=== PATIENT | male | born 1945 | race Caucasian/White ===

== ENCOUNTER 2016-03-03 19:25 | Outpatient (CLI) | payer MEDICARE ==
[~2016-03-03 19:25] MED LIST: ASP81CT PO; ATOR40TA PO; BENA5TAB PO; FEXO180T84 PO; HCTZ12.5T PO; HYDR-3730 PO; HYDR12.56 PO; INSA10V SC; METF-380 PO; METO25TA2 PO; MTF500T PO; MULT-963 PO; NAPR220C11 PO; OMEG-12 PO; OXYC-12 PO; TICA90TA PO
== END 2016-03-04 06:50 | disposition home or self-care (01) ==
LOC: SLEEP 19:25
PROVIDERS: ATTEND Internal Medicine Critical Care Medicine
DX: G47.33 Obstructive sleep apnea (adult) (pediatric) (principal)
CPT/HCPCS: 95811

== ENCOUNTER → 2017-02-17 | Outpatient (CLI) | payer MEDICARE | LOC: CARD 11:24 | PROVIDERS: ATTEND Internal Medicine Cardiovascular Disease | DX: I25.10 Atherosclerotic heart disease of native coronary artery without angina pectoris (principal); I10 Essential (primary) hypertension; E78.2 Mixed hyperlipidemia; R09.89 Other specified symptoms and signs involving the circulatory and respiratory systems | CPT/HCPCS: 93306 ==

== ENCOUNTER → 2017-02-25 | Outpatient (CLI) | payer MEDICARE ==
[~2017-02-25] VITALS: Ht 167.6 cm; Wt 77.1 kg
[~2017-02-25] MED LIST changes: +CATHETER FLUSH 10 ML SYR IV PRN
[2017-02-25 12:58] VITALS: BP 162/59
--- NOTE | 2017-02-25 22:27 | STRESS TEST ---
DATE OF SERVICE: 02/25/2017 EXERCISE MYOVIEW STRESS TEST REPORT Baseline heart rate is 69, baseline blood pressure 162/59. Baseline EKG is sinus rhythm with no ischemic changes. SUMMARY: The patient was injected with 10.48 mCi of technetium-99 Myoview and the resting images were obtained. Then the patient started exercising with a baseline heart rate, blood pressure and EKG mentioned above. At peak stress level, the patient was injected with 29.8 mCi of technetium-99 Myoview. The patient was able to exercise for a total of 4 minutes on standard Moisés protocol, achieving maximum heart rate of 135, which is 91% of maximum expected heart rate. With peak exercise level, blood pressure was 218/75. During recovery, heart rate and blood pressure returned to baseline. EKG at peak exercise level was showing nondiagnostic changes returned to baseline during recovery. The resting and stress images were reviewed and compared in the short axis, horizontal long axis and vertical long axis views. Review of the images showed diaphragmatic attenuation with typical male pattern. No significant ischemia or infarction. SSS is 0. TID value 0.95. On the gated images, the left ventricle appeared to be in normal size with normal contractility. Calculated ejection fraction 66%. CONCLUSION: 1. Fair exercise tolerance, a total of 4 minutes on standard Moisés protocol, total of 5.8 METS achieving 91% of maximum expected heart rate. 2. Hypertensive response to exercise returned to baseline during recovery. 3. Minimal nondiagnostic EKG changes with exercise returned to baseline during recovery. 4. No ischemia or infarction on SPECT images. 5. Normal left ventricular size with normal contractility. Calculated ejection fraction 66%. Job ID: [id number] DocumentID: [id number] Dictated Date: 02/25/2017 15:08:01 Drafter Commercial Date: 02/25/2017 19:47:55 Dictated By: ANDREINA LARA MD
== END ==
LOC: CARD 11:06
PROVIDERS: ATTEND Internal Medicine Cardiovascular Disease
DX: I25.10 Atherosclerotic heart disease of native coronary artery without angina pectoris (principal); I10 Essential (primary) hypertension; E78.2 Mixed hyperlipidemia; R09.89 Other specified symptoms and signs involving the circulatory and respiratory systems
CPT/HCPCS: 78452; 93017

== ENCOUNTER 2018-03-24 13:31 | Inpatient (IN) | payer MEDICARE ==
[~2018-03-24] VITALS: Ht 167.6 cm; Wt 71.5 kg
[2018-03-24] VITALS (14 sets, daily range): BP systolic 108–152; BP diastolic 51–71
[~2018-03-24 13:31] MED LIST changes: -AMLO10TA7 PO; -ASPI-983 PO; -ATOR20TA66 PO; -BENA20TA7 PO; -CATHETER FLUSH 10 ML SYR IV PRN; -HYDR12.5 PO; -INSU100I13 SQ; -IOHEXOL 350 MG/ML 150 ML (OMNIPAQUE 350) VIAL IV ONE; -LORA10TA76 PO; -METF-397 PO; -METO-333 PO; -MULT1TAB69 PO; -NS 100 ML (IVPB) BAG IV ONE; -OMG1KC PO; -RECEIVED CONTRAST (Hold Metformin) IV SCH
[2018-03-24] MEDS ORDERED: MIDAZOLAM 5 MG/5 ML (VERSED) VIAL IJ ONE (13:32)
[2018-03-24] MEDS ORDERED: LIDOCAINE PF 1% 2 ML AMP IJ ONE (13:32)
[2018-03-24] MEDS ORDERED: fentaNYL INJECTION 100 MCG/2 ML AMP INJ ONE (13:32)
[2018-03-24] MEDS ORDERED: CATHETER FLUSH 10 ML SYR IV PRN (14:00)
[2018-03-24] MEDS ORDERED: PIPERACILLIN/TAZO 4.5 GM/NS 100 ML IV NR ×2 (14:30)
--- OUTSIDE RECORDS SUMMARY | 2018-03-24 14:31 | XMS REPORT | Continuity of Care Document ---
Author Author [facility] Organization [facility] Address Unknown Phone Unavailable Allergies Active Description Code Type Severity Reaction Onset Reported/Identified Relationship to Patient Clinical Status Yes adhesive [id number] Drug Allergy Unknown TEARS SKIN OFF 2014 Yes EGGS EGGS Unknown FRIED EGGS CAUS 2014 Medications There is no data. Problems Date Dx Coded Attending Type Code Diagnosis Diagnosed By 04/07/2012 Ot 250.00 DIAB ANITRA WO COMPL, TYPE II OR UNSPEC TY 04/07/2012 Ot 272.4 HYPERLIPIDEMIA NEC/NOS 04/07/2012 Ot 401.9 HYPERTENSION NOS 04/07/2012 Ot 410.11 AC MYOCARD INFARC OTH ANTER WALL,INIT EP 04/07/2012 Ot 414.01 CORONARY ATHEROSCLEROSIS OF [place] CORON 04/07/2012 Ot 715.90 OSTEOARTHROS NOS-UNSPEC 04/07/2012 Ot V58.67 LONG-TERM ( CURRENT) USE OF INSULIN 06/25/2012 BEN ALBERTO, IRVIN Ot V45.82 PERCUTANEOUS TRANSLUM CORON ANGIOPLASTY 06/25/2012 BEN ALBERTO, IRVIN Ot V57.89 REHABILITATION PROC NEC 01/03/2014 DARNELL ALBERTO, KOREY Cope Ot 715.31 01/03/2014 DARNELL ALBERTO, KOREY Cope Ot 840.3 01/03/2014 DARNELL ALBERTO, KOREY Cope Ot 840.6 01/03/2014 DARNELL ALBERTO, KOREY Cope Ot E000.8 01/03/2014 DARNELL ALBERTO, KOREY Cope Ot E016.9 01/03/2014 DARNELL ALBERTO, KOREY Cope Ot E849.0 01/03/2014 DARNELL ALBERTO, KOREY Cope Ot E928.9 01/18/2014 JANE ALBERTO, ANDREINA Franks Ot 401.9 01/18/2014 JANE ALBERTO, ANDREINA Franks Ot 414.00 01/18/2014 JANE ALBERTO, ANDREINA Franks Ot 401.9 01/18/2014 ANDREINA LARA MD Ot 414.00 01/18/2014 DARNELL ALBERTO, KOREY P Ot 715.31 01/18/2014 DARNELL ALBERTO, KOREY P Ot 840.3 01/18/2014 DARNELL ALBERTO, KOREY P Ot 840.6 01/18/2014 DARNELL ALBERTO, KOREY P Ot E000.8 01/18/2014 DARNELL ALBERTO, KOREY P Ot E016.9 01/18/2014 DARNELL ALBERTO, KOREY P Ot E849.0 01/18/2014 DARNELL ALBERTO, KOREY P Ot E928.9 01/18/2014 DARNELL ALBERTO, KOREY P Ot 727.61 01/18/2014 DARNELL ALBERTO, KOREY P Ot V72.63 01/18/2014 DARNELL ALBERTO, KOREY P Ot V74.8 01/19/2014 DARNELL ALBERTO, KOREY P Ot 250.00 01/19/2014 DARNELL ALBERTO, KOREY P Ot 414.01 01/19/2014 DARNELL ALBERTO, KOREY P Ot 840.4 01/19/2014 DARNELL ALBERTO, KOREY P Ot E000.8 01/19/2014 DARNELL ALBERTO, KOREY P Ot E927.0 01/19/2014 DARNELL ALBERTO, KOREY P Ot 250.00 01/19/2014 DARNELL ALBERTO, KOREY P Ot 414.01 01/19/2014 DARNELL ALBERTO, KOREY P Ot 840.4 01/19/2014 DARNELL ALBERTO, KOREY P Ot E000.8 01/19/2014 DARNELL ALBERTO, KOREY P Ot E927.0 01/23/2014 DARNELL ALBERTO, KOREY P Ot 727.61 01/23/2014 DARNELL ALBERTO, KOREY P Ot V72.63 01/23/2014 DARNELL ALBERTO, KOREY P Ot V74.8 01/30/2014 DARNELL ALBERTO, KOREY P Ot 727.61 01/30/2014 DARNELL ALBERTO, KOREY P Ot V72.63 01/30/2014 DARNELL ALBERTO, KOREY P Ot V74.8 02/06/2014 DARNELL ALBERTO, KOREY P Ot 250.00 02/06/2014 DARNELL ALBERTO, KOREY P Ot 414.01 02/06/2014 DARNELL ALBERTO, KOREY P Ot 840.4 02/06/2014 DARNELL ALBERTO, KOREY P Ot E000.8 02/06/2014 DARNELL ALBERTO, KOREY P Ot E927.0 11/28/2014 JANE ALBERTO, ANDREINA Franks Ot E78.2 11/28/2014 JANE ALBERTO, ANDREINA Franks Ot F17.200 11/28/2014 JANE ALBERTO, ANDREINA J Ot I10 11/28/2014 JANE ALBERTO, ANDREINA Franks Ot I25.10 11/29/2014 JANE ALBERTO, ANDREINA J Ot 401.9 11/29/2014 JANE ALBERTO, ANDREINA J Ot 414.00 11/29/2014 JANE ALBERTO, ANDREINA Franks Ot 401.9 11/29/2014 JANE ALBERTO, ANDREINA Franks Ot 414.00 11/29/2014 DARNELL ALBERTO, KOREY P Ot 715.31 11/29/2014 DARNELL ALBERTO, KOREY P Ot 840.3 11/29/2014 DARNELL ALBERTO, KOREY P Ot 840.6 11/29/2014 DARNELL ALBERTO, KOREY P Ot E000.8 11/29/2014 DARNELL ALBERTO, KOREY P Ot E016.9 11/29/2014 DARNELL ALBERTO, KOREY P Ot E849.0 11/29/2014 DARNELL ALBERTO, KOREY P Ot E928.9 11/29/2014 DARNELL ALBERTO, KOREY P Ot 250.00 11/29/2014 DARNELL ALBERTO, KOREY P Ot 414.01 11/29/2014 DARNELL ALBERTO, KOREY P Ot 840.4 11/29/2014 DARNELL ALBERTO, KOREY P Ot E000.8 11/29/2014 DARNELL ALBERTO, KOREY P Ot E927.0 11/29/2014 DARNELL ALBERTO, KOREY P Ot 727.61 11/29/2014 DARNELL ALBERTO, KOREY P Ot V72.63 11/29/2014 DARNELL ALBERTO, KOREY P Ot V74.8 12/13/2014 JANE ALBERTO, ANDREINA Franks Ot E78.5 12/13/2014 JANE ALBERTO, ANDREINA Franks Ot F17.220 12/13/2014 JANE ALBERTO, ANDREINA Franks Ot I10 12/13/2014 JANE ALBERTO, ANDREINA Franks Ot I25.10 12/26/2014 BRETT HUGHES MD, Ot C44.320 SQUAMOUS CELL CARCINOMA OF SKIN OF [place] 12/26/2014 BRETT HUGHES MD, Ot Z79.899 OTHER AQUATICS COORDINATOR (CURRENT) DRUG THERAPY 2015 ANDREINA LARA MD Ot E78.5 2015 ANDREINA LARA MD Ot F17.220 2015 ANDREINA LARA MD Ot I10 2015 ANDREINA LARA MD Ot I25.10 2015 BRETT HUGHES MD Ot C44.329 2015 BRETT HUGHES MD Ot Z01.812 2015 BRETT HUGHES MD Ot Z11.2 02/26/2016 ANDREINA LARA MD Ot 401.9 HYPERTENSION NOS 02/26/2016 ANDREINA LARA MD Ot 414.00 CORON ATHEROSCLER NOS TYPE VESSEL, NATIV 02/26/2016 ANDREINA LARA MD Ot 401.9 HYPERTENSION NOS 02/26/2016 ANDREINA LARA MD Ot 414.00 CORON ATHEROSCLER NOS TYPE VESSEL, NATIV 02/26/2016 KOREY PATRICK MD Ot 715.31 LOC OSTEOARTH NOS-SHLDER 02/26/2016 KOREY PATRICK MD Ot 840.3 SPRAIN INFRASPINATUS 02/26/2016 KOREY PATRICK MD Ot 840.6 SPRAIN SUPRASPINATUS 02/26/2016 KOREY PATRICK MD Ot E000.8 OTHER EXTERNAL CAUSE STATUS 02/26/2016 KOREY PATRICK MD Ot E016.9 OT ACT INVG PROPERTY LAND MAINT,BUILD 02/26/2016 KOREY PATRICK MD Ot E849.0 ACCIDENT IN HOME 02/26/2016 KOREY PATRICK MD Ot E928.9 ACCIDENT NOS 02/26/2016 KOREY PATRICK MD Ot 250.00 DIAB ANITRA WO COMPL, TYPE II OR UNSPEC TY 02/26/2016 KOREY PATRICK MD Ot 414.01 CORONARY ATHEROSCLEROSIS OF [place] CORON 02/26/2016 KOREY PATRICK MD Ot 840.4 SPRAIN ROTATOR CUFF 02/26/2016 KOREY PATRICK MD Ot E000.8 OTHER EXTERNAL CAUSE STATUS 02/26/2016 KOREY PATRICK MD Ot E927.0 OVEREXERTION FROM SUDDEN STRENUOUS MOVEM 02/26/2016 KOREY PATRICK MD Ot 727.61 ROTATOR CUFF RUPTURE 02/26/2016 KOREY PATRICK MD Ot V72.63 PRE-PROCEDURAL LABORATORY EXAMINATION 02/26/2016 KOREY PATRICK MD Ot V74.8 SCREEN-BACTERIAL DIS NEC 02/26/2016 ANDREINA LARA MD Ot E78.5 HYPERLIPIDEMIA, UNSPECIFIED 02/26/2016 ANDREINA LARA MD Ot F17.220 NICOTINE DEPENDENCE, CHEWING TOBACCO, UN 02/26/2016 ANDREINA LARA MD Ot I10 ESSENTIAL (PRIMARY) HYPERTENSION 02/26/2016 ANDREINA LARA MD Ot I25.10 ATHSCL HEART DISEASE OF [place] CORONARY 02/26/2016 JON WILLIAM DO Ot G47.33 OBSTRUCTIVE SLEEP APNEA (ADULT) (PEDIATR 03/03/2016 STEWATRJON TODD DO Ot G47.33 OBSTRUCTIVE SLEEP APNEA (ADULT) (PEDIATR 03/04/2016 STEWARTJON TODD DO Ot G47.33 OBSTRUCTIVE SLEEP APNEA (ADULT) (PEDIATR 03/04/2016 STEWARTJON TODD DO Ot G47.33 OBSTRUCTIVE SLEEP APNEA (ADULT) (PEDIATR 02/18/2017 ANDREINA LARA MD Ot E78.2 MIXED HYPERLIPIDEMIA 02/18/2017 ANDREINA LARA MD Ot I10 ESSENTIAL (PRIMARY) HYPERTENSION 02/18/2017 ANDREINA LARA MD Ot I25.10 ATHSCL HEART DISEASE OF [place] CORONARY 02/18/2017 ANDREINA LARA MD Ot R09.89 OTH SYMPTOMS AND SIGNS INVOLVING THE CIR 02/23/2017 ANDREINA LARA MD Ot E78.2 MIXED HYPERLIPIDEMIA 02/23/2017 ANDREINA LARA MD Ot I10 ESSENTIAL (PRIMARY) HYPERTENSION 02/23/2017 ANDREINA LARA MD Ot I25.10 ATHSCL HEART DISEASE OF [place] CORONARY 02/23/2017 ANDREINA LARA MD Ot R09.89 OTH SYMPTOMS AND SIGNS INVOLVING THE CIR 02/26/2017 ANDREINA LARA MD Ot E78.2 MIXED HYPERLIPIDEMIA 02/26/2017 ANDREINA LARA MD Ot I10 ESSENTIAL (PRIMARY) HYPERTENSION 02/26/2017 ANDREINA LARA MD Ot I25.10 ATHSCL HEART DISEASE OF [place] CORONARY 02/26/2017 ANDREINA LARA MD Ot R09.89 OTH SYMPTOMS AND SIGNS INVOLVING THE CIR 03/11/2017 ANDREINA LARA MD, Ot E78.2 MIXED HYPERLIPIDEMIA 03/11/2017 ANDREINA LARA MD Ot I10 ESSENTIAL (PRIMARY) HYPERTENSION 03/11/2017 ANDREINA LARA MD Ot I25.10 ATHSCL HEART DISEASE OF [place] CORONARY 03/11/2017 ANDREINA LARA MD Ot R09.89 OTH SYMPTOMS AND SIGNS INVOLVING THE CIR 03/18/2017 ANDREINA LARA MD, Ot E78.2 MIXED HYPERLIPIDEMIA 03/18/2017 ANDREINA LARA MD Ot I10 ESSENTIAL (PRIMARY) HYPERTENSION 03/18/2017 ANDREINA LARA MD, Ot I25.10 ATHSCL HEART DISEASE OF [place] CORONARY 03/18/2017 ANDREINA LARA MD, Ot R09.89 OTH SYMPTOMS AND SIGNS INVOLVING THE CIR Procedures Code Description Performed By Performed On 00.40 PROCEDURE ON SINGLE VESSEL 04/03/2012 00.45 INSERTION OF ONE VASCULAR STENT 04/03/2012 00.66 PERCUTANEOUS TRANSLUMINAL CORONARY ANGIO 04/03/2012 36.07 INSRT OF DRUG-ELUTING CORON ARTERY STENT 04/03/2012 37.22 LEFT HEART CARDIAC CATH 04/03/2012 88.53 LT HEART ANGIOCARDIOGRAM 04/03/2012 88.56 CORONAR ARTERIOGR-2 CATH 04/03/2012 00.40 PROCEDURE ON SINGLE VESSEL 04/06/2012 00.45 INSERTION OF ONE VASCULAR STENT 04/06/2012 00.66 PERCUTANEOUS TRANSLUMINAL CORONARY ANGIO 04/06/2012 36.07 INSRT OF DRUG-EL[place] CORON ARTERY STENT 04/06/2012 Results Test Result Range Arterial blood gas measurement - 03/24/18 11:50 Blood pCO2 37 mm[Hg] 35-45 Blood pO2 85 mm[Hg] 79-93 Arterial blood bicarbonate measurement (moles/volume) 21 mmol/L 23-27 Arterial blood base excess by calculation -3.1 mmol/L - 2.5-2.5 Arterial blood oxygen saturation measurement 95 % 94-100 * Inhaled oxygen flow rate 2L NRG Arterial blood pH measurement with patient temperature correction 7.38 7.37-7.43 Arterial blood carbon dioxide, total measurement (moles/volume) 22.3 mmol/L 21.0-31.0 Body site R RAD NRG Assessment of wrist artery patency prior to arterial puncture YES- POS NRG Setting of ventilation mode NO NRG Measurement of body temperature 98.8 NRG Encounters ACCT No. Visit Date/Time Discharge Status Pt. Type Provider Facility Loc./Unit Complaint [id number] 03/16/2018 08:07:00 03/16/2018 23:59:59 CLS Preadmit DOROTEO BARTON [facility] CARD CAD,HTN [id number] 03/16/2018 08:05:00 03/16/2018 23:59:59 CLS Preadmit DOROTEO BARTON [facility] CARD CAD,HTN [id number] 02/25/2017 11:06:00 02/25/2017 23:59:59 CLS Outpatient ANDREINA LARA MD [facility] CARD I25.10 CAD [id number] 02/17/2017 11:24:00 02/17/2017 23:59:59 CLS Outpatient ANDREINA LARA MD [facility] CARD I25.10 CAD [id number] 03/03/2016 19:25:00 03/04/2016 06:50:00 DIS Outpatient JON WILLIAM DO [facility] SLEEP OBSTRUCTIVE SLEEP APNEA [id number] 12/26/2014 11:19:00 12/26/2014 16:10:00 DIS Outpatient BRETT HUGHES MD [facility] SDC SQUAMOUS CELL CARCINOMA LEFT UPPER FOREHEAD [id number] 12/22/2014 09:43:00 12/22/2014 23:59:59 CLS Outpatient BRETT HUGHES MD [facility] PREOP [id number] 11/29/2014 11:52:00 11/29/2014 23:59:59 CLS Outpatient ANDREINA LARA MD [facility] CARD CAD, HTN, HLD, TOBACCO USE [id number] 11/13/2014 07:53:00 11/13/2014 23:59:59 CLS Outpatient ANDREINA LARA MD [facility] CARD [id number] 01/18/2014 08:20:00 01/18/2014 23:59:59 CLS Outpatient KOREY PATRICK MD [facility] SDC LEFT SHOULDER ROTATOR CUFF TEAR [id number] 2014 07:35:00 2014 23:59:59 CLS Outpatient KOREY PATRICK MD [facility] PREOP LEFT SHOULDER ROTATOR CUFF TEAR [id number] 12/20/2013 10:10:00 12/20/2013 23:59:59 CLS Outpatient KOREY PATRICK MD [facility] RAD LEFT SHOULDER RTC [id number] 10/27/2012 07:43:00 10/27/2012 23:59:59 CLS Outpatient ANDREINA LARA MD [facility] RAD CAD,HTN [id number] 10/19/2012 07:19:00 10/19/2012 23:59:59 CLS Outpatient ANDREINA LARA MD [facility] CARD CAD,HTN [id number] 06/25/2012 10:59:00 06/25/2012 11:57:00 DIS Outpatient IRVIN CONTRERAS MD [facility] CR STABLE ANGINA [id number], STENT [id number] 03/24/2018 13:31:00 ACT Inpatient ZORAN ALBERTO, DHRUV Mccann [facility] ICU PNUEMONIA, RULE OUT SEPSIS [id number] 03/24/2018 11:04:00 ACT Outpatient JENNA WHITING APRN [facility] RAD VERO [id number] 04/03/2012 13:30:00 Document Registration [id number] 11/13/2014 07:55:16 ACT Document Registration
[2018-03-24 15:11] LABS: BASOPHILS # (AUTO) 0.1 10^3/uL (0.0-0.1); BASOPHILS % (AUTO) 1 % (0-10); EOSINOPHILS # (AUTO) 0.1 10^3/uL (0.0-0.3); EOSINOPHILS % (AUTO) 1 % (0-10); HEMATOCRIT 35 % (40-54); HEMOGLOBIN 11.9 G/DL (13.3-17.7); LYMPHOCYTES # (AUTO) 2.2 X 10^3 (1.0-4.0); LYMPHOCYTES % (AUTO) 16 % (12-44); MEAN CORPUSCULAR HEMOGLOBIN 31 PG (25-34); MEAN CORPUSCULAR HGB CONC 34 G/DL (32-36); MEAN CORPUSCULAR VOLUME 92 FL (80-99); MEAN PLATELET VOLUME 8.3 FL (7.4-10.4); MONOCYTES # (AUTO) 0.5 X 10^3 (0.0-1.0); MONOCYTES % (AUTO) 4 % (0-12); NEUTROPHILS # (AUTO) 11.4 X 10^3 (1.8-7.8); NEUTROPHILS % (AUTO) 80 % (42-75); PLATELET COUNT 512 10^3/uL (130-400); WHITE BLOOD COUNT 14.3 10^3/uL (4.3-11.0)
--- NOTE | 2018-03-24 15:22 | Diagnostic Imaging Report ---
INDICATION: Pneumonia. EXAMINATION: Portable erect AP chest at 2:59 p.m. FINDINGS: In the interval since the prior exam of 04/05/2012, diffuse alveolar/interstitial pulmonary infiltrates have developed in both lungs, particularly in the left lung. These findings are most likely due to pneumonia/atelectasis. The heart size is not enlarged and stable when compared to the prior exam. Consequently, it is unlikely that the alveolar/interstitial infiltrates are secondary to pulmonary edema. Even so, clinical followup is recommended. There is no pleural effusion identified. The mediastinum is not widened The osseous structures are intact. In the interval since the prior exam, the patient has undergone a surgical procedure and there are now two surgical screws overlying the left humeral head. IMPRESSION: The appearance of the chest has worsened since the prior study as diffuse alveolar/interstitial pulmonary infiltrates have developed in both lungs, particularly the left lung. A followup study would be recommended for continued evaluation. Dictated by: Dictated on workstation # [id number]
[2018-03-24 15:32] LABS: ALBUMIN 3.7 GM/DL (3.2-4.5); BILIRUBIN,TOTAL 0.6 MG/DL (0.1-1.0); CALCIUM 9.4 MG/DL (8.5-10.1); CREATININE SERUM 1.32 MG/DL (0.60-1.30); MAGNESIUM 1.8 MG/DL (1.8-2.4); PHOSPHORUS 3.9 MG/DL (2.3-4.7); POTASSIUM 5.4 MMOL/L (3.6-5.0); TOTAL PROTEIN 7.4 GM/DL (6.4-8.2)
--- NOTE | 2018-03-24 15:43 | History & Physical-Hospitalist ---
History of Present Illness HPI/Chief Complaint Pt is 73yoCM with a PMH of CAD s/p stenting, IDDMII, VERO who was direct admitted from Dr Burrows's office for pneumonia. He states she the past week or so he has been has some chest tightness and noticed it more with exertion ( bowling). He was seen by his PCP who referred him to Dr Pizarro. Per patient EKG showed no changes and he was set up for an outpatient stress test. He continued to have some chest tightness and his states for the past month he's had more shallow breathing. He was seen by Dr Burrows today for regular follow up for his VERO and CPAP and was found to be hypoxic and mildly hypotensive on arrival. He was sent for outpatient labs and CTA which revealed bilateral pneumonia and a leukocytosis. He was direct admitted for further management. Source: patient Date Seen 03/24/18 Time Seen by a Provider: 15:38 Attending Physician Dhruv Queen MD PCP Kishan Lu MD Referring Physician Date of Admission Mar 24, 2018 at 13:31 Home Medications & Allergies Home Medications Reviewed patient Home Medication Reconciliation performed by pharmacy medication reconciliations vocational rehabilitation technician and/or nursing. Patients Allergies have been reviewed. Allergies Allergies Coded Allergies adhesive (Unverified Allergy, Unknown, TEARS SKIN OFF, 01/12/14) Uncoded Allergies EGGS ( Adverse Reaction, Unknown, FRIED EGGS CAUSE GAS. CAN EAT HARD BOILED EGGS FINE, 01/12/14) Past Spurlen-Mwgwea-Hvxihk Hx Past Med/Social Hx: Reviewed Nursing Past Med/Soc Hx Patient Social History Marrital Status: Employed/Student: retired Smoking Status: Former Smoker (quit smoking 1977, quit chewing in 02/2018) Type Used: Cigarettes Immunizations Up To Date Date of Pneumonia Vaccine: Nov 21, 2014 Date of Influenza Vaccine: Nov 21, 2014 Past Medical History Surgeries: Coronary Stent, Gallbladder, Orthopedic VERO Cardiac: Coronary Artery Disease, High Cholesterol, Hypertension Reproductive: No Sexually Transmitted Disease: No HIV/AIDS: No Gastrointestinal: Gall Bladder Disease Endocrine: Diabetes, Insulin dep Loss of Vision: Bilateral Hearing Impairment: Denies Cancer: Skin What Type of Treatment Did You: Surgical Intervention Adverse Reaction to Blood Pablo: No Family History Reviewed Nursing Family Hx Heart Disease Review of Systems Constitutional: No chills, No fever, No weakness EENTM: No hoarseness, No mouth pain, No nose congestion Respiratory: see HPI; No cough, No phlegm; short of breath Cardiovascular: No edema; Hx of Intervention, other (chest tightness) All Other Systems Reviewed Negative Unless Noted: Yes (Negative excepted noted.) Physical Exam Physical Exam Vital Signs Vital Signs - First Documented 03/24/18 14:02 Pulse 75 Capillary Refill : Height, Weight, BMI Height: 5'6.00" Weight: 170lbs. 0.0oz. 77.785027qo; 27.4 BMI Method: General Appearance: No Apparent Distress, WD/WN HEENT: PERRL/EOMI, Moist Mucous Membranes; No Scleral Icterus (L), No Scleral Icterus (R) Neck: Full Range of Motion, Normal Inspection, Supple Respiratory: No Accessory Muscle Use, No Respiratory Distress, Crackles ( bilateral bases); No Wheezing Cardiovascular: Regular Rate, Rhythm, No JVD, No Murmur Gastrointestinal: Normal Bowel Sounds, Non Tender, Soft Extremity: No Calf Tenderness, No Pedal Edema Neurologic/Psychiatric: Alert, Oriented x3, No Motor/Sensory Deficits, Normal Mood/Affect Skin: Normal Color, Warm/Dry Results Results/Procedures Labs Laboratory Tests 03/24/18 14:45 Patient resulted labs reviewed. Imaging: Reviewed Imaging Report Imaging Date of Exam:03/24/18 CHEST 1 VIEW, AP/PA ONLY INDICATION: Pneumonia. EXAMINATION: Portable erect AP chest at 2:59 p.m. FINDINGS: In the interval since the prior exam of 04/05/2012, diffuse alveolar/interstitial pulmonary infiltrates have developed in both lungs, particularly in the left lung. These findings are most likely due to pneumonia/atelectasis. The heart size is not enlarged and stable when compared to the prior exam. Consequently, it is unlikely that the alveolar/interstitial infiltrates are secondary to pulmonary edema. Even so, clinical followup is recommended. There is no pleural effusion identified. The mediastinum is not widened The osseous structures are intact. In the interval since the prior exam, the patient has undergone a surgical procedure and there are now two surgical screws overlying the left humeral head. IMPRESSION: The appearance of the chest has worsened since the prior study as diffuse alveolar/interstitial pulmonary infiltrates have developed in both lungs, particularly the left lung. A followup study would be recommended for continued evaluation. Assessment/Plan Admission Diagnosis CAP Admission Status: Inpatient Order (span 2 midnights) Reason for Inpatient Admission: Needs IV abx, hypoxic Diagnosis/Problems Diagnosis/Problems (1) Pneumonia Status: Acute Assessment & Plan: Diffuse bilateral pneumonia Does not meet sepsis criteria (only leukocytosis) Oxygen to keep stats >90 Dr Burrows consulted, appreciate recs Qualifiers: Pneumonia type: due to unspecified organism Laterality: bilateral Lung location: lower lobe of lung Qualified Codes: J18.1 - Lobar pneumonia, unspecified organism (2) Insulin dependent diabetes mellitus Assessment & Plan: Continue home insulin SSI (3) Essential (primary) hypertension Assessment & Plan: Was mildly hypotensive in Dr Burrows's office Hold home meds and trend (4) CAD (coronary artery disease) Status: Chronic Assessment & Plan: Cardiology consulted, appreciate recs Will check troponin Monitor on telemetry Qualifiers: Coronary Disease-Associated Artery/Lesion type: [place] artery [place] vs. transplanted heart: [place] heart Associated angina: without angina Qualified Codes: I25.10 - Atherosclerotic heart disease of [place] coronary artery without angina pectoris DHRUV QUEEN MD Mar 24, 2018 15:43
[2018-03-24] MEDS ORDERED: ASPI-983 PO (15:45)
[2018-03-24] MEDS ORDERED: HYDR12.5 PO (15:45)
[2018-03-24] MEDS ORDERED: METF-397 PO ×2 (15:45)
[2018-03-24] MEDS ORDERED: AMLO10TA7 PO (15:45)
[2018-03-24] MEDS ORDERED: METO-333 PO (15:45)
[2018-03-24] MEDS ORDERED: INSU100I13 SQ (15:45)
[2018-03-24] MEDS ORDERED: OMG1KC PO (15:45)
[2018-03-24] MEDS ORDERED: BENA20TA7 PO (15:45)
[2018-03-24] MEDS ORDERED: ATOR20TA66 PO (15:45)
[2018-03-24] MEDS ORDERED: LORA10TA76 PO (15:45)
[2018-03-24] MEDS ORDERED: MULT1TAB69 PO (15:45)
[2018-03-24] MEDS: ENOXAPARIN 40 MG/0.4 ML (LOVENOX) SYR SC SCH (16:00)
[2018-03-24] MEDS: FAMOTIDINE 20 MG (PEPCID) TABLET PO SCH (16:00)
[2018-03-24] MEDS: methylPREDNISolone 40 MG/ML (Solu-MEDROL) VIAL IV SCH ×2 (16:01→20:01)
[2018-03-24] MEDS: NS IV 1000 ML 1,000 ML IV SCH ×2 (16:01→20:46)
[2018-03-24] MEDS: RT-ALBUTEROL/IPRATROPIUM 3 ML (DUONEB) VIAL IH SCH ×2 (16:15→22:31)
--- NOTE | 2018-03-24 16:15 | NUR ---
PATIENTS HAD A LIST OF MEDICATIONS. WE WENT OVER THAT LIST AND THEY VERIFIED HOW HE TAKES THEM EACH DAY. I CALLED [facility] AND VERIFIED THE STRENGTHS AND DIRECTIONS OF THE PRESCRIPTION MEDICATIONS THEY REPORTED. THEY ALSO STATE HE TAKES THE FOLLOWING OTC: ASPIRIN 81MG DAILY FISH OIL DAILY MTV DAILY CLARITIN DAILY
[2018-03-24 16:23] LABS: BILIRUBIN,URINE NEGATIVE (NEGATIVE); CLARITY,URINE CLEAR; COLOR,URINE YELLOW; GLUCOSE, URINE (UA) NEGATIVE (NEGATIVE); KETONES,URINE NEGATIVE (NEGATIVE); LEUKOCYTE ESTERASE ,URINE NEGATIVE (NEGATIVE); NITRITE,URINE NEGATIVE (NEGATIVE); PH,URINE 5 (5-9); PROTEIN,URINE 1+ (NEGATIVE); UROBILINOGEN,URINE NORMAL (NORMAL)
[2018-03-24 16:35] LABS: SQUAMOUS EPITHELIAL CELL,UR 0-2 /HPF
--- NOTE | 2018-03-24 16:57 | NUR ---
CR 1.32; CR CL ~44; WT 77.1 KG; VANCO 1500 MG IV BOLUS THEN 1250 MG IV Q24H; TROUGH AFTER 2ND DOSE
[2018-03-24] MEDS ORDERED: VANCOMYCIN 1500 MG/NS 500 ML IVPB IV SCH ×2 (17:00)
[2018-03-24] MEDS: PIPERACILLIN/TAZO 4.5 GM/NS 100 ML IV SCH ×2 (20:04)
[2018-03-24] MEDS: inSUlin ASPART (NovoLOG) 1 UNIT/0.01 ML (CHARGE PER UNIT) SC SCH (20:09)
[2018-03-25] VITALS (26 sets, daily range): BP systolic 76–142; BP diastolic 34–101
[2018-03-25] MEDS: RT-ALBUTEROL/IPRATROPIUM 3 ML (DUONEB) VIAL IH SCH ×7 (01:25→21:16)
[2018-03-25] MEDS: NS IV 1000 ML 1,000 ML IV SCH ×2 (02:00→08:38)
[2018-03-25] MEDS: methylPREDNISolone 40 MG/ML (Solu-MEDROL) VIAL IV SCH ×2 (04:37→07:46)
[2018-03-25] MEDS: PIPERACILLIN/TAZO 4.5 GM/NS 100 ML IV SCH ×6 (04:40→21:59)
--- NOTE | 2018-03-25 06:21 | Pulmonary Consultation ---
History of Present Illness History of Present Illness Date of Consultation 03/25/18 06:13 Time Seen by Provider: 06:13 Date of Admission History of Present Illness 73 with hx of IDDM, CAD, VERO and was directly admitted from my office secondary to pneumonia. Over the last week he has had worsening SOB, dysphagia, and chest tightness. Pt does not normally use oxygen and has not been dx with COPD however he was found to be hypoxic in my office. Stat CT scan prior to admission shows extensive bilateral infiltrates and CBC shows leukocytosis. He has not had any prior episodes like this. Allergies and Home Medications Allergies Coded Allergies: adhesive (Unverified Allergy, Unknown, TEARS SKIN OFF, 01/12/14) Home Medications Amlodipine Besylate 10 Mg Tablet, 10 MG PO DAILY, (Reported) Aspirin 81 Mg Tablet.dr, 81 MG PO DAILY, (Reported) Atorvastatin Calcium 20 Mg Tablet, 20 MG PO 1730, (Reported) Benazepril HCl 20 Mg Tablet, 20 MG PO DAILY, (Reported) Hydrochlorothiazide 12.5 Mg Capsule, 12.5 MG PO DAILY, (Reported) Insuln Asp Prt/Insulin Aspart 300 Units/3 Ml Solution, 12 UNITS SQ 0800,1730, ( Reported) Loratadine 10 Mg Tablet, 10 MG PO DAILY, (Reported) Metformin HCl 500 Mg Tablet, 1,000 MG PO DAILY, (Reported) TAKES 2 (500MG) TABLETS Metformin HCl 500 Mg Tablet, 500 MG PO 1730, (Reported) Metoprolol Tartrate 25 Mg Tablet, 25 MG PO 0800,1730, (Reported) Multivitamin 1 Each Tablet, 1 TAB PO DAILY, (Reported) [place] 3 Polyunsat Fatty Acids 1,000 Mg Cap, 1,000 MG PO DAILY, (Reported) Past Uoltjso-Edvqil-Qgerbk Hx Past Med/Social Hx: Reviewed Nursing Past Med/Soc Hx Patient Social History Alcohol Use: Denies Use Recreational Drug Use: No Smoking Status: Former Smoker (quit smoking 1977, quit chewing in 02/2018) Type Used: Cigarettes Recent Hopitalizations: No Immunizations Up To Date Date of Pneumonia Vaccine: Nov 21, 2014 Date of Influenza Vaccine: Nov 21, 2017 Seasonal Allergies Seasonal Allergies: Yes Past Medical History Surgeries: Yes (TENDON REPAIR RIGHT ARM, LEFT KNEE SCOPE, ROTATOR CUFF REPAIR) Coronary Stent, Gallbladder, Orthopedic Respiratory: Yes (C-PAP AT HOME) Sleep Apnea Currently Using CPAP: Yes Currently Using BIPAP: No Cardiac: Yes (STENTS, STRESS TEST AND ECHO 11/2014) Coronary Artery Disease, High Cholesterol, Hypertension Neurological: No Reproductive Disorders: No Sexually Transmitted Disease: No HIV/AIDS: No Gastrointestinal: No Gall Bladder Disease Musculoskeletal: No Endocrine: Yes Diabetes, Insulin dep Are Your Blood Sugars Over 250: No HEENT: No Loss of Vision: Bilateral Hearing Impairment: Denies Cancer: 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) Skin What Type of Treatment Did You: Surgical Intervention Psychosocial: No Integumentary: No Recent Skin Changes Blood Disorders: No Adverse Reaction/Blood Tranf: No Family Medical History Reviewed Nursing Family Hx Heart Disease Review of Systems Time Seen by Provider: 06:29 Constitutional: Chills, Sweats, Weakness, Malaise Eyes: Pain, Vision change, Conjunctivae inflammation, Eyelid inflammation, Other, Redness ENT: Nose congestion Respiratory: Shortness of breath, SOB with excertion Cardiovascular: Lt Headedness Gastrointestinal: No: Nausea, Vomiting, Abdominal Pain, Diarrhea, Constipation , Melena, Hematochezia, Other Neurological: Weakness Sepsis Event Evaluation Height, Weight, BMI Height: 5'6.00" Weight: 166lbs. 6.0oz. [id number]; 27.4 BMI Method: Exam Exam Vital Signs Date Time Temp Pulse Resp B/P (MAP) Pulse Ox O2 Delivery O2 Flow Rate FiO2 03/25/18 06:00 110 34 127/58 (81) 97 Nasal Cannula 2.00 03/25/18 05:00 101 105/49 (67) 97 Nasal Cannula 2.00 03/25/18 04:25 Nasal Cannula 03/25/18 04:24 98.1 03/25/18 04:00 100 24 105/45 (65) 98 Nasal Cannula 2.00 03/25/18 03:00 Nasal Cannula 2.00 03/25/18 02:00 118 42 76/62 (67) 96 Nasal Cannula 2.00 03/25/18 01:26 91 Nasal Cannula 2.00 03/25/18 01:00 93 20 118/54 (75) 95 Nasal Cannula 2.00 03/25/18 01:00 88 03/25/18 00:00 96 17 105/51 (69) 93 Nasal Cannula 2.00 03/25/18 00:00 Nasal Cannula 03/25/18 00:00 99.4 03/24/18 23:00 106 17 110/51 (70) 95 Nasal Cannula 2.00 03/24/18 22:31 90 Nasal Cannula 2.00 03/24/18 22:00 84 17 118/54 (75) 95 Nasal Cannula 2.00 03/24/18 21:00 79 15 108/53 (71) 94 Nasal Cannula 2.00 03/24/18 20:00 Nasal Cannula 03/24/18 20:00 87 12 135/54 (81) 95 Nasal Cannula 2.00 03/24/18 19:40 98.8 89 20 152/67 (95) 95 Nasal Cannula 2.00 03/24/18 19:00 86 03/24/18 19:00 87 17 128/71 (90) 94 Nasal Cannula 2.00 03/24/18 18:00 83 23 121/53 (75) 92 Nasal Cannula 2.00 03/24/18 17:00 96 24 129/71 (90) 94 Nasal Cannula 2.00 03/24/18 16:29 Nasal Cannula 2.00 03/24/18 16:00 70 23 127/60 (82) 95 Nasal Cannula 2.00 03/24/18 15:00 69 13 115/52 (73) 94 Nasal Cannula 2.00 03/24/18 14:45 69 18 122/54 (76) 97 Nasal Cannula 2.00 03/24/18 14:30 66 9 116/55 (75) 95 Nasal Cannula 2.00 03/24/18 14:15 77 17 136/68 (90) 97 Nasal Cannula 2.00 03/24/18 14:02 75 03/24/18 14:00 70 13 132/61 (84) 96 Nasal Cannula 2.00 I & O 03/25/18 07:00 Intake Total 2565 ml Output Total 1100 ml Balance 1465 ml Height & Weight Height: 5'6.00" Weight: 166lbs. 6.0oz. 75.820861zd; 27.4 BMI Method: General Appearance: WD/WN, Anxious, Mild Distress HEENT: PERRL/EOMI, Moist Mucous Membranes; No Scleral Icterus (L), No Scleral Icterus (R) Neck: Full Range of Motion, Normal Inspection, Supple Respiratory: No Accessory Muscle Use, No Respiratory Distress, Crackles ( bilateral bases); No Wheezing Cardiovascular: Regular Rate, Rhythm, No JVD, No Murmur Capillary Refill: Less Than 3 Seconds Gastrointestinal: non tender, soft Extremity: No Calf Tenderness, No Pedal Edema Neurologic/Psychiatric: Alert, Oriented x3, No Motor/Sensory Deficits, Normal Mood/Affect Skin: Normal Color, Warm/Dry Results Lab Laboratory Tests 03/24/18 14:45 Assessment/Plan Assessment/Plan Acute bilateral pneumonia with hypoxemia -Labs for this AM are pending. Check LA (was normal yesterday) -CXR- repeat is pending -Sarmiento cultures pending CYN with hyperkalemia -repeat labs pending -IVF 150cc/hr NS -monitor Worsening metabolic acidosis -Keep IVF going -monitor close -repeat LA Hyperglycemia -Insulin -Monitor close Anemia - monitor Hyponatremia - monitor VERO -Pt can use home CPAP machine JON WILLIAM DO Mar 25, 2018 06:21
--- NOTE | 2018-03-25 06:46 | Diagnostic Imaging Report ---
INDICATION: Shortness of breath. Portable chest 6:33 AM FINDINGS: There are diffuse bilateral alveolar infiltrates in the lungs. These appear similar in density and distribution from the previous days' comparison exam. There is no effusion or pneumothorax. IMPRESSION: Stable chest with diffuse pulmonary infiltrates. Dictated by: Dictated on workstation # [id number]
[2018-03-25] MEDS: inSUlin ASPART (NovoLOG) 1 UNIT/0.01 ML (CHARGE PER UNIT) SC SCH ×7 (06:50→21:36)
[2018-03-25 06:56] LABS: HEMOGLOBIN 10.6 G/DL (13.3-17.7); MEAN PLATELET VOLUME 8.3 FL (7.4-10.4); RED CELL DISTRIBUTION WIDTH 13.9 % (10.0-14.5); WHITE BLOOD COUNT 23.4 10^3/uL (4.3-11.0)
[2018-03-25 07:11] LABS: CALCIUM 8.8 MG/DL (8.5-10.1); CREATININE SERUM 1.62 MG/DL (0.60-1.30); MAGNESIUM 1.5 MG/DL (1.8-2.4); POTASSIUM 4.4 MMOL/L (3.6-5.0)
[2018-03-25] MEDS: inSUlin Protamine/ASPart 70/30 1 UNIT/0.01 ML DOSE SC SCH ×2 (07:41→19:37)
[2018-03-25] MEDS: LORATADINE (CLARITIN) 10 MG TAB PO SCH (07:46)
[2018-03-25] MEDS: ASPIRIN E.C. 81 MG (ECOTRIN) TAB PO SCH (07:46)
[2018-03-25] MEDS: FAMOTIDINE 20 MG (PEPCID) TABLET PO SCH (07:46)
[2018-03-25] MEDS ORDERED: NON-FORMULARY MEDICATION 1 EA EA (Insuln Asp Prt/Insulin Aspart (Novolog Mix 70-30 Flexpen SQ SCH (08:00)
--- NOTE | 2018-03-25 08:06 | Progress Note-Hospitalist ---
Subjective HPI/CC On Admission Date Seen by Provider: Mar 25, 2018 Time Seen by Provider: 08:03 Pt is 73yoCM with a PMH of CAD s/p stenting, IDDMII, VERO who was direct admitted from Dr Burrows's office for pneumonia. He states she the past week or so he has been has some chest tightness and noticed it more with exertion ( bowling). He was seen by his PCP who referred him to Dr Pizarro. Per patient EKG showed no changes and he was set up for an outpatient stress test. He continued to have some chest tightness and his states for the past month he's had more shallow breathing. He was seen by Dr Burrows today for regular follow up for his VERO and CPAP and was found to be hypoxic and mildly hypotensive on arrival. He was sent for outpatient labs and CTA which revealed bilateral pneumonia and a leukocytosis. He was direct admitted for further management. Subjective/Events-last exam Pt reports feeling better. Breathing improved. Requesting discharge already as feeling better. Still on oxygen. Focused Exam Lactate Level 03/24/18 14:45: Lactic Acid Level 0.91 03/25/18 07:50: Lactic Acid Level Laboratory Tests Test 03/25/18 07:50 Objective Exam Vital Signs Vital Signs Date Time Temp Pulse Resp B/P (MAP) Pulse Ox O2 Delivery O2 Flow Rate FiO2 03/25/18 07:54 97.4 03/25/18 07:00 119/56 (77) 99 Nasal Cannula 2.00 03/25/18 06:00 110 34 Capillary Refill : General Appearance: No Apparent Distress, WD/WN Respiratory: No Accessory Muscle Use, No Respiratory Distress, Crackles ( bilateral bases, improved from yesterday); No Wheezing Cardiovascular: Regular Rate, Rhythm, No JVD, No Murmur Gastrointestinal: Normal Bowel Sounds, Non Tender, Soft Neurologic/Psychiatric: Alert, Oriented x3, Normal Mood/Affect Results/Procedures Lab Laboratory Tests 03/24/18 14:45 03/25/18 06:46 Patient resulted labs reviewed. Imaging: Reviewed Imaging Report Assessment/Plan Assessment and Plan Assess & Plan/Chief Complaint Pneumonia Diagnosis/Problems Diagnosis/Problems (1) Pneumonia Status: Acute Assessment & Plan: Diffuse bilateral pneumonia on CT chest Continue abx Await cultures Qualifiers: Pneumonia type: due to unspecified organism Laterality: bilateral Lung location: lower lobe of lung Qualified Codes: J18.1 - Lobar pneumonia, unspecified organism (2) FAIZA (acute kidney injury) Status: Acute Assessment & Plan: Up to 1.6 today Continue IVF Trend DC Vanc (3) Insulin dependent diabetes mellitus Assessment & Plan: Continue home insulin SSI (4) Essential (primary) hypertension Assessment & Plan: BP well controlled, hold home meds still (5) CAD (coronary artery disease) Status: Chronic Assessment & Plan: Cardiology consulted, appreciate recs Troponin negative Qualifiers: Coronary Disease-Associated Artery/Lesion type: [place] artery [place] vs. transplanted heart: [place] heart Associated angina: without angina Qualified Codes: I25.10 - Atherosclerotic heart disease of [place] coronary artery without angina pectoris Clinical Quality Measures DVT/VTE Risk/Contraindication: Risk Factor Score Per Nursin RFS Level Per Nursing on Admit: 2=Moderate DHRUV MEEHAN MD Mar 25, 2018 08:06
[2018-03-25] MEDS: MAGNESIUM 1 GM/100 ML IVPB 100 ML IV SCH ×3 (08:38→10:30)
[2018-03-25] MEDS ORDERED: NON-FORMULARY MEDICATION 1 EA EA (Loratadine (Claritin) 10 MG) PO SCH (09:00)
[2018-03-25] MEDS ORDERED: NS 1000 ML IV BAG IV ONE (10:30)
[2018-03-25] MEDS ORDERED: NS IV 1000 ML 1,000 ML IV ONE (10:30)
[2018-03-25 11:14] LABS: ABG BASE EXCESS -9.5 MMOL/L (-2.5-2.5); ABG OXYGEN SATURATION 93 % (94-100); ABG PCO2 29 MMHG (35-45); ABG PO2 64 MMHG (79-93)
[2018-03-25 11:18] LABS: ABG PH 7.34 (7.37-7.43)
[2018-03-25 11:19] LABS: ALLENS TEST YES-POS; INSPIRED O2 2L; PATIENT TEMP 98.7; VENTILATOR NO
[2018-03-25 11:34] LABS: BILIRUBIN,URINE NEGATIVE (NEGATIVE); CLARITY,URINE CLEAR; COLOR,URINE YELLOW; GLUCOSE, URINE (UA) 4+ (NEGATIVE); KETONES,URINE NEGATIVE (NEGATIVE); LEUKOCYTE ESTERASE ,URINE NEGATIVE (NEGATIVE); NITRITE,URINE NEGATIVE (NEGATIVE); PH,URINE 5 (5-9); PROTEIN,URINE NEGATIVE (NEGATIVE); UROBILINOGEN,URINE NORMAL (NORMAL)
[2018-03-25 12:00] LABS: BACTERIA,URINE NEGATIVE /HPF; SQUAMOUS EPITHELIAL CELL,UR 0-2 /HPF; WBC,URINE RARE /HPF
[2018-03-25] MEDS: LACTOBACILLUS ACIDOPHILUS (PROBIOTIC) CAPSULE PO SCH ×2 (12:27→19:37)
[2018-03-25] MEDS ORDERED: NS IV ONE (12:30)
--- NOTE | 2018-03-25 12:47 | Consultation-Cardiology ---
HPI-Cardiology Cardiology Consultation Date of Consultation 03/25/18 Date of Admission Time Seen by Provider: 12:43 Indication: shortness of breath HPI 73 years old gentleman with history of coronary artery disease, hypertension, was having increasing shortness of breath, seen by Dr. Burrows yesterday, he was noted to be hypoxemic and tachycardic with borderline hypotension, patient was admitted to the hospital and started on antibiotics. Currently he is laying down in bed, slightly tachycardic, denied any chest pain. Denied any palpitation. No syncope or near syncopal episodes. Home Medications & Allergies Allergies: Coded Allergies: adhesive (Unverified Allergy, Unknown, TEARS SKIN OFF, 01/12/14) Home Medication List Reviewed: Yes LQX-Wjrepm-Adlwly Hx Patient Social History Marital Status: Employed/Student: retired Alcohol Use: Denies Use Recreational Drug Use: No Smoking Status: Former Smoker (quit smoking 1977, quit chewing in 02/2018) Type Used: Cigarettes Recent Hopitalizations: No Physical Abuse Screen: No Sexual Abuse: No Immunizations Up To Date Date of Pneumonia Vaccine: Nov 21, 2014 Date of Influenza Vaccine: Nov 21, 2017 Past Medical History Past medical history as described below Family Medical History Significant Family History: Heart Disease Family Medical Hx Noncontributory Review of Systems Constitutional: see HPI, malaise, weakness EENTM: see HPI, no symptoms reported Respiratory: see HPI, cough, dyspnea on exertion, short of breath Cardiovascular: see HPI, chest pain; No edema, No Hx of Intervention, No palpitations, No syncope, No vascular heart diseas, No other Gastrointestinal: no symptoms reported, see HPI Genitourinary: no symptoms reported, see HPI Musculoskeletal: no symptoms reported, see HPI Skin: no symptoms reported, see HPI Psychiatric/Neurological: No Symptoms Reported, See HPI Reviewed Test Results Reviewed Test Results Lab Laboratory Tests Test 03/24/18 14:45 03/24/18 15:50 03/24/18 20:03 03/25/18 06:02 Range/Units White Blood Count 14.3 H 4.3-11.0 10^3/uL Red Blood Count 3.80 L 4.35-5.85 10^6/uL Hemoglobin 11.9 L 13.3-17.7 G/DL Hematocrit 35 L 40-54 % Mean Corpuscular Volume 92 80-99 FL Mean Corpuscular Hemoglobin 31 25-34 PG Mean Corpuscular Hemoglobin Concent 34 32-36 G/DL Red Cell Distribution Width 14.0 10.0-14.5 % Platelet Count 512 H 130-400 10^3/uL Mean Platelet Volume 8.3 7.4-10.4 FL Neutrophils (%) (Auto) 80 H 42-75 % Lymphocytes (%) (Auto) 16 12-44 % Monocytes (%) (Auto) 4 0-12 % Eosinophils (%) (Auto) 1 0-10 % Basophils (%) (Auto) 1 0-10 % Neutrophils # (Auto) 11.4 H 1.8-7.8 X 10^3 Lymphocytes # (Auto) 2.2 1.0-4.0 X 10^3 Monocytes # (Auto) 0.5 0.0-1.0 X 10^3 Eosinophils # (Auto) 0.1 0.0-0.3 10^3/uL Basophils # (Auto) 0.1 0.0-0.1 10^3/uL Sodium Level 130 L 135-145 MMOL/L Potassium Level 5.4 H 3.6-5.0 MMOL/L Chloride Level 99 98-107 MMOL/L Carbon Dioxide Level 20 L 21-32 MMOL/L Anion Gap 11 5-14 MMOL/L Blood Urea Nitrogen 31 H 7-18 MG/DL Creatinine 1.32 H 0.60-1.30 MG/DL Estimat Glomerular Filtration Rate 53 BUN/Creatinine Ratio 23 Glucose Level 146 H 70-105 MG/DL Lactic Acid Level 0.91 0.50-2.00 MMOL/L Calcium Level 9.4 8.5-10.1 MG/DL Corrected Calcium 9.6 8.5-10.1 MG/DL Phosphorus Level 3.9 2.3-4.7 MG/DL Magnesium Level 1.8 1.8-2.4 MG/DL Total Bilirubin 0.6 0.1-1.0 MG/DL Aspartate Amino Transf (AST/SGOT) 26 5-34 U/L Alanine Aminotransferase (ALT/SGPT) 22 0-55 U/L Alkaline Phosphatase 84 40-136 U/L Troponin I < 0.028 <0.028 NG/ML B-Type Natriuretic Peptide 34.7 <100.0 PG/ML Total Protein 7.4 6.4-8.2 GM/DL Albumin 3.7 3.2-4.5 GM/DL Urine Color YELLOW Urine Clarity CLEAR Urine pH 5 5-9 Urine Specific [place] 1.010 L 1.016-1.022 Urine Protein 1+ H NEGATIVE Urine Glucose (UA) NEGATIVE NEGATIVE Urine Ketones NEGATIVE NEGATIVE Urine Nitrite NEGATIVE NEGATIVE Urine Bilirubin NEGATIVE NEGATIVE Urine Urobilinogen NORMAL NORMAL MG/DL Urine Leukocyte Esterase NEGATIVE NEGATIVE Urine RBC (Auto) NEGATIVE NEGATIVE Urine RBC NONE /HPF Urine WBC NONE /HPF Urine Squamous Epithelial Cells 0-2 /HPF Urine Crystals NONE /LPF Urine Bacteria NONE /HPF Urine Casts NONE /LPF Urine Mucus NEGATIVE /LPF Urine Culture Indicated NO Glucometer 270 H 294 H 70-110 MG/DL Test 03/25/18 06:46 03/25/18 07:50 03/25/18 09:50 03/25/18 11:05 Range/Units White Blood Count 23.4 H 4.3-11.0 10^3/uL Red Blood Count 3.44 L 4.35-5.85 10^6/uL Hemoglobin 10.6 L 13.3-17.7 G/DL Hematocrit 32 L 40-54 % Mean Corpuscular Volume 92 80-99 FL Mean Corpuscular Hemoglobin 31 25-34 PG Mean Corpuscular Hemoglobin Concent 34 32-36 G/DL Red Cell Distribution Width 13.9 10.0-14.5 % Platelet Count 495 H 130-400 10^3/uL Mean Platelet Volume 8.3 7.4-10.4 FL Sodium Level 132 L 135-145 MMOL/L Potassium Level 4.4 3.6-5.0 MMOL/L Chloride Level 103 98-107 MMOL/L Carbon Dioxide Level 16 L 21-32 MMOL/L Anion Gap 13 5-14 MMOL/L Blood Urea Nitrogen 30 H 7-18 MG/DL Creatinine 1.62 H 0.60-1.30 MG/DL Estimat Glomerular Filtration Rate 42 BUN/Creatinine Ratio 19 Glucose Level 295 H 70-105 MG/DL Calcium Level 8.8 8.5-10.1 MG/DL Phosphorus Level 3.4 2.3-4.7 MG/DL Magnesium Level 1.5 L 1.8-2.4 MG/DL B-Type Natriuretic Peptide 128.1 H <100.0 PG/ML Beta-Hydroxybutyrate (Chem panel) 0.42 H 0.00-0.27 MMOL/L Lactic Acid Level 2.98 *H 4.58 *H 0.50-2.00 MMOL/L Blood Gas Puncture Site R RADIAL Blood Gas Patient Temperature 98.7 Arterial Blood pH 7.34 *L 7.37-7.43 Arterial Blood Partial Pressure CO2 29 L 35-45 MMHG Arterial Blood Partial Pressure O2 64 L 79-93 MMHG Arterial Blood HCO3 15 *L 23-27 MMOL/L Arterial Blood Total CO2 16.0 L 21.0-31.0 MMOL/L Arterial Blood Oxygen Saturation 93 L 94-100 % Arterial Blood Base Excess -9.5 L -2.5-2.5 MMOL/L [employer] Test YES-POS Blood Gas Ventilator Setting NO Blood Gas Inspired Oxygen 2L Test 03/25/18 11:08 03/25/18 11:28 Range/Units Glucometer 450 *H 70-110 MG/DL Urine Color YELLOW Urine Clarity CLEAR Urine pH 5 5-9 Urine Specific [place] 1.010 L 1.016-1.022 Urine Protein NEGATIVE NEGATIVE Urine Glucose (UA) 4+ H NEGATIVE Urine Ketones NEGATIVE NEGATIVE Urine Nitrite NEGATIVE NEGATIVE Urine Bilirubin NEGATIVE NEGATIVE Urine Urobilinogen NORMAL NORMAL MG/DL Urine Leukocyte Esterase NEGATIVE NEGATIVE Urine RBC (Auto) NEGATIVE NEGATIVE Urine RBC NONE /HPF Urine WBC RARE /HPF Urine Squamous Epithelial Cells 0-2 /HPF Urine Renal Epithelial Cells NONE /HPF Urine Crystals NONE /LPF Urine Bacteria NEGATIVE /HPF Urine Casts NONE /LPF Urine Mucus NEGATIVE /LPF Urine Culture Indicated NO Physical Exam Vital Signs Vital Signs - First Documented 03/24/18 03/24/18 14:00 19:40 Temp 98.8 Pulse 70 Resp 13 B/P (MAP) 132/61 (84) Pulse Ox 96 O2 Delivery Nasal Cannula O2 Flow Rate 2.00 Capillary Refill : Height, Weight, BMI Height: 5'6.00" Weight: 166lbs. 6.0oz. 75.822914aj; 27.4 BMI Method: General Appearance: No Apparent Distress, WD/WN Eyes: Bilateral Eye Normal Inspection, Bilateral Eye PERRL, Bilateral Eye EOMI HEENT: PERRL/EOMI, TMs Normal, Normal ENT Inspection, Pharynx Normal Neck: Full Range of Motion, Normal Inspection, Non Tender, Supple, Carotid Bruit Respiratory: Chest Non Tender, Normal Breath Sounds, No Accessory Muscle Use, No Respiratory Distress, Crackles Cardiovascular: Regular Rate, Rhythm, No Edema, No Gallop, No JVD, No Murmur, Normal Peripheral Pulses Gastrointestinal: Normal Bowel Sounds, No Organomegaly, No Pulsatile Mass, Non Tender, Soft Back: Normal Inspection, No CVA Tenderness, No Vertebral Tenderness Extremity: Normal Capillary Refill, Normal Inspection, Normal Range of Motion, Non Tender, No Calf Tenderness, No Pedal Edema Neurologic/Psychiatric: Alert, Oriented x3, No Motor/Sensory Deficits, Normal Mood/Affect Skin: Normal Color, Warm/Dry Lymphatic: No Adenopathy A/P-Cardiology Admission Diagnosis Pneumonia Sinus tachycardia Coronary artery disease Hypertension Hyperlipidemia Assessment/Plan Pneumonia, increasing shortness of breath, admitted to the hospital and started on antibiotic, improving slowly Sinus tachycardia, due to hypoxemia, maintained on oxygen. Continue to monitor at this time. Coronary artery disease, had a cardiac catheterization 2012 resulted with 2 stents deployment 2.515 mm to the right coronary artery resolute and 2.2522 mm resolute to the LAD, continue to monitor at this time Chest pain nonspecific etiology, was having chest pain last week, currently feeling better. Scheduled for stress test as an outpatient. We'll continue monitoring Hypertension, status post hypotension, blood pressure is better at this time, continue to monitor blood pressure next Hyperlipidemia, monitor lipids Diabetes mellitus, followed and managed by primary care physician Obstructive sleep apnea, using C Pap Obesity, BMI 27, working on weight loss History of carotid stenosis, last ultrasound was done in September 2017 showing mild disease on the right and moderate on the left. Continue to monitor Clinical Quality Measures DVT/VTE Risk/Contraindication: Risk Factor Score Per Nursin RFS Level Per Nursing on Admit: 2=Moderate ANDREINA LARA MD Mar 25, 2018 12:47
[2018-03-25] MEDS ORDERED: NS IV 1000 ML 1,000 ML IV SCH (13:06)
[2018-03-25] MEDS ORDERED: 1/2 NS IV SOLUTION 1,000 ML IV SCH (13:06)
[2018-03-25] MEDS ORDERED: POTASSIUM CL 10MEQ/50ML IVPB 50 ML IV SCH (13:15)
[2018-03-25] MEDS ORDERED: inSUlin REGULAR TPN/DRIP ONLY 250 UNITS in NORMAL SALINE 250 ML IV SCH (13:15)
[2018-03-25] MEDS ORDERED: D5 1/2 NS 1000 ML IV SOLUTION 1,000 ML IV SCH (13:15)
[2018-03-25 14:03] LABS: HEMOGLOBIN 11.1 G/DL (13.3-17.7); MEAN PLATELET VOLUME 8.3 FL (7.4-10.4); RED CELL DISTRIBUTION WIDTH 14.1 % (10.0-14.5)
[2018-03-25 14:04] LABS: WHITE BLOOD COUNT 30.6 10^3/uL (4.3-11.0)
[2018-03-25 14:29] LABS: CALCIUM 8.4 MG/DL (8.5-10.1); CREATININE SERUM 1.48 MG/DL (0.60-1.30); POTASSIUM 3.8 MMOL/L (3.6-5.0)
[2018-03-25] MEDS: POTASSIUM CL 10MEQ/50ML IVPB 50 ML IV SCH ×4 (14:36→16:49)
[2018-03-25 15:00] LABS: ABG BASE EXCESS -8.9 MMOL/L (-2.5-2.5); ABG OXYGEN SATURATION 92 % (94-100); ABG PCO2 29 MMHG (35-45); ABG PH 7.35 (7.37-7.43); ABG PO2 63 MMHG (79-93); ABG TCO2 16.6 MMOL/L (21.0-31.0)
[2018-03-25 15:01] LABS: ALLENS TEST YES-POS; INSPIRED O2 70%; PATIENT TEMP 97.9; VENTILATOR NO
[2018-03-25] MEDS: ENOXAPARIN 40 MG/0.4 ML (LOVENOX) SYR SC SCH (15:01)
--- NOTE | 2018-03-25 15:10 | Pulmonary Progress Note ---
Standard Progress Note Progress Notes Time Seen by Provider: 15:07 Assessment & Plan Acute bilateral pneumonia with hypoxemia with severe sepsis -PT has received 30cc/kg of IVF secondary to suspected sepsis Worsening respiratory failure probably secondary to volume overload -Repeat labs -Check Stat echo -CXR- repeat is pending -stat ABG CYN with hyperkalemia -repeat labs pending -IVF 150cc/hr NS -monitor Worsening metabolic lactic acidosis -IVF -monitor close -repeat LA Hyperglycemia -Insulin gtt started -D/C insulin gtt once BS <200 -Change IVF to LR at 150 -Monitor close Anemia - monitor Hyponatremia - monitor VERO I've explained to patient and his current medical status and plan of care. I have also updated Dr. Queen on patient's current worsening medical condition. UPDATE 530: called to room secondary to worsening respiratory distress, and confusion. Pt's repeat CXR also looks worse. I talked to pt and about elective intubation and they are both ok with intubation at this time. Critical Care: Critically Ill Patient Time spent with patient (mins): 60 Focused Exam Lactate Level 03/24/18 14:45: Lactic Acid Level 0.91 03/25/18 07:50: Lactic Acid Level 2.98*H 03/25/18 09:50: Lactic Acid Level 4.58*H JON WILLIAM DO Mar 25, 2018 15:10
[2018-03-25] MEDS ORDERED: LACTATED RINGERS 1,000 ML IV ONE (15:13)
--- NOTE | 2018-03-25 15:44 | Diagnostic Imaging Report ---
INDICATION: Shortness of air. TIME OF EXAM: 3:34 p.m. COMPARISON: Correlation is made with prior study from earlier the same day. FINDINGS: Worsening airspace infiltrates throughout both lungs is noted. There is increasing consolidation on the left. No effusion or pneumothorax is seen. Heart size is stable. IMPRESSION: Worsening airspace infiltrates throughout both lungs when compared to exam earlier the same day. Dictated by: Dictated on workstation # [id number]
--- NOTE | 2018-03-25 15:48 | NUR ---
1335 PT TRANSFERRED TO ROOM ICU 10 VIA BED ON PORTABLE 02 TANK AT 3 LITERS PER NC, AFTER GETTING PT SETTLED INTO ROOM, PT'S OXYGEN SATURATION NOTED TO BE REGISTERING IN THE LOW TO MID 80'S WITH HIGHEST SA02 NOTED AT 86. PT OXYGEN TURNED UP TO 7 LITERS AND STILL LOW READING'S RECEIVED. THIS RN CALLED RESPIRATORY THERAPY AND THEY CAME IN TO SEE PT, PT THEN PLACED ON HIGH FLOW NC PER RT SETTINGS AND THIS RN CALLED DR WILLIAM AND NO ANSWER RECEIVED AND THEN CALLED DR MEEHAN THEN LONNIE RAMÍREZ CALLED IN ANOTHER ROOM, PT SHOWS NO SIGNS OF RESPIRATORY DISTRESS. 1430 PT NOW ON VAPOTHERM SETTINGS PER RT.
[2018-03-25] MEDS: LACTATED RINGERS 1,000 ML IV SCH ×2 (16:00→23:45)
[2018-03-25 16:01] LABS: BUN/CREATININE RATIO 20; CARBON DIOXIDE 14 MMOL/L (21-32); CHLORIDE 121 MMOL/L (98-107); CREATININE SERUM 0.91 MG/DL (0.60-1.30); GFR ESTIMATED > 60; GLUCOSE 237 MG/DL (70-105); POTASSIUM 6.3 MMOL/L (3.6-5.0); SODIUM 138 MMOL/L (135-145)
[2018-03-25 16:05] LABS: CALCIUM 5.9 MG/DL (8.5-10.1)
[2018-03-25] MEDS ORDERED: CALCIUM GLUC. 10% 4.65 MEQ/10 ML VIAL IV NR (16:30)
[2018-03-25] MEDS ORDERED: FUROSEMIDE 40 MG/4 ML INJ (LASIX) IVP NR ×2 (16:30)
[2018-03-25] MEDS ORDERED: SODIUM BICARB 8.4% 50 MEQ/50 ML (ABBOTT) SYR IV NR ×2 (16:30→17:30)
[2018-03-25] MEDS ORDERED: PROPOFOL DRIP (ICU) 100 ML IV ONE (16:34)
[2018-03-25] MEDS ORDERED: NS IV 1000 ML 1,000 ML ONE ×2 (16:44→19:24)
--- NOTE | 2018-03-25 17:03 | NUR ---
1530 PT PLACED ON BIPAP
[2018-03-25] MEDS: PROPOFOL DRIP (ICU) 100 ML IV SCH (17:14)
[2018-03-25] MEDS ORDERED: HALOPERIDOL 5 MG/ML (HALDOL) AMP IV PRN ×2 (17:15→18:45)
[2018-03-25] MEDS ORDERED: PROPOFOL DRIP (ICU) 100 ML IV SCH (17:15)
--- NOTE | 2018-03-25 17:31 | Pulmonary Procedures ---
Pulmonary Procedures Date of Procedure Date of Service: Mar 25, 2018 Reason for Intubation: Acute respiratory failure Time of Intubation: 17:31 Intubation Method: orotracheal Medications: Propofol, Versed Positive End Tide CO2: Yes Breath Sounds after Intubation: bilateral-equal Intubation Complications: no complications Post Intubation Xray: Yes JON WILLIAM DO Mar 25, 2018 17:31
--- NOTE | 2018-03-25 17:48 | Diagnostic Imaging Report ---
INDICATION: Respiratory failure with intubation. COMPARISON: 03/25/2018 at 3:34 p.m. FINDINGS: ET tube is now present overlying the tracheal shadow with the tip at the level of the aortic arch. NG tube is present extending into the stomach. The lungs show moderate aeration bilaterally. There is very dense infiltrate noted throughout both lungs. The heart appears mildly enlarged. No pneumothorax. No definite pleural effusion. IMPRESSION: 1. Satisfactory ET tube and NG tube placement. 2. Very dense bilateral alveolar infiltrates. Dictated by: Dictated on workstation # [id number]
--- NOTE | 2018-03-25 18:03 | NUR ---
[address] MEEHAN REGARDING PT WORSEING O2 SAT AND INCREASED RESPIRATORY RATE AFTER BEING PLACED ON BIPAP. RT IN ROOM WITH PT. DR MEEHAN TO ROOM TO ASSESS PT. DR MEEHAN NOTIFIED DR WILLIAM IN PT WORSENING OF REPARATORY STATUS, DR WILLIAM TO ROOM AROUND 1645. DR WILLIAM DISCUSSED WITH PT AND FAMILY REGARDING NEED FOR INTUBATION. PT AND FAMILY AGREED. 1700 4MG VERSED GIVEN PER DR WILLIAM ORDER 1709 140MG PROPOFOL GIVEN BY DR WILLIAM 1710 50MCG FENTANYL GIVEN PER DR WILLIAM ORDER [address] WILLIAM WITH A SIZE 8 ET TUBE, VENT SETTINGS PER DR WILLIAM AND RT. BILATERAL BREATH SOUNDS HEARD 1713 OG TUBE PALCED. 1715 50MCG FENTANYL GIVEN PER DR WILLIAM ORDER 1716 END TITLE CO2 READING AT 34 1724 CXR DONE AT BEDSIDE TO VERIFY TUBE PLACEMENT. WILL CONTINUE TO MONITOR.
[2018-03-25 18:07] LABS: BASOPHILS % (AUTO) 0 % (0-10); EOSINOPHILS % (AUTO) 0 % (0-10); HEMATOCRIT 29 % (40-54); HEMOGLOBIN 9.6 G/DL (13.3-17.7); LYMPHOCYTES # (AUTO) 3.1 X 10^3 (1.0-4.0); LYMPHOCYTES % (AUTO) 10 % (12-44); MEAN CORPUSCULAR HEMOGLOBIN 31 PG (25-34); MEAN CORPUSCULAR HGB CONC 33 G/DL (32-36); MEAN CORPUSCULAR VOLUME 93 FL (80-99); MEAN PLATELET VOLUME 8.4 FL (7.4-10.4); MONOCYTES # (AUTO) 1.9 X 10^3 (0.0-1.0); MONOCYTES % (AUTO) 6 % (0-12); NEUTROPHILS # (AUTO) 25.2 X 10^3 (1.8-7.8); NEUTROPHILS % (AUTO) 83 % (42-75); PLATELET COUNT 447 10^3/uL (130-400); RED CELL DISTRIBUTION WIDTH 14.1 % (10.0-14.5)
[2018-03-25 18:08] LABS: WHITE BLOOD COUNT 30.2 10^3/uL (4.3-11.0)
[2018-03-25] MEDS: DEXMEDETOMIDINE INJECTION 1,000 MCG in NS (IVPB) 250 ML IV PRN (18:18)
[2018-03-25] MEDS: fentaNYL INJECTION 1,250 MCG in NORMAL SALINE 250 ML INJ PRN (18:20)
--- NOTE | 2018-03-25 18:37 | Progress Note-Hospitalist ---
Progress Note Progress Notes/Assess & Plan Date Seen 03/25/18 Time Seen by Provider: 16:25 Assessment & Plan Called to bedside over worsening respiratory status. Reviewed afternoon labs and CXR. Severe electrolyte abnormalities with hypocalcemia and hyperkalemia noted. Called to discuss with Dr Burrows about my concern for need for intubation. Patient appears confused and incredibly anxious. Does not seem to understand severity of illness and requesting to take BiPAP off multiple times. Discussed with about need for intubation who is agreeable. Dr Burrows en route to intubate. Acute Respiratory Failure with hypoxia from bilateral PNA Plan for urgent intubation Lasix once intubated if BP stable per Dr Burrows Concern for developing ARDS given worsening in CXR and severe hypoxia Metabolic Acidosis Likely due to sepsis Received 30 cc/kg bolus this afternoon Focused exam done Hyperkalemia Calcium and bicarb ordered Lasix to be ordered if BP tolerates Critical Care Critically Ill Patient Critical Care Start Time: 16:19 Stop Time: 16:53 Focused Exam Lactate Level 03/25/18 09:50: Lactic Acid Level 4.58*H 03/25/18 15:35: Lactic Acid Level 2.41*H 03/25/18 17:50: Lactic Acid Level 2.27*H Lactic Acid Level Laboratory Tests Test 03/25/18 15:35 03/25/18 17:50 Lactic Acid Level 2.41 MMOL/L (0.50-2.00) *H 2.27 MMOL/L (0.50-2.00) *H Diagnosis/Problems Diagnosis/Problems (1) Pneumonia Status: Acute Assessment & Plan: Diffuse bilateral pneumonia on CT chest Continue abx Await cultures Qualifiers: Qualified Codes: J18.1 - Lobar pneumonia, unspecified organism (2) FAIZA (acute kidney injury) Status: Acute Assessment & Plan: Up to 1.6 today Continue IVF Trend DC Vanc (3) Insulin dependent diabetes mellitus Assessment & Plan: Continue home insulin SSI (4) Essential (primary) hypertension Assessment & Plan: BP well controlled, hold home meds still (5) CAD (coronary artery disease) Status: Chronic Assessment & Plan: Cardiology consulted, appreciate recs Troponin negative Qualifiers: Qualified Codes: I25.10 - Atherosclerotic heart disease of [place] coronary artery without angina pectoris DHRUV MEEHAN MD Mar 25, 2018 18:37
[2018-03-25] MEDS: VANCOMYCIN 1250 MG/NS 250 ML IVPB IV SCH ×2 (18:46)
[2018-03-25 19:26] LABS: ABG OXYGEN SATURATION 97 % (94-100); ABG PCO2 42 MMHG (35-45); ABG PH 7.38 (7.37-7.43); ABG PO2 87 MMHG (79-93); ABG TCO2 25.9 MMOL/L (21.0-31.0)
[2018-03-25 19:27] LABS: ALLENS TEST YES-POS; INSPIRED O2 90%; VENTILATOR YES
[2018-03-25 19:28] LABS: PATIENT TEMP 97.6
[2018-03-25] MEDS: ATORVASTATIN 20 MG (LIPITOR) TABLET PO SCH (19:37)
--- NOTE | 2018-03-25 19:57 | Anesthesia-Procedure Note ---
Procedures/Interventions Procedure Start/Stop/Diagnosis Date of Procedure: Mar 25, 2018 Start Time: 19:30 Referring Physician: Stormy Brief History Called to ICU10 for arterial line placement after recent intubation. Patients SBP 90s. Good palpable blood flow in right wrist. 22g arterial line placed x 1 attempt by CHITRA Zayas under my direct supervision. Good waveform noted, opsite used to cover site, wrist restraint reapplied, reported off to Jarek RN. Stop Time: 19:45 MEDARDO ROSEN CRNA Mar 25, 2018 19:57
--- NOTE | 2018-03-25 19:57 | NUR ---
1240 DR WILLIAM ON FLOOR VERBAL ORDERS RECEIVED TO GIVE 2 1/2 LITERS IV BOLUS OF NORMAL SALINE. BOLUS STARTED
[2018-03-25] MEDS ORDERED: inSUlin DETERMIR 1 UNIT/0.01 ML (LEVEMIR) CHARGE PER UNIT SQ SCH (21:00)
[2018-03-25 21:32] LABS: BUN/CREATININE RATIO 19; CARBON DIOXIDE 20 MMOL/L (21-32); CHLORIDE 112 MMOL/L (98-107); CREATININE SERUM 1.18 MG/DL (0.60-1.30); GFR ESTIMATED > 60; GLUCOSE 167 MG/DL (70-105); POTASSIUM 4.6 MMOL/L (3.6-5.0); SODIUM 141 MMOL/L (135-145)
[2018-03-25] MEDS: meTOprolol TARTRATE 25 MG (LOPRESSOR) TABLET PO SCH (21:35)
[2018-03-26] VITALS (28 sets, daily range): BP systolic 97–135; BP diastolic 20–96
[2018-03-26] MEDS: RT-ALBUTEROL/IPRATROPIUM 3 ML (DUONEB) VIAL IH SCH ×6 (02:00→22:55)
[2018-03-26] MEDS: PROPOFOL DRIP (ICU) 100 ML IV SCH ×3 (02:41→22:07)
[2018-03-26 03:39] LABS: BASOPHILS % (AUTO) 0 % (0-10); EOSINOPHILS % (AUTO) 0 % (0-10); HEMATOCRIT 31 % (40-54); HEMOGLOBIN 10.2 G/DL (13.3-17.7); LYMPHOCYTES # (AUTO) 1.9 X 10^3 (1.0-4.0); LYMPHOCYTES % (AUTO) 9 % (12-44); MEAN CORPUSCULAR HEMOGLOBIN 30 PG (25-34); MEAN CORPUSCULAR HGB CONC 33 G/DL (32-36); MEAN CORPUSCULAR VOLUME 92 FL (80-99); MEAN PLATELET VOLUME 8.3 FL (7.4-10.4); MONOCYTES # (AUTO) 1.5 X 10^3 (0.0-1.0); MONOCYTES % (AUTO) 7 % (0-12); NEUTROPHILS # (AUTO) 17.8 X 10^3 (1.8-7.8); NEUTROPHILS % (AUTO) 84 % (42-75); PLATELET COUNT 357 10^3/uL (130-400); RED CELL DISTRIBUTION WIDTH 14.2 % (10.0-14.5); WHITE BLOOD COUNT 21.2 10^3/uL (4.3-11.0)
[2018-03-26 03:40] LABS: ABG BASE EXCESS 0.2 MMOL/L (-2.5-2.5); ABG OXYGEN SATURATION 100 % (94-100); ABG PCO2 39 MMHG (35-45); ABG PH 7.41 (7.37-7.43); ABG PO2 162 MMHG (79-93); ALLENS TEST POSITIVE; INSPIRED O2 60%
[2018-03-26 03:41] LABS: PATIENT TEMP 95.1; VENTILATOR YES
[2018-03-26 03:58] LABS: BUN/CREATININE RATIO 17; CALCIUM 8.1 MG/DL (8.5-10.1); CARBON DIOXIDE 23 MMOL/L (21-32); CHLORIDE 109 MMOL/L (98-107); CREATININE SERUM 1.17 MG/DL (0.60-1.30); GFR ESTIMATED > 60; GLUCOSE 192 MG/DL (70-105); POTASSIUM 4.1 MMOL/L (3.6-5.0); SODIUM 141 MMOL/L (135-145)
[2018-03-26] MEDS: PIPERACILLIN/TAZO 4.5 GM/NS 100 ML IV SCH ×6 (04:25→20:25)
[2018-03-26] MEDS: MAGNESIUM 1 GM/100 ML IVPB 100 ML IV SCH (04:59)
[2018-03-26] MEDS: POTASSIUM CL 10MEQ/50ML IVPB 50 ML IV SCH (04:59)
[2018-03-26] MEDS: KCL 20 MEQ TAB (K-DUR) PO SCH (05:00)
[2018-03-26] MEDS: LACTATED RINGERS 1,000 ML IV SCH ×2 (05:05→16:15)
--- NOTE | 2018-03-26 05:11 | Pulmonary Progress Note ---
Subjective Time Seen by a Provider: 05:12 Subjective/Events-last exam PT is sedated on vent. at bedside and all questions answered. Sepsis Event Evaluation Height, Weight, BMI Height: 5'6.00" Weight: 166lbs. 6.0oz. [id number]; 27.4 BMI Method: Focused Exam Lactate Level 03/25/18 09:50: Lactic Acid Level 4.58*H 03/25/18 15:35: Lactic Acid Level 2.41*H 03/25/18 17:50: Lactic Acid Level 2.27*H Exam Exam Vital Signs Date Time Temp Pulse Resp B/P (MAP) Pulse Ox O2 Delivery O2 Flow Rate FiO2 03/26/18 04:15 Nasal Cannula 03/26/18 04:05 95.1 03/26/18 04:00 85 21 119/96 (104) 96 Mechanical Ventilator 40.00 03/26/18 03:52 63 18 100 60 03/26/18 03:00 57 17 97/34 (55) 100 Mechanical Ventilator 60.00 03/26/18 02:41 59 18 101/34 Mechanical Ventilator 03/26/18 02:00 57 18 100 60 03/26/18 02:00 59 18 99/34 (55) 100 Mechanical Ventilator 60.00 03/26/18 01:12 64 03/26/18 01:00 60 17 101/32 (55) 100 Mechanical Ventilator 60.00 03/26/18 00:15 Nasal Cannula 03/26/18 00:00 95.4 03/26/18 00:00 65 17 105/33 (57) 100 Mechanical Ventilator 60.00 03/25/18 23:29 Mechanical Ventilator 60.00 03/25/18 23:25 67 20 100 70 03/25/18 23:00 71 18 125/63 (83) 100 Mechanical Ventilator 70.00 03/25/18 22:00 71 18 123/61 (81) 100 Mechanical Ventilator 70.00 03/25/18 21:16 64 18 100 80 03/25/18 21:00 65 18 113/61 (78) 100 Mechanical Ventilator 80.00 03/25/18 20:30 Nasal Cannula 03/25/18 20:00 96.6 03/25/18 20:00 70 23 102/52 (69) 99 Mechanical Ventilator 80.00 2/14/19 19:00 80 03/25/18 19:00 81 23 111/57 (75) 97 Mechanical Ventilator 90.00 03/25/18 18:44 79 21 99 90 03/25/18 18:22 92 23 96 100 03/25/18 18:00 86 25 90/48 (62) 97 Mechanical Ventilator 90.00 03/25/18 17:14 112/48 03/25/18 17:00 107 25 142/101 (115) 03/25/18 16:35 84 NIV Bilevel 03/25/18 16:00 105 20 134/59 (84) 87 Nasal Cannula 2.00 03/25/18 15:30 60.00 03/25/18 15:05 87 Vapotherm 40.00 70 03/25/18 15:00 103 29 92 Nasal Cannula 2.00 03/25/18 14:50 Vapotherm 40.00 70 03/25/18 14:00 109 27 132/54 (80) 87 Nasal Cannula 2.00 03/25/18 13:00 109 03/25/18 13:00 109 33 121/54 (76) 89 Nasal Cannula 2.00 03/25/18 12:35 96 Nasal Cannula 5.00 03/25/18 12:00 117 25 124/48 (73) 94 Nasal Cannula 2.00 03/25/18 11:00 123 23 114/53 (73) 92 Nasal Cannula 2.00 03/25/18 10:52 92 Nasal Cannula 2.00 03/25/18 10:48 98.7 107 24 105/76 (86) Nasal Cannula 93.00 03/25/18 10:00 106 114/53 (73) 96 Nasal Cannula 2.00 03/25/18 09:30 116 03/25/18 09:00 103/53 (70) 96 Nasal Cannula 2.00 03/25/18 08:30 96 Nasal Cannula 2.00 03/25/18 08:04 98 Nasal Cannula 5.00 03/25/18 07:54 97.4 03/25/18 07:00 119/56 (77) 99 Nasal Cannula 2.00 03/25/18 06:00 110 34 127/58 (81) 97 Nasal Cannula 2.00 I & O 03/26/18 07:00 Intake Total 2720 ml Output Total 3850 ml Balance -1130 ml Height & Weight Height: 5'6.00" Weight: 166lbs. 6.0oz. 75.527415le; 27.4 BMI Method: General Appearance: WD/WN, Anxious, Mild Distress, Other (sedated on vent) HEENT: PERRL/EOMI, Moist Mucous Membranes; No Scleral Icterus (L), No Scleral Icterus (R) Neck: Full Range of Motion, Normal Inspection, Supple Respiratory: No Accessory Muscle Use, No Respiratory Distress, Crackles ( bilateral bases); No Wheezing Cardiovascular: Regular Rate, Rhythm, No JVD, No Murmur Capillary Refill: Less Than 3 Seconds Gastrointestinal: non tender, soft Extremity: No Calf Tenderness, No Pedal Edema Neurologic/Psychiatric: Alert, Oriented x3, No Motor/Sensory Deficits, Normal Mood/Affect Skin: Normal Color, Warm/Dry Lymphatic: No Adenopathy Results Lab Laboratory Tests 03/24/18 14:45 03/25/18 06:46 03/25/18 13:50 03/25/18 15:35 03/25/18 17:50 03/25/18 21:07 03/26/18 03:30 Assessment/Plan Assessment/Plan Acute respiratory failure -Continue ventilator therapy -Will do bronchoscopy this AM Acute bilateral pneumonia with hypoxemia with severe sepsis -PT has received 30cc/kg of IVF secondary to suspected sepsis -Continue vanco/Zosyn --IVF 150cc/hr NS -- decrease to 75cc/hr -Check BNP. Pt may need more lasix. He did get 40mg of lasix yesterday CYN - improved -repeat labs pending -monitor metabolic lactic acidosis - improving -monitor close Hyperglycemia -Insulin gtt started. DKA d/c'd -D/C insulin gtt once BS <200 -Monitor close Anemia - monitor Hyponatremia - monitor VERO JON WILLIAM DO Mar 26, 2018 05:11
[2018-03-26] MEDS ORDERED: fentaNYL INJECTION 100 MCG/2 ML AMP ONE (06:01)
[2018-03-26] MEDS ORDERED: MIDAZOLAM 5 MG/5 ML (VERSED) VIAL ONE (06:01)
--- NOTE | 2018-03-26 06:40 | Pulmonary Procedures ---
Pulmonary Procedures Date of Procedure Date of Service: Mar 26, 2018 Bronch Bronchoscopy with bronchoalveolar lavage (BAL), transbronchial washes and, brushes. Preop DX ILD and pneumonia Postop DX: same. No endobronchial mass Complications: none After informed consent obtained and formal time out pt was sedated using Propofol, Fentanyl and Versed. Bronchoscope was advanced through the ET tube. 1 % lidocaine was used to anesthetize vocal cords, epiglottis, soni, and left/ right main stem bronchus. An anatomical tour was undertaken down to the segmental bronchi bilaterally. No endobronchial lesions noted. From the RML a bronchoalveolar lavage (BAL), transbronchial washes and, brushes were obtained. Pt tolerated procedure well. No complications noted. Stat CXR is pending. JON WILLIAM DO Mar 26, 2018 06:40
[2018-03-26] MEDS ORDERED: fentaNYL INJECTION 100 MCG/2 ML AMP IVP NR (06:45)
[2018-03-26] MEDS ORDERED: MIDAZOLAM 5 MG/5 ML (VERSED) VIAL IVP NR (06:45)
[2018-03-26] MEDS: inSUlin ASPART (NovoLOG) 1 UNIT/0.01 ML (CHARGE PER UNIT) SC SCH ×6 (06:49→20:09)
[2018-03-26] MEDS: LACTOBACILLUS ACIDOPHILUS (PROBIOTIC) CAPSULE PO SCH ×3 (06:52→16:32)
[2018-03-26] MEDS ORDERED: NS IV 500 ML 500 ML ONE (08:00)
--- NOTE | 2018-03-26 08:00 | NUR ---
DR MEEHAN INFORMED OF DECREASED BP, NEW ORDERS RECEIVED FOR NS BOLUS. SEE EMAR FOR DETAILS.
--- NOTE | 2018-03-26 08:08 | Progress Note-Hospitalist ---
Subjective HPI/CC On Admission Date Seen by Provider: Mar 26, 2018 Time Seen by Provider: 08:01 Pt is 73yoCM with a PMH of CAD s/p stenting, IDDMII, VERO who was direct admitted from Dr Burrows's office for pneumonia. He states she the past week or so he has been has some chest tightness and noticed it more with exertion ( bowling). He was seen by his PCP who referred him to Dr Pizarro. Per patient EKG showed no changes and he was set up for an outpatient stress test. He continued to have some chest tightness and his states for the past month he's had more shallow breathing. He was seen by Dr Burrows today for regular follow up for his VERO and CPAP and was found to be hypoxic and mildly hypotensive on arrival. He was sent for outpatient labs and CTA which revealed bilateral pneumonia and a leukocytosis. He was direct admitted for further management. Subjective/Events-last exam Pt is intubated and sedated. ROS unable to be obtained. Underwent bronch this AM. Focused Exam Lactate Level 03/25/18 09:50: Lactic Acid Level 4.58*H 03/25/18 15:35: Lactic Acid Level 2.41*H 03/25/18 17:50: Lactic Acid Level 2.27*H Objective Exam Vital Signs Vital Signs Date Time Temp Pulse Resp B/P (MAP) Pulse Ox O2 Delivery O2 Flow Rate FiO2 03/26/18 07:15 96.3 03/26/18 07:00 64 03/26/18 06:42 19 94 35 03/26/18 06:00 101/29 (53) Mechanical Ventilator 40.00 Capillary Refill : Less Than 3 Seconds General Appearance: No Apparent Distress, Other (sedated on vent) HEENT: No Scleral Icterus (L), No Scleral Icterus (R); Other (OG in place) Respiratory: Decreased Breath Sounds; No Wheezing; Other (on vent) Cardiovascular: Regular Rate, Rhythm, No JVD, No Murmur Gastrointestinal: Normal Bowel Sounds, Non Tender, Soft Extremity: No Calf Tenderness, No Pedal Edema Neurologic/Psychiatric: Other (sedated, resting comfortably) Skin: Normal Color, Warm/Dry; No Mottled Results/Procedures Lab Laboratory Tests 03/25/18 13:50 03/25/18 15:35 03/25/18 17:50 03/25/18 21:07 03/26/18 03:30 Patient resulted labs reviewed. Imaging: Reviewed Imaging Report Assessment/Plan Assessment and Plan Assess & Plan/Chief Complaint Acute Respiratory Failure Critical Care Critically Ill Patient Diagnosis/Problems Diagnosis/Problems (1) Acute respiratory failure Status: Acute Assessment & Plan: Intubated on 03/25 Pulm consulted, appreciate recs Underwent bronch this AM Oxygenation much improved Qualifiers: Respiratory failure complication: hypoxia Qualified Codes: J96.01 - Acute respiratory failure with hypoxia (2) Severe sepsis Status: Acute Assessment & Plan: Progressed to severe sepsis yesterday with respiratory failure Continue Zosyn Blood cultures done and NGTD Underwent bronch today Lactic acidosis elevated but likely confounded due to profound hypoxemia (3) Pneumonia Status: Acute Assessment & Plan: Diffuse bilateral pneumonia on CT chest Continue Zosyn Blood cultures NGTD RVP pending Urine strep pneumo and legionella negative Qualifiers: Pneumonia type: due to unspecified organism Laterality: bilateral Lung location: lower lobe of lung Qualified Codes: J18.1 - Lobar pneumonia, unspecified organism (4) FAIZA (acute kidney injury) Status: Acute Assessment & Plan: Improved Continue IVF (5) Insulin dependent diabetes mellitus Assessment & Plan: Continue home insulin SSI (6) Essential (primary) hypertension Assessment & Plan: MIldly hypotensive this AM Hold home antihypertensives Titrate sedation as above (7) CAD (coronary artery disease) Status: Chronic Assessment & Plan: Cardiology consulted, appreciate recs Troponin negative Qualifiers: Coronary Disease-Associated Artery/Lesion type: [place] artery [place] vs. transplanted heart: [place] heart Associated angina: without angina Qualified Codes: I25.10 - Atherosclerotic heart disease of [place] coronary artery without angina pectoris Clinical Quality Measures DVT/VTE Risk/Contraindication: Risk Factor Score Per Nursin RFS Level Per Nursing on Admit: 2=Moderate DHRUV MEEHAN MD Mar 26, 2018 08:08
[2018-03-26] MEDS: meTOprolol TARTRATE 25 MG (LOPRESSOR) TABLET PO SCH ×2 (08:11→20:25)
[2018-03-26] MEDS ORDERED: NS IV 500 ML 500 ML IV ONE (08:15)
[2018-03-26] MEDS: DEXMEDETOMIDINE INJECTION 1,000 MCG in NS (IVPB) 250 ML IV PRN ×2 (08:34→22:21)
[2018-03-26 08:56] LABS: BF OTHER CELLS 23 %; BODY FLUID APPEARENCE SLT BLDY; BODY FLUID COLOR XANTHO; LYMPHOCYTES,BODY FLUID 4 %
--- NOTE | 2018-03-26 08:56 | Diagnostic Imaging Report ---
INDICATION: Ventilator support. TIME OF EXAMINATION: 4:05 AM. COMPARISON: 03/25/2018. FINDINGS: The support lines and catheters remain in place. Bilateral five lobed pulmonary infiltrates persist but do appear improved when compared with yesterday. No effusion or pneumothorax is seen. IMPRESSION: The diffuse bilateral infiltrates do show some mild improvement when compared with the examination of one day earlier. Dictated by: Dictated on workstation # [id number]
[2018-03-26] MEDS: inSUlin Protamine/ASPart 70/30 1 UNIT/0.01 ML DOSE SC SCH ×2 (09:10→17:51)
[2018-03-26] MEDS: LORATADINE (CLARITIN) 10 MG TAB PO SCH (09:11)
[2018-03-26] MEDS: FAMOTIDINE 20 MG (PEPCID) TABLET PO SCH (09:11)
[2018-03-26] MEDS: ASPIRIN E.C. 81 MG (ECOTRIN) TAB PO SCH (09:11)
--- NOTE | 2018-03-26 09:52 | NUR ---
TUBE FEEDING RECOMMENDATIONS: IF PT TO BEGIN ENTERAL FEEDINGS, RECOMMEND P[facility]MOCARE @ 45 ML/HR TO PROVIDE 1620 KCAL, 68 GRAMS PROTEIN, 848 ML FREE WATER. PT WILL NEED ADDITIONAL 1400 ML FLUID PER DAY BETWEEN FLUSHES AND IVF.
--- NOTE | 2018-03-26 10:15 | Occ Therapy Progress Note ---
Therapy Progress Note Order received for OT eval and treat. Chart review completed. Pt currently intubated and sedated. Will hold OT at this time. Will monitor status and initiate OT services when appropriate and pt able to participate. ANDRIY JHA OT Mar 26, 2018 10:15
--- NOTE | 2018-03-26 10:21 | Physical Therapy Progress Note ---
Therapy Progress Note Pt currently sedated and on mechanical ventilator. PT will assess when pt is medically stable to participate in PT services. BRI MARTIN PT Mar 26, 2018 10:21
--- NOTE | 2018-03-26 10:22 | Occupational Ther Daily Note ---
OT Current Status-Daily Note Mental Status/Objective Therapy Code Descriptions/Definitions Functional [place] Measure: 0=Not Assessed/NA 4=Minimal Assistance 1=Total Assistance 5=Supervision or Setup 2=Maximal Assistance 6=Modified [place] 3=Moderate Assistance 7=Complete [place] ADL-Treatment Pt participated in sponge bath with SBA , comb hairs Independently, Supine to sit in bed Independently, sit to stand using Fww with CGA. due to dizziness. Pt completed 15 min on Arm-Bike exercisor to strengthen BUE & 20 reps x 2 setx 2 lb wts , 20 reps with red theraband in all plane of motion with BUE . Therapy Code Descriptions/Definitions Functional [place] Measure: 0=Not Assessed/NA 4=Minimal Assistance 1=Total Assistance 5=Supervision or Setup 2=Maximal Assistance 6=Modified [place] 3=Moderate Assistance 7=Complete [place] Therapy Quality Codes: 6 Independent with activity with or without an assistive device 5 Patient requires set up or clean up by helper. Patient completes activity by themselves 4 Supervision or touching assist (CGA). [place] provide cues , steadying assist 3 The helper provides less than half the effort to complete the activity 2 The helper provides more than half the effort to complete the activity 1 Dependent. The helper does all the effort to complete an activity 7 Patient refused to complete or attempt activity 9 The patient did not perform the activity before the current illness or injury 88 Not attempted due to Medical conditions or safety concerns Education OT Patient Education: Safety issues OT Short Term Goals Short Term Goals 1=Demonstrate adherence to instructed precautions during ADL tasks. 2=Patient will verbalize/demonstrate understanding of assistive devices/ modifications for ADL. 3=Patient will improve strength/tolerance for activity to enable patient to perform ADL's. OT Chcf Goals Chcf Goals 1=Demonstrate adherence to instructed precautions during ADL tasks. 2=Patient will verbalize/demonstrate understanding of assistive devices/ modifications for ADL. 3=Patient will improve strength/tolerance for activity to enable patient to perform ADL's. OT Education/Plan Treatment Plan/Plan of Care Patient would benefit from OT for education, treatment and training to promote independence in ADL's, mobility, safety and/or upper extremity function for ADL' s. Plan of Care: UE Funct Exercise/Act JOSE PINA OT Mar 26, 2018 10:22
[2018-03-26] MEDS ORDERED: ANIDULAFUNGIN 200 MG/NS 250 ML IVPB IV NR ×2 (10:45)
--- NOTE | 2018-03-26 12:39 | Cardiology Progress Note ---
Subjective Date Seen by Provider: Mar 26, 2018 Time Seen by Provider: 12:36 Subjective/Events-last exam patient is ventilator dependent, sedated Review of Systems General: Other (and unable to provide review of systems) Focused Exam Lactate Level 03/25/18 09:50: Lactic Acid Level 4.58*H 03/25/18 15:35: Lactic Acid Level 2.41*H 03/25/18 17:50: Lactic Acid Level 2.27*H Objective-Cardiology Exam Last Set of Vital Signs Vital Signs 03/26/18 03/26/18 03/26/18 03/26/18 11:07 11:09 12:00 12:34 Temp 97.3 Pulse 74 Resp 19 B/P (MAP) 125/48 (73) Pulse Ox 92 O2 Delivery Mechanical Ventilator O2 Flow Rate 40.00 FiO2 35 Capillary Refill : Less Than 3 Seconds I&O Intake and Output 03/26/18 00:00 Intake Total 4090 ml Output Total 2700 ml Balance 1390 ml Intake Oral 820 ml IV Total 3270 ml Output Urine Total 2700 ml General: Severe Distress, Other (sedated and intubated) HEENT: PERRLA Neck: Supple, No Thyromegaly Lungs: Normal Air Movement, Other (bilateral rhonchi) Heart: Regular Rate, Normal S1, Normal S2, No Murmurs Abdomen: Normal Bowel Sounds, Soft, No Tenderness, No Hepatosplenomegaly, No Masses, Other (mild edema) Extremities: No Clubbing, No Cyanosis, Normal Pulses, No Tenderness/Swelling Skin: No Rashes, No Breakdown, No Significant Lesion Neuro: Other (sedated and intubated) Psych/Mental Status: Other (sedated and intubated) Results Lab Laboratory Tests 03/25/18 13:50 03/25/18 15:35 03/25/18 17:50 03/25/18 21:07 03/26/18 03:30 A/P-Cardiology Admission Diagnosis Pneumonia Sinus tachycardia Coronary artery disease Hypertension Hyperlipidemia Assessment/Plan Acute respiratory failure, pneumonia, progressed to full respiratory failure and intubation yesterday, ventilator dependent and managed by primary care team Coronary artery disease, had a cardiac catheterization 2012 resulted with 2 stents deployment 2.515 mm to the right coronary artery resolute and 2.2522 mm resolute to the LAD, continue to monitor at this time Chest pain nonspecific etiology, was having chest pain last week, currently feeling better. Scheduled for stress test as an outpatient. We'll continue monitoring Echocardiogram done on March 25, 2018 showing normal left ventricular size with ejection fraction 65 percent, pulmonary hypertension with PA pressure 45 mmHg Hypertension, blood pressure is controlled at this time, continue to monitor Hyperlipidemia, monitor lipids Diabetes mellitus, followed and managed by primary care physician Obstructive sleep apnea, using C Pap at night, currently in respiratory failure Obesity, BMI 27, working on weight loss History of carotid stenosis, last ultrasound was done in September 2017 showing mild disease on the right and moderate on the left. Continue to monitor Clinical Quality Measures DVT/VTE Risk/Contraindication: Risk Factor Score Per Nursin RFS Level Per Nursing on Admit: 2=Moderate ANDREINA LARA MD Mar 26, 2018 12:39
--- NOTE | 2018-03-26 12:47 | NUR ---
ok to start tube feedings per dr roman and change accuchecks to q4 hrs.
[2018-03-26 13:53] LABS: PARAINFLU 2 PCR Not Detected (Not Detected)
[2018-03-26 13:56] LABS: PARAINFLU 1 PCR Not Detected (Not Detected); RSV PCR Not Detected (Not Detected)
--- NOTE | 2018-03-26 15:10 | NUR ---
Pastoral care visit, offered support and prayer to at bedside.
[2018-03-26] MEDS: ENOXAPARIN 40 MG/0.4 ML (LOVENOX) SYR SC SCH (15:31)
[2018-03-26] MEDS ORDERED: TROUGH ORDER-PHARMACY XX NR (16:00)
[2018-03-26] MEDS: ATORVASTATIN 20 MG (LIPITOR) TABLET PO SCH (16:32)
[2018-03-26] MEDS: VANCOMYCIN 1250 MG/NS 250 ML IVPB IV SCH ×2 (17:51)
[2018-03-26] MEDS ORDERED: VANCOMYCIN INJECTION 250 MG in NS (IVPB) 100 ML IV NR (18:30)
[2018-03-26] MEDS: fentaNYL INJECTION 1,250 MCG in NORMAL SALINE 250 ML INJ PRN (23:29)
[2018-03-27] VITALS (29 sets, daily range): BP systolic 116–154; BP diastolic 41–63
[2018-03-27] MEDS: inSUlin ASPART (NovoLOG) 1 UNIT/0.01 ML (CHARGE PER UNIT) SC SCH ×6 (00:05→20:31)
[2018-03-27] MEDS: RT-ALBUTEROL/IPRATROPIUM 3 ML (DUONEB) VIAL IH SCH ×5 (01:24→18:24)
[2018-03-27 03:57] LABS: ABG BASE EXCESS 1.9 MMOL/L (-2.5-2.5); ABG OXYGEN SATURATION 94 % (94-100); ABG PCO2 42 MMHG (35-45); ABG PH 7.41 (7.37-7.43); ABG PO2 68 MMHG (79-93); ABG TCO2 27.2 MMOL/L (21.0-31.0); BASOPHILS % (AUTO) 0 % (0-10); EOSINOPHILS # (AUTO) 0.3 10^3/uL (0.0-0.3); EOSINOPHILS % (AUTO) 2 % (0-10); HEMATOCRIT 29 % (40-54); HEMOGLOBIN 9.5 G/DL (13.3-17.7); LYMPHOCYTES # (AUTO) 2.8 X 10^3 (1.0-4.0); LYMPHOCYTES % (AUTO) 13 % (12-44); MEAN CORPUSCULAR HEMOGLOBIN 31 PG (25-34); MEAN CORPUSCULAR HGB CONC 33 G/DL (32-36); MEAN CORPUSCULAR VOLUME 95 FL (80-99); MEAN PLATELET VOLUME 8.3 FL (7.4-10.4); MONOCYTES # (AUTO) 1.3 X 10^3 (0.0-1.0); MONOCYTES % (AUTO) 6 % (0-12); NEUTROPHILS # (AUTO) 16.3 X 10^3 (1.8-7.8); NEUTROPHILS % (AUTO) 79 % (42-75); PLATELET COUNT 381 10^3/uL (130-400); RED CELL DISTRIBUTION WIDTH 14.7 % (10.0-14.5); WHITE BLOOD COUNT 20.7 10^3/uL (4.3-11.0)
[2018-03-27 03:58] LABS: ALLENS TEST ART LINE; INSPIRED O2 40%; PATIENT TEMP 99.7; VENTILATOR YES
[2018-03-27] MEDS: PROPOFOL DRIP (ICU) 100 ML IV SCH ×6 (04:16→21:37)
[2018-03-27 04:17] LABS: BUN/CREATININE RATIO 15; CARBON DIOXIDE 24 MMOL/L (21-32); CHLORIDE 109 MMOL/L (98-107); CREATININE SERUM 1.01 MG/DL (0.60-1.30); GFR ESTIMATED > 60; GLUCOSE 146 MG/DL (70-105); MAGNESIUM 1.7 MG/DL (1.8-2.4); PHOSPHORUS 2.4 MG/DL (2.3-4.7); POTASSIUM 4.4 MMOL/L (3.6-5.0); SODIUM 140 MMOL/L (135-145)
[2018-03-27] MEDS: LACTATED RINGERS 1,000 ML IV SCH ×2 (04:17→21:37)
[2018-03-27] MEDS: PIPERACILLIN/TAZO 4.5 GM/NS 100 ML IV SCH ×6 (04:17→20:31)
[2018-03-27] MEDS: MAGNESIUM 1 GM/100 ML IVPB 100 ML IV SCH ×3 (04:27→05:33)
[2018-03-27] MEDS: POTASSIUM CL 10MEQ/50ML IVPB 50 ML IV SCH (04:27)
[2018-03-27] MEDS: KCL 20 MEQ TAB (K-DUR) PO SCH (04:28)
[2018-03-27] MEDS: LACTOBACILLUS ACIDOPHILUS (PROBIOTIC) CAPSULE PO SCH ×3 (04:38→16:38)
[2018-03-27] MEDS ORDERED: BUMETANIDE 1 MG/4 ML (BUMEX) VIAL IV ONE (05:45)
[2018-03-27] MEDS ORDERED: BUMETANIDE 1 MG/4 ML (BUMEX) VIAL ONE (05:48)
--- NOTE | 2018-03-27 06:06 | Pulmonary Progress Note ---
Subjective Time Seen by a Provider: 06:10 Subjective/Events-last exam PT is requiring more oxygen now. Sepsis Event Evaluation Height, Weight, BMI Height: 5'6.00" Weight: 190lbs. 0.0oz. 86.058478qk; 27.4 BMI Method: Focused Exam Lactate Level 03/25/18 09:50: Lactic Acid Level 4.58*H 03/25/18 15:35: Lactic Acid Level 2.41*H 03/25/18 17:50: Lactic Acid Level 2.27*H Exam Exam Vital Signs Date Time Temp Pulse Resp B/P (MAP) Pulse Ox O2 Delivery O2 Flow Rate FiO2 03/27/18 05:47 Mechanical Ventilator 50.00 03/27/18 05:00 79 20 138/49 (78) 91 Mechanical Ventilator 40.00 03/27/18 04:28 76 19 92 40 03/27/18 04:16 133/51 Mechanical Ventilator 40.00 03/27/18 04:00 77 18 136/51 (79) 94 Mechanical Ventilator 40.00 03/27/18 03:55 95 Mechanical Ventilator 40 03/27/18 03:50 99.7 Mechanical Ventilator 40.00 03/27/18 03:00 81 18 126/49 (74) 94 Mechanical Ventilator 40.00 03/27/18 02:00 82 19 131/50 (77) 96 Mechanical Ventilator 40.00 03/27/18 01:25 73 19 96 40 03/27/18 01:00 73 03/27/18 01:00 73 18 132/56 (81) 96 Mechanical Ventilator 40.00 03/27/18 00:00 76 19 135/55 (81) 95 Mechanical Ventilator 40.00 03/26/18 23:54 99.7 77 19 133/55 (81) 95 Mechanical Ventilator 40.00 03/26/18 23:35 94 Mechanical Ventilator 40 03/26/18 23:00 72 18 122/52 (75) 94 Mechanical Ventilator 40.00 03/26/18 22:56 72 18 94 40 03/26/18 22:07 Mechanical Ventilator 03/26/18 22:00 74 17 115/51 (72) 100 Mechanical Ventilator 40.00 03/26/18 21:00 78 19 111/49 (69) 94 Mechanical Ventilator 40.00 03/26/18 20:13 Mechanical Ventilator 40.00 03/26/18 20:07 78 18 97 50 03/26/18 20:00 76 18 118/51 (73) 97 Mechanical Ventilator 50.00 03/26/18 20:00 94 Mechanical Ventilator 50 03/26/18 19:20 98.8 78 19 121/51 (74) 95 Mechanical Ventilator 50.00 03/26/18 19:00 81 03/26/18 19:00 80 19 118/50 (72) 96 Mechanical Ventilator 60.00 03/26/18 18:40 73 18 98 60 03/26/18 18:00 74 18 116/51 (72) 98 Mechanical Ventilator 60.00 03/26/18 17:00 75 18 124/51 (75) 98 Mechanical Ventilator 60.00 03/26/18 16:16 96 29 92 60 03/26/18 16:07 145/51 03/26/18 16:00 81 23 135/51 (79) Mechanical Ventilator 60.00 03/26/18 16:00 81 23 125/45 (71) 90 Mechanical Ventilator 60.00 03/26/18 15:35 Mechanical Ventilator 35 03/26/18 15:34 98.8 03/26/18 15:00 76 19 131/50 (77) 93 Mechanical Ventilator 35.00 03/26/18 14:00 88 26 92 45 03/26/18 14:00 73 19 89 Mechanical Ventilator 35.00 03/26/18 13:00 71 18 122/49 (73) 91 Mechanical Ventilator 35.00 03/26/18 12:34 74 03/26/18 12:00 75 19 125/48 (73) 92 Mechanical Ventilator 35.00 03/26/18 11:09 Mechanical Ventilator 35 03/26/18 11:07 97.3 03/26/18 11:00 76 118/44 (68) 91 Mechanical Ventilator 40.00 03/26/18 10:00 82 20 119/43 (68) 93 Mechanical Ventilator 40.00 03/26/18 09:16 72 20 95 35 03/26/18 09:00 76 19 112/41 (64) 92 Mechanical Ventilator 40.00 03/26/18 08:00 81 19 98/21 (46) 95 Mechanical Ventilator 40.00 03/26/18 08:00 Mechanical Ventilator 35 03/26/18 07:15 96.3 03/26/18 07:00 80 16 98/20 (46) 86 Mechanical Ventilator 40.00 03/26/18 07:00 64 03/26/18 06:42 70 19 94 35 03/26/18 06:09 16 I & O 03/27/18 07:00 Intake Total 5562.5 ml Output Total 1535 ml Balance 4027.5 ml Height & Weight Height: 5'6.00" Weight: 190lbs. 0.0oz. 86.565921xm; 27.4 BMI Method: General Appearance: WD/WN, Anxious, Mild Distress, Other (sedated on vent) HEENT: PERRL/EOMI, Moist Mucous Membranes; No Scleral Icterus (L), No Scleral Icterus (R) Neck: Full Range of Motion, Normal Inspection, Supple Respiratory: No Accessory Muscle Use, No Respiratory Distress, Crackles ( bilateral bases); No Wheezing Cardiovascular: Regular Rate, Rhythm, No JVD, No Murmur Capillary Refill: Less Than 3 Seconds Gastrointestinal: non tender, soft Extremity: No Calf Tenderness, No Pedal Edema Neurologic/Psychiatric: Alert, Oriented x3, No Motor/Sensory Deficits, Normal Mood/Affect Skin: Normal Color, Warm/Dry Lymphatic: No Adenopathy Results Lab Laboratory Tests 03/25/18 06:46 03/25/18 13:50 03/25/18 15:35 03/25/18 17:50 03/25/18 21:07 03/26/18 03:30 03/27/18 03:49 Assessment/Plan Assessment/Plan Acute respiratory failure s/p bronchoscopy with ARDS Pa02/Fi02 = 170 -Continue ventilator therapy -Decrease Vt 450 and increase RR to 26, increase PEEP to 5 -Repeat ABG in 1hr -Will start proning patient q12 hours as tolerated -ADD PRN fentanyl and ativan -Tube feeds with Pulmocare - hold while in prone position -give 2mg of Bumex IV x 1 Acute bilateral pneumonia with hypoxemia with severe sepsis -Continue vanco/Zosyn - Decrease ivf 50 cc/hr -give 2mg of bumex CYN - improved -monitor Hyperglycemia -Monitor close Anemia - monitor Hyponatremia - monitor VERO I assisted nursing staff with proning patient. is at bedside and I answered all of her questions and concerns. Will also discuss with Dr. Queen. Total time spent with patient, and medical staff is 60min Critical Care: Critically Ill Patient Time spent with patient (mins): 60 JON WILLIAM DO Mar 27, 2018 06:06
[2018-03-27] MEDS ORDERED: methylPREDNISolone 125 MG (Solu-MEDROL) VIAL IVP ONE (06:15)
--- NOTE | 2018-03-27 06:20 | NUR ---
Patient placed in Prone position with assistance of RT and another RN. Dr Burrows present at bedside.
--- NOTE | 2018-03-27 06:50 | Diagnostic Imaging Report ---
INDICATION: Respiratory failure. Shortness of air. Ventilated patient. COMPARISON: 03/26/2018 FINDINGS: Single frontal radiographic view of the chest was obtained and demonstrates indwelling endotracheal tube with tip at the clavicular heads. Gastric tube is seen with tip and side port in the stomach. Lungs continue to show diffuse bilateral mixed interstitial and alveolar infiltrates. There has been interval progression with increased confluent opacities in the midlungs. No large effusion or pneumothorax is seen. Cardiac silhouette is heavily obscured. Bony structures show no gross acute abnormalities. IMPRESSION: 1. Persistent bilateral infiltrates with some progression of airspace disease bilaterally. Continued followup is recommended. 2. Lines and tubes as above. Dictated by: Dictated on workstation # [id number]
[2018-03-27] MEDS: LORazepam INJ 2 MG/ML (ATIVAN) VIAL IVP PRN ×3 (07:34→17:57)
[2018-03-27 07:58] LABS: ABG BASE EXCESS 1.9 MMOL/L (-2.5-2.5); ABG OXYGEN SATURATION 95 % (94-100); ABG PCO2 39 MMHG (35-45); ABG PH 7.44 (7.37-7.43); ABG PO2 71 MMHG (79-93); ABG TCO2 26.8 MMOL/L (21.0-31.0); ALLENS TEST POSITIVE; INSPIRED O2 45% FI02; PATIENT TEMP 99.9; VENTILATOR YES
--- NOTE | 2018-03-27 08:01 | NUR ---
FENT CADD PUMP INCREASED TO 120MCG/HR PER DR WILLIAM. DR WILLIAM AT BEDSIDE TO VERIFY.
[2018-03-27] MEDS: meTOprolol TARTRATE 25 MG (LOPRESSOR) TABLET PO SCH (08:42)
[2018-03-27] MEDS: ASPIRIN E.C. 81 MG (ECOTRIN) TAB PO SCH (08:42)
[2018-03-27] MEDS: LORATADINE (CLARITIN) 10 MG TAB PO SCH (08:42)
[2018-03-27] MEDS: PANTOPRAZOLE 40 MG (PROTONIX) VIAL IV SCH (08:50)
[2018-03-27] MEDS: inSUlin Protamine/ASPart 70/30 1 UNIT/0.01 ML DOSE SC SCH ×2 (08:50→17:11)
[2018-03-27] MEDS: ANIDULAFUNGIN INJECTION 100 MG in NS (IVPB) 100 ML IV SCH (08:50)
[2018-03-27] MEDS: fentaNYL INJECTION 100 MCG/2 ML AMP IVP PRN (09:16)
--- NOTE | 2018-03-27 10:03 | Progress Note-Hospitalist ---
Subjective HPI/CC On Admission Date Seen by Provider: Mar 27, 2018 Time Seen by Provider: 09:57 Pt is 73yoCM with a PMH of CAD s/p stenting, IDDMII, VERO who was direct admitted from Dr Burrows's office for pneumonia. He states she the past week or so he has been has some chest tightness and noticed it more with exertion ( bowling). He was seen by his PCP who referred him to Dr Pizarro. Per patient EKG showed no changes and he was set up for an outpatient stress test. He continued to have some chest tightness and his states for the past month he's had more shallow breathing. He was seen by Dr Burrows today for regular follow up for his VERO and CPAP and was found to be hypoxic and mildly hypotensive on arrival. He was sent for outpatient labs and CTA which revealed bilateral pneumonia and a leukocytosis. He was direct admitted for further management. Subjective/Events-last exam Pt laying prone in bed. Sedated and intubated. at bedside. All questions answered. Focused Exam Lactate Level 03/25/18 09:50: Lactic Acid Level 4.58*H 03/25/18 15:35: Lactic Acid Level 2.41*H 03/25/18 17:50: Lactic Acid Level 2.27*H Objective Exam Vital Signs Vital Signs Date Time Temp Pulse Resp B/P (MAP) Pulse Ox O2 Delivery O2 Flow Rate FiO2 03/27/18 09:00 97 25 145/48 (80) 96 Mechanical Ventilator 45.00 03/27/18 08:00 45 03/27/18 07:34 99.9 Capillary Refill : Less Than 3 Seconds General Appearance: Chronically ill, Other (sedated on vent, laying prone) Respiratory: Rhonci, Other (on vent) Cardiovascular: Regular Rate, Rhythm, No JVD, No Murmur, Other (limited auscultation of heart due to prone position) Back: Normal Inspection Extremity: No Calf Tenderness, No Pedal Edema Neurologic/Psychiatric: Other (sedated, resting comfortably) Results/Procedures Lab Laboratory Tests 03/27/18 03:49 Patient resulted labs reviewed. Imaging: Reviewed Imaging Report Assessment/Plan Assessment and Plan Assess & Plan/Chief Complaint Acute Respiratory Failure Critical Care Critically Ill Patient Diagnosis/Problems Diagnosis/Problems (1) Acute respiratory failure Status: Acute Assessment & Plan: Secondary to CAP and ARDS Maintain low TV, prone, and net negative I/Os Intubated on 03/25 Pulm consulted, appreciate recs RVP negative Bronch culture pending Sputum culture negative Qualifiers: Respiratory failure complication: hypoxia Qualified Codes: J96.01 - Acute respiratory failure with hypoxia (2) Severe sepsis Status: Acute Assessment & Plan: Progressed to severe sepsis yesterday with respiratory failure Continue Zosyn Blood cultures done and NGTD Underwent bronch today Lactic acidosis elevated but likely confounded due to profound hypoxemia (3) Pneumonia Status: Acute Assessment & Plan: Diffuse bilateral pneumonia on CT chest Continue Zosyn Blood cultures NGTD RVP pending Urine strep pneumo and legionella negative Qualifiers: Pneumonia type: due to unspecified organism Laterality: bilateral Lung location: lower lobe of lung Qualified Codes: J18.1 - Lobar pneumonia, unspecified organism (4) FAIZA (acute kidney injury) Status: Resolved Assessment & Plan: Improved Continue IVF Resolution Date/Time: 03/27/18 @ 10:02 (5) Insulin dependent diabetes mellitus Assessment & Plan: Continue home insulin SSI (6) Essential (primary) hypertension Assessment & Plan: BP improved from yesterday Switch metoprolol to lopressor (7) CAD (coronary artery disease) Status: Chronic Assessment & Plan: Cardiology consulted, appreciate recs Troponin negative Qualifiers: Coronary Disease-Associated Artery/Lesion type: [place] artery [place] vs. transplanted heart: [place] heart Associated angina: without angina Qualified Codes: I25.10 - Atherosclerotic heart disease of [place] coronary artery without angina pectoris Clinical Quality Measures DVT/VTE Risk/Contraindication: Risk Factor Score Per Nursin RFS Level Per Nursing on Admit: 2=Moderate DHRUV MEEHAN MD Mar 27, 2018 10:03
[2018-03-27] MEDS ORDERED: ENOXAPARIN 40 MG/0.4 ML (LOVENOX) SYR SQ SCH (10:15)
[2018-03-27] MEDS: meTOprolol 5 MG/5 ML (LOPRESSOR) VIAL IV SCH ×3 (11:01→23:50)
[2018-03-27] MEDS: methylPREDNISolone 40 MG/ML (Solu-MEDROL) VIAL IV SCH ×3 (11:01→23:50)
[2018-03-27] MEDS: DEXMEDETOMIDINE INJECTION 1,000 MCG in NS (IVPB) 250 ML IV PRN (11:05)
--- NOTE | 2018-03-27 11:05 | Occ Therapy Progress Note ---
Therapy Progress Note 1035 Pt still on vent and sedated. Will follow. JOCE ROGER OT Mar 27, 2018 11:05
--- NOTE | 2018-03-27 11:07 | Physical Therapy Progress Note ---
Therapy Progress Note Pt remains on the ventilator and sedated. Will continue to follow pt. MINDY LANDERS PT Mar 27, 2018 11:07
--- NOTE | 2018-03-27 13:19 | Progress Note-Cardiology ---
Cardiology SOAP Progress Note Subjective: On [facility] vent and is sedated. Not able to provide any meaningful history by bedside who described events (spread over 10 days) that led to this hosp on 03/25/18 Objective: I&O/Vital Signs 03/27/18 03/27/18 03/27/18 03/27/18 01:25 02:00 03:00 03:50 Temp 99.7 Pulse 73 82 81 Resp 19 19 18 B/P (MAP) 131/50 (77) 126/49 (74) Pulse Ox 96 96 94 O2 Delivery Mechanical Ventilator Mechanical Ventilator Mechanical Ventilator O2 Flow Rate 40.00 40.00 40.00 FiO2 40 03/27/18 03/27/18 03/27/18 03/27/18 03:55 04:00 04:16 04:28 Pulse 77 76 Resp 18 19 B/P (MAP) 136/51 (79) 133/51 Pulse Ox 95 94 92 O2 Delivery Mechanical Ventilator Mechanical Ventilator Mechanical Ventilator O2 Flow Rate 40.00 40.00 FiO2 40 40 03/27/18 03/27/18 03/27/18 03/27/18 05:00 05:47 06:00 07:18 Pulse 79 75 96 Resp 25 29 B/P (MAP) 138/49 (78) 134/49 (77) Pulse Ox 91 96 98 O2 Delivery Mechanical Ventilator Mechanical Ventilator Mechanical Ventilator O2 Flow Rate 40.00 50.00 50.00 FiO2 50 03/27/18 03/27/18 03/27/18 03/27/18 07:34 07:43 08:00 08:10 Temp 99.9 Pulse 100 101 Resp 16 B/P (MAP) 124/41 (68) Pulse Ox 96 96 O2 Delivery Mechanical Ventilator Mechanical Ventilator O2 Flow Rate 45.00 FiO2 45 03/27/18 03/27/18 03/27/18 03/27/18 08:56 09:00 10:00 10:18 Pulse 97 87 85 Resp 25 11 24 B/P (MAP) 146/47 145/48 (80) 144/48 (80) Pulse Ox 96 98 98 O2 Delivery Mechanical Ventilator Mechanical Ventilator O2 Flow Rate 45.00 45.00 FiO2 50 03/27/18 03/27/18 03/27/18 03/27/18 11:00 11:11 11:11 11:13 Temp 98.2 Pulse 76 Resp 19 B/P (MAP) 118/44 (68) 154/52 Pulse Ox 91 96 O2 Delivery Mechanical Ventilator Mechanical Ventilator O2 Flow Rate 45.00 FiO2 45 03/27/18 03/27/18 12:00 12:57 Pulse 81 81 Resp 21 B/P (MAP) 152/50 (84) Pulse Ox 100 O2 Delivery Mechanical Ventilator O2 Flow Rate 45.00 03/27/18 00:00 Intake Total 2922.5 ml Output Total 775 ml Balance 2147.5 ml Weight (Pounds): 190 Weight (Ounces): 0.0 Weight (Calculated Kilograms): 86.282929 Constitutional: other (intubated, sedated, on mech vent) Respiratory: No accessory muscle use; other (fair bilat air entry; diminished bs at bases) Cardiovascular: regular rate-rhythm, S1 and S2, systolic murmur (faint SHEYLA at card base) Gastrointestional: No tender; soft, audible bowel sounds Extremities: No clubbing, No cyanosis, No significant edema Neurologic/Psychiatric: other (intubated and sedated and unable to cooperate with a neuro exam) Skin: No rash on exposed areas, No ulcerations on exposed areas Results/Procedures: Labs Laboratory Tests 03/26/18 15:30: Glucometer 134H 03/26/18 16:35: Vancomycin Level Trough 9.8L 03/26/18 20:08: Glucometer 121H 03/27/18 00:05: Glucometer 131H 03/27/18 03:49: White Blood Count 20.7H, Red Blood Count 3.06L, Hemoglobin 9.5L, Hematocrit 29L , Mean Corpuscular Volume 95, Mean Corpuscular Hemoglobin 31, Mean Corpuscular Hemoglobin Concent 33, Red Cell Distribution Width 14.7H, Platelet Count 381, Mean Platelet Volume 8.3, Neutrophils (%) (Auto) 79H, Lymphocytes (%) (Auto) 13 , Monocytes (%) (Auto) 6, Eosinophils (%) (Auto) 2, Basophils (%) (Auto) 0, Neutrophils # (Auto) 16.3H, Lymphocytes # (Auto) 2.8, Monocytes # (Auto) 1.3H, Eosinophils # (Auto) 0.3, Basophils # (Auto) 0.0, Blood Gas Puncture Site R [facility], Blood Gas Patient Temperature 99.7, Arterial Blood pH 7.41, Arterial Blood Partial Pressure CO2 42, Arterial Blood Partial Pressure O2 68L, Arterial Blood HCO3 26, Arterial Blood Total CO2 27.2, Arterial Blood Oxygen Saturation 94, Arterial Blood Base Excess 1.9, Cisco Test ART LINE, Blood Gas Ventilator Setting YES, Blood Gas Inspired Oxygen 40%, Sodium Level 140, Potassium Level 4.4, Chloride Level 109H, Carbon Dioxide Level 24, Anion Gap 7, Blood Urea Nitrogen 15, Creatinine 1.01, Estimat Glomerular Filtration Rate > 60, BUN/ Creatinine Ratio 15, Glucose Level 146H, Calcium Level 8.0L, Phosphorus Level 2.4, Magnesium Level 1.7L, B-Type Natriuretic Peptide 232.1H 03/27/18 03:54: Glucometer 126H 03/27/18 07:51: Blood Gas Puncture Site RIGHT RADIAL, Blood Gas Patient Temperature 99.9, Arterial Blood pH 7.44H, Arterial Blood Partial Pressure CO2 39, Arterial Blood Partial Pressure O2 71L, Arterial Blood HCO3 26, Arterial Blood Total CO2 26.8, Arterial Blood Oxygen Saturation 95, Arterial Blood Base Excess 1.9, Cisco Test POSITIVE, Blood Gas Ventilator Setting YES, Blood Gas Inspired Oxygen 45% FI02 03/27/18 07:57: Glucometer 200H 03/27/18 11:10: Glucometer 169H Microbiology 03/24/18 Blood Culture - Preliminary, Resulted No growth 03/26/18 Gram Stain - Final, Resulted 03/26/18 Bronchial Culture - Preliminary, Resulted No growth 03/26/18 Fungal Culture 1, Resulted Pending Laboratory Tests 03/25/18 13:50 03/25/18 15:35 03/25/18 17:50 03/25/18 21:07 03/26/18 03:30 03/27/18 03:49 A/P: Assessment: Acute respiratory failure due to bilat pneumonia Coronary artery disease. Cardiac catheterization in 2012: 2 stents: 2.515 mm to the right coronary artery and 2.2522 mm to the LAD. MPI of Feb 2017 did not show ischemia or infarction and LVEF was 66% Echo of March 25, 2018: normal left ventricular size with ejection fraction 65 percent, pulmonary hypertension with PA pressure 45 mmHg Hypertension Hyperlipidemia Diabetes mellitus II Obstructive sleep apnea, h/o treatment with CPAP Obesity, BMI 30 Carotid arterial disease: Carotid u/s of Sep 2017 showed mild disease on the right and moderate on the left Plan: * I reviewed his hospitalization and prior records, interviewed his in detail, and examined him * Complex management * Prognosis guarded * Continue current regimen * Monitor labs SHANTE UMANA MD FACP FAC CCDS Mar 27, 2018 13:19
[2018-03-27] MEDS: ENOXAPARIN 40 MG/0.4 ML (LOVENOX) SYR SC SCH (14:00)
[2018-03-27] MEDS: fentaNYL INJECTION 1,250 MCG in NORMAL SALINE 250 ML INJ PRN (14:06)
--- NOTE | 2018-03-27 14:07 | NUR ---
50ML CADD PUMP FENTANYL WASTED W/ KASSIDY REYNOSO.
[2018-03-27] MEDS: VANCOMYCIN 1500 MG/NS 500 ML IVPB IV SCH ×2 (16:38)
[2018-03-27] MEDS: ATORVASTATIN 20 MG (LIPITOR) TABLET PO SCH (16:53)
--- NOTE | 2018-03-27 18:26 | NUR ---
PT TURNED BACK TO SUPINE POSITION. PT TOLERATED MOVEMENT WELL.
--- NOTE | 2018-03-27 19:12 | NUR ---
TUBE FEEDINGS RESUMED PER DR ORDERS.
[2018-03-28] VITALS (33 sets, daily range): BP systolic 48–152; BP diastolic 36–63
[2018-03-28] MEDS: inSUlin ASPART (NovoLOG) 1 UNIT/0.01 ML (CHARGE PER UNIT) SC SCH ×6 (00:02→20:30)
[2018-03-28] MEDS: DEXMEDETOMIDINE INJECTION 1,000 MCG in NS (IVPB) 250 ML IV PRN (01:24)
[2018-03-28] MEDS: RT-ALBUTEROL/IPRATROPIUM 3 ML (DUONEB) VIAL IH SCH ×6 (01:46→23:59)
[2018-03-28] MEDS: PROPOFOL DRIP (ICU) 100 ML IV SCH ×4 (03:27→19:34)
[2018-03-28 03:32] LABS: BASOPHILS % (AUTO) 0 % (0-10); EOSINOPHILS % (AUTO) 0 % (0-10); HEMATOCRIT 28 % (40-54); HEMOGLOBIN 9.4 G/DL (13.3-17.7); LYMPHOCYTES # (AUTO) 1.2 X 10^3 (1.0-4.0); LYMPHOCYTES % (AUTO) 8 % (12-44); MEAN CORPUSCULAR HEMOGLOBIN 31 PG (25-34); MEAN CORPUSCULAR HGB CONC 34 G/DL (32-36); MEAN CORPUSCULAR VOLUME 93 FL (80-99); MEAN PLATELET VOLUME 8.4 FL (7.4-10.4); MONOCYTES # (AUTO) 0.3 X 10^3 (0.0-1.0); MONOCYTES % (AUTO) 2 % (0-12); NEUTROPHILS # (AUTO) 13.3 X 10^3 (1.8-7.8); NEUTROPHILS % (AUTO) 90 % (42-75); PLATELET COUNT 338 10^3/uL (130-400); RED CELL DISTRIBUTION WIDTH 14.2 % (10.0-14.5); WHITE BLOOD COUNT 14.8 10^3/uL (4.3-11.0)
[2018-03-28 03:32] LABS: ABG BASE EXCESS 2.7 MMOL/L (-2.5-2.5); ABG OXYGEN SATURATION 100 % (94-100); ABG PCO2 42 MMHG (35-45); ABG PH 7.42 (7.37-7.43); ABG PO2 155 MMHG (79-93); ABG TCO2 28.3 MMOL/L (21.0-31.0)
[2018-03-28 03:33] LABS: ALLENS TEST ART LINE; INSPIRED O2 45%; VENTILATOR YES
[2018-03-28 03:49] LABS: BUN/CREATININE RATIO 16; CARBON DIOXIDE 24 MMOL/L (21-32); CHLORIDE 105 MMOL/L (98-107); CREATININE SERUM 1.06 MG/DL (0.60-1.30); GFR ESTIMATED > 60; GLUCOSE 290 MG/DL (70-105); PHOSPHORUS 2.1 MG/DL (2.3-4.7); POTASSIUM 3.2 MMOL/L (3.6-5.0); SODIUM 138 MMOL/L (135-145)
[2018-03-28] MEDS: PIPERACILLIN/TAZO 4.5 GM/NS 100 ML IV SCH ×6 (04:09→20:30)
[2018-03-28] MEDS: POTASSIUM CL 10MEQ/50ML IVPB 50 ML IV SCH ×5 (04:12→07:15)
--- NOTE | 2018-03-28 04:56 | Pulmonary Progress Note ---
Subjective Time Seen by a Provider: 05:08 Subjective/Events-last exam Sedated on ventilator. is at bedside. Sepsis Event Evaluation Height, Weight, BMI Height: 5'6.00" Weight: 190lbs. 0.0oz. 86.691803dl; 27.4 BMI Method: Focused Exam Lactate Level 03/25/18 09:50: Lactic Acid Level 4.58*H 03/25/18 15:35: Lactic Acid Level 2.41*H 03/25/18 17:50: Lactic Acid Level 2.27*H Exam Exam Vital Signs Date Time Temp Pulse Resp B/P (MAP) Pulse Ox O2 Delivery O2 Flow Rate FiO2 03/28/18 04:00 71 21 48/ 99 Mechanical Ventilator 35.00 03/28/18 03:51 Mechanical Ventilator 35.00 03/28/18 03:50 100 Mechanical Ventilator 35 03/28/18 03:45 65 22 100 45 03/28/18 03:27 157/52 Mechanical Ventilator 45.00 03/28/18 03:25 97.0 Mechanical Ventilator 45.00 03/28/18 03:00 64 21 146/52 (83) 100 Mechanical Ventilator 45.00 03/28/18 02:00 66 21 145/52 (83) 100 Mechanical Ventilator 45.00 03/28/18 01:46 64 22 100 45 03/28/18 01:00 64 21 144/56 (85) 100 Mechanical Ventilator 45.00 03/28/18 01:00 64 03/28/18 00:00 60 21 143/56 (85) 100 Mechanical Ventilator 45.00 03/27/18 23:58 97.8 63 22 116/63 (80) 100 Mechanical Ventilator 45.00 03/27/18 23:20 98 Mechanical Ventilator 45 03/27/18 23:00 69 22 152/53 (86) 100 Mechanical Ventilator 45.00 03/27/18 22:00 71 21 147/50 (82) 100 Mechanical Ventilator 45.00 03/27/18 21:37 Mechanical Ventilator 40.00 03/27/18 21:00 75 22 148/51 (83) 100 Mechanical Ventilator 45.00 03/27/18 20:00 79 21 148/51 (83) 100 Mechanical Ventilator 45.00 03/27/18 19:35 100 Mechanical Ventilator 45 03/27/18 19:00 97.7 82 21 144/47 (79) 100 Mechanical Ventilator 45.00 03/27/18 19:00 80 03/27/18 18:25 77 22 100 45 03/27/18 17:11 137/42 03/27/18 17:00 89 22 137/43 (74) 100 Mechanical Ventilator 45.00 03/27/18 16:44 96 Mechanical Ventilator 45 03/27/18 16:38 97.6 03/27/18 16:00 89 22 143/45 (77) 100 Mechanical Ventilator 45.00 03/27/18 15:00 85 21 153/48 (83) 100 Mechanical Ventilator 45.00 03/27/18 14:11 88 22 100 50 03/27/18 14:00 73 19 124/49 (74) 89 Mechanical Ventilator 45.00 03/27/18 13:59 153/49 03/27/18 13:00 71 18 122/49 (73) 91 Mechanical Ventilator 45.00 03/27/18 12:57 81 03/27/18 12:00 81 21 152/50 (84) 100 Mechanical Ventilator 45.00 03/27/18 11:13 154/52 03/27/18 11:11 96 Mechanical Ventilator 45 03/27/18 11:11 98.2 03/27/18 11:00 76 19 118/44 (68) 91 Mechanical Ventilator 45.00 03/27/18 10:18 85 24 98 50 03/27/18 10:00 87 11 144/48 (80) 98 Mechanical Ventilator 45.00 03/27/18 09:00 97 25 145/48 (80) 96 Mechanical Ventilator 45.00 03/27/18 08:56 146/47 03/27/18 08:10 101 16 124/41 (68) 96 Mechanical Ventilator 45.00 03/27/18 08:00 96 Mechanical Ventilator 45 03/27/18 07:43 100 03/27/18 07:34 99.9 03/27/18 07:18 96 29 98 50 03/27/18 06:00 75 25 134/49 (77) 96 Mechanical Ventilator 50.00 03/27/18 05:47 Mechanical Ventilator 50.00 03/27/18 05:00 79 20 138/49 (78) 91 Mechanical Ventilator 40.00 I & O 03/28/18 07:00 Intake Total 3480 ml Output Total 4300 ml Balance -820 ml Height & Weight Height: 5'6.00" Weight: 190lbs. 0.0oz. 86.843259va; 27.4 BMI Method: General Appearance: Chronically ill, Other (sedated on vent) Respiratory: Rhonci, Other (on vent) Cardiovascular: Regular Rate, Rhythm, No JVD, No Murmur, Other Capillary Refill: Less Than 3 Seconds Gastrointestinal: non tender, soft Extremity: No Calf Tenderness, No Pedal Edema Neurologic/Psychiatric: Other (sedated, resting comfortably) Results Lab Laboratory Tests 03/27/18 03:49 03/28/18 03:15 Assessment/Plan Assessment/Plan Acute respiratory failure s/p bronchoscopy Pa02/Fi02 = 344 -ARDS is improving -D/c proning -Continue ventilator therapy -Decrease Vt 450 and increase RR to 26, PEEP to 10 -ADD fentanyl and ativan -Tube feeds with Pulmocare - hold while in prone position -TF with pulmicare -Increase OG flushes to 250 Q6 Acute bilateral pneumonia with hypoxemia with severe sepsis -Continue vanco/Zosyn - ivf 50 cc/hr CYN - improved -monitor Hyperglycemia -Monitor close Anemia - monitor Hyponatremia - monitor VERO JON WILLIAM DO Mar 28, 2018 04:56
[2018-03-28] MEDS: MAGNESIUM 1 GM/100 ML IVPB 100 ML IV SCH (05:15)
[2018-03-28] MEDS: KCL 20 MEQ TAB (K-DUR) PO SCH (05:16)
[2018-03-28] MEDS: methylPREDNISolone 40 MG/ML (Solu-MEDROL) VIAL IV SCH ×3 (06:11→17:24)
[2018-03-28] MEDS: meTOprolol 5 MG/5 ML (LOPRESSOR) VIAL IV SCH ×3 (06:12→17:24)
[2018-03-28] MEDS: LACTOBACILLUS ACIDOPHILUS (PROBIOTIC) CAPSULE PO SCH ×3 (06:17→16:50)
[2018-03-28] MEDS: inSUlin Protamine/ASPart 70/30 1 UNIT/0.01 ML DOSE SC SCH ×2 (08:15→16:50)
[2018-03-28] MEDS: ASPIRIN E.C. 81 MG (ECOTRIN) TAB PO SCH (08:15)
[2018-03-28] MEDS: LORATADINE (CLARITIN) 10 MG TAB PO SCH (08:15)
[2018-03-28] MEDS: PANTOPRAZOLE 40 MG (PROTONIX) VIAL IV SCH (08:15)
--- NOTE | 2018-03-28 08:20 | Progress Note-Hospitalist ---
Subjective HPI/CC On Admission Date Seen by Provider: Mar 28, 2018 Time Seen by Provider: 08:14 Pt is 73yoCM with a PMH of CAD s/p stenting, IDDMII, VERO who was direct admitted from Dr Burrows's office for pneumonia. He states she the past week or so he has been has some chest tightness and noticed it more with exertion ( bowling). He was seen by his PCP who referred him to Dr Pizarro. Per patient EKG showed no changes and he was set up for an outpatient stress test. He continued to have some chest tightness and his states for the past month he's had more shallow breathing. He was seen by Dr Burrows today for regular follow up for his VERO and CPAP and was found to be hypoxic and mildly hypotensive on arrival. He was sent for outpatient labs and CTA which revealed bilateral pneumonia and a leukocytosis. He was direct admitted for further management. Subjective/Events-last exam Pt is sedated and intubated. Unable to participate in ROS. brought up concerns regarding confusion prior to this hospitalization. Patient had becoming more forgetful over the past month or so. Focused Exam Lactate Level 03/25/18 09:50: Lactic Acid Level 4.58*H 03/25/18 15:35: Lactic Acid Level 2.41*H 03/25/18 17:50: Lactic Acid Level 2.27*H Objective Exam Vital Signs Vital Signs Date Time Temp Pulse Resp B/P (MAP) Pulse Ox O2 Delivery O2 Flow Rate FiO2 03/28/18 07:49 Mechanical Ventilator 30 03/28/18 07:40 97.5 03/28/18 06:28 73 21 141/50 (80) 95 30.00 Capillary Refill : Less Than 3 Seconds General Appearance: Chronically ill, Other (sedated on vent) Neck: Other (OG in place) Respiratory: Rhonci; No Wheezing; Other (on vent) Cardiovascular: Regular Rate, Rhythm, No JVD, No Murmur Back: Normal Inspection Extremity: No Calf Tenderness, Pedal Edema Neurologic/Psychiatric: Other (sedated, resting comfortably) Results/Procedures Lab Laboratory Tests 03/28/18 03:15 Patient resulted labs reviewed. Imaging: Reviewed Imaging Report Assessment/Plan Assessment and Plan Assess & Plan/Chief Complaint Acute Respiratory Failure Critical Care Critically Ill Patient Diagnosis/Problems Diagnosis/Problems (1) Acute respiratory failure Status: Acute Assessment & Plan: Secondary to CAP and ARDS Maintain low TV and net negative I/Os, proning DC-ed Intubated on 03/25 Pulm consulted, appreciate recs RVP negative Bronch culture NGTD Sputum culture negative Qualifiers: Respiratory failure complication: hypoxia Qualified Codes: J96.01 - Acute respiratory failure with hypoxia (2) Severe sepsis Status: Acute Assessment & Plan: Continue Zosyn/Vanc/Eraxis Blood cultures done and NGTD (3) Pneumonia Status: Acute Assessment & Plan: Diffuse bilateral pneumonia on CT chest Continue Zosyn/Vanc/Eraxis Blood cultures NGTD RVP negative Urine strep pneumo and legionella negative Qualifiers: Pneumonia type: due to unspecified organism Laterality: bilateral Lung location: lower lobe of lung Qualified Codes: J18.1 - Lobar pneumonia, unspecified organism (4) FAIZA (acute kidney injury) Status: Resolved Assessment & Plan: Improved Continue IVF Resolution Date/Time: 03/27/18 @ 10:02 (5) Insulin dependent diabetes mellitus Assessment & Plan: Blood sugars up with steroids Continue home insulin and SSI Likely duet o steroids (6) Essential (primary) hypertension Assessment & Plan: BP improved from yesterday Continue lopressor (7) CAD (coronary artery disease) Status: Chronic Assessment & Plan: Cardiology consulted, appreciate recs Troponin negative Qualifiers: Coronary Disease-Associated Artery/Lesion type: cab[place]on artery [place] vs. transplanted heart: cabazon heart Associated angina: without angina Qualified Codes: I25.10 - Atherosclerotic heart disease of cabazon coronary artery without angina pectoris Clinical Quality Measures DVT/VTE Risk/Contraindication: Risk Factor Score Per Nursin RFS Level Per Nursing on Admit: 2=Moderate DHRUV MEEHAN MD Mar 28, 2018 08:20
[2018-03-28] MEDS: fentaNYL INJECTION 1,250 MCG in NORMAL SALINE 250 ML INJ PRN (08:27)
--- NOTE | 2018-03-28 08:30 | NUR ---
60ML CADD PUMP FENT WASTED W/ K YAEL REYNOSO.
[2018-03-28] MEDS: ANIDULAFUNGIN INJECTION 100 MG in NS (IVPB) 100 ML IV SCH (09:41)
--- NOTE | 2018-03-28 10:02 | Diagnostic Imaging Report ---
INDICATION: Respiratory distress. FINDINGS: Portable chest shows normal heart size and vascularity. There are bilateral interstitial infiltrates with no consolidation seen. This is an improvement from 03/27/2018. There is no effusion or pneumothorax evident. The ET tube and OG tube remain in place. IMPRESSION: There are interstitial infiltrates which is an improvement from the prior exam. Dictated by: Dictated on workstation # [id number]
--- NOTE | 2018-03-28 13:52 | NUR ---
RT tried to turn O2 to 21% but patient started desatting so RT placed O2 back at 30%
[2018-03-28] MEDS: ENOXAPARIN 40 MG/0.4 ML (LOVENOX) SYR SC SCH (14:13)
[2018-03-28] MEDS ORDERED: BENZONATATE 100 MG (TESSALON) CAPSULE PO PRN (16:15)
--- NOTE | 2018-03-28 16:39 | Progress Note-Cardiology ---
Cardiology SOAP Progress Note Subjective: Not able to provide any history due to intubated, sedated state Objective: I&O/Vital Signs 03/28/18 03/28/18 03/28/18 03/28/18 05:00 06:00 06:13 06:28 Pulse 73 70 64 73 Resp 21 22 21 B/P (MAP) 147/49 (81) 140/47 (78) 141/50 (80) Pulse Ox 99 99 100 95 O2 Delivery Mechanical Ventilator Mechanical Ventilator Mechanical Ventilator O2 Flow Rate 35.00 35.00 30.00 FiO2 35 03/28/18 03/28/18 03/28/18 03/28/18 07:00 07:00 07:40 07:49 Temp 97.5 Pulse 78 78 Resp 22 B/P (MAP) 147/48 (81) Pulse Ox 95 O2 Delivery Mechanical Ventilator Mechanical Ventilator O2 Flow Rate 30.00 FiO2 30 03/28/18 03/28/18 03/28/18 03/28/18 08:00 08:34 08:40 09:00 Pulse 75 75 79 Resp 21 B/P (MAP) 143/48 (79) 138/45 142/46 (78) Pulse Ox 96 96 96 O2 Delivery Mechanical Ventilator Mechanical Ventilator O2 Flow Rate 30.00 30.00 FiO2 30 03/28/18 03/28/18 03/28/18 03/28/18 10:00 10:18 11:00 11:21 Temp 98.6 Pulse 77 80 80 Resp B/P (MAP) 136/40 (72) 135/39 (71) Pulse Ox 96 96 96 O2 Delivery Mechanical Ventilator Mechanical Ventilator O2 Flow Rate 30.00 30.00 FiO2 30 03/28/18 03/28/18 03/28/18 03/28/18 11:38 12:00 13:00 13:00 Pulse 76 77 78 Resp B/P (MAP) 129/38 (68) 133/39 (70) Pulse Ox 96 96 O2 Delivery Mechanical Ventilator Mechanical Ventilator Mechanical Ventilator O2 Flow Rate 30.00 30.00 FiO2 30 03/28/18 03/28/18 03/28/18 03/28/18 13:43 14:13 15:16 15:32 Temp 100.0 Pulse 80 Resp 22 B/P (MAP) 124/38 Pulse Ox 94 O2 Delivery Mechanical Ventilator FiO2 30 30 03/28/18 15:57 Pulse 96 Resp 24 Pulse Ox 95 FiO2 30 03/28/18 00:00 Intake Total 2250 ml Output Total 1125 ml Balance 1125 ml Weight (Pounds): 189 Weight (Ounces): 0.0 Weight (Calculated Kilograms): 85.054290 Constitutional: other (intubated, sedated, on mech vent) Respiratory: No accessory muscle use; other (fair bilat air entry; diminished bs at bases) Cardiovascular: regular rate-rhythm, S1 and S2, systolic murmur (faint SHEYLA at card base) Gastrointestional: No tender; soft, audible bowel sounds Extremities: No clubbing, No cyanosis, No significant edema Neurologic/Psychiatric: other (intubated and sedated and unable to cooperate with a neuro exam) Skin: No rash on exposed areas, No ulcerations on exposed areas Results/Procedures: Labs Laboratory Tests 03/27/18 23:56: Glucometer 288H 03/28/18 03:15: White Blood Count 14.8H, Red Blood Count 3.01L, Hemoglobin 9.4L, Hematocrit 28L , Mean Corpuscular Volume 93, Mean Corpuscular Hemoglobin 31, Mean Corpuscular Hemoglobin Concent 34, Red Cell Distribution Width 14.2, Platelet Count 338, Mean Platelet Volume 8.4, Neutrophils (%) (Auto) 90H, Lymphocytes (%) (Auto) 8L , Monocytes (%) (Auto) 2, Eosinophils (%) (Auto) 0, Basophils (%) (Auto) 0, Neutrophils # (Auto) 13.3H, Lymphocytes # (Auto) 1.2, Monocytes # (Auto) 0.3, Eosinophils # (Auto) 0.0, Basophils # (Auto) 0.0, Sodium Level 138, Potassium Level 3.2L, Chloride Level 105, Carbon Dioxide Level 24, Anion Gap 9, Blood Urea Nitrogen 17, Creatinine 1.06, Estimat Glomerular Filtration Rate > 60, BUN/ Creatinine Ratio 16, Glucose Level 290H, Calcium Level 8.0L, Phosphorus Level 2.1L, Magnesium Level 2.0 03/28/18 03:20: Blood Gas Puncture Site R [facility], Blood Gas Patient Temperature 97.0, Arterial Blood pH 7.42, Arterial Blood Partial Pressure CO2 42, Arterial Blood Partial Pressure O2 155H, Arterial Blood HCO3 27, Arterial Blood Total CO2 28.3 , Arterial Blood Oxygen Saturation 100, Arterial Blood Base Excess 2.7H, [employer] Test ART LINE, Blood Gas Ventilator Setting YES, Blood Gas Inspired Oxygen 45% 03/28/18 07:35: Glucometer 341H 03/28/18 11:13: Glucometer 343H 03/28/18 15:31: Glucometer 324H Microbiology 03/24/18 Blood Culture - Preliminary, Resulted No growth 03/26/18 Gram Stain - Final, Resulted 03/26/18 Bronchial Culture - Final, Resulted No growth 03/26/18 Fungal Culture 1, Resulted Pending Laboratory Tests 03/27/18 03:49 03/28/18 03:15 A/P: Assessment: Acute respiratory failure due to bilat pneumonia Coronary artery disease. Cardiac catheterization in 2012: 2 stents: 2.515 mm to the right coronary artery and 2.2522 mm to the LAD. MPI of Feb 2017 did not show ischemia or infarction and LVEF was 66% Echo of March 25, 2018: normal left ventricular size with ejection fraction 65 percent, pulmonary hypertension with PA pressure 45 mmHg Hypertension Hyperlipidemia Diabetes mellitus II Obstructive sleep apnea, h/o treatment with CPAP Obesity, BMI 30 Carotid arterial disease: Carotid u/s of Sep 2017 showed mild disease on the right and moderate on the left Plan: * Replenish lytes * Continue current regimen * Monitor labs SHANTE UMANA MD FACP FAC CCDS Mar 28, 2018 16:39
[2018-03-28] MEDS: ATORVASTATIN 20 MG (LIPITOR) TABLET PO SCH (16:50)
[2018-03-28] MEDS: VANCOMYCIN 1500 MG/NS 500 ML IVPB IV SCH ×2 (16:50)
[2018-03-28] MEDS: LACTATED RINGERS 1,000 ML IV SCH (16:50)
[2018-03-29] VITALS (30 sets, daily range): BP systolic 125–189; BP diastolic 48–81
[2018-03-29] MEDS: meTOprolol 5 MG/5 ML (LOPRESSOR) VIAL IV SCH ×3 (00:03→11:21)
[2018-03-29] MEDS: methylPREDNISolone 40 MG/ML (Solu-MEDROL) VIAL IV SCH ×5 (00:03→23:59)
[2018-03-29] MEDS: inSUlin ASPART (NovoLOG) 1 UNIT/0.01 ML (CHARGE PER UNIT) SC SCH ×6 (00:03→20:00)
[2018-03-29] MEDS: RT-ALBUTEROL/IPRATROPIUM 3 ML (DUONEB) VIAL IH SCH ×5 (00:52→22:38)
[2018-03-29] MEDS: PROPOFOL DRIP (ICU) 100 ML IV SCH (01:15)
[2018-03-29 03:27] LABS: ABG BASE EXCESS 2.4 MMOL/L (-2.5-2.5); ABG OXYGEN SATURATION 97 % (94-100); ABG PCO2 41 MMHG (35-45); ABG PH 7.42 (7.37-7.43); ABG PO2 78 MMHG (79-93); ABG TCO2 27.9 MMOL/L (21.0-31.0)
[2018-03-29 03:27] LABS: BASOPHILS % (AUTO) 0 % (0-10); EOSINOPHILS % (AUTO) 0 % (0-10); HEMATOCRIT 29 % (40-54); HEMOGLOBIN 9.3 G/DL (13.3-17.7); LYMPHOCYTES # (AUTO) 1.5 X 10^3 (1.0-4.0); LYMPHOCYTES % (AUTO) 9 % (12-44); MEAN CORPUSCULAR HEMOGLOBIN 30 PG (25-34); MEAN CORPUSCULAR HGB CONC 33 G/DL (32-36); MEAN CORPUSCULAR VOLUME 93 FL (80-99); MEAN PLATELET VOLUME 8.7 FL (7.4-10.4); MONOCYTES # (AUTO) 0.5 X 10^3 (0.0-1.0); MONOCYTES % (AUTO) 3 % (0-12); NEUTROPHILS # (AUTO) 15.1 X 10^3 (1.8-7.8); NEUTROPHILS % (AUTO) 89 % (42-75); PLATELET COUNT 354 10^3/uL (130-400); RED CELL DISTRIBUTION WIDTH 14.3 % (10.0-14.5); WHITE BLOOD COUNT 17.1 10^3/uL (4.3-11.0)
[2018-03-29 03:28] LABS: ALLENS TEST ART LINE; INSPIRED O2 30%; PATIENT TEMP 97.4; VENTILATOR YES
[2018-03-29 04:13] LABS: BUN/CREATININE RATIO 23; CALCIUM 7.9 MG/DL (8.5-10.1); CARBON DIOXIDE 25 MMOL/L (21-32); CHLORIDE 104 MMOL/L (98-107); CREATININE SERUM 1.03 MG/DL (0.60-1.30); GFR ESTIMATED > 60; GLUCOSE 214 MG/DL (70-105); MAGNESIUM 2.3 MG/DL (1.8-2.4); PHOSPHORUS 2.4 MG/DL (2.3-4.7); POTASSIUM 4.6 MMOL/L (3.6-5.0); SODIUM 135 MMOL/L (135-145)
[2018-03-29] MEDS: PIPERACILLIN/TAZO 4.5 GM/NS 100 ML IV SCH ×6 (04:19→20:39)
[2018-03-29] MEDS: KCL 20 MEQ TAB (K-DUR) PO SCH (05:06)
[2018-03-29] MEDS: MAGNESIUM 1 GM/100 ML IVPB 100 ML IV SCH (05:06)
[2018-03-29] MEDS: POTASSIUM CL 10MEQ/50ML IVPB 50 ML IV SCH (05:06)
[2018-03-29] MEDS: LACTOBACILLUS ACIDOPHILUS (PROBIOTIC) CAPSULE PO SCH ×3 (05:06→18:48)
[2018-03-29] MEDS ORDERED: NS (IVPB) 50 ML ONE (05:56)
--- NOTE | 2018-03-29 05:57 | Pulmonary Progress Note ---
Subjective Time Seen by a Provider: 05:56 Subjective/Events-last exam at bedside. PT is doing better. No complications noted. Sepsis Event Evaluation Height, Weight, BMI Height: 5'6.00" Weight: 189lbs. 0.0oz. 85.848410yq; 27.4 BMI Method: Exam Exam Vital Signs Date Time Temp Pulse Resp B/P (MAP) Pulse Ox O2 Delivery O2 Flow Rate FiO2 03/29/18 05:00 61 21 147/48 (81) 96 Mechanical Ventilator 30.00 03/29/18 04:48 61 22 96 30 03/29/18 04:00 97.4 03/29/18 04:00 57 29 160/58 (92) 97 Mechanical Ventilator 30.00 03/29/18 04:00 100 Mechanical Ventilator 30 03/29/18 03:00 58 22 144/54 (84) 96 Mechanical Ventilator 30.00 03/29/18 02:00 66 25 133/48 (76) 95 Mechanical Ventilator 30.00 03/29/18 01:15 73 03/29/18 01:00 63 26 143/53 (83) 95 Mechanical Ventilator 30.00 03/29/18 01:00 63 03/29/18 00:51 58 22 97 30 03/29/18 00:00 100 Mechanical Ventilator 30 03/29/18 00:00 62 25 141/51 (81) 97 Mechanical Ventilator 30.00 03/29/18 00:00 97.3 03/28/18 23:00 64 34 141/50 (80) 97 Mechanical Ventilator 30.00 03/28/18 22:00 71 27 145/53 (83) 97 Mechanical Ventilator 30.00 03/28/18 21:00 69 22 138/48 (78) 96 Mechanical Ventilator 30.00 03/28/18 20:00 100 Mechanical Ventilator 30 03/28/18 20:00 76 21 134/46 (75) 96 Mechanical Ventilator 30.00 03/28/18 20:00 97.7 03/28/18 19:34 76 03/28/18 19:03 71 22 96 30 03/28/18 19:00 73 22 137/49 (78) 96 Mechanical Ventilator 30.00 03/28/18 19:00 73 03/28/18 18:00 82 19 137/48 (77) 96 Mechanical Ventilator 30.00 03/28/18 17:08 99.8 2/17/19 17:00 89 22 152/54 (86) 93 Mechanical Ventilator 30.00 03/28/18 16:00 101 20 148/48 (81) 94 Mechanical Ventilator 30.00 03/28/18 15:57 96 24 95 30 03/28/18 15:32 100.0 03/28/18 15:16 Mechanical Ventilator 30 03/28/18 15:00 105 28 132/46 (74) 94 Mechanical Ventilator 30.00 03/28/18 14:13 124/38 03/28/18 14:00 110 28 120/36 (64) 93 Mechanical Ventilator 30.00 03/28/18 13:43 80 22 94 30 03/28/18 13:00 78 19 133/39 (70) 96 Mechanical Ventilator 30.00 03/28/18 13:00 77 03/28/18 12:00 76 21 129/38 (68) 96 Mechanical Ventilator 30.00 03/28/18 11:38 Mechanical Ventilator 30 03/28/18 11:21 98.6 03/28/18 11:00 80 19 135/39 (71) 96 Mechanical Ventilator 30.00 03/28/18 10:18 80 25 96 30 03/28/18 10:00 77 19 136/40 (72) 96 Mechanical Ventilator 30.00 03/28/18 09:00 79 21 142/46 (78) 96 Mechanical Ventilator 30.00 03/28/18 08:40 75 23 96 30 03/28/18 08:34 138/45 03/28/18 08:00 75 27 143/48 (79) 96 Mechanical Ventilator 30.00 03/28/18 07:49 Mechanical Ventilator 30 03/28/18 07:40 97.5 03/28/18 07:00 78 22 147/48 (81) 95 Mechanical Ventilator 30.00 03/28/18 07:00 78 03/28/18 06:28 73 21 141/50 (80) 95 Mechanical Ventilator 30.00 03/28/18 06:13 64 22 100 35 03/28/18 06:00 70 21 140/47 (78) 99 Mechanical Ventilator 35.00 I & O 03/29/18 07:00 Intake Total 3167 ml Output Total 1175 ml Balance 1992 ml Height & Weight Height: 5'6.00" Weight: 189lbs. 0.0oz. 85.993691da; 27.4 BMI Method: General Appearance: Chronically ill, Other (sedated on vent) Neck: Other (OG in place) Respiratory: Rhonci; No Wheezing; Other (on vent) Cardiovascular: Regular Rate, Rhythm, No JVD, No Murmur Capillary Refill: Less Than 3 Seconds Gastrointestinal: non tender, soft Extremity: No Calf Tenderness, Pedal Edema Neurologic/Psychiatric: Other (sedated, resting comfortably) Results Lab Laboratory Tests 03/28/18 03:15 03/29/18 03:20 Assessment/Plan Assessment/Plan Acute respiratory failure s/p bronchoscopy -Continue ventilator therapy -Decrease Vt 450 and increase RR to 26, Decrease PEEP to 5 -Will start waking pt up and weaning vent. -Increase precedex to 1.5 and decrease propofol by 1/2 then continue to d/c. -Fentanyl and D/C Ativan -Tube feeds with Pulmocare - hold while in prone position -TF with pulmicare -Increase OG flushes to 250 Q6 Acute bilateral pneumonia with hypoxemia with severe sepsis -Continue vanco/Zosyn - ivf 50 cc/hr CYN - improved -monitor Hyperglycemia -Monitor close Anemia - monitor Hyponatremia - monitor VERO Critical Care: Critically Ill Patient JON WILLIAM DO Mar 29, 2018 05:56
[2018-03-29] MEDS ORDERED: DEXMEDETOMIDINE INJECTION 200 MCG in NS (IVPB) 50 ML IV SCH (06:15)
--- NOTE | 2018-03-29 06:21 | NUR ---
NOT ENOUGH PRECEDEX IN OMNICELL TO MIX 250 ML BAG, 50 ML BAG MIXED AND ADMINISTERED AT THIS TIME
--- NOTE | 2018-03-29 07:39 | Diagnostic Imaging Report ---
INDICATION: Followup. Ventilated patient. COMPARISON: 03/28/2018 FINDINGS: Single frontal radiographic view of the chest was obtained and demonstrates indwelling endotracheal tube with tip below the clavicular heads and above the soni. Gastric tube is identified coiled within the stomach. Cardiac silhouette and pulmonary vasculature are stable. Lungs continue to show diffuse bilateral interstitial opacities. No large effusion or pneumothorax is seen. Overall, aeration is stable. Bony structures show no gross acute abnormalities. IMPRESSION: 1. Stable exam of the chest showing bilateral interstitial pneumonia or edema. Continued followup is recommended. 2. Lines and tubes as above. Dictated by: Dictated on workstation # [id number]
--- NOTE | 2018-03-29 08:40 | Physical Therapy Progress Note ---
Therapy Progress Note Patient remains on mechanical ventilator. PT to assess when medically stable and actively able to participate with therapy. BRI MARTIN PT Mar 29, 2018 08:40
[2018-03-29] MEDS: DEXMEDETOMIDINE 1,000 MCG/NS 250 ML IV SCH ×8 (08:53→22:11)
--- NOTE | 2018-03-29 09:07 | Cardiology Progress Note ---
Subjective Date Seen by Provider: Mar 29, 2018 Time Seen by Provider: 09:05 Subjective/Events-last exam Patient is sedated, intubated. Objective-Cardiology Exam Last Set of Vital Signs Vital Signs 03/29/18 03/29/18 03/29/18 04:00 09:00 09:27 Temp 97.4 Pulse 66 Resp 30 B/P (MAP) 189/65 (106) Pulse Ox 94 O2 Delivery Mechanical Ventilator O2 Flow Rate 30.00 FiO2 30 Capillary Refill : Less Than 3 Seconds I&O Intake and Output 03/28/18 23:59 Intake Total 4477 ml Output Total 1300 ml Balance 3177 ml IV Total 2980 ml Tube Feeding 1047 ml Other 450 ml Output Urine Total 1300 ml General: Severe Distress, Other (sedated and intubated) HEENT: PERRLA Neck: Supple, No Thyromegaly Lungs: Normal Air Movement, Other (bilateral rhonchi) Heart: Regular Rate, Normal S1, Normal S2, No Murmurs Abdomen: Normal Bowel Sounds, Soft, No Tenderness, No Hepatosplenomegaly, No Masses, Other (mild edema) Extremities: No Clubbing, No Cyanosis, Normal Pulses, No Tenderness/Swelling Skin: No Rashes, No Breakdown, No Significant Lesion Neuro: Other (sedated and intubated) Psych/Mental Status: Other (sedated and intubated) Results Lab Laboratory Tests 03/29/18 03:20 A/P-Cardiology Admission Diagnosis Pneumonia Sinus tachycardia Coronary artery disease Hypertension Hyperlipidemia Assessment/Plan Acute respiratory failure, pneumonia,intubated, ventilator dependent, undergoing weaning trial today, managed by Dr. Burrows and primary care team Coronary artery disease, had a cardiac catheterization 2013 resulted with 2 stents deployment 2.515 mm to the right coronary artery resolute and 2.2522 mm resolute to the LAD, continue to monitor at this time Echocardiogram done on March 25, 2018 showing normal left ventricular size with ejection fraction 65 percent, pulmonary hypertension with PA pressure 45 mmHg Hypertension, Monitor blood pressure, elevated today while on weaning trial Hyperlipidemia, monitor lipids Diabetes mellitus, followed and managed by primary care physician Obstructive sleep apnea, using C Pap at night, currently in respiratory failure Obesity, BMI 27, working on weight loss History of carotid stenosis, last ultrasound was done in September 2017 showing mild disease on the right and moderate on the left. Continue to monitor Peripheral edema, I will give one dose of Lasix and monitor tolerance and response Clinical Quality Measures DVT/VTE Risk/Contraindication: Risk Factor Score Per Nursin RFS Level Per Nursing on Admit: 2=Moderate Supervisory-Addendum Brief Supervisory Addendum Participated in pt care: history, MDM, physical Personally performed: exam, history, MDM Care discussed with: GLORIA Results interpretation: agree with documentation Notes: I evaluated the patient and examined him, he is undergoing weaning trial, had hypertension and mild to moderate peripheral edema, chest x-ray showed persistent infiltrate, I will continue on current medication and continue to monitor, gave him one dose of IV Lasix, monitor electrolytes. Blood pressure was noted to be elevated today, he is off sedation, still on a ventilator on C Pap, continue to monitor blood pressure I reviewed the note and made few minor modification using Italic Font DOROTEO MARTINEZ Mar 29, 2018 09:07 ANDREINA LARA MD Mar 29, 2018 09:39
[2018-03-29] MEDS: ASPIRIN E.C. 81 MG (ECOTRIN) TAB PO SCH (09:27)
[2018-03-29] MEDS: LORATADINE (CLARITIN) 10 MG TAB PO SCH (09:27)
[2018-03-29] MEDS: PANTOPRAZOLE 40 MG (PROTONIX) VIAL IV SCH (09:31)
[2018-03-29] MEDS: ANIDULAFUNGIN INJECTION 100 MG in NS (IVPB) 100 ML IV SCH (09:44)
[2018-03-29] MEDS ORDERED: FUROSEMIDE 40 MG/4 ML INJ (LASIX) IVP ONE (09:45)
[2018-03-29] MEDS: inSUlin Protamine/ASPart 70/30 1 UNIT/0.01 ML DOSE SC SCH ×2 (09:47→18:54)
--- NOTE | 2018-03-29 10:04 | NUR ---
ASSISTED RT IN EXTUBATION, NO COMPLICATIONS. PATIENT PLACED ON 3L. WILL MONITOR CLOSELY
--- NOTE | 2018-03-29 10:14 | Occ Therapy Progress Note ---
Therapy Progress Note Pt. continues to be on mechanical support. Will continue to monitor and will fully assess pt. after extubation. 1015 VANNA WHITTINGTON OT Mar 29, 2018 10:14
[2018-03-29 10:19] LABS: ABG BASE EXCESS 3.7 MMOL/L (-2.5-2.5); ABG OXYGEN SATURATION 94 % (94-100); ABG PCO2 38 MMHG (35-45); ABG PH 7.47 (7.37-7.43); ABG PO2 64 MMHG (79-93); ABG TCO2 28.6 MMOL/L (21.0-31.0); ALLENS TEST ART LINE; INSPIRED O2 30%; PATIENT TEMP 98.1; VENTILATOR YES
--- NOTE | 2018-03-29 10:45 | NUR ---
Pastoral care visit w/pts at bedside, seems to be coping well, offered prayer and support.
[2018-03-29] MEDS: LACTATED RINGERS 1,000 ML IV SCH (11:24)
[2018-03-29] MEDS: fentaNYL INJECTION 100 MCG/2 ML AMP IVP PRN (13:41)
--- NOTE | 2018-03-29 15:57 | Progress Note-Hospitalist ---
Progress Note Progress Notes/Assess & Plan Date Seen 03/29/18 Time Seen by Provider: 15:54 Assessment & Plan The patient is a 73-year-old white male who was admitted with pneumonia. He suffered respiratory failure and was placed on the ventilator. He has improved and Dr. Burrows removed his endotracheal tube at about 11 o'clock this morning. It is noted that his white count has fallen from 30,200 on admission to 17,100 at this time. He is alert but clearly has missed out on the last several days. Speech appears normal. He has a flushed complexion which his states is normal. Physical exam: vital signs are normal. His lips and tongue are a bit crusty. Lungs are clear to auscultation breath sounds are somewhat distant. CV is regular. Abdomen is soft palpation. Impression: Bilateral interstitial pneumonia left greater than right. Plan: Advance activities as tolerated. Continue IV antibiotics DENIA SAUL MD Mar 29, 2018 15:57
[2018-03-29] MEDS ORDERED: TROUGH ORDER-PHARMACY XX NR (16:00)
[2018-03-29] MEDS: ENOXAPARIN 40 MG/0.4 ML (LOVENOX) SYR SC SCH (16:05)
[2018-03-29] MEDS ORDERED: hydrALAZINE (APESOLINE) 20 MG/ML VIAL IV PRN (17:15)
[2018-03-29] MEDS ORDERED: ENALAPRILAT 2.5 MG/2 ML (VASOTEC) VIAL IV PRN (17:15)
[2018-03-29] MEDS: ATORVASTATIN 20 MG (LIPITOR) TABLET PO SCH (18:53)
[2018-03-29] MEDS: morphine INJ 4 MG/ML 1 ML (VIAL/SYRINGE) IVP PRN (18:54)
[2018-03-29] MEDS: VANCOMYCIN 1500 MG/NS 500 ML IVPB IV SCH ×2 (20:38)
[2018-03-29] MEDS: meTOprolol TARTRATE 25 MG (LOPRESSOR) TABLET PO SCH (20:39)
[2018-03-30] VITALS (23 sets, daily range): BP systolic 139–196; BP diastolic 41–75
[2018-03-30] MEDS: inSUlin ASPART (NovoLOG) 1 UNIT/0.01 ML (CHARGE PER UNIT) SC SCH ×6 (00:12→20:04)
[2018-03-30] MEDS: RT-ALBUTEROL/IPRATROPIUM 3 ML (DUONEB) VIAL IH SCH (02:20)
[2018-03-30 03:23] LABS: BASOPHILS % (AUTO) 0 % (0-10); EOSINOPHILS % (AUTO) 0 % (0-10); HEMATOCRIT 32 % (40-54); HEMOGLOBIN 10.8 G/DL (13.3-17.7); LYMPHOCYTES # (AUTO) 2.9 X 10^3 (1.0-4.0); LYMPHOCYTES % (AUTO) 11 % (12-44); MEAN CORPUSCULAR HEMOGLOBIN 31 PG (25-34); MEAN CORPUSCULAR HGB CONC 34 G/DL (32-36); MEAN CORPUSCULAR VOLUME 92 FL (80-99); MEAN PLATELET VOLUME 8.2 FL (7.4-10.4); MONOCYTES # (AUTO) 1.5 X 10^3 (0.0-1.0); MONOCYTES % (AUTO) 6 % (0-12); NEUTROPHILS # (AUTO) 22.3 X 10^3 (1.8-7.8); NEUTROPHILS % (AUTO) 84 % (42-75); PLATELET COUNT 446 10^3/uL (130-400); RED CELL DISTRIBUTION WIDTH 14.8 % (10.0-14.5); WHITE BLOOD COUNT 26.6 10^3/uL (4.3-11.0)
[2018-03-30 03:24] LABS: ABG BASE EXCESS 7.6 MMOL/L (-2.5-2.5); ABG OXYGEN SATURATION 95 % (94-100); ABG PCO2 41 MMHG (35-45); ABG PH 7.49 (7.37-7.43); ABG PO2 69 MMHG (79-93); ABG TCO2 32.4 MMOL/L (21.0-31.0)
[2018-03-30 03:26] LABS: ALLENS TEST POSITIVE; INSPIRED O2 9L; PATIENT TEMP 99.8; VENTILATOR NO
[2018-03-30 03:42] LABS: BUN/CREATININE RATIO 23; CALCIUM 8.5 MG/DL (8.5-10.1); CARBON DIOXIDE 28 MMOL/L (21-32); CHLORIDE 105 MMOL/L (98-107); GFR ESTIMATED > 60; GLUCOSE 127 MG/DL (70-105); PHOSPHORUS 2.5 MG/DL (2.3-4.7); POTASSIUM 3.9 MMOL/L (3.6-5.0); SODIUM 143 MMOL/L (135-145)
[2018-03-30] MEDS: DEXMEDETOMIDINE 1,000 MCG/NS 250 ML IV SCH ×4 (04:21→08:07)
[2018-03-30] MEDS: PIPERACILLIN/TAZO 4.5 GM/NS 100 ML IV SCH ×6 (04:21→20:04)
--- NOTE | 2018-03-30 05:11 | Pulmonary Progress Note ---
Subjective Time Seen by a Provider: 05:10 Subjective/Events-last exam Pt is doing well off vent. Sepsis Event Evaluation Height, Weight, BMI Height: 5'6.00" Weight: 188lbs. 0.0oz. 85.658626np; 27.4 BMI Method: Exam Exam Vital Signs Date Time Temp Pulse Resp B/P (MAP) Pulse Ox O2 Delivery O2 Flow Rate FiO2 03/30/18 04:00 99.8 03/30/18 04:00 Nasal Cannula 9.00 03/30/18 04:00 82 17 170/72 (104) 91 High Flow N/C 9.00 03/30/18 03:00 81 22 164/73 (103) 91 High Flow N/C 9.00 03/30/18 02:23 91 High Flow N/C 8.00 03/30/18 02:00 82 18 176/41 (86) 91 High Flow N/C 9.00 03/30/18 01:00 89 25 175/45 (88) 91 High Flow N/C 5.00 03/30/18 01:00 88 03/30/18 00:00 100.1 03/30/18 00:00 Nasal Cannula 5.00 03/30/18 00:00 100 23 166/72 (103) 92 High Flow N/C 5.00 03/29/18 23:00 103 24 166/71 (102) 93 High Flow N/C 5.00 03/29/18 22:41 90 Nasal Cannula 5.00 03/29/18 22:00 100 19 176/76 (109) 93 High Flow N/C 5.00 03/29/18 21:00 101 25 175/70 (105) 93 High Flow N/C 5.00 03/29/18 20:00 111 21 182/81 (114) 93 High Flow N/C 5.00 03/29/18 20:00 99.0 03/29/18 20:00 Nasal Cannula 5.00 03/29/18 19:00 104 25 160/76 (104) 94 High Flow N/C 5.00 03/29/18 19:00 105 03/29/18 18:00 107 29 161/68 (99) 93 Mechanical Ventilator 30.00 03/29/18 17:00 106 25 169/77 (107) 97 Mechanical Ventilator 30.00 03/29/18 16:00 Nasal Cannula 5.00 03/29/18 16:00 108 27 175/73 (107) 94 Mechanical Ventilator 30.00 03/29/18 15:00 108 23 157/79 (105) 95 Mechanical Ventilator 30.00 03/29/18 14:00 110 23 168/80 (109) 93 Mechanical Ventilator 30.00 03/29/18 13:45 95 Nasal Cannula 5.00 03/29/18 13:00 90 03/29/18 13:00 90 24 182/55 (97) 94 Mechanical Ventilator 30.00 03/29/18 12:00 Nasal Cannula 5.00 03/29/18 12:00 80 23 172/54 (93) 95 Mechanical Ventilator 30.00 03/29/18 11:04 91 Nasal Cannula 3.00 03/29/18 11:00 78 18 167/54 (91) 94 Mechanical Ventilator 30.00 03/29/18 10:13 65 33 94 30 03/29/18 10:00 71 21 185/63 (103) 94 Mechanical Ventilator 30.00 03/29/18 09:27 66 30 94 30 03/29/18 09:00 71 22 189/65 (106) 93 Mechanical Ventilator 30.00 03/29/18 08:18 68 22 93 30 03/29/18 08:00 100 Mechanical Ventilator 30 03/29/18 08:00 63 22 172/59 (96) 92 Mechanical Ventilator 30.00 03/29/18 07:00 62 22 171/58 (95) 92 Mechanical Ventilator 30.00 03/29/18 07:00 60 03/29/18 06:37 55 22 94 30 03/29/18 06:00 56 21 158/55 (89) 94 Mechanical Ventilator 30.00 I & O 03/30/18 07:00 Intake Total 1600 ml Output Total 6100 ml Balance -4500 ml Height & Weight Height: 5'6.00" Weight: 188lbs. 0.0oz. 85.461887qb; 27.4 BMI Method: General Appearance: Chronically ill, Other (sedated on vent) Neck: Other (OG in place) Respiratory: Rhonci; No Wheezing; Other (on vent) Cardiovascular: Regular Rate, Rhythm, No JVD, No Murmur Capillary Refill: Less Than 3 Seconds Gastrointestinal: non tender, soft Extremity: No Calf Tenderness, Pedal Edema Neurologic/Psychiatric: Other (sedated, resting comfortably) Results Lab Laboratory Tests 03/29/18 03:20 03/30/18 03:15 Assessment/Plan Assessment/Plan Acute respiratory failure s/p bronchoscopy -Pt is now off vent -Will make pt ICU stepdown status Acute bilateral pneumonia with hypoxemia with severe sepsis -Continue vanco/Zosyn/Eraxis - ivf are hep locked CYN - improved -monitor Hyperglycemia -Monitor close Anemia - monitor Hyponatremia - monitor VERO JON WILLIAM DO Mar 30, 2018 05:11
[2018-03-30 05:13] LABS: LYMPHOCYTES % (MANUAL) 13 %; MONOCYTES % (MANUAL) 7 %; NEUTROPHILS % (MANUAL) 80 %
[2018-03-30] MEDS: KCL 20 MEQ TAB (K-DUR) PO SCH (06:08)
[2018-03-30] MEDS: MAGNESIUM 1 GM/100 ML IVPB 100 ML IV SCH (06:08)
[2018-03-30] MEDS: POTASSIUM CL 10MEQ/50ML IVPB 50 ML IV SCH (06:08)
[2018-03-30] MEDS: RT-ALBUTEROL/IPRATROPIUM 3 ML (DUONEB) VIAL INH SCH ×5 (06:23→22:49)
--- NOTE | 2018-03-30 08:03 | Cardiology Progress Note ---
Subjective Date Seen by Provider: Mar 30, 2018 Time Seen by Provider: 08:02 Subjective/Events-last exam patient is in bed, still short of breath, complaining of fatigue and loss of energy Review of Systems General: No Chills, No Night Sweats; Fatigue, Malaise; No Appetite, No Other HEENT: No Head Aches, No Visual Changes, No Eye Pain, No Ear Pain, No Dysphasia , No Sinus Congestion, No Post Nasal Drip, No Sore Throat, No Other Pulmonary: Dyspnea, Cough; No Pleuritic Chest Pain, No Other Cardiovascular: Edema; No: Chest Pain, Palpitations, Orthopnea, Paroxysmal Noc. Dyspnea, Lt Headedness, Other Objective-Cardiology Exam Last Set of Vital Signs Vital Signs 03/29/18 03/30/18 03/30/18 10:13 07:30 08:03 Temp 99.0 Pulse 75 Resp 20 B/P (MAP) 158/70 (99) Pulse Ox 95 O2 Delivery Nasal Cannula O2 Flow Rate 10.00 FiO2 30 Capillary Refill : Less Than 3 Seconds I&O Intake and Output 03/30/18 00:00 Intake Total 1062 ml Output Total 5475 ml Balance -4413 ml Intake Oral 400 ml IV Total 100 ml Tube Feeding 562 ml Output Urine Total 5475 ml General: Alert, Oriented X3, Cooperative HEENT: PERRLA Neck: Supple, No Thyromegaly Lungs: Normal Air Movement, Other (bilateral rhonchi) Heart: Regular Rate, Normal S1, Normal S2, No Murmurs Abdomen: Normal Bowel Sounds, Soft, No Tenderness, No Hepatosplenomegaly, No Masses, Other (mild edema) Extremities: No Clubbing, No Cyanosis, Normal Pulses, No Tenderness/Swelling Skin: No Rashes, No Breakdown, No Significant Lesion Neuro: Normal Tone, Sensation Intact Psych/Mental Status: Mood NL Results Lab Laboratory Tests 03/30/18 03:15 A/P-Cardiology Admission Diagnosis Pneumonia Sinus tachycardia Coronary artery disease Hypertension Hyperlipidemia Assessment/Plan Acute respiratory failure, extubated yesterday, still short of breath at this time. Managed by Dr. Burrows Pneumonia, receiving antibiotics. Slow improvement. Coronary artery disease, had a cardiac catheterization 2012 resulted with 2 stents deployment 2.515 mm to the right coronary artery resolute and 2.2522 mm resolute to the LAD, continue to monitor at this time Echocardiogram done on March 25, 2018 showing normal left ventricular size with ejection fraction 65 percent, pulmonary hypertension with PA pressure 45 mmHg Hypertension, restart lisinopril 20 mg daily, continue metoprolol, I will restart amlodipine if blood pressure continue to be elevated. Hyperlipidemia, monitor lipids Diabetes mellitus, followed and managed by primary care physician Obstructive sleep apnea, using C Pap at night, currently in respiratory failure Obesity, BMI 27, working on weight loss History of carotid stenosis, last ultrasound was done in September 2017 showing mild disease on the right and moderate on the left. Continue to monitor Clinical Quality Measures DVT/VTE Risk/Contraindication: Risk Factor Score Per Nursin RFS Level Per Nursing on Admit: 2=Moderate ANDREINA LARA MD Mar 30, 2018 08:03
--- NOTE | 2018-03-30 08:52 | Diagnostic Imaging Report ---
INDICATION: Post extubation COMPARISON: 03/29 FINDINGS: ET tube removed. Lung volumes stable however there is worsened 5 lobe infiltrates and pulmonary density. IMPRESSION: Worsened 5 lobe infiltrates post extubation with stable lung volumes. Dictated by: Dictated on workstation # [id number]
[2018-03-30] MEDS: methylPREDNISolone 40 MG/ML (Solu-MEDROL) VIAL IV SCH ×2 (09:04→21:32)
[2018-03-30] MEDS: LACTOBACILLUS ACIDOPHILUS (PROBIOTIC) CAPSULE PO SCH ×3 (09:04→16:19)
[2018-03-30] MEDS: ASPIRIN E.C. 81 MG (ECOTRIN) TAB PO SCH (09:05)
[2018-03-30] MEDS: LORATADINE (CLARITIN) 10 MG TAB PO SCH (09:05)
[2018-03-30] MEDS: meTOprolol TARTRATE 25 MG (LOPRESSOR) TABLET PO SCH ×2 (09:05→21:32)
[2018-03-30] MEDS: PANTOPRAZOLE 40 MG (PROTONIX) VIAL IV SCH (09:05)
[2018-03-30] MEDS: lisINopril 20 MG (PRINIVIL) TABLET PO SCH (09:05)
--- NOTE | 2018-03-30 10:00 | NUR ---
PATIENT UP TO BEDSIDE RECLINER, WORKING WITH PT, PT O2 SATS DROPPED TO 80'S. RT NOTIFIED, PT PLACED ON VAPOTHERM AT THIS TIME, TOLERATING WELL. O2 IN 90'S
[2018-03-30] MEDS: KCL 20 MEQ POWDER FOR ORAL SOLUTION PO SCH ×2 (10:32→16:16)
[2018-03-30] MEDS: FUROSEMIDE 40 MG/4 ML INJ (LASIX) IVP SCH ×2 (10:37→16:17)
[2018-03-30] MEDS: inSUlin Protamine/ASPart 70/30 1 UNIT/0.01 ML DOSE SC SCH ×2 (10:38→17:52)
[2018-03-30] MEDS: ANIDULAFUNGIN INJECTION 100 MG in NS (IVPB) 100 ML IV SCH (10:41)
--- NOTE | 2018-03-30 10:47 | Occupational Therapy Eval ---
OT Evaluation-General/PLF Medical Diagnosis Admission Date Mar 25, 2018 at 13:15 Medical Diagnosis: pneumonia Onset Date: Mar 24, 2018 Therapy Diagnosis Therapy Diagnosis: impaired self care skills Height/Weight Height (Feet): 5 Height (Inches): 6.00 Weight (Pounds): 186 Weight (Ounces): 0.0 Precautions Precautions/Isolations: Aspiration, Fall Prevention, Standard Precautions, Pressure Ulcer Safety Interventions: None Referral Physician: Stormy Medical History Pertinent Medical History: CAD, DM, HTN Additional Medical History VERO, high cholesterol, gallbladder disease, skin cancer, tendon repair right arm , rotator cuff repair, ADL-Prior Level of Function Therapy Code Descriptions/Definitions Functional [place] Measure: 0=Not Assessed/NA 4=Minimal Assistance 1=Total Assistance 5=Supervision or Setup 2=Maximal Assistance 6=Modified [place] 3=Moderate Assistance 7=Complete [place] Therapy Quality Codes: 6 Independent with activity with or without an assistive device 5 Patient requires set up or clean up by helper. Patient completes activity by themselves 4 Supervision or touching assist (CGA). [place] provide cues , steadying assist 3 The helper provides less than half the effort to complete the activity 2 The helper provides more than half the effort to complete the activity 1 Dependent. The helper does all the effort to complete an activity 7 Patient refused to complete or attempt activity 9 The patient did not perform the activity before the current illness or injury 88 Not attempted due to Medical conditions or safety concerns Functional Abilities and Goals: Independent: Patient completed the activities by him/herself, with or without an assistive device, with no assistance from a helper. Needed Some Help: Patient needed partial assistance from another person to complete activities. Dependent: A helper completed the activities for the patient. Unknown: Not Applicable: ADL PLOF Comments spouse states pt was independent with self care and mobility prior to hospitalization. Pt bowled 2x/wk. Self Care: Independent Functional Cognition: Independent DME/Equipment: Tub/Shower Drive Self: Yes OT Current Status Subjective Pt in bed, agrees to therapy. Has no c/o pain. Wants to know when he can go home. RN requests pt get up to chair. Mental Status/Objective Patient Orientation: Person, Place Attachments: Concepcion Catheter, IV, Oxygen Current Upper Extremity ROM Pt moves bilateral UE spontaneously. Has decreased ROM Upper Extremity Coordination Decreased ADL-Treatment ADL-Current Pt supine to sit with assist x2. Pt sit to stand with max assist. Nursing provided hygiene while pt stood. Transfer to chair with max assist. Pt's O2 sats decreased with transfer. Increased to >90% with rest and cues for deep breathing. RN was present and aware. Pt sitting up in chair with needs met, RN and spouse present after session. Therapy Code Descriptions/Definitions Functional [place] Measure: 0=Not Assessed/NA 4=Minimal Assistance 1=Total Assistance 5=Supervision or Setup 2=Maximal Assistance 6=Modified [place] 3=Moderate Assistance 7=Complete [place] Therapy Quality Codes: 6 Independent with activity with or without an assistive device 5 Patient requires set up or clean up by helper. Patient completes activity by themselves 4 Supervision or touching assist (CGA). [place] provide cues , steadying assist 3 The helper provides less than half the effort to complete the activity 2 The helper provides more than half the effort to complete the activity 1 Dependent. The helper does all the effort to complete an activity 7 Patient refused to complete or attempt activity 9 The patient did not perform the activity before the current illness or injury 88 Not attempted due to Medical conditions or safety concerns Transfers (B, C, W/C) (FIM): 2 Education OT Patient Education: Rehab process Teaching Recipient: Patient Teaching Methods: Discussion Response to Teaching: Verbalize Understanding OT Short Term Goals Short Term Goals Time Frame: Apr 06, 2018 Eating(FIM): 5 Grooming(FIM): 5 Upper Body Dressing(FIM): 4 Additional Short Term Goals: 1-Demonstrate ADL Tasks, 2-Verbalize Understanding , 3-ImproveStrength/Patsy 1=Demonstrate adherence to instructed precautions during ADL tasks. 2=Patient will verbalize/demonstrate understanding of assistive devices/ modifications for ADL. 3=Patient will improve strength/tolerance for activity to enable patient to perform ADL's. OT Director [place] Goals Senior Living Goals Time Frame: Apr 20, 2018 Eating (FIM): 6 Grooming(FIM): 6 Upper Body Dressing(FIM): 5 Lower Body Dressing(FIM): 5 Toileting(FIM): 5 Toilet/Commode Transfer(FIM): 5 Additional Goals: 1-Demonstrate ADL Tasks, 2-Verbalize Understanding, 3- ImproveStrength/Patsy 1=Demonstrate adherence to instructed precautions during ADL tasks. 2=Patient will verbalize/demonstrate understanding of assistive devices/ modifications for ADL. 3=Patient will improve strength/tolerance for activity to enable patient to perform ADL's. OT Education/Plan Problem List/Assessment Assessment: Decreased Activ Tolerance, Decreased UE Strength, Dependent Transfers, Impaired Funct Balance, Impaired I ADL's, Impaired Self-Care Skills Pt demonstrates decreased mobility, strength, activity tolerance, and ADL functioning. Pt to benefit from skilled OT intervention for ADL training, transfers, strengthening, and safety education to increase level of independence and allow safe discharge plan. Discharge Recommendations Plan/Recommendations: Continue POC Treatment Plan/Plan of Care Treatment,Training & Education: Yes Patient would benefit from OT for education, treatment and training to promote independence in ADL's, mobility, safety and/or upper extremity function for ADL' s. Plan of Care: ADL Retraining, Functional Mobility, UE Funct Exercise/Act Treatment Duration: Apr 20, 2018 Frequency: 5 times per week Estimated Hrs Per Day: .25 hour per day Rehab Potential: Fair Time/GCodes Start Time: 08:40 Stop Time: 08:55 Total Time Billed (hr/min): 15 Billed Treatment Time 1 visit, CHRISTIANA(15minutes) ANDRIY JHA OT Mar 30, 2018 10:47
--- NOTE | 2018-03-30 11:05 | NUR ---
Pastoral care visit.
--- NOTE | 2018-03-30 11:20 | Physical Therapy Evaluation ---
PT Evaluation-General Medical Diagnosis Admission Date Mar 25, 2018 at 13:15 Medical Diagnosis: pneumonia Onset Date: Mar 24, 2018 Therapy Diagnosis Therapy Diagnosis: decreased mobility, weakness Height/Weight Height (Feet): 5 Height (Inches): 6.00 Weight (Pounds): 186 Weight (Ounces): 0.0 Precautions Precautions/Isolations: Aspiration, Fall Prevention, Standard Precautions, Pressure Ulcer Weight Bear Status Right Lower Extremity: Right Full Weight Bearing Left Lower Extremity: Left Full Weight Bearing Referral Physician: Stormy Reason for Referral: Evaluation/Treatment Medical History Pertinent Medical History: CAD, DM, HTN Additional Medical History Skin CA, Stents Current History Admit directly from Dr. Burrows's office with c/o chest tightness. Reviewed History: Yes Social History Home: Single Level Current Living Status: Spouse Prior/Core FIM Prior Level of Function Therapy Code Descriptions/Definitions Functional [place] Measure: 0=Not Assessed/NA 4=Minimal Assistance 1=Total Assistance 5=Supervision or Setup 2=Maximal Assistance 6=Modified [place] 3=Moderate Assistance 7=Complete [place] Therapy Quality Codes: 6 Independent with activity with or without an assistive device 5 Patient requires set up or clean up by helper. Patient completes activity by themselves 4 Supervision or touching assist (CGA). [place] provide cues , steadying assist 3 The helper provides less than half the effort to complete the activity 2 The helper provides more than half the effort to complete the activity 1 Dependent. The helper does all the effort to complete an activity 7 Patient refused to complete or attempt activity 9 The patient did not perform the activity before the current illness or injury 88 Not attempted due to Medical conditions or safety concerns Functional Abilities and Goals: Independent: Patient completed the activities by him/herself, with or without an assistive device, with no assistance from a helper. Needed Some Help: Patient needed partial assistance from another person to complete activities. Dependent: A helper completed the activities for the patient. Unknown: Not Applicable: Bed Mobility: 7 Transfers (B,C,W/C) (FIM): 7 Gait: 7 Indoor Mobility (Ambulation): Independent Prior Devices Use: None PT Evaluation-Current Subjective Pt on commode with by his side. Pt agrees to PT. Pain Numeric Pain Scale: 0-No Pain Location: No Pain Reported Pt/Family Goals Pt to return home with . Objective Patient Orientation: Person Attachments: Oxygen, Concepcion Catheter, IV ROM/Strength ROM Lower Extremities WNL Strength Lower Extremities gross motor R LE (4-/5) L LE hamstrings (3+/5); Quads, DF/PF (4-/5) Integumentary/Posture Bowel Incontinence: No Bladder Incontinence: Concepcion Cath Neuromuscular (Tone, Coordination, Reflexes) NT Sensory Vision: Wears Glasses Hearing: Impaired Sensation Right Lower Extremit: Intact Sensation Left Lower Extremity: Intact Transfers Therapy Code Descriptions/Definitions Functional [place] Measure: 0=Not Assessed/NA 4=Minimal Assistance 1=Total Assistance 5=Supervision or Setup 2=Maximal Assistance 6=Modified [place] 3=Moderate Assistance 7=Complete [place] Transfers (B, C, W/C) (FIM): 4 Sit to/from Stand: 4 Gait Mode of Locomotion: Walk Anticipated Mode of Locomotion: Walk Gait (FIM): 1 Distance (FIM): 1=up to 49 ft Distance: 5' Gait Level of Assist: 4 Gait Persons Needed: 1 Gait Assistive Device: None Balance Sitting Static: Fair Sitting Dynamic: Fair Standing Static: Poor Standing Dynamic: Poor Assessment/Needs Pt takes increased time to perform activity for processing. Pt able to perform sit<>stand with min A. Most trouble is with initiation. Pt able to side step to recliner 5' with min A. Pt requires VC and manual cues for safety. Once seated in recliner pts SaO2 dropped from 96% to 80% on 10L. Notified nurse due to pt taking increased time to bring SaO2 back up even with coughing and deep breathing. Nurse moved it to 15L. Pt was able to come up with in a few mins. Once pt was at 100% SaO2 pt performed sit<>stand transfer to FWW with min A. Pt is wobbly during static standing. Once seated back in recliner SaO2 went from 100% to 92%. RT was there to monitor. Pt is now in recliner with all needs met. Rehab Potential: Fair Post Rehab Potential-Barriers: co-morbidities PT Short Term Goals Short Term Goals Time Frame: Apr 06, 2018 Transfers (B,C,W/C) (FIM): 4 Gait (FIM): 1 Distance (FIM): 1=up to 49 ft Gait Distance Comment: 20' Gait Level of Assist: 4 Gait Assistive Device: FWW PT Correction Goals Correction Goals PT [employer] Manager Goals Time Frame: Apr 27, 2018 Transfers (B,C,W/C) (FIM): 5 Gait (FIM): 4 Gait distance (FIM): 3=150 ft Distance: 150' Gait Level of Assist: 4 Gait Assistive Device: FWW PT Plan Problem List Problem List: Activity Tolerance, Functional Strength, Safety, Balance, Gait, Transfer, Bed Mobility, ROM Treatment/Plan Treatment Plan: Continue Plan of Care Treatment Plan: Bed Mobility, Education, Functional Activity Patsy, Functional Strength, Gait, Safety, Therapeutic Exercise, Transfers Treatment Duration: Apr 27, 2018 Frequency: 6 times per week Estimated Hrs Per Day: .25 hour per day Patient and/or Family Agrees t: Yes Safety Risks/Education Patient Education: Gait Training, Transfer Techniques, Correct Positioning, Safety Issues Teaching Recipient: Patient Teaching Methods: Demonstration, Discussion Discharge Recommendations Therapy D/C Recommendations: Acute Rehab, [facility] ([facility]) Time/GCodes Time In: 956 Time Out: 1019 Total Billed Treatment Time: 23 Total Billed Treatment 1 visit EVM 10 min FA 13 min BRI MARTIN PT Mar 30, 2018 11:20
--- NOTE | 2018-03-30 15:17 | Progress Note-Hospitalist ---
Progress Note Progress Notes/Assess & Plan Date Seen 03/30/18 Time Seen by Provider: 15:13 Assessment & Plan The patient was extubated late yesterday morning. His day yesterday went quite well. This morning he began to require greater oxygen flow. He is alert. His respirations are in the 20s and his SaO2 is 93-94 percent. He reports that he feels more tired than yesterday. His states that he was up for about 4 hours this morning and that may have been a factor. Physical exam: He is definitely not as perky as yesterday. Breath sounds are not as full as yesterday. CV is regular. Impression: Day 1 postop extubation following respiratory failure for the previous 4 days. 2.bilateral interstitial pneumonia. Plan: Close observation. O2 by Ventimask DENIA SAUL MD Mar 30, 2018 15:17
--- NOTE | 2018-03-30 15:37 | NUR ---
Inpatient rehab evaluation Received order to evaluate patient for admission to the inpatient rehab unit. Discussed with therapy staff. Patient is felt to be a good candidate for inpatient rehab once medically stable. Will continue to follow. Thank you for the referral.
[2018-03-30 16:20] LABS: ABG BASE EXCESS 9.2 MMOL/L (-2.5-2.5); ABG OXYGEN SATURATION 99 % (94-100); ABG PCO2 40 MMHG (35-45); ABG PH 7.52 (7.37-7.43); ABG PO2 104 MMHG (79-93); ABG TCO2 33.8 MMOL/L (21.0-31.0)
[2018-03-30] MEDS: ENOXAPARIN 40 MG/0.4 ML (LOVENOX) SYR SC SCH (16:20)
[2018-03-30 16:23] LABS: ALLENS TEST ARTLINE; INSPIRED O2 25 VAPOTHERM; PATIENT TEMP 99.8; VENTILATOR NO
[2018-03-30] MEDS: VANCOMYCIN 1500 MG/NS 500 ML IVPB IV SCH ×2 (17:23)
[2018-03-30] MEDS: ATORVASTATIN 20 MG (LIPITOR) TABLET PO SCH (17:53)
[2018-03-30] MEDS: morphine INJ 4 MG/ML 1 ML (VIAL/SYRINGE) IVP PRN (21:32)
[2018-03-31] VITALS (28 sets, daily range): BP systolic 127–174; BP diastolic 34–83
[2018-03-31] MEDS: inSUlin ASPART (NovoLOG) 1 UNIT/0.01 ML (CHARGE PER UNIT) SC SCH ×6 (00:03→20:18)
[2018-03-31] MEDS: RT-ALBUTEROL/IPRATROPIUM 3 ML (DUONEB) VIAL INH SCH ×6 (02:53→23:03)
[2018-03-31 03:33] LABS: ABG BASE EXCESS 9.2 MMOL/L (-2.5-2.5); ABG OXYGEN SATURATION 99 % (94-100); ABG PCO2 45 MMHG (35-45); ABG PH 7.48 (7.37-7.43); ABG PO2 141 MMHG (79-93); ABG TCO2 34.5 MMOL/L (21.0-31.0); BASOPHILS % (AUTO) 0 % (0-10); EOSINOPHILS # (AUTO) 0.1 10^3/uL (0.0-0.3); EOSINOPHILS % (AUTO) 1 % (0-10); HEMATOCRIT 33 % (40-54); HEMOGLOBIN 10.7 G/DL (13.3-17.7); LYMPHOCYTES # (AUTO) 3.6 X 10^3 (1.0-4.0); LYMPHOCYTES % (AUTO) 17 % (12-44); MEAN CORPUSCULAR HEMOGLOBIN 30 PG (25-34); MEAN CORPUSCULAR HGB CONC 33 G/DL (32-36); MEAN CORPUSCULAR VOLUME 92 FL (80-99); MEAN PLATELET VOLUME 8.5 FL (7.4-10.4); MONOCYTES # (AUTO) 1.1 X 10^3 (0.0-1.0); MONOCYTES % (AUTO) 5 % (0-12); NEUTROPHILS # (AUTO) 16.5 X 10^3 (1.8-7.8); NEUTROPHILS % (AUTO) 77 % (42-75); PLATELET COUNT 361 10^3/uL (130-400); RED CELL DISTRIBUTION WIDTH 14.5 % (10.0-14.5); WHITE BLOOD COUNT 21.3 10^3/uL (4.3-11.0)
[2018-03-31 03:34] LABS: ALLENS TEST ART LINE; INSPIRED O2 50% BIPAP; PATIENT TEMP 98.6; VENTILATOR NO
[2018-03-31 04:24] LABS: BUN/CREATININE RATIO 28; CALCIUM 8.6 MG/DL (8.5-10.1); CARBON DIOXIDE 30 MMOL/L (21-32); CHLORIDE 99 MMOL/L (98-107); CREATININE SERUM 1.17 MG/DL (0.60-1.30); GFR ESTIMATED > 60; GLUCOSE 194 MG/DL (70-105); MAGNESIUM 2.1 MG/DL (1.8-2.4); PHOSPHORUS 4.3 MG/DL (2.3-4.7); POTASSIUM 4.7 MMOL/L (3.6-5.0); SODIUM 138 MMOL/L (135-145)
--- NOTE | 2018-03-31 04:38 | Pulmonary Progress Note ---
Sepsis Event Evaluation Height, Weight, BMI Height: 5'6.00" Weight: 186lbs. 0.0oz. 84.600360rx; 27.4 BMI Method: Exam Exam Vital Signs Date Time Temp Pulse Resp B/P (MAP) Pulse Ox O2 Delivery O2 Flow Rate FiO2 03/31/18 04:00 96 NIV Bilevel 25.00 50 03/31/18 04:00 98.6 03/31/18 03:00 61 20 142/65 (90) 97 NIV Bilevel 50.00 03/31/18 02:53 58 25 99 50.00 03/31/18 02:00 58 23 137/61 (86) 98 NIV Bilevel 50.00 03/31/18 01:00 63 03/31/18 01:00 63 24 148/71 (96) 99 NIV Bilevel 50.00 03/31/18 00:27 62 25 97 50.00 03/31/18 00:00 62 14 137/62 (87) 98 NIV Bilevel 50.00 03/31/18 00:00 96 NIV Bilevel 25.00 50 03/30/18 23:00 63 23 147/67 (93) 100 NIV Bilevel 50.00 03/30/18 22:49 62 18 99 50.00 03/30/18 22:00 68 17 144/62 (89) 96 Vapotherm 60.00 25.00 03/30/18 21:00 76 20 150/63 (92) 92 Vapotherm 60.00 25.00 03/30/18 20:00 94 Vapotherm 25.00 60 03/30/18 20:00 98.2 03/30/18 20:00 72 18 161/71 (101) 95 Vapotherm 60.00 25.00 03/30/18 19:00 73 03/30/18 19:00 73 25 148/75 (99) 96 Vapotherm 60.00 25.00 03/30/18 18:46 97 Vapotherm 25.00 60 03/30/18 18:00 60 21 168/72 (104) 95 Vapotherm 60.00 25.00 03/30/18 17:00 61 28 164/73 (103) 97 Vapotherm 60.00 25.00 03/30/18 16:00 95 Nasal Cannula 10.00 03/30/18 16:00 59 25 155/75 (101) 98 Vapotherm 60.00 25.00 03/30/18 15:00 64 16 161/74 (103) 93 Vapotherm 50.00 20.00 03/30/18 14:00 99.7 65 17 146/72 (96) 94 Vapotherm 50.00 20.00 03/30/18 13:46 93 Vapotherm 20.00 50 03/30/18 13:00 63 03/30/18 13:00 94 16 151/66 (94) 92 Vapotherm 50.00 20.00 03/30/18 12:00 62 11 88 Vapotherm 50.00 20.00 03/30/18 12:00 95 Nasal Cannula 10.00 03/30/18 11:00 61 21 139/66 (90) 95 Vapotherm 50.00 20.00 03/30/18 10:20 Vapotherm 50.00 20.00 03/30/18 10:00 66 25 94 High Flow N/C 10.00 03/30/18 09:42 95 High Flow N/C 8.00 03/30/18 09:00 73 25 146/74 (98) 95 High Flow N/C 10.00 03/30/18 08:03 95 Nasal Cannula 10.00 03/30/18 08:00 73 21 154/72 (99) 94 High Flow N/C 10.00 03/30/18 07:30 99.0 75 20 158/70 (99) 95 High Flow N/C 10.00 03/30/18 07:00 73 03/30/18 06:23 92 High Flow N/C 10.00 03/30/18 06:00 79 18 160/74 (102) 91 High Flow N/C 10.00 03/30/18 05:00 80 16 160/69 (99) 91 High Flow N/C 10.00 I & O 03/31/18 07:00 Intake Total 2544 ml Output Total 6600 ml Balance -4056 ml Height & Weight Height: 5'6.00" Weight: 186lbs. 0.0oz. 84.786952wp; 27.4 BMI Method: General Appearance: Anxious, Chronically ill, Mild Distress Neck: Other (OG in place) Respiratory: Crackles, Decreased Breath Sounds; No Wheezing Cardiovascular: Regular Rate, Rhythm, No JVD, No Murmur Capillary Refill: Less Than 3 Seconds Gastrointestinal: non tender, soft Extremity: No Calf Tenderness, Pedal Edema Neurologic/Psychiatric: Other (sedated, resting comfortably) Results Lab Laboratory Tests 03/30/18 03:15 03/31/18 03:25 Assessment/Plan Assessment/Plan Acute respiratory failure s/p bronchoscopy -Pt is now off vent. Currently on BiPAP -Back to Vapotherm during the day -Will make pt ICU stepdown status Acute bilateral pneumonia with hypoxemia with severe sepsis -Continue vanco/Zosyn/Eraxis - ivf are hep locked Contraction alkalosis -Hold lasix today -Give acetazolamide x 1 CYN - improved -monitor Hyperglycemia -Monitor close Anemia - monitor Hyponatremia - monitor VERO JON WILLIAM DO Mar 31, 2018 04:38
[2018-03-31] MEDS ORDERED: acetaZOLAMIDE 250 MG (DIAMOX) TAB PO SCH ×2 (04:45→09:00)
[2018-03-31] MEDS: PIPERACILLIN/TAZO 4.5 GM/NS 100 ML IV SCH ×6 (05:02→21:05)
[2018-03-31] MEDS: POTASSIUM CL 10MEQ/50ML IVPB 50 ML IV SCH (05:03)
[2018-03-31] MEDS: MAGNESIUM 1 GM/100 ML IVPB 100 ML IV SCH (05:03)
[2018-03-31] MEDS: KCL 20 MEQ TAB (K-DUR) PO SCH (05:03)
[2018-03-31] MEDS: LACTOBACILLUS ACIDOPHILUS (PROBIOTIC) CAPSULE PO SCH ×3 (06:38→18:01)
--- NOTE | 2018-03-31 06:45 | Diagnostic Imaging Report ---
INDICATION: Pulmonary infiltrates, shortness of breath. COMPARISON: 03/30/2018. FINDINGS: Single view of the chest demonstrates cardiac enlargement with unchanged bilateral pulmonary infiltrates. There is no pneumothorax or large effusion. Osseous structures are stable. IMPRESSION: Unchanged aeration of the lungs. Dictated by: Dictated on workstation # [id number]
--- NOTE | 2018-03-31 07:52 | Cardiology Progress Note ---
Subjective Date Seen by Provider: Mar 31, 2018 Time Seen by Provider: 07:50 Subjective/Events-last exam patient is laying down in bed, still having shortness of breath, overall improving slowly. No chest pain. More oriented today Review of Systems General: No Chills, No Night Sweats; Fatigue, Malaise; No Appetite, No Other HEENT: No Head Aches, No Visual Changes, No Eye Pain, No Ear Pain, No Dysphasia , No Sinus Congestion, No Post Nasal Drip, No Sore Throat, No Other Pulmonary: Dyspnea, Cough; No Pleuritic Chest Pain, No Other Cardiovascular: Edema; No: Chest Pain, Palpitations, Orthopnea, Paroxysmal Noc. Dyspnea, Lt Headedness, Other Objective-Cardiology Exam Last Set of Vital Signs Vital Signs 03/31/18 03/31/18 03/31/18 04:00 06:00 06:14 Temp 98.6 Pulse 62 Resp 30 B/P (MAP) 135/63 (87) Pulse Ox 100 O2 Delivery Vapotherm O2 Flow Rate 20.00 FiO2 45 Capillary Refill : Less Than 3 Seconds I&O Intake and Output 03/31/18 00:00 Intake Total 3969 ml Output Total 8750 ml Balance -4781 ml Intake Oral 2969 ml IV Total 1000 ml Output Urine Total 8750 ml # Bowel Movements 3 General: Alert, Oriented X3, Cooperative, Moderate Distress HEENT: PERRLA Neck: Supple, No Thyromegaly Lungs: Normal Air Movement, Other (bilateral rhonchi) Heart: Regular Rate, Normal S1, Normal S2, No Murmurs Abdomen: Normal Bowel Sounds, Soft, No Tenderness, No Hepatosplenomegaly, No Masses, Other (mild edema) Extremities: No Clubbing, No Cyanosis, Normal Pulses, No Tenderness/Swelling Skin: No Rashes, No Breakdown, No Significant Lesion Neuro: Normal Tone, Sensation Intact Psych/Mental Status: Mood NL Results Lab Laboratory Tests 03/31/18 03:25 A/P-Cardiology Admission Diagnosis Pneumonia Sinus tachycardia Coronary artery disease Hypertension Hyperlipidemia Assessment/Plan status post acute respiratory failure, currently off the ventilator and improving slowly, still have pulmonary infiltrate and receiving treatment. Managed by Dr. Burrows. Pneumonia, slow improvement, still on antibiotics. Continue to monitor. Coronary artery disease, had a cardiac catheterization 2012 resulted with 2 stents deployment 2.515 mm to the right coronary artery resolute and 2.2522 mm resolute to the LAD, continue to monitor at this time Echocardiogram done on March 25, 2018 showing normal left ventricular size with ejection fraction 65 percent, pulmonary hypertension with PA pressure 45 mmHg Hypertension, oral antihypertensive medication were restarted. Continue to monitor Hyperlipidemia, monitor lipids Diabetes mellitus, followed and managed by primary care physician Obstructive sleep apnea, using C Pap at night, currently in respiratory failure Obesity History of carotid stenosis, last ultrasound was done in September 2017 showing mild disease on the right and moderate on the left. Continue to monitor Clinical Quality Measures DVT/VTE Risk/Contraindication: Risk Factor Score Per Nursin RFS Level Per Nursing on Admit: 2=Moderate ANDREINA LARA MD Mar 31, 2018 07:52
--- NOTE | 2018-03-31 09:16 | Progress Note-Hospitalist ---
ADAM BERNAL DO 03/31/18 0916: Subjective HPI/CC On Admission Date Seen by Provider: Mar 31, 2018 Time Seen by Provider: 09:30 Pt is 73yoCM with a PMH of CAD s/p stenting, IDDMII, VERO who was direct admitted from Dr Burrows's office for pneumonia. He states she the past week or so he has been has some chest tightness and noticed it more with exertion ( bowling). He was seen by his PCP who referred him to Dr Pizarro. Per patient EKG showed no changes and he was set up for an outpatient stress test. He continued to have some chest tightness and his states for the past month he's had more shallow breathing. He was seen by Dr Burrows today for regular follow up for his VERO and CPAP and was found to be hypoxic and mildly hypotensive on arrival. He was sent for outpatient labs and CTA which revealed bilateral pneumonia and a leukocytosis. He was direct admitted for further management. 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 an legs and will work aggressively to resolve that before going home Pt appears to be more lucid but still at bedside is having to translate a bit because of delayed responses Reviewed labs and white count is improving Review of Systems General: Fatigue, Malaise Pulmonary: Dyspnea Neurological: Weakness, Incoordination Objective Exam Vital Signs Vital Signs Date Time Temp Pulse Resp B/P (MAP) Pulse Ox O2 Delivery O2 Flow Rate FiO2 03/31/18 20:00 73 34 170/42 (84) 88 Vapotherm 45.00 168/69 (102) 20.00 03/31/18 19:29 45 03/31/18 19:28 98.5 Capillary Refill : Less Than 3 Seconds General Appearance: Anxious, Chronically ill, Mild Distress Neck: Other (OG in place) Respiratory: Crackles, Decreased Breath Sounds; No Wheezing Cardiovascular: Regular Rate, Rhythm, No JVD, No Murmur Back: Normal Inspection Extremity: No Calf Tenderness, Pedal Edema Neurologic/Psychiatric: Alert (alert but unable to provide detail when inquired about his status or any concerns), Disoriented, Other (severe weakness of all extremities) Results/Procedures Lab Laboratory Tests 03/31/18 03:25 Patient resulted labs reviewed. Imaging: Reviewed Imaging Report Assessment/Plan Assessment and Plan Assess & Plan/Chief Complaint Assessment: s/p severe sepsis Pneumonia ARDS VERO Critical illness myopathy Plan: Therapies IRF once Vapotherm DC Critical Care Critically Ill Patient Diagnosis/Problems Diagnosis/Problems (1) Severe sepsis Status: Resolved Resolution Date/Time: 03/31/18 @ 12:46 (2) Acute respiratory failure Status: Acute Qualifiers: Respiratory failure complication: hypoxia Qualified Codes: J96.01 - Acute respiratory failure with hypoxia (3) FAIZA (acute kidney injury) Status: Resolved Resolution Date/Time: 03/27/18 @ 10:02 (4) Essential (primary) hypertension Status: Chronic (5) Pneumonia Status: Acute Qualifiers: Pneumonia type: due to unspecified organism Laterality: bilateral Lung location: lower lobe of lung Qualified Codes: J18.1 - Lobar pneumonia, unspecified organism (6) Insulin dependent diabetes mellitus Status: Chronic (7) CAD (coronary artery disease) Status: Chronic Qualifiers: Coronary Disease-Associated Artery/Lesion type: [place] artery [place] vs. transplanted heart: [place] heart Associated angina: without angina Qualified Codes: I25.10 - Atherosclerotic heart disease of [place] coronary artery without angina pectoris (8) VERO (obstructive sleep apnea) Status: Chronic (9) BiPAP (biphasic positive airway pressure) dependence Status: Acute (10) Critical illness myopathy Status: Acute (11) ARDS (adult respiratory distress syndrome) Status: Acute Clinical Quality Measures DVT/VTE Risk/Contraindication: Risk Factor Score Per Nursin RFS Level Per Nursing on Admit: 2=Moderate JOAQUIN SOTELO MEDICAL STUDENT 03/31/18 1159: Subjective HPI/CC On Admission CC: SOB, chest tightness HPI: This is 73 yo white male w/ a PMH of CAD s/p stents (x2 in 2012), type 2 DM , HTN, HLD, and VERO on CPAP who was a direct admit from Dr. Burrows's office for PNA on 03/24/18. The patient was complaining of one week of worsening SOB and chest tightness, but denied CP or other URI symptoms. A stat CT showed bilateral lower lobe PNA and the pt was hypoxemic, so he was admitted for IV abx and oxygen support. Despite the hx of VERO, the pt does not use oxygen at home and does not have COPD. He quit smoking in 1972. While in the ICU, the pt rapidly deteriorated into severe sepsis w/ FAIZA and ARDS within 24 hours of admission. His white count peaked at 30,000. He was intubated and IV vanco/zosyn /eraxis were started. Bronchoscopy was performed, cultures pending, preliminary showed no growth. Viral PNA serology panel was negative, as was Legionella urinary antigen and S. pneumo antigen. Cardiology was consulted for hx of CAD. Troponins were negative and echocardiogram showed normal ejection fraction but with pulmonary HTN. The patient's oxygenation slowly improved and he was extubated on the afternoon of 03/29/18. Over the last two days the patient's mental status never fully returned to baseline and [place] [address] [place] [address]. He complains of distal upper extremity weakness and SOB. His pulse ox was 93% on 5L vapotherm yesterday but he is requiring 9L today. He is requiring BiPAP at night. Subjective/Events-last exam Pt unable to express concerns when asked; he looks to his to answer for him Endorses weakness and is still SOB, denies pain Pt on vapotherm via [place] Review of Systems General: No Chills; Fatigue HEENT: No Head Aches Pulmonary: Dyspnea; No Pleuritic Chest Pain Cardiovascular: No: Chest Pain, Edema Gastrointestinal: No: Nausea, Vomiting, Abdominal Pain Genitourinary: No Dysuria Neurological: Weakness, Confusion Objective Exam General Appearance: No Apparent Distress, Chronically ill HEENT: PERRL/EOMI, Normal ENT Inspection; No Scleral Icterus (L), No Scleral Icterus (R) Neck: Full Range of Motion, Non Tender Respiratory: Chest Non Tender, No Accessory Muscle Use, Crackles, Decreased Breath Sounds; No Wheezing Cardiovascular: Regular Rate, Rhythm, No JVD, No Murmur Gastrointestinal: Normal Bowel Sounds, Non Tender, Soft Extremity: No Calf Tenderness Neurologic/Psychiatric: Alert (alert but unable to provide detail when inquired about his status or any concerns); No Facial Droop; Motor Weakness ( distal BUE show diminished strength, pt still able to ambulate with support); No Sensory Deficit Skin: Normal Color, Warm/Dry Lymphatic: No Adenopathy Results/Procedures Imaging: Reviewed Imaging Films, Reviewed Imaging Report Assessment/Plan Assessment and Plan Assess & Plan/Chief Complaint Assessment: s/p acute respiratory failure requiring ventilation. Extubated on 03/29. Bilateral lower lobe PNA leading to severe sepsis Leukocytosis Metabolic alkalosis FAIZA, improving ARDS, resolved CAD and stents HTN DM, hyperglycemia Hyperlipidemia VERO Plan: On vapotherm during day and BiPAP at night. Managed by Dr. Burrows Continue IV vancomycin/zosyn/eraxis. Final cultures from bronchoscopy samples pending Monitor electrolytes, CBC Continue home meds except for statin DVT prophylaxis w/ Lovenox PT/OT as tolerated Critical Care Critically Ill Patient ADAM BERNAL DO Mar 31, 2018 09:16 JOAQUIN SOTELO MEDICAL STUDENT Mar 31, 2018 11:59
[2018-03-31] MEDS: ANIDULAFUNGIN INJECTION 100 MG in NS (IVPB) 100 ML IV SCH (09:29)
[2018-03-31] MEDS: lisINopril 20 MG (PRINIVIL) TABLET PO SCH (09:29)
[2018-03-31] MEDS: ASPIRIN E.C. 81 MG (ECOTRIN) TAB PO SCH (09:29)
[2018-03-31] MEDS: LORATADINE (CLARITIN) 10 MG TAB PO SCH (09:29)
[2018-03-31] MEDS: methylPREDNISolone 40 MG/ML (Solu-MEDROL) VIAL IV SCH ×2 (09:29→20:18)
[2018-03-31] MEDS: meTOprolol TARTRATE 25 MG (LOPRESSOR) TABLET PO SCH ×2 (09:29→20:18)
[2018-03-31] MEDS: inSUlin Protamine/ASPart 70/30 1 UNIT/0.01 ML DOSE SC SCH ×2 (09:30→18:01)
[2018-03-31] MEDS: PANTOPRAZOLE 40 MG (PROTONIX) TAB PO SCH (09:32)
--- NOTE | 2018-03-31 10:05 | Occupational Ther Daily Note ---
OT Current Status-Daily Note Subjective RN states pt is okay for therapy this morning. States pt is having difficulty gripping utensils for eating. Pt in bed with spouse present, agrees to treatment. Mental Status/Objective Therapy Code Descriptions/Definitions Functional [place] Measure: 0=Not Assessed/NA 4=Minimal Assistance 1=Total Assistance 5=Supervision or Setup 2=Maximal Assistance 6=Modified [place] 3=Moderate Assistance 7=Complete Cle[place] Attachments: Concepcion Catheter, IV, Oxygen (vapotherm) ADL-Treatment Spouse states pt was able to partially feed himself this morning, but she assisted after he got fatigued. Pt was given red cylindrical foam to build up utensils for eating. Pt demonstrated ability to food preservation scientist spoon with built up handle. Pt completed grooming tasks while in bed with HOB raised. Pt able to food preservation scientist toothbrush with built up handle, but has difficulty bringing it to his mouth secondary to weakness. When pt's elbow and forearm were supported, pt was able to bring toothbrush to mouth and brush teeth. Also required assist to position toothbrush in his hand. Pt requires some verbal cueing for task completion. Pt washed chin and mouth with min assist, but required assist to wash rest of face. Grooming (FIM): 2 Other Treatment Pt completed bilateral UE activity to promote increased strength and activity tolerance. AAROM completed x10 reps at bilateral shoulder, elbow, and hands. Wrist ROM not completed secondary to placement of art line. Pt completed bilateral hand food preservation scientist exercises with mild resistance therapy foam. Pt has decreased activity tolerance and fatigues with activity. Rest breaks required throughout treatment. Pt resting in bed with needs met and nursing present after session. Education OT Patient Education: Modified ADL techniques Teaching Recipient: Patient Teaching Methods: Discussion OT Short Term Goals Short Term Goals Time Frame: Apr 06, 2018 Eating(FIM): 5 Grooming(FIM): 5 Upper Body Dressing(FIM): 4 Transfers (B,C,W/C) (FIM): 4 Additional Short Term Goals: 1-Demonstrate ADL Tasks, 2-Verbalize Understanding , 3-ImproveStrength/Patsy 1=Demonstrate adherence to instructed precautions during ADL tasks. 2=Patient will verbalize/demonstrate understanding of assistive devices/ modifications for ADL. 3=Patient will improve strength/tolerance for activity to enable patient to perform ADL's. OT Intermediate Goals Intermediate Goals Time Frame: Apr 20, 2018 Eating (FIM): 6 Grooming(FIM): 6 Upper Body Dressing(FIM): 5 Lower Body Dressing(FIM): 5 Toileting(FIM): 5 Toilet/Commode Transfer(FIM): 5 Additional Goals: 1-Demonstrate ADL Tasks, 2-Verbalize Understanding, 3- ImproveStrength/Patsy 1=Demonstrate adherence to instructed precautions during ADL tasks. 2=Patient will verbalize/demonstrate understanding of assistive devices/ modifications for ADL. 3=Patient will improve strength/tolerance for activity to enable patient to perform ADL's. OT Education/Plan Problem List/Assessment Pt demonstrates decreased mobility, strength, activity tolerance, and ADL functioning. Pt to benefit from skilled OT intervention for ADL training, transfers, strengthening, and safety education to increase level of independence and allow safe discharge plan. Discharge Recommendations Plan/Recommendations: Continue POC Treatment Plan/Plan of Care Patient would benefit from OT for education, treatment and training to promote independence in ADL's, mobility, safety and/or upper extremity function for ADL' s. Plan of Care: ADL Retraining, Functional Mobility, UE Funct Exercise/Act Treatment Duration: Apr 20, 2018 Frequency: 5 times per week Estimated Hrs Per Day: .25 hour per day Rehab Potential: Fair Time/GCodes Start Time: 09:14 Stop Time: 09:38 Total Time Billed (hr/min): 24 Billed Treatment Time 1 visit, ADL(10minutes), EX(14minutes) ANDRIY JHA OT Mar 31, 2018 10:05
--- NOTE | 2018-03-31 11:37 | Physical Therapy Daily Note ---
PT Daily Note-Current Subjective Pt. and in room as well as nurse. Pt. appears a little bewildered and perhaps confused at times but cooperative as long as his is there to encourage and instruct and back up PT. Nursing advises pt. has been off vent 2 days and making progress daily. Pt. denies pain Pain Location: No Pain Reported Mental Status Patient Orientation: Person, Place Attachments: SCD's, Oxygen, Drains, Concepcion Catheter, IV Transfers Therapy Code Descriptions/Definitions Functional [place] Measure: 0=Not Assessed/NA 4=Minimal Assistance 1=Total Assistance 5=Supervision or Setup 2=Maximal Assistance 6=Modified [place] 3=Moderate Assistance 7=Complete [place] Therapy Quality Codes: 6 Independent with activity with or without an assistive device 5 Patient requires set up or clean up by helper. Patient completes activity by themselves 4 Supervision or touching assist (CGA). Adger provide cues , steadying assist 3 The helper provides less than half the effort to complete the activity 2 The helper provides more than half the effort to complete the activity 1 Dependent. The helper does all the effort to complete an activity 7 Patient refused to complete or attempt activity 9 The patient did not perform the activity before the current illness or injury 88 Not attempted due to Medical conditions or safety concerns Transfers (B, C, W/C) (FIM): 4 Scootin Rollin Supine to/from Sit: 4 Sit to/from Stand: 4 Bed to/from Chair: 4 sup to sit with min assist. sit to stand from higher bed surface also min assist , SPT bed to chair min assist as well to weight shift Weight Bearing Right Lower Extremity: Right Full Weight Bearing Left Lower Extremity: Left Full Weight Bearing Gait Training Gait Assistive Device: Handheld Assist hand held assist of 2 5-6 ft bed to chair min Exercises Supine Ex: Ankle pumps, Heel Slides, Straight leg raise, Hip abd/add Supine Reps: 12 Treatments sitting at EOB pt. leaned to right and retro as well and required assist to correct multiple times, then eventually righted self consistently before standing Assessment Current Status: Good Progress and nurse both comment on improved function over 2-19 rx PT Short Term Goals Short Term Goals Time Frame: Apr 06, 2018 Transfers (B,C,W/C) (FIM): 4 Gait (FIM): 1 Distance (FIM): 1=up to 49 ft Gait Distance Comment: 20' Gait Level of Assist: 4 Gait Assistive Device: FWW PT Vp Analysis Goals Vp Analysis Goals PT Assisted Goals Time Frame: Apr 27, 2018 Transfers (B,C,W/C) (FIM): 5 Gait (FIM): 4 Gait distance (FIM): 3=150 ft Distance: 150' Gait Level of Assist: 4 Gait Assistive Device: FWW PT Plan Treatment/Plan Treatment Plan: Continue Plan of Care Treatment Plan: Bed Mobility, Education, Functional Activity Patsy, Functional Strength, Gait, Safety, Therapeutic Exercise, Transfers Treatment Duration: Apr 27, 2018 Frequency: 6 times per week Estimated Hrs Per Day: .25 hour per day Patient and/or Family Agrees t: Yes Safety Risks/Education Patient Education: Gait Training, Transfer Techniques, Correct Positioning, Disease Process, Safety Issues Teaching Recipient: Patient Teaching Methods: Demonstration, Discussion Response to Teaching: Verbalize Understanding, Return Demonstration, Reinforcement Needed Time/GCodes Time In: 1030 Time Out: 1055 Total Billed Treatment Time: 25 Total Billed Treatment 1,FA15m,EX10m G Codes Necessary: AMELIA Momin WEB DESIGN SPECIALIST Mar 31, 2018 11:36
[2018-03-31] MEDS: ENOXAPARIN 40 MG/0.4 ML (LOVENOX) SYR SC SCH (18:01)
[2018-03-31] MEDS: ATORVASTATIN 20 MG (LIPITOR) TABLET PO SCH (18:01)
[2018-03-31] MEDS ORDERED: guaiFENesin/DM (ROBITUSSIN DM) 10 ML UDC ONE (21:48)
[2018-03-31] MEDS ORDERED: guaiFENesin/DM (ROBITUSSIN DM) 10 ML UDC PO PRN (22:00)
[2018-03-31] MEDS: morphine INJ 4 MG/ML 1 ML (VIAL/SYRINGE) IVP PRN (23:09)
[2018-04-01] VITALS (21 sets, daily range): BP systolic 108–177; BP diastolic 41–97
[2018-04-01] MEDS: inSUlin ASPART (NovoLOG) 1 UNIT/0.01 ML (CHARGE PER UNIT) SC SCH ×5 (00:08→17:25)
[2018-04-01] MEDS: RT-ALBUTEROL/IPRATROPIUM 3 ML (DUONEB) VIAL INH SCH ×6 (02:48→23:03)
[2018-04-01 03:34] LABS: BASOPHILS % (AUTO) 0 % (0-10); EOSINOPHILS % (AUTO) 0 % (0-10); HEMATOCRIT 31 % (40-54); HEMOGLOBIN 10.4 G/DL (13.3-17.7); LYMPHOCYTES # (AUTO) 3.3 X 10^3 (1.0-4.0); LYMPHOCYTES % (AUTO) 13 % (12-44); MEAN CORPUSCULAR HEMOGLOBIN 31 PG (25-34); MEAN CORPUSCULAR HGB CONC 34 G/DL (32-36); MEAN CORPUSCULAR VOLUME 91 FL (80-99); MEAN PLATELET VOLUME 8.8 FL (7.4-10.4); MONOCYTES # (AUTO) 1.1 X 10^3 (0.0-1.0); MONOCYTES % (AUTO) 4 % (0-12); NEUTROPHILS # (AUTO) 21.5 X 10^3 (1.8-7.8); NEUTROPHILS % (AUTO) 83 % (42-75); PLATELET COUNT 366 10^3/uL (130-400); RED CELL DISTRIBUTION WIDTH 14.5 % (10.0-14.5)
[2018-04-01 03:34] LABS: ABG BASE EXCESS -1.1 MMOL/L (-2.5-2.5); ABG OXYGEN SATURATION 97 % (94-100); ABG PCO2 40 MMHG (35-45); ABG PH 7.38 (7.37-7.43); ABG PO2 86 MMHG (79-93); ABG TCO2 24.4 MMOL/L (21.0-31.0)
[2018-04-01 03:35] LABS: ALLENS TEST ARTLINE; INSPIRED O2 30% BIPAP; PATIENT TEMP 99.1; VENTILATOR NO
[2018-04-01 03:54] LABS: BUN/CREATININE RATIO 24; CALCIUM 8.7 MG/DL (8.5-10.1); CARBON DIOXIDE 21 MMOL/L (21-32); CHLORIDE 105 MMOL/L (98-107); CREATININE SERUM 1.17 MG/DL (0.60-1.30); GFR ESTIMATED > 60; GLUCOSE 185 MG/DL (70-105); MAGNESIUM 2.2 MG/DL (1.8-2.4); PHOSPHORUS 3.3 MG/DL (2.3-4.7); POTASSIUM 4.1 MMOL/L (3.6-5.0); SODIUM 136 MMOL/L (135-145)
[2018-04-01] MEDS: MAGNESIUM 1 GM/100 ML IVPB 100 ML IV SCH (04:07)
[2018-04-01] MEDS: KCL 20 MEQ TAB (K-DUR) PO SCH ×2 (04:07→08:49)
[2018-04-01] MEDS: POTASSIUM CL 10MEQ/50ML IVPB 50 ML IV SCH (04:07)
[2018-04-01] MEDS: PIPERACILLIN/TAZO 4.5 GM/NS 100 ML IV SCH ×6 (05:01→22:31)
--- NOTE | 2018-04-01 05:21 | Progress Note-Hospitalist ---
Subjective HPI/CC On Admission Date Seen by Provider: Apr 01, 2018 Time Seen by Provider: 09:30 CC: SOB, chest tightness HPI: This is 73 yo white male w/ a PMH of CAD s/p stents (x2 in 2012), type 2 DM , HTN, HLD, and VERO on CPAP who was a direct admit from Dr. Burrows's office for PNA on 03/24/18. The patient was complaining of one week of worsening SOB and chest tightness, but denied CP or other URI symptoms. A stat CT showed bilateral lower lobe PNA and the pt was hypoxemic, so he was admitted for IV abx and oxygen support. Despite the hx of VERO, the pt does not use oxygen at home and does not have COPD. He quit smoking in 1972. While in the ICU, the pt rapidly deteriorated into severe sepsis w/ FAIZA and ARDS within 24 hours of admission. His white count peaked at 30,000. He was intubated and IV vanco/zosyn /eraxis were started. Bronchoscopy was performed, cultures pending, preliminary showed no growth. Viral PNA serology panel was negative, as was Legionella urinary antigen and S. pneumo antigen. Cardiology was consulted for hx of CAD. Troponins were negative and echocardiogram showed normal ejection fraction but with pulmonary HTN. The patient's oxygenation slowly improved and he was extubated on the afternoon of 03/29/18. Over the last two days the patient's mental status never fully returned to baseline and his [place] [address] to [place] [address]. He complains of distal upper extremity weakness and SOB. His pulse ox was 93% on 5L vapotherm yesterday but he is requiring 9L today. He is requiring BiPAP at night. Subjective/Events-last exam Pt had a rough night. Cough is productive. Still on Vapotherm so inpatient rehab transfer not until Vapotherm is discontinued and titrated down. now reports dementia like behavior for about six months before admission. Bowels are incontinent with loose stools. Up in chair and appears to be doing slightly better. Improved range of motion and strength in his extremities. Review of Systems General: Fatigue Pulmonary: Dyspnea Neurological: Weakness, Confusion Objective Exam Vital Signs Vital Signs Date Time Temp Pulse Resp B/P (MAP) Pulse Ox O2 Delivery O2 Flow Rate FiO2 2/21/19 18:12 92 Vapotherm 15.00 45 04/01/18 18:03 80 29 122/61 (81) 04/01/18 16:00 97.6 Capillary Refill : Less Than 3 Seconds General Appearance: No Apparent Distress, Anxious, Chronically ill, Other ( improved sitting in chair) HEENT: PERRL/EOMI, Normal ENT Inspection; No Scleral Icterus (L), No Scleral Icterus (R) Neck: Other (OG in place) Respiratory: Crackles, Decreased Breath Sounds; No Wheezing Cardiovascular: Regular Rate, Rhythm, No JVD, No Murmur Gastrointestinal: Normal Bowel Sounds, Non Tender, Soft Back: Normal Inspection Extremity: No Calf Tenderness, Pedal Edema Neurologic/Psychiatric: Alert (alert but unable to provide detail when inquired about his status or any concerns), Disoriented, Other (severe weakness of all extremities) Skin: Normal Color, Warm/Dry Lymphatic: No Adenopathy Results/Procedures Lab Laboratory Tests 04/01/18 03:19 Patient resulted labs reviewed. Imaging: Reviewed Imaging Films, Reviewed Imaging Report Assessment/Plan Assessment and Plan Assess & Plan/Chief Complaint Assessment: s/p severe sepsis Pneumonia ARDS VERO Critical illness myopathy Dementia prior to admit past 6 months per Plan: Therapies IRF once Vapotherm DC Supportive care Critical Care Critically Ill Patient Diagnosis/Problems Diagnosis/Problems (1) Severe sepsis Status: Resolved Resolution Date/Time: 03/31/18 @ 12:46 (2) Acute respiratory failure Status: Acute Qualifiers: Respiratory failure complication: hypoxia Qualified Codes: J96.01 - Acute respiratory failure with hypoxia (3) FAIZA (acute kidney injury) Status: Resolved Resolution Date/Time: 03/27/18 @ 10:02 (4) Essential (primary) hypertension Status: Chronic (5) Pneumonia Status: Acute Qualifiers: Pneumonia type: due to unspecified organism Laterality: bilateral Lung location: lower lobe of lung Qualified Codes: J18.1 - Lobar pneumonia, unspecified organism (6) Insulin dependent diabetes mellitus Status: Chronic (7) CAD (coronary artery disease) Status: Chronic Qualifiers: Coronary Disease-Associated Artery/Lesion type: [place] artery [place] vs. transplanted heart: [place] heart Associated angina: without angina Qualified Codes: I25.10 - Atherosclerotic heart disease of [place] coronary artery without angina pectoris (8) VERO (obstructive sleep apnea) Status: Chronic (9) BiPAP (biphasic positive airway pressure) dependence Status: Acute (10) Critical illness myopathy Status: Acute (11) ARDS (adult respiratory distress syndrome) Status: Acute (12) Dementia Status: Chronic Qualifiers: Dementia type: Alzheimer's disease Clinical Quality Measures DVT/VTE Risk/Contraindication: Risk Factor Score Per Nursin RFS Level Per Nursing on Admit: 2=Moderate ADAM BERNAL DO Apr 01, 2018 05:21
--- NOTE | 2018-04-01 05:48 | Pulmonary Progress Note ---
Subjective Time Seen by a Provider: 05:47 Subjective/Events-last exam Pt is very weak. C/o confusion and hallucinations. Sepsis Event Evaluation Height, Weight, BMI Height: 5'6.00" Weight: 176lbs. 0.0oz. 79.063011ka; 27.4 BMI Method: Exam Exam Vital Signs Date Time Temp Pulse Resp B/P (MAP) Pulse Ox O2 Delivery O2 Flow Rate FiO2 04/01/18 05:00 72 23 149/51 (83) 97 Vapotherm 45.00 143/67 (92) 20.00 04/01/18 04:00 NIV Bilevel 30 04/01/18 04:00 98.5 04/01/18 04:00 67 32 169/49 (89) 99 Vapotherm 45.00 20.00 04/01/18 03:00 66 29 155/46 (82) 96 Vapotherm 45.00 20.00 04/01/18 02:50 68 33 95 30.00 04/01/18 02:00 67 27 141/48 (79) 95 Vapotherm 45.00 20.00 04/01/18 01:00 66 04/01/18 01:00 60 25 126/41 (69) 99 Vapotherm 45.00 20.00 04/01/18 00:00 95 Vapotherm 25.00 45 04/01/18 00:00 99.1 04/01/18 00:00 67 19 144/43 (76) 98 Vapotherm 45.00 20.00 03/31/18 23:06 65 34 97 30.00 03/31/18 23:00 63 31 174/52 (92) 99 Vapotherm 45.00 20.00 03/31/18 22:00 69 20 146/44 (78) 95 Vapotherm 45.00 141/65 (90) 20.00 03/31/18 21:00 72 33 165/48 (87) 94 Vapotherm 45.00 20.00 03/31/18 20:00 95 Vapotherm 25.00 45 03/31/18 20:00 73 34 170/42 (84) 88 Vapotherm 45.00 168/69 (102) 20.00 03/31/18 19:29 93 Vapotherm 20.00 45 03/31/18 19:28 98.5 03/31/18 19:00 71 2/20/19 19:00 68 24 151/42 (78) 93 Vapotherm 45.00 20.00 03/31/18 18:07 64 29 154/65 (94) 99 Vapotherm 45.00 154/65 (94) 20.00 03/31/18 17:02 68 24 141/36 (71) 96 Vapotherm 45.00 150/62 (91) 20.00 03/31/18 16:02 69 40 129/34 (65) 94 Vapotherm 45.00 153/66 (95) 20.00 03/31/18 16:00 95 Vapotherm 25.00 45 03/31/18 15:00 75 25 150/76 (100) 98 Vapotherm 45.00 150/76 (100) 20.00 03/31/18 14:46 95 Vapotherm 20.00 45 03/31/18 14:09 97.6 67 20 141/39 (73) 94 Vapotherm 45.00 148/63 (91) 20.00 03/31/18 13:00 64 03/31/18 13:00 68 31 127/83 (98) 93 Vapotherm 45.00 20.00 03/31/18 12:00 95 Vapotherm 25.00 45 03/31/18 12:00 64 26 132/52 (78) 95 Vapotherm 45.00 20.00 03/31/18 11:00 73 28 146/58 (87) 94 Vapotherm 45.00 20.00 03/31/18 10:32 92 Vapotherm 20.00 45 03/31/18 10:00 66 29 142/57 (85) 91 Vapotherm 45.00 20.00 03/31/18 09:00 73 20 149/76 (100) 94 Vapotherm 45.00 20.00 03/31/18 08:00 65 24 149/60 (89) 95 Vapotherm 45.00 20.00 03/31/18 08:00 95 Vapotherm 25.00 45 03/31/18 07:00 63 03/31/18 07:00 98.5 66 30 141/62 (88) 95 Vapotherm 45.00 20.00 03/31/18 06:14 100 Vapotherm 20.00 45 03/31/18 06:00 62 30 135/63 (87) 99 NIV Bilevel 50.00 I & O 04/01/18 07:00 Intake Total 2084 ml Output Total 2925 ml Balance -841 ml Height & Weight Height: 5'6.00" Weight: 176lbs. 0.0oz. 79.498970fk; 27.4 BMI Method: General Appearance: Anxious, Chronically ill, Mild Distress HEENT: PERRL/EOMI, Normal ENT Inspection; No Scleral Icterus (L), No Scleral Icterus (R) Respiratory: Crackles, Decreased Breath Sounds; No Wheezing Cardiovascular: Regular Rate, Rhythm, No JVD, No Murmur Capillary Refill: Less Than 3 Seconds Gastrointestinal: non tender, soft Extremity: No Calf Tenderness, Pedal Edema Neurologic/Psychiatric: Alert (alert but unable to provide detail when inquired about his status or any concerns), Disoriented, Other (severe weakness of all extremities) Skin: Normal Color, Warm/Dry Lymphatic: No Adenopathy Results Lab Laboratory Tests 03/31/18 03:25 04/01/18 03:19 Assessment/Plan Assessment/Plan Acute respiratory failure s/p bronchoscopy -Currently on BiPAP -Back to Vapotherm during the day -Will make pt ICU stepdown status -Solumedrol decrease to 40 IV daily -Lasix 40mg daily Acute bilateral pneumonia with hypoxemia with severe sepsis -Continue Zosyn/Eraxis ICU psychosis -Start Risperdal QHS CYN - improved -monitor Hyperglycemia -Monitor Anemia - monitor Hyponatremia - monitor VERO JON WILLIAM DO Apr 01, 2018 05:48
[2018-04-01] MEDS: LACTOBACILLUS ACIDOPHILUS (PROBIOTIC) CAPSULE PO SCH ×3 (06:30→17:24)
--- NOTE | 2018-04-01 07:40 | Diagnostic Imaging Report ---
EXAM: CHEST 1 VIEW, AP/PA ONLY INDICATION: Shortness of air. Infiltrates. COMPARISON: Chest radiograph 03/31/2018. FINDINGS: Normal heart size. Persistent diffuse interstitial and airspace opacities throughout both lungs. No definite pleural effusion or pneumothorax. No acute osseous findings. IMPRESSION: Persistent diffuse interstitial and airspace opacities in both lungs. Dictated by: Dictated on workstation # [id number]
--- NOTE | 2018-04-01 07:59 | Cardiology Progress Note ---
Subjective Date Seen by Provider: Apr 01, 2018 Time Seen by Provider: 07:58 Subjective/Events-last exam patient is sitting up in a chair, still having some cough and shortness of breath, generalized weakness. Overall looking better Review of Systems General: No Chills, No Night Sweats, No Fatigue, No Malaise, No Appetite, No Other HEENT: No Head Aches, No Visual Changes, No Eye Pain, No Ear Pain, No Dysphasia , No Sinus Congestion, No Post Nasal Drip, No Sore Throat, No Other Pulmonary: Dyspnea, Cough; No Pleuritic Chest Pain, No Other Cardiovascular: Edema; No: Chest Pain, Palpitations, Orthopnea, Paroxysmal Noc. Dyspnea, Lt Headedness, Other Objective-Cardiology Exam Last Set of Vital Signs Vital Signs 04/01/18 04/01/18 04/01/18 04:00 06:00 07:12 Temp 98.5 Pulse 67 Resp 29 B/P (MAP) 162/48 (86) Pulse Ox 100 O2 Delivery Vapotherm O2 Flow Rate 20.00 FiO2 45 Capillary Refill : Less Than 3 Seconds I&O Intake and Output 04/01/18 00:00 Intake Total 1964 ml Output Total 3125 ml Balance -1161 ml Intake Oral 1844 ml IV Total 120 ml Output Urine Total 3125 ml # Bowel Movements 3 General: Alert, Oriented X3, Cooperative, Mild Distress HEENT: PERRLA Neck: Supple, No Thyromegaly Lungs: Normal Air Movement, Other (bilateral rhonchi) Heart: Regular Rate, Normal S1, Normal S2, No Murmurs Abdomen: Normal Bowel Sounds, Soft, No Tenderness, No Hepatosplenomegaly, No Masses, Other (mild edema) Extremities: No Clubbing, No Cyanosis, Normal Pulses, No Tenderness/Swelling Skin: No Rashes, No Breakdown, No Significant Lesion Neuro: Normal Tone, Sensation Intact Psych/Mental Status: Mood NL Results Lab Laboratory Tests 04/01/18 03:19 A/P-Cardiology Admission Diagnosis Pneumonia Sinus tachycardia Coronary artery disease Hypertension Hyperlipidemia Assessment/Plan Status post acute respiratory failure, currently off the ventilator and improving slowly, still have pulmonary infiltrate and receiving Zosyn. Managed by Dr. Burrows. Pneumonia, slow improvement, still on antibiotics. Continue to monitor. Coronary artery disease, had a cardiac catheterization 2012 resulted with 2 stents deployment 2.515 mm to the right coronary artery resolute and 2.2522 mm resolute to the LAD, continue to monitor at this time Echocardiogram done on March 25, 2018 showing normal left ventricular size with ejection fraction 65 percent, pulmonary hypertension with PA pressure 45 mmHg Hypertension, oral antihypertensive medication were restarted. Continue to monitor Hyperlipidemia, monitor lipids Diabetes mellitus, followed and managed by primary care physician Obstructive sleep apnea, using C Pap at night, currently in respiratory failure Obesity History of carotid stenosis, last ultrasound was done in September 2017 showing mild disease on the right and moderate on the left. Continue to monitor Clinical Quality Measures DVT/VTE Risk/Contraindication: Risk Factor Score Per Nursin RFS Level Per Nursing on Admit: 2=Moderate ANDREINA LARA MD Apr 01, 2018 07:59
[2018-04-01] MEDS: ANIDULAFUNGIN INJECTION 100 MG in NS (IVPB) 100 ML IV SCH (08:50)
[2018-04-01] MEDS: inSUlin Protamine/ASPart 70/30 1 UNIT/0.01 ML DOSE SC SCH ×2 (08:50→17:24)
[2018-04-01] MEDS: FUROSEMIDE 40 MG/4 ML INJ (LASIX) IVP SCH (08:53)
[2018-04-01] MEDS: methylPREDNISolone 40 MG/ML (Solu-MEDROL) VIAL IV SCH (08:53)
[2018-04-01] MEDS: LORATADINE (CLARITIN) 10 MG TAB PO SCH (08:54)
[2018-04-01] MEDS: lisINopril 20 MG (PRINIVIL) TABLET PO SCH (08:54)
[2018-04-01] MEDS: PANTOPRAZOLE 40 MG (PROTONIX) TAB PO SCH (08:54)
[2018-04-01] MEDS: ASPIRIN E.C. 81 MG (ECOTRIN) TAB PO SCH (08:54)
[2018-04-01] MEDS: meTOprolol TARTRATE 25 MG (LOPRESSOR) TABLET PO SCH ×2 (08:54→19:56)
--- NOTE | 2018-04-01 09:53 | Occupational Ther Daily Note ---
OT Current Status-Daily Note Subjective Pt alert, sitting in recliner. Pt agrees to therapy. present in room. Mental Status/Objective Patient Orientation: Person, Confused, Place Therapy Code Descriptions/Definitions Functional [place] Measure: 0=Not Assessed/NA 4=Minimal Assistance 1=Total Assistance 5=Supervision or Setup 2=Maximal Assistance 6=Modified [place] 3=Moderate Assistance 7=Complete [place] Attachments: Oxygen (vapotherm) Other Treatment After set up, pt completed oral care. Took increased time to complete. Pt required time to bring built-up brush to mouth then brushed without difficulty. Brought cup to mouth to rinse and spit. Pt able to bring cloth to mouth to dry. Pt able to complete 10 shldr flexion and abd/add without difficulty, sat levels between 98-100. Pt completed therapy foam reps 15x's each hand. wanting to know about IRF and what pt needed. After therapy, pt sitting in recliner with call light/phone in reach. All needs met in room. OT Short Term Goals Short Term Goals Time Frame: Apr 06, 2018 Eating(FIM): 5 Grooming(FIM): 5 Upper Body Dressing(FIM): 4 Transfers (B,C,W/C) (FIM): 4 Additional Short Term Goals: 1-Demonstrate ADL Tasks, 2-Verbalize Understanding , 3-ImproveStrength/Patsy 1=Demonstrate adherence to instructed precautions during ADL tasks. 2=Patient will verbalize/demonstrate understanding of assistive devices/ modifications for ADL. 3=Patient will improve strength/tolerance for activity to enable patient to perform ADL's. OT Care Home Goals Reel Operator Goals Time Frame: Apr 20, 2018 Eating (FIM): 6 Grooming(FIM): 6 Upper Body Dressing(FIM): 5 Lower Body Dressing(FIM): 5 Toileting(FIM): 5 Toilet/Commode Transfer(FIM): 5 Additional Goals: 1-Demonstrate ADL Tasks, 2-Verbalize Understanding, 3- ImproveStrength/Patsy 1=Demonstrate adherence to instructed precautions during ADL tasks. 2=Patient will verbalize/demonstrate understanding of assistive devices/ modifications for ADL. 3=Patient will improve strength/tolerance for activity to enable patient to perform ADL's. OT Education/Plan Problem List/Assessment Pt demonstrates decreased mobility, strength, activity tolerance, and ADL functioning. Pt to benefit from skilled OT intervention for ADL training, transfers, strengthening, and safety education to increase level of independence and allow safe discharge plan. Discharge Recommendations Plan/Recommendations: Continue POC Treatment Plan/Plan of Care Patient would benefit from OT for education, treatment and training to promote independence in ADL's, mobility, safety and/or upper extremity function for ADL' s. Plan of Care: ADL Retraining, Functional Mobility, UE Funct Exercise/Act Treatment Duration: Apr 20, 2018 Frequency: 5 times per week Estimated Hrs Per Day: .25 hour per day Rehab Potential: Fair Time/GCodes Start Time: 09:20 Stop Time: 09:45 Total Time Billed (hr/min): 25 Billed Treatment Time 1 visit-FA 2 (25 min) MINDY VILLALOBOS Apr 01, 2018 09:53
--- NOTE | 2018-04-01 12:11 | Physical Therapy Daily Note ---
PT Daily Note-Current Subjective Pt on commode and agrees to PT assist. Mental Status Patient Orientation: Person Attachments: Oxygen (vapotherm 15L 45%), Concepcion Catheter, IV Transfers Therapy Code Descriptions/Definitions Functional [place] Measure: 0=Not Assessed/NA 4=Minimal Assistance 1=Total Assistance 5=Supervision or Setup 2=Maximal Assistance 6=Modified [place] 3=Moderate Assistance 7=Complete [place] Therapy Quality Codes: 6 Independent with activity with or without an assistive device 5 Patient requires set up or clean up by helper. Patient completes activity by themselves 4 Supervision or touching assist (CGA). Mason provide cues , steadying assist 3 The helper provides less than half the effort to complete the activity 2 The helper provides more than half the effort to complete the activity 1 Dependent. The helper does all the effort to complete an activity 7 Patient refused to complete or attempt activity 9 The patient did not perform the activity before the current illness or injury 88 Not attempted due to Medical conditions or safety concerns Transfers (B, C, W/C) (FIM): 4 Scootin Sit to/from Stand: 4 Weight Bearing Right Lower Extremity: Right Full Weight Bearing Left Lower Extremity: Left Full Weight Bearing Gait Training Gait (FIM): 1 Distance (FIM): 1=up to 49 ft Distance: 5' Gait Level of Assist: 4 Gait Persons Needed: 1 Gait Assistive Device: FWW Exercises Seated Therapy Exercises: Sit to stand (3 reps) Assessment Current Status: Fair Progress Pt is able to perform sit<>stand to FWW with min A. Pt required bathroom skill assist. Pt able to amb with FWW and min A to recliner. Pt continues to be retropulsive during standing and amb. PT VC and demonstrate to put wt through UE and through the walker. Pt able to perform sit<.>stand x3 reps and was able to hold balance for 30 secs before becoming retropulsive again. Pt SaO2 ranged from 96-86% during tx. Pt is now in recliner with all needs met. PT Short Term Goals Short Term Goals Time Frame: Apr 06, 2018 Transfers (B,C,W/C) (FIM): 4 Gait (FIM): 1 Distance (FIM): 1=up to 49 ft Gait Distance Comment: 20' Gait Level of Assist: 4 Gait Assistive Device: FWW PT Apartment Maintenance Supervisor Goals Senior Care Goals PT Senior Care Goals Time Frame: Apr 27, 2018 Transfers (B,C,W/C) (FIM): 5 Gait (FIM): 4 Gait distance (FIM): 3=150 ft Distance: 150' Gait Level of Assist: 4 Gait Assistive Device: FWW PT Plan Problem List Problem List: Activity Tolerance, Functional Strength, Safety, Balance, Gait, Transfer, Bed Mobility, ROM Treatment/Plan Treatment Plan: Continue Plan of Care Treatment Plan: Bed Mobility, Education, Functional Activity Patsy, Functional Strength, Gait, Safety, Therapeutic Exercise, Transfers Treatment Duration: Apr 27, 2018 Frequency: 6 times per week Estimated Hrs Per Day: .25 hour per day Patient and/or Family Agrees t: Yes Safety Risks/Education Patient Education: Correct Positioning, Safety Issues Teaching Recipient: Patient, Family Teaching Methods: Demonstration, Discussion Time/GCodes Time In: 1118 Time Out: 1141 Total Billed Treatment Time: 23 Total Billed Treatment 1 visit FA x2 23 min BRI MARTIN PT Apr 01, 2018 12:11
[2018-04-01] MEDS: ENOXAPARIN 40 MG/0.4 ML (LOVENOX) SYR SC SCH (14:02)
[2018-04-01] MEDS: ATORVASTATIN 20 MG (LIPITOR) TABLET PO SCH (17:24)
[2018-04-01] MEDS: morphine INJ 4 MG/ML 1 ML (VIAL/SYRINGE) IVP PRN (19:56)
[2018-04-01] MEDS ORDERED: risperiDONE 0.25 MG (RisperDAL) TAB PO SCH (20:00)
[2018-04-01] MEDS ORDERED: ACETAMINOPHEN 325 MG TABLET PO PRN (22:30)
[2018-04-02] VITALS (29 sets, daily range): BP systolic 87–160; BP diastolic 40–94
[2018-04-02] MEDS ORDERED: DEXMEDETOMIDINE INJECTION 200 MCG in NS (IVPB) 50 ML IV SCH (00:15)
[2018-04-02] MEDS: inSUlin ASPART (NovoLOG) 1 UNIT/0.01 ML (CHARGE PER UNIT) SC SCH ×5 (00:30→22:43)
[2018-04-02] MEDS: RT-ALBUTEROL/IPRATROPIUM 3 ML (DUONEB) VIAL INH SCH ×6 (03:11→23:50)
[2018-04-02 03:47] LABS: BASOPHILS % (AUTO) 0 % (0-10); EOSINOPHILS # (AUTO) 0.6 10^3/uL (0.0-0.3); EOSINOPHILS % (AUTO) 3 % (0-10); HEMATOCRIT 32 % (40-54); HEMOGLOBIN 10.2 G/DL (13.3-17.7); LYMPHOCYTES # (AUTO) 3.3 X 10^3 (1.0-4.0); LYMPHOCYTES % (AUTO) 16 % (12-44); MEAN CORPUSCULAR HEMOGLOBIN 30 PG (25-34); MEAN CORPUSCULAR HGB CONC 32 G/DL (32-36); MEAN CORPUSCULAR VOLUME 92 FL (80-99); MEAN PLATELET VOLUME 9.2 FL (7.4-10.4); MONOCYTES # (AUTO) 1.3 X 10^3 (0.0-1.0); MONOCYTES % (AUTO) 6 % (0-12); NEUTROPHILS # (AUTO) 15.3 X 10^3 (1.8-7.8); NEUTROPHILS % (AUTO) 75 % (42-75); PLATELET COUNT 320 10^3/uL (130-400); RED CELL DISTRIBUTION WIDTH 14.2 % (10.0-14.5); WHITE BLOOD COUNT 20.4 10^3/uL (4.3-11.0)
[2018-04-02 04:04] LABS: CALCIUM 8.8 MG/DL (8.5-10.1); CREATININE SERUM 1.28 MG/DL (0.60-1.30); PHOSPHORUS 2.6 MG/DL (2.3-4.7); POTASSIUM 3.8 MMOL/L (3.6-5.0)
[2018-04-02] MEDS: MAGNESIUM 1 GM/100 ML IVPB 100 ML IV SCH (05:09)
[2018-04-02] MEDS: KCL 20 MEQ TAB (K-DUR) PO SCH ×2 (05:09→07:06)
[2018-04-02] MEDS: POTASSIUM CL 10MEQ/50ML IVPB 50 ML IV SCH (05:09)
--- NOTE | 2018-04-02 06:04 | Pulmonary Progress Note ---
Subjective Time Seen by a Provider: 06:09 Subjective/Events-last exam PT became agitated last night with BiPAP and was placed on Precedex. Sepsis Event Evaluation Height, Weight, BMI Height: 5'6.00" Weight: 176lbs. 0.0oz. 79.078437zo; 27.4 BMI Method: Exam Exam Vital Signs Date Time Temp Pulse Resp B/P (MAP) Pulse Ox O2 Delivery O2 Flow Rate FiO2 04/02/18 04:22 60 33 96 30.00 04/02/18 04:00 NIV Bilevel 30 04/02/18 03:52 99.2 04/02/18 03:00 60 22 114/53 (73) 96 NIV Bilevel 30.00 04/02/18 02:36 58 25 97 30.00 04/02/18 02:00 61 26 93/47 (62) 96 NIV Bilevel 30.00 04/02/18 01:28 64 32 97 30.00 04/02/18 01:00 66 25 99/51 (67) 97 NIV Bilevel 30.00 04/02/18 01:00 67 04/02/18 00:00 98.1 04/02/18 00:00 75 32 144/59 (87) 92 NIV Bilevel 30.00 04/02/18 00:00 NIV Bilevel 30 04/01/18 23:03 78 30 95 30.00 04/01/18 23:00 71 31 136/58 (84) 97 NIV Bilevel 04/01/18 22:40 99.6 04/01/18 22:00 76 37 131/63 (85) 94 NIV Bilevel 04/01/18 21:00 81 32 142/97 (112) 97 Vapotherm 45.00 15.00 04/01/18 20:28 84 36 93 30.00 04/01/18 20:00 92 30 127/66 (86) 90 Vapotherm 45.00 15.00 04/01/18 20:00 Vapotherm 20.00 45 04/01/18 19:00 100.3 04/01/18 19:00 96 28 157/67 (97) 94 Vapotherm 45.00 15.00 04/01/18 19:00 97 04/01/18 18:12 92 Vapotherm 15.00 45 04/01/18 18:03 80 29 122/61 (81) 96 Vapotherm 45.00 15.00 04/01/18 17:00 88 31 123/72 (89) 93 Vapotherm 45.00 15.00 04/01/18 16:00 97.6 04/01/18 16:00 Vapotherm 20.00 45 04/01/18 16:00 90 30 108/83 (91) 94 Vapotherm 45.00 15.00 04/01/18 15:45 96 34 108/83 (91) 90 Vapotherm 45.00 15.00 04/01/18 14:45 98 Vapotherm 15.00 45 04/01/18 14:00 81 25 92 Vapotherm 45.00 15.00 04/01/18 13:00 84 04/01/18 13:00 81 39 134/63 (86) 96 Vapotherm 45.00 15.00 04/01/18 12:00 71 35 Vapotherm 45.00 15.00 04/01/18 12:00 97.8 04/01/18 12:00 Vapotherm 20.00 45 04/01/18 11:00 70 34 98 Vapotherm 45.00 15.00 04/01/18 10:00 66 22 100 Vapotherm 45.00 15.00 04/01/18 09:00 76 34 98 Vapotherm 45.00 15.00 04/01/18 08:00 76 30 100 Vapotherm 45.00 15.00 04/01/18 08:00 98.6 04/01/18 08:00 Vapotherm 20.00 45 04/01/18 07:12 100 Vapotherm 20.00 45 04/01/18 07:00 74 37 140/65 (90) 97 Vapotherm 45.00 15.00 04/01/18 07:00 69 I & O 04/02/18 07:00 Intake Total 690 ml Output Total 2075 ml Balance -1385 ml Height & Weight Height: 5'6.00" Weight: 176lbs. 0.0oz. 79.053647hw; 27.4 BMI Method: General Appearance: No Apparent Distress, Anxious, Chronically ill HEENT: PERRL/EOMI, Normal ENT Inspection; No Scleral Icterus (L), No Scleral Icterus (R) Respiratory: Crackles, Decreased Breath Sounds; No Wheezing Cardiovascular: Regular Rate, Rhythm, No JVD, No Murmur Capillary Refill: Less Than 3 Seconds Gastrointestinal: non tender, soft Extremity: No Calf Tenderness, Pedal Edema Neurologic/Psychiatric: Alert (alert but unable to provide detail when inquired about his status or any concerns), Disoriented, Other (severe weakness of all extremities) Skin: Normal Color, Warm/Dry Lymphatic: No Adenopathy Results Lab Laboratory Tests 04/01/18 03:19 04/02/18 03:20 Assessment/Plan Assessment/Plan Acute respiratory failure s/p bronchoscopy -BiPAP is making pt very agitated will D/C - Solumedrol -- Increase to 40 Q 6 will give 125 x 1 -Lasix 40mg daily Acute bilateral pneumonia with hypoxemia with severe sepsis -Continue Zosyn/Eraxis Malnutrition -Encourage diet -Ensures TID Debility -PT/OT -up to chair dialy ICU psychosis - Risperdal CYN - improved -monitor Hyperglycemia -Monitor Anemia - monitor Hyponatremia - monitor VERO JON WILLIAM DO Apr 02, 2018 06:04
[2018-04-02] MEDS: PIPERACILLIN/TAZO 4.5 GM/NS 100 ML IV SCH ×6 (06:25→22:34)
--- NOTE | 2018-04-02 06:45 | NUR ---
Dr. Burrows at bedside, pt can be transferred to 4th floor [address] Dr. Burrows.
[2018-04-02] MEDS: LACTOBACILLUS ACIDOPHILUS (PROBIOTIC) CAPSULE PO SCH ×3 (07:06→17:09)
--- NOTE | 2018-04-02 07:45 | Diagnostic Imaging Report ---
INDICATION: Shortness of breath. Portable chest 3:46 AM FINDINGS: There are bilateral perihilar interstitial infiltrates. These appear similar to the previous days' comparison study. There is no effusion or pneumothorax. IMPRESSION: Stable chest with bilateral perihilar interstitial infiltrates. Dictated by: Dictated on workstation # [id number]
--- NOTE | 2018-04-02 08:59 | Progress Note-Hospitalist ---
Subjective HPI/CC On Admission Date Seen by Provider: Apr 02, 2018 Time Seen by Provider: 09:30 CC: SOB, chest tightness HPI: This is 73 yo white male w/ a PMH of CAD s/p stents (x2 in 2012), type 2 DM , HTN, HLD, and VERO on CPAP who was a direct admit from Dr. Burrows's office for PNA on 03/24/18. The patient was complaining of one week of worsening SOB and chest tightness, but denied CP or other URI symptoms. A stat CT showed bilateral lower lobe PNA and the pt was hypoxemic, so he was admitted for IV abx and oxygen support. Despite the hx of VERO, the pt does not use oxygen at home and does not have COPD. He quit smoking in 1972. While in the ICU, the pt rapidly deteriorated into severe sepsis w/ FAIZA and ARDS within 24 hours of admission. His white count peaked at 30,000. He was intubated and IV vanco/zosyn /eraxis were started. Bronchoscopy was performed, cultures pending, preliminary showed no growth. Viral PNA serology panel was negative, as was Legionella urinary antigen and S. pneumo antigen. Cardiology was consulted for hx of CAD. Troponins were negative and echocardiogram showed normal ejection fraction but with pulmonary HTN. The patient's oxygenation slowly improved and he was extubated on the afternoon of 03/29/18. Over the last two days the patient's mental status never fully returned to baseline and his [place] [address] [place] [address]. He complains of distal upper extremity weakness and SOB. His pulse ox was 93% on 5L vapotherm yesterday but he is requiring 9L today. He is requiring BiPAP at night. Subjective/Events-last exam Patient a little better Still requiring Vapotherm Too acute for inpatient rehabilitation at bedside Had confusion last night requiring a sedative to maintain BiPAP Very slow recovery Checked meds and labs Review of Systems General: Fatigue Pulmonary: Dyspnea Neurological: Confusion Objective Exam Vital Signs Vital Signs Date Time Temp Pulse Resp B/P (MAP) Pulse Ox O2 Delivery O2 Flow Rate FiO2 04/02/18 11:04 100 Vapotherm 25.00 50 04/02/18 11:00 87 31 126/68 (87) 04/02/18 10:00 98.2 Capillary Refill : Less Than 3 Seconds General Appearance: No Apparent Distress, Anxious, Chronically ill, Other HEENT: PERRL/EOMI, Normal ENT Inspection; No Scleral Icterus (L), No Scleral Icterus (R) Respiratory: Crackles, Decreased Breath Sounds; No Wheezing Cardiovascular: Regular Rate, Rhythm, No JVD, No Murmur Gastrointestinal: Normal Bowel Sounds, Non Tender, Soft Back: Normal Inspection Extremity: No Calf Tenderness, Pedal Edema Neurologic/Psychiatric: Alert (alert but unable to provide detail when inquired about his status or any concerns), Disoriented, Other (severe weakness of all extremities) Skin: Normal Color, Warm/Dry Lymphatic: No Adenopathy Results/Procedures Lab Laboratory Tests 04/02/18 03:20 Patient resulted labs reviewed. Imaging: Reviewed Imaging Films, Reviewed Imaging Report Assessment/Plan Assessment and Plan Assess & Plan/Chief Complaint Assessment: s/p severe sepsis Pneumonia ARDS VERO Critical illness myopathy Dementia prior to admit past 6 months per Plan: Therapies IRF once Vapotherm DC Supportive care Critical Care Critically Ill Patient Diagnosis/Problems Diagnosis/Problems (1) Severe sepsis Status: Resolved Resolution Date/Time: 03/31/18 @ 12:46 (2) Acute respiratory failure Status: Acute Qualifiers: Respiratory failure complication: hypoxia Qualified Codes: J96.01 - Acute respiratory failure with hypoxia (3) FAIZA (acute kidney injury) Status: Resolved Resolution Date/Time: 03/27/18 @ 10:02 (4) Essential (primary) hypertension Status: Chronic (5) Pneumonia Status: Acute Qualifiers: Pneumonia type: due to unspecified organism Laterality: bilateral Lung location: lower lobe of lung Qualified Codes: J18.1 - Lobar pneumonia, unspecified organism (6) Insulin dependent diabetes mellitus Status: Chronic (7) CAD (coronary artery disease) Status: Chronic Qualifiers: Coronary Disease-Associated Artery/Lesion type: [place] artery [place] vs. transplanted heart: [place] heart Associated angina: without angina Qualified Codes: I25.10 - Atherosclerotic heart disease of [place] coronary artery without angina pectoris (8) VERO (obstructive sleep apnea) Status: Chronic (9) BiPAP (biphasic positive airway pressure) dependence Status: Acute (10) Critical illness myopathy Status: Acute (11) ARDS (adult respiratory distress syndrome) Status: Acute (12) Dementia Status: Chronic Qualifiers: Dementia type: Alzheimer's disease Clinical Quality Measures DVT/VTE Risk/Contraindication: Risk Factor Score Per Nursin RFS Level Per Nursing on Admit: 2=Moderate ADAM BERNAL DO Apr 02, 2018 08:58
[2018-04-02] MEDS ORDERED: risperiDONE 0.25 MG (RisperDAL) TAB PO SCH (09:00)
[2018-04-02] MEDS: PANTOPRAZOLE 40 MG (PROTONIX) TAB PO SCH (09:05)
[2018-04-02] MEDS: ANIDULAFUNGIN INJECTION 100 MG in NS (IVPB) 100 ML IV SCH (09:05)
[2018-04-02] MEDS: methylPREDNISolone 40 MG/ML (Solu-MEDROL) VIAL IV SCH (09:05)
[2018-04-02] MEDS: FUROSEMIDE 40 MG/4 ML INJ (LASIX) IVP SCH (09:05)
[2018-04-02] MEDS: guaiFENesin/CODEINE (ROBITUSSIN AC) 10ML UDC PO PRN ×2 (09:05→12:15)
--- NOTE | 2018-04-02 09:05 | Occupational Ther Daily Note ---
OT Current Status-Daily Note Subjective Pt lying in bed. Drifting in and out of sleep. When asked how was he doing today, pt shrugged. Asked how was he feeling, pt stated not so good. Pt stated that he did sleep well. Mental Status/Objective Patient Orientation: Person Therapy Code Descriptions/Definitions Functional [place] Measure: 0=Not Assessed/NA 4=Minimal Assistance 1=Total Assistance 5=Supervision or Setup 2=Maximal Assistance 6=Modified [place] 3=Moderate Assistance 7=Complete [place] Attachments: Concepcion Catheter, IV, Oxygen (vapotherm-25L 50%) Other Treatment Pt able to reach face to cover mouth to cough. R hand edema has decreased. Pt able to squeeze and hold onto theraband for 5-10 reps at a time. O2 levels ranged between 94-92. Theraband left in room to use. Pt required skilled cues to complete theraband exercises. After therapy, pt immediately fell asleep. Call light/phone in reach. present in room. OT Short Term Goals Short Term Goals Time Frame: Apr 06, 2018 Eating(FIM): 5 Grooming(FIM): 5 Upper Body Dressing(FIM): 4 Transfers (B,C,W/C) (FIM): 4 Additional Short Term Goals: 1-Demonstrate ADL Tasks, 2-Verbalize Understanding , 3-ImproveStrength/Patsy 1=Demonstrate adherence to instructed precautions during ADL tasks. 2=Patient will verbalize/demonstrate understanding of assistive devices/ modifications for ADL. 3=Patient will improve strength/tolerance for activity to enable patient to perform ADL's. OT Nursing Home Goals Laborer Syrup Machine Goals Time Frame: Apr 20, 2018 Eating (FIM): 6 Grooming(FIM): 6 Upper Body Dressing(FIM): 5 Lower Body Dressing(FIM): 5 Toileting(FIM): 5 Toilet/Commode Transfer(FIM): 5 Additional Goals: 1-Demonstrate ADL Tasks, 2-Verbalize Understanding, 3- ImproveStrength/Patsy 1=Demonstrate adherence to instructed precautions during ADL tasks. 2=Patient will verbalize/demonstrate understanding of assistive devices/ modifications for ADL. 3=Patient will improve strength/tolerance for activity to enable patient to perform ADL's. OT Education/Plan Problem List/Assessment Pt demonstrates decreased mobility, strength, activity tolerance, and ADL functioning. Pt to benefit from skilled OT intervention for ADL training, transfers, strengthening, and safety education to increase level of independence and allow safe discharge plan. Discharge Recommendations Plan/Recommendations: Continue POC Treatment Plan/Plan of Care Patient would benefit from OT for education, treatment and training to promote independence in ADL's, mobility, safety and/or upper extremity function for ADL' s. Plan of Care: ADL Retraining, Functional Mobility, UE Funct Exercise/Act Treatment Duration: Apr 20, 2018 Frequency: 5 times per week Estimated Hrs Per Day: .25 hour per day Rehab Potential: Fair Time/GCodes Start Time: 08:50 Stop Time: 09:00 Total Time Billed (hr/min): 10 Billed Treatment Time 1 visit-EX 1 (10 min) MINDY VILLALOBOS Apr 02, 2018 09:05
[2018-04-02] MEDS: LORATADINE (CLARITIN) 10 MG TAB PO SCH (09:06)
[2018-04-02] MEDS: lisINopril 20 MG (PRINIVIL) TABLET PO SCH (09:06)
[2018-04-02] MEDS: inSUlin Protamine/ASPart 70/30 1 UNIT/0.01 ML DOSE SC SCH ×2 (09:06→17:09)
[2018-04-02] MEDS: ASPIRIN E.C. 81 MG (ECOTRIN) TAB PO SCH (09:06)
[2018-04-02] MEDS: meTOprolol TARTRATE 25 MG (LOPRESSOR) TABLET PO SCH ×2 (09:07→20:51)
--- NOTE | 2018-04-02 09:40 | NUR ---
ARU note: Patient referred to ARU for continued therapies and medical management. Insurance auth initiated with [facility] for approval of ARU placement. Per TIEN Garcia at [facility], insurance MD has denied authorization at this time due to medical acuity. Auth can be re-initiated at a later date or a peer to peer can be completed to overturn denial ([phone] option 4) by 12pm today (04/02). SOFTWARE TEST AUTOMATION ENGINEER informed Dr. Marie of this information. ARU will continue to follow.
--- NOTE | 2018-04-02 10:36 | Cardiology Progress Note ---
Subjective Date Seen by Provider: Apr 02, 2018 Time Seen by Provider: 10:34 Subjective/Events-last exam Patient is in bed, feeling better, still having cough and shortness of breath Review of Systems General: No Chills, No Night Sweats; Fatigue, Malaise; No Appetite, No Other HEENT: No Head Aches, No Visual Changes, No Eye Pain, No Ear Pain, No Dysphasia , No Sinus Congestion, No Post Nasal Drip, No Sore Throat, No Other Pulmonary: Dyspnea, Cough; No Pleuritic Chest Pain, No Other Cardiovascular: No: Chest Pain, Palpitations, Orthopnea, Paroxysmal Noc. Dyspnea, Edema, Lt Headedness, Other Objective-Cardiology Exam Last Set of Vital Signs Vital Signs 04/02/18 04/02/18 04/02/18 08:00 09:00 10:00 Temp 98.2 Pulse 92 Resp 27 B/P (MAP) 159/94 (115) Pulse Ox 94 O2 Delivery Vapotherm O2 Flow Rate 50.00 25.00 FiO2 50 Capillary Refill : Less Than 3 Seconds I&O Intake and Output 04/02/18 00:00 Intake Total 690 ml Output Total 2800 ml Balance -2110 ml Intake Oral 440 ml IV Total 250 ml Output Urine Total 2800 ml General: Alert, Oriented X3, Cooperative, Mild Distress HEENT: PERRLA Neck: Supple, No Thyromegaly Lungs: Normal Air Movement, Other (bilateral rhonchi) Heart: Regular Rate, Normal S1, Normal S2, No Murmurs Abdomen: Normal Bowel Sounds, Soft, No Tenderness, No Hepatosplenomegaly, No Masses, Other (mild edema) Extremities: No Clubbing, No Cyanosis, Normal Pulses, No Tenderness/Swelling Skin: No Rashes, No Breakdown, No Significant Lesion Neuro: Normal Tone, Sensation Intact Psych/Mental Status: Mood NL Results Lab Laboratory Tests 04/02/18 03:20 A/P-Cardiology Admission Diagnosis Pneumonia Sinus tachycardia Coronary artery disease Hypertension Hyperlipidemia Assessment/Plan Status post acute respiratory failure, currently off the ventilator and improving slowly, still have pulmonary infiltrate and receiving Zosyn. Managed by Dr. Burrows. Pneumonia, slow improvement, still on antibiotics. Coronary artery disease, had a cardiac catheterization 2012 resulted with 2 stents deployment 2.515 mm to the right coronary artery resolute and 2.2522 mm resolute to the LAD, continue to monitor at this time Echocardiogram done on March 25, 2018 showing normal left ventricular size with ejection fraction 65 percent, pulmonary hypertension with PA pressure 45 mmHg Hypertension, oral antihypertensive medication were restarted. Continue to monitor Hyperlipidemia, monitor lipids Diabetes mellitus, followed and managed by primary care physician Obstructive sleep apnea, using C Pap at night, currently in respiratory failure Obesity History of carotid stenosis, last ultrasound was done in September 2017 showing mild disease on the right and moderate on the left. Continue to monitor Clinical Quality Measures DVT/VTE Risk/Contraindication: Risk Factor Score Per Nursin RFS Level Per Nursing on Admit: 2=Moderate ANDREINA LARA MD Apr 02, 2018 10:36
--- NOTE | 2018-04-02 11:13 | Physical Therapy Daily Note ---
PT Daily Note-Current Subjective Pt is in bed and nurses had just moved him further up in bed. Pt agrees to PT. Mental Status Patient Orientation: Person Attachments: SCD's, Oxygen, Concepcion Catheter, IV Transfers Therapy Code Descriptions/Definitions Functional [place] Measure: 0=Not Assessed/NA 4=Minimal Assistance 1=Total Assistance 5=Supervision or Setup 2=Maximal Assistance 6=Modified [place] 3=Moderate Assistance 7=Complete [place] Therapy Quality Codes: 6 Independent with activity with or without an assistive device 5 Patient requires set up or clean up by helper. Patient completes activity by themselves 4 Supervision or touching assist (CGA). [place] provide cues , steadying assist 3 The helper provides less than half the effort to complete the activity 2 The helper provides more than half the effort to complete the activity 1 Dependent. The helper does all the effort to complete an activity 7 Patient refused to complete or attempt activity 9 The patient did not perform the activity before the current illness or injury 88 Not attempted due to Medical conditions or safety concerns Weight Bearing Right Lower Extremity: Right Full Weight Bearing Left Lower Extremity: Left Full Weight Bearing Exercises Supine Ex: Ankle pumps, Quad Set, Glut sets, Heel Slides, Hip abd/add Supine Reps: 10 Assessment Current Status: Poor Progress Nurses reported to pt to not move him from the bed because of his SaO2 dropping. Pt was able to perform bed mobility with min A. Pts SaO2 ranged from 100%-96% during tx and RR 42-16. Pt is on 25L at 50%. Pt is in bed with all needs met. PT Short Term Goals Short Term Goals Time Frame: Apr 06, 2018 Transfers (B,C,W/C) (FIM): 4 Gait (FIM): 1 Distance (FIM): 1=up to 49 ft Gait Distance Comment: 20' Gait Level of Assist: 4 Gait Assistive Device: FWW PT Elevator Conductor Goals [place] Goals PT Elevator Conductor Goals Time Frame: Apr 27, 2018 Transfers (B,C,W/C) (FIM): 5 Gait (FIM): 4 Gait distance (FIM): 3=150 ft Distance: 150' Gait Level of Assist: 4 Gait Assistive Device: FWW PT Plan Problem List Problem List: Activity Tolerance, Functional Strength, Safety, Balance, Gait, Transfer, Bed Mobility, ROM Treatment/Plan Treatment Plan: Continue Plan of Care Treatment Plan: Bed Mobility, Education, Functional Activity Patsy, Functional Strength, Gait, Safety, Therapeutic Exercise, Transfers Treatment Duration: Apr 27, 2018 Frequency: 6 times per week Estimated Hrs Per Day: .25 hour per day Patient and/or Family Agrees t: Yes Time/GCodes Time In: 1038 Time Out: 1049 Total Billed Treatment Time: 11 Total Billed Treatment 1 visit EX 11 min BRI MARTIN PT Apr 02, 2018 11:13
--- NOTE | 2018-04-02 12:50 | NUR ---
PT OFF VENT AND ON DIET. PT EATING FAIR, 45% MEALS. GETTING SUPPLEMENTS AT MEALS. CONTINUE TO ENCOURAGE PO INTAKE AND SUPPLEMENTS.
[2018-04-02] MEDS: ENOXAPARIN 40 MG/0.4 ML (LOVENOX) SYR SC SCH (15:00)
[2018-04-02] MEDS ORDERED: NS IV 500 ML 500 ML IV SCH (21:45)
[2018-04-02] MEDS: ATORVASTATIN 20 MG (LIPITOR) TABLET PO SCH (21:58)
[2018-04-02] MEDS: morphine INJ 4 MG/ML 1 ML (VIAL/SYRINGE) IVP PRN (22:00)
[2018-04-02] MEDS: DEXMEDETOMIDINE INJECTION 200 MCG in NS (IVPB) 50 ML IV SCH (22:33)
[2018-04-02] MEDS ORDERED: risperiDONE 1 MG (RisperDAL) TAB PO SCH (23:59)
[2018-04-03] VITALS (26 sets, daily range): BP systolic 92–140; BP diastolic 25–93
[2018-04-03] MEDS: DEXMEDETOMIDINE INJECTION 200 MCG in NS (IVPB) 50 ML IV SCH ×2 (01:33→22:49)
[2018-04-03] MEDS: RT-ALBUTEROL/IPRATROPIUM 3 ML (DUONEB) VIAL INH SCH ×6 (03:05→21:39)
[2018-04-03 03:44] LABS: BASOPHILS % (AUTO) 0 % (0-10); EOSINOPHILS # (AUTO) 0.3 10^3/uL (0.0-0.3); EOSINOPHILS % (AUTO) 2 % (0-10); HEMATOCRIT 29 % (40-54); HEMOGLOBIN 9.5 G/DL (13.3-17.7); LYMPHOCYTES # (AUTO) 2.1 X 10^3 (1.0-4.0); LYMPHOCYTES % (AUTO) 11 % (12-44); MEAN CORPUSCULAR HEMOGLOBIN 30 PG (25-34); MEAN CORPUSCULAR HGB CONC 33 G/DL (32-36); MEAN CORPUSCULAR VOLUME 91 FL (80-99); MEAN PLATELET VOLUME 8.8 FL (7.4-10.4); MONOCYTES # (AUTO) 0.8 X 10^3 (0.0-1.0); MONOCYTES % (AUTO) 4 % (0-12); NEUTROPHILS # (AUTO) 16.4 X 10^3 (1.8-7.8); NEUTROPHILS % (AUTO) 83 % (42-75); PLATELET COUNT 318 10^3/uL (130-400); RED CELL DISTRIBUTION WIDTH 14.5 % (10.0-14.5); WHITE BLOOD COUNT 19.7 10^3/uL (4.3-11.0)
[2018-04-03 04:03] LABS: CALCIUM 8.7 MG/DL (8.5-10.1); CREATININE SERUM 1.3 MG/DL (0.60-1.30); PHOSPHORUS 2.7 MG/DL (2.3-4.7); POTASSIUM 4.2 MMOL/L (3.6-5.0)
[2018-04-03] MEDS ORDERED: guaiFENesin SYRUP 100 MG/5 ML 10 ML (ROBITUSSIN SF) PO PRN (05:00)
[2018-04-03] MEDS ORDERED: methylPREDNISolone 125 MG (Solu-MEDROL) VIAL IVP SCH (05:00)
[2018-04-03] MEDS: methylPREDNISolone 40 MG/ML (Solu-MEDROL) VIAL IV SCH ×4 (05:47→23:19)
[2018-04-03] MEDS: inSUlin ASPART (NovoLOG) 1 UNIT/0.01 ML (CHARGE PER UNIT) SC SCH ×4 (05:48→21:12)
[2018-04-03] MEDS: LACTOBACILLUS ACIDOPHILUS (PROBIOTIC) CAPSULE PO SCH ×3 (05:48→17:20)
[2018-04-03] MEDS: MEROPENEM 500 MG in WATER (STERILE) FOR INJECTION 10 ML IV SCH ×4 (06:47→23:20)
--- NOTE | 2018-04-03 06:53 | Diagnostic Imaging Report ---
Portable erect AP chest at 320 hours. INDICATION: Respiratory distress. FINDINGS: The heart size is stable when compared to the prior exam of 03/31/2018. As noted on the previous study, there are diffuse alveolar/interstitial pulmonary infiltrates bilaterally. The density in both lungs may be slightly greater on this study. Overall, however, there has been no significant change. The mediastinum is not widened. The osseous structures are intact. IMPRESSION: The appearance of the chest has worsened somewhat since the prior exam as there does seem to be slightly greater involvement of both lungs by pneumonia/atelectasis. A followup study would be recommended for continued evaluation. Dictated by: Dictated on workstation # [id number]
[2018-04-03] MEDS ORDERED: aCETylcysteine 20% (MUCOMYST) 30ML SOLN VIAL PO SCH (08:00)
[2018-04-03] MEDS ORDERED: FUROSEMIDE 40 MG/4 ML INJ (LASIX) IVP SCH (09:00)
--- NOTE | 2018-04-03 10:04 | Progress Note-Hospitalist ---
Subjective HPI/CC On Admission Date Seen by Provider: Apr 03, 2018 Time Seen by Provider: 09:30 CC: SOB, chest tightness HPI: This is 73 yo white male w/ a PMH of CAD s/p stents (x2 in 2012), type 2 DM , HTN, HLD, and VERO on CPAP who was a direct admit from Dr. Burrows's office for PNA on 03/24/18. The patient was complaining of one week of worsening SOB and chest tightness, but denied CP or other URI symptoms. A stat CT showed bilateral lower lobe PNA and the pt was hypoxemic, so he was admitted for IV abx and oxygen support. Despite the hx of VERO, the pt does not use oxygen at home and does not have COPD. He quit smoking in 1972. While in the ICU, the pt rapidly deteriorated into severe sepsis w/ FAIZA and ARDS within 24 hours of admission. His white count peaked at 30,000. He was intubated and IV vanco/zosyn /eraxis were started. Bronchoscopy was performed, cultures pending, preliminary showed no growth. Viral PNA serology panel was negative, as was Legionella urinary antigen and S. pneumo antigen. Cardiology was consulted for hx of CAD. Troponins were negative and echocardiogram showed normal ejection fraction but with pulmonary HTN. The patient's oxygenation slowly improved and he was extubated on the afternoon of 03/29/18. Over the last two days the patient's mental status never fully returned to baseline and his [place] [id number] [place] [address]. He complains of distal upper extremity weakness and SOB. His pulse ox was 93% on 5L vapotherm yesterday but he is requiring 9L today. He is requiring BiPAP at night. Subjective/Events-last exam patient is on BiPAP this morning and had to be sedated overnight because of agitation. As such he is somewhat slow to respond this morning. He is somewhat restless.chest x-ray is reviewed which is largely unchanged from the time of admission. All sputum cultures are normal. All viral titers are negative. CT chest showed interstitial lung disease. Possibility remains that this is bilateral pneumonia with possible ARDS. Dr. Burrows is discussed possible tracheostomy with the patient's and the patient. Review of Systems Pulmonary: Dyspnea, Cough Neurological: Weakness, Confusion Objective Exam Vital Signs Vital Signs Date Time Temp Pulse Resp B/P (MAP) Pulse Ox O2 Delivery O2 Flow Rate FiO2 04/03/18 08:00 73 25 124/56 (78) 98 NIV Bilevel 40.00 04/03/18 08:00 50 04/03/18 07:00 97.0 Capillary Refill : Less Than 3 Seconds General Appearance: Anxious, Chronically ill, Mild Distress HEENT: PERRL/EOMI, Normal ENT Inspection; No Scleral Icterus (L), No Scleral Icterus (R) Respiratory: Crackles, Decreased Breath Sounds, Rales; No Wheezing Cardiovascular: Regular Rate, Rhythm, No JVD, No Murmur Gastrointestinal: Normal Bowel Sounds, Non Tender, Soft Back: Normal Inspection Extremity: No Calf Tenderness, Pedal Edema Neurologic/Psychiatric: Alert (alert but unable to provide detail when inquired about his status or any concerns), Disoriented, Other (severe weakness of all extremities) Skin: Normal Color, Warm/Dry Lymphatic: No Adenopathy Results/Procedures Lab Laboratory Tests 04/03/18 03:27 Patient resulted labs reviewed. Imaging: Reviewed Imaging Films, Reviewed Imaging Report Assessment/Plan Assessment and Plan Assess & Plan/Chief Complaint acute respiratory failure secondary to bilateral pneumonia or interstitial lung disease. Possible ARDS. Patient is requiring persistent BiPAP at this time and tracheostomy is being explored-on meropenem and Zosyn, and Eraxis hyperglycemia secondary to steroids Delirium secondary to medications and illness. anemia secondary to acute thrombus and blood draws-most likely Patient's overall prognosis is guarded at this time. Critical Care Critically Ill Patient CC TIME : Critical Care Start Date: Apr 03, 2018 Critical Care Start Time: 09:30 Stop date: Apr 03, 2018 Stop Time: 10:30 Clinical Quality Measures DVT/VTE Risk/Contraindication: Risk Factor Score Per Nursin RFS Level Per Nursing on Admit: 2=Moderate BLAIRE MA MD Apr 03, 2018 10:04
[2018-04-03] MEDS: ANIDULAFUNGIN INJECTION 100 MG in NS (IVPB) 100 ML IV SCH (10:21)
[2018-04-03] MEDS: inSUlin Protamine/ASPart 70/30 1 UNIT/0.01 ML DOSE SC SCH ×2 (10:22→18:17)
[2018-04-03] MEDS: FUROSEMIDE 40 MG/4 ML INJ (LASIX) IVP SCH (10:22)
[2018-04-03] MEDS: BENZONATATE 100 MG (TESSALON) CAPSULE PO SCH ×3 (10:23→21:12)
[2018-04-03] MEDS: KCL 20 MEQ TAB (K-DUR) PO SCH (10:35)
[2018-04-03] MEDS: LORATADINE (CLARITIN) 10 MG TAB PO SCH (10:39)
[2018-04-03] MEDS: PANTOPRAZOLE 40 MG (PROTONIX) TAB PO SCH (10:39)
[2018-04-03] MEDS: aCETylcysteine 20% (MUCOMYST) 30ML SOLN VIAL PO SCH ×3 (10:40→18:17)
[2018-04-03] MEDS: lisINopril 20 MG (PRINIVIL) TABLET PO SCH (11:16)
[2018-04-03] MEDS: meTOprolol TARTRATE 25 MG (LOPRESSOR) TABLET PO SCH ×2 (11:16→21:12)
[2018-04-03] MEDS: ASPIRIN E.C. 81 MG (ECOTRIN) TAB PO SCH (11:16)
[2018-04-03] MEDS: risperiDONE 0.25 MG (RisperDAL) TAB PO SCH (11:17)
--- NOTE | 2018-04-03 11:40 | Physical Therapy Daily Note ---
PT Daily Note-Current Subjective Speech not clear and unable to understand pt. Pt's states he received a sedative earlier and she is unable to understand him either. Pt was able to follow most instruction Appearance upon arrival, pt supine in bed, sitting in chair at bedside At end of session, pt repositioned to make more comfortable, supine in bed with pillows for support, call light within reach, still present and all needs met at this time Transfers Therapy Code Descriptions/Definitions Functional [place] Measure: 0=Not Assessed/NA 4=Minimal Assistance 1=Total Assistance 5=Supervision or Setup 2=Maximal Assistance 6=Modified [place] 3=Moderate Assistance 7=Complete [place] Therapy Quality Codes: 6 Independent with activity with or without an assistive device 5 Patient requires set up or clean up by helper. Patient completes activity by themselves 4 Supervision or touching assist (CGA). [place] provide cues , steadying assist 3 The helper provides less than half the effort to complete the activity 2 The helper provides more than half the effort to complete the activity 1 Dependent. The helper does all the effort to complete an activity 7 Patient refused to complete or attempt activity 9 The patient did not perform the activity before the current illness or injury 88 Not attempted due to Medical conditions or safety concerns Weight Bearing Right Lower Extremity: Right Full Weight Bearing Left Lower Extremity: Left Full Weight Bearing Exercises Supine Ex: Ankle pumps, Rolling, Heel Slides, Knee to chest, Scooting, Resisted flex/ext, Straight leg raise, Hip abd/add Supine Reps: 10 Treatments LE and trunk/core ex's for strengthening and ROM Assessment Current Status: Fair Progress PT Short Term Goals Short Term Goals Time Frame: Apr 06, 2018 Transfers (B,C,W/C) (FIM): 4 Gait (FIM): 1 Distance (FIM): 1=up to 49 ft Gait Distance Comment: 20' Gait Level of Assist: 4 Gait Assistive Device: FWW PT Foreign Law Consultant Goals Foreign Law Consultant Goals PT Foreign Law Consultant Goals Time Frame: Apr 27, 2018 Transfers (B,C,W/C) (FIM): 5 Gait (FIM): 4 Gait distance (FIM): 3=150 ft Distance: 150' Gait Level of Assist: 4 Gait Assistive Device: FWW PT Plan Treatment/Plan Treatment Plan: Continue Plan of Care Treatment Plan: Bed Mobility, Education, Functional Activity Patsy, Functional Strength, Gait, Safety, Therapeutic Exercise, Transfers Treatment Duration: Apr 27, 2018 Frequency: 6 times per week Estimated Hrs Per Day: .25 hour per day Patient and/or Family Agrees t: Yes Time/GCodes Time In: 840 Time Out: 851 Total Billed Treatment Time: 11 Total Billed Treatment 1 visit, EX x11' LAURA POPE COMPLIANCE TESTER Apr 03, 2018 11:40
[2018-04-03] MEDS: POTASSIUM CL 10MEQ/50ML IVPB 50 ML IV SCH ×4 (12:00→14:28)
[2018-04-03] MEDS: ATORVASTATIN 20 MG (LIPITOR) TABLET PO SCH (18:17)
[2018-04-03] MEDS: ENOXAPARIN 40 MG/0.4 ML (LOVENOX) SYR SC SCH (18:19)
[2018-04-03] MEDS: risperiDONE 1 MG (RisperDAL) TAB PO SCH ×2 (20:48→21:08)
--- NOTE | 2018-04-03 21:13 | Cardiology Progress Note ---
Cardiology SOAP Progress Note Subjective: Still short of breath. Objective: I&O/Vital Signs 04/03/18 04/03/18 04/03/18 04/03/18 10:00 10:16 11:00 12:00 Pulse 66 69 81 Resp 24 23 24 B/P (MAP) 140/61 (87) 97/78 (84) Pulse Ox 98 97 100 O2 Delivery NIV Bilevel Vapotherm Vapotherm O2 Flow Rate 40.00 25.00 50.00 25.00 25.00 FiO2 50 04/03/18 04/03/18 04/03/18 04/03/18 12:00 13:00 13:10 14:00 Pulse 87 83 83 90 Resp 30 35 33 B/P (MAP) 126/59 (81) 132/64 (86) Pulse Ox 98 98 91 O2 Delivery Vapotherm Vapotherm Vapotherm O2 Flow Rate 50.00 50.00 50.00 25.00 25.00 25.00 04/03/18 04/03/18 04/03/18 04/03/18 14:39 15:00 16:00 16:00 Pulse 86 85 Resp 30 49 B/P (MAP) 115/50 (71) 111/43 (65) Pulse Ox 97 86 99 O2 Delivery Vapotherm Vapotherm Vapotherm Vapotherm O2 Flow Rate 25.00 50.00 50.00 25.00 25.00 25.00 FiO2 50 50 04/03/18 04/03/18 04/03/18 04/03/18 17:00 18:00 19:00 19:58 Pulse 85 78 93 Resp 40 21 B/P (MAP) 128/57 (80) 122/49 (73) Pulse Ox 95 100 100 O2 Delivery Vapotherm NIV Bilevel Vapotherm O2 Flow Rate 50.00 50.00 25.00 25.00 25.00 FiO2 50 04/03/18 04/03/18 20:00 20:00 Temp 98.9 Pulse 102 Resp 32 B/P (MAP) 136/63 (87) Pulse Ox 99 99 O2 Delivery Vapotherm Vapotherm O2 Flow Rate 25.00 25.00 136.00 FiO2 50 04/02/18 23:59 Intake Total 850 ml Output Total 1850 ml Balance -1000 ml Weight (Pounds): 169 Weight (Ounces): 8.0 Weight (Calculated Kilograms): 76.214776 Constitutional: other (intubated, sedated, on mech vent) Respiratory: No accessory muscle use; other (fair bilat air entry; diminished bs at bases) Cardiovascular: regular rate-rhythm, S1 and S2, systolic murmur (faint SHEYLA at card base) Gastrointestional: No tender; soft, audible bowel sounds Extremities: No clubbing, No cyanosis, No significant edema Neurologic/Psychiatric: other (intubated and sedated and unable to cooperate with a neuro exam) Skin: No rash on exposed areas, No ulcerations on exposed areas Results/Procedures: Labs Laboratory Tests 04/02/18 22:42: Glucometer 186H 04/03/18 03:27: White Blood Count 19.7H, Red Blood Count 3.15L, Hemoglobin 9.5L, Hematocrit 29L , Mean Corpuscular Volume 91, Mean Corpuscular Hemoglobin 30, Mean Corpuscular Hemoglobin Concent 33, Red Cell Distribution Width 14.5, Platelet Count 318, Mean Platelet Volume 8.8, Neutrophils (%) (Auto) 83H, Lymphocytes (%) (Auto) 11L , Monocytes (%) (Auto) 4, Eosinophils (%) (Auto) 2, Basophils (%) (Auto) 0, Neutrophils # (Auto) 16.4H, Lymphocytes # (Auto) 2.1, Monocytes # (Auto) 0.8, Eosinophils # (Auto) 0.3, Basophils # (Auto) 0.0, Sodium Level 139, Potassium Level 4.2, Chloride Level 107, Carbon Dioxide Level 24, Anion Gap 8, Blood Urea Nitrogen 31H, Creatinine 1.30, Estimat Glomerular Filtration Rate 54, BUN/ Creatinine Ratio 24, Glucose Level 187H, Calcium Level 8.7, Phosphorus Level 2.7 , Magnesium Level 2.0, B-Type Natriuretic Peptide 57.8 04/03/18 11:20: Glucometer 340H 04/03/18 17:55: Glucometer 461*H Microbiology 03/24/18 Blood Culture - Final, Complete No growth 03/26/18 Gram Stain - Final, Resulted 03/26/18 Bronchial Culture - Final, Resulted No growth 03/26/18 Fungal Culture 1 - Preliminary, Resulted A/P: Assessment/Dx: Admission Diagnosis Pneumonia Sinus tachycardia Coronary artery disease Hypertension Hyperlipidemia Plan: Assessment/Plan Status post acute respiratory failure, currently off the ventilator and improving slowly, still have pulmonary infiltrate and receiving Zosyn. Managed by Dr. Burrows. Pneumonia, slow improvement, still on antibiotics. Coronary artery disease, had a cardiac catheterization 2012 resulted with 2 stents deployment 2.515 mm to the right coronary artery resolute and 2.2522 mm resolute to the LAD, continue to monitor at this time Echocardiogram done on March 25, 2018 showing normal left ventricular size with ejection fraction 65 percent, pulmonary hypertension with PA pressure 45 mmHg Hypertension, oral antihypertensive medication were restarted. Continue to monitor Hyperlipidemia, monitor lipids Diabetes mellitus, followed and managed by primary care physician Obstructive sleep apnea, using C Pap at night, currently in respiratory failure Obesity History of carotid stenosis, last ultrasound was done in September 2017 showing mild disease on the right and moderate on the left. Continue to monitor Thank you for your consultation. Please call me if you have any questions. Oscar Sandy MD, FACP, FACC, FSCAI, FHRS, CCDS Interventional Cardiology Cardiac Electrophysiology Vascular Medicine and Endovascular Interventions Siobhan SANDY MD Apr 03, 2018 21:13
[2018-04-03] MEDS: guaiFENesin/CODEINE (ROBITUSSIN AC) 10ML UDC PO PRN (22:49)
[2018-04-04] VITALS (23 sets, daily range): BP systolic 90–150; BP diastolic 42–112
[2018-04-04] MEDS: aCETylcysteine 20% (MUCOMYST) 30ML SOLN VIAL PO SCH ×7 (02:18→22:10)
[2018-04-04] MEDS: RT-ALBUTEROL/IPRATROPIUM 3 ML (DUONEB) VIAL INH SCH ×6 (02:57→22:10)
[2018-04-04 03:16] LABS: BASOPHILS % (AUTO) 0 % (0-10); EOSINOPHILS % (AUTO) 0 % (0-10); HEMATOCRIT 28 % (40-54); HEMOGLOBIN 9.1 G/DL (13.3-17.7); LYMPHOCYTES # (AUTO) 1.5 X 10^3 (1.0-4.0); LYMPHOCYTES % (AUTO) 9 % (12-44); MEAN CORPUSCULAR HEMOGLOBIN 30 PG (25-34); MEAN CORPUSCULAR HGB CONC 33 G/DL (32-36); MEAN CORPUSCULAR VOLUME 91 FL (80-99); MEAN PLATELET VOLUME 9.4 FL (7.4-10.4); MONOCYTES # (AUTO) 0.3 X 10^3 (0.0-1.0); MONOCYTES % (AUTO) 2 % (0-12); NEUTROPHILS # (AUTO) 15.8 X 10^3 (1.8-7.8); NEUTROPHILS % (AUTO) 90 % (42-75); PLATELET COUNT 289 10^3/uL (130-400); RED CELL DISTRIBUTION WIDTH 14.4 % (10.0-14.5); WHITE BLOOD COUNT 17.6 10^3/uL (4.3-11.0)
[2018-04-04 03:34] LABS: CALCIUM 8.7 MG/DL (8.5-10.1); CREATININE SERUM 1.29 MG/DL (0.60-1.30); MAGNESIUM 2.2 MG/DL (1.8-2.4); PHOSPHORUS 2.9 MG/DL (2.3-4.7); POTASSIUM 4.1 MMOL/L (3.6-5.0)
[2018-04-04] MEDS: KCL 20 MEQ TAB (K-DUR) PO SCH (04:26)
[2018-04-04] MEDS: inSUlin ASPART (NovoLOG) 1 UNIT/0.01 ML (CHARGE PER UNIT) SC SCH ×4 (06:07→21:11)
[2018-04-04] MEDS: methylPREDNISolone 40 MG/ML (Solu-MEDROL) VIAL IV SCH ×4 (06:07→23:34)
[2018-04-04] MEDS: MEROPENEM 500 MG in WATER (STERILE) FOR INJECTION 10 ML IV SCH ×3 (06:07→21:57)
--- NOTE | 2018-04-04 06:21 | Pulmonary Progress Note ---
Subjective Time Seen by a Provider: 06:19 Subjective/Events-last exam PT did use BiPAP last night. He is still requiring highflow vapotherm. Sepsis Event Evaluation Height, Weight, BMI Height: 5'6.00" Weight: 162lbs. 0.0oz. 73.153376jk; 27.4 BMI Method: Exam Exam Vital Signs Date Time Temp Pulse Resp B/P (MAP) Pulse Ox O2 Delivery O2 Flow Rate FiO2 04/04/18 06:04 Vapotherm 45.00 25.00 04/04/18 06:00 75 26 134/51 (78) 99 NIV Bilevel 35.00 04/04/18 05:00 65 17 124/56 (78) 99 NIV Bilevel 35.00 04/04/18 04:57 58 23 99 35.00 04/04/18 04:01 97.3 NIV Bilevel 35.00 04/04/18 04:00 65 19 121/54 (76) 96 NIV Bilevel 35.00 04/04/18 03:50 93 NIV Bilevel 35 04/04/18 03:15 NIV Bilevel 35.00 04/04/18 03:00 58 23 117/55 (75) 99 NIV Bilevel 40.00 04/04/18 02:57 58 23 99 40.00 04/04/18 02:00 55 23 104/43 (63) 99 NIV Bilevel 40.00 04/04/18 01:00 55 22 101/44 (63) 99 NIV Bilevel 40.00 04/04/18 01:00 55 04/04/18 00:00 61 25 90/42 (58) 99 NIV Bilevel 40.00 04/03/18 23:25 100 NIV Bilevel 40 04/03/18 23:20 97.9 NIV Bilevel 40.00 04/03/18 23:15 70 31 94 40.00 04/03/18 23:00 85 28 92/43 (59) 100 Vapotherm 45.00 25.00 04/03/18 22:10 Vapotherm 45.00 25.00 04/03/18 22:00 95 31 117/93 (101) 96 Vapotherm 50.00 25.00 04/03/18 21:39 96 Vapotherm 25.00 50 04/03/18 21:00 89 30 116/49 (71) 93 Vapotherm 50.00 25.00 04/03/18 20:00 98.9 102 32 136/63 (87) 99 Vapotherm 50.00 25.00 04/03/18 20:00 99 Vapotherm 25.00 50 04/03/18 19:58 100 Vapotherm 25.00 50 04/03/18 19:00 93 04/03/18 19:00 93 28 118/58 (78) 100 Vapotherm 50.00 25.00 04/03/18 18:00 78 21 122/49 (73) 100 NIV Bilevel 50.00 25.00 04/03/18 17:00 85 40 128/57 (80) 95 Vapotherm 50.00 25.00 04/03/18 16:00 Vapotherm 25.00 50 04/03/18 16:00 85 49 111/43 (65) 99 Vapotherm 50.00 25.00 04/03/18 15:00 86 30 115/50 (71) 86 Vapotherm 50.00 25.00 04/03/18 14:39 97 Vapotherm 25.00 50 04/03/18 14:00 90 33 91 Vapotherm 50.00 25.00 04/03/18 13:10 83 04/03/18 13:00 83 35 132/64 (86) 98 Vapotherm 50.00 25.00 04/03/18 12:00 87 30 126/59 (81) 98 Vapotherm 50.00 25.00 04/03/18 12:00 Vapotherm 25.00 50 04/03/18 11:00 81 24 97/78 (84) 100 Vapotherm 50.00 25.00 04/03/18 10:16 69 23 97 25.00 04/03/18 10:00 66 24 140/61 (87) 98 NIV Bilevel 40.00 04/03/18 09:00 65 21 136/58 (84) 97 NIV Bilevel 40.00 04/03/18 08:00 73 25 124/56 (78) 98 NIV Bilevel 40.00 04/03/18 08:00 NIV Bilevel 50 04/03/18 07:08 73 04/03/18 07:00 97.0 04/03/18 07:00 68 27 124/51 (75) 95 NIV Bilevel 40.00 04/03/18 06:45 71 23 97 40.00 I & O 04/04/18 06:59 Intake Total 1405 ml Output Total 3000 ml Balance -1595 ml Height & Weight Height: 5'6.00" Weight: 162lbs. 0.0oz. [id number]; 27.4 BMI Method: General Appearance: Anxious, Chronically ill, Mild Distress HEENT: PERRL/EOMI, Normal ENT Inspection; No Scleral Icterus (L), No Scleral Icterus (R) Respiratory: Crackles, Decreased Breath Sounds, Rales; No Wheezing Cardiovascular: Regular Rate, Rhythm, No JVD, No Murmur Capillary Refill: Less Than 3 Seconds Gastrointestinal: non tender, soft Extremity: No Calf Tenderness, Pedal Edema Neurologic/Psychiatric: Alert (alert but unable to provide detail when inquired about his status or any concerns), Disoriented, Other (severe weakness of all extremities) Skin: Normal Color, Warm/Dry Lymphatic: No Adenopathy Results Lab Laboratory Tests 04/03/18 03:27 04/04/18 03:05 Assessment/Plan Assessment/Plan Acute respiratory failure s/p bronchoscopy -BiPAP is making pt very agitated will D/C - Solumedrol -Lasix 40mg daily Acute bilateral pneumonia with hypoxemia with severe sepsis -Continue Zosyn/Eraxis Malnutrition -Encourage diet -Ensures TID Debility -PT/OT -up to chair [facility] ICU psychosis - Risperdal CYN - improved -monitor Hyperglycemia -Monitor Anemia - monitor Hyponatremia - monitor VERO JON WILLIAM DO Apr 04, 2018 06:21
[2018-04-04] MEDS: inSUlin Protamine/ASPart 70/30 1 UNIT/0.01 ML DOSE SC SCH ×2 (08:16→17:22)
[2018-04-04] MEDS: BENZONATATE 100 MG (TESSALON) CAPSULE PO SCH ×3 (08:48→20:34)
[2018-04-04] MEDS: lisINopril 20 MG (PRINIVIL) TABLET PO SCH (08:49)
[2018-04-04] MEDS: LORATADINE (CLARITIN) 10 MG TAB PO SCH (08:49)
[2018-04-04] MEDS: ASPIRIN E.C. 81 MG (ECOTRIN) TAB PO SCH (08:49)
[2018-04-04] MEDS: PANTOPRAZOLE 40 MG (PROTONIX) TAB PO SCH (08:49)
[2018-04-04] MEDS: risperiDONE 0.25 MG (RisperDAL) TAB PO SCH (08:49)
[2018-04-04] MEDS: FUROSEMIDE 40 MG/4 ML INJ (LASIX) IVP SCH (08:49)
[2018-04-04] MEDS: LACTOBACILLUS ACIDOPHILUS (PROBIOTIC) CAPSULE PO SCH ×3 (08:50→17:22)
[2018-04-04] MEDS: meTOprolol TARTRATE 25 MG (LOPRESSOR) TABLET PO SCH ×2 (08:53→20:34)
[2018-04-04] MEDS: ANIDULAFUNGIN INJECTION 100 MG in NS (IVPB) 100 ML IV SCH (09:12)
--- NOTE | 2018-04-04 09:47 | Diagnostic Imaging Report ---
INDICATION: Shortness of breath COMPARISON: 04/03/2018 FINDINGS: Single view chest demonstrates persistent but decreasing bilateral pulmonary infiltrates. Heart is prominent. There is no pneumothorax or large effusion. IMPRESSION: Slightly improved aeration both lungs. Dictated by: Dictated on workstation # [id number]
--- NOTE | 2018-04-04 12:10 | Cardiology Progress Note ---
Cardiology SOAP Progress Note Subjective: Improved shortness of breath. Objective: I&O/Vital Signs 04/04/18 04/04/18 04/04/18 04/04/18 01:00 01:00 02:00 02:57 Pulse 55 55 55 58 Resp 22 23 23 B/P (MAP) 101/44 (63) 104/43 (63) Pulse Ox 99 99 99 O2 Delivery NIV Bilevel NIV Bilevel O2 Flow Rate 40.00 40.00 40.00 04/04/18 04/04/18 04/04/18 04/04/18 03:00 03:15 03:50 04:00 Pulse 58 65 Resp 19 B/P (MAP) 117/55 (75) 121/54 (76) Pulse Ox 99 93 96 O2 Delivery NIV Bilevel NIV Bilevel NIV Bilevel NIV Bilevel O2 Flow Rate 40.00 35.00 35.00 FiO2 35 04/04/18 04/04/18 04/04/18 04/04/18 04:01 04:57 05:00 06:00 Temp 97.3 Pulse 58 65 75 Resp 23 17 26 B/P (MAP) 124/56 (78) 134/51 (78) Pulse Ox 99 99 99 O2 Delivery NIV Bilevel NIV Bilevel NIV Bilevel O2 Flow Rate 35.00 35.00 35.00 35.00 04/04/18 04/04/18 04/04/18 04/04/18 06:04 06:18 06:59 07:00 Pulse 61 Resp 21 B/P (MAP) 117/56 (76) Pulse Ox 99 98 O2 Delivery Vapotherm Vapotherm Vapotherm Vapotherm O2 Flow Rate 45.00 35.00 25.00 35.00 25.00 25.00 25.00 FiO2 35 04/04/18 04/04/18 04/04/18 04/04/18 07:05 08:00 08:00 09:00 Pulse 71 72 70 Resp 23 24 B/P (MAP) 131/63 (85) Pulse Ox 93 86 O2 Delivery NIV Bilevel Vapotherm Vapotherm O2 Flow Rate 35.00 35.00 25.00 25.00 FiO2 35 04/04/18 04/04/18 04/04/18 10:00 10:59 11:00 Pulse 70 75 Resp 26 33 B/P (MAP) 104/61 (75) Pulse Ox 98 97 98 O2 Delivery Vapotherm Vapotherm Vapotherm O2 Flow Rate 35.00 25.00 35.00 25.00 25.00 FiO2 35 04/04/18 00:00 Intake Total 910 ml Output Total 2300 ml Balance -1390 ml Weight (Pounds): 162 Weight (Ounces): 0.0 Weight (Calculated Kilograms): 73.420884 Constitutional: AAO x 3, other (intubated, sedated, on mech vent) Respiratory: No accessory muscle use; chest is bilaterally symmetric, lungs clear to auscultation, crackles, other (fair bilat air entry; diminished bs at bases) Cardiovascular: regular rate-rhythm, S1 and S2, systolic murmur (faint SHEYLA at card base) Gastrointestional: No tender; soft; No round, No distended, No pulsatile mass, No organomegaly, No guarding, No rebound, No tenderness, No hernia, No mass; audible bowel sounds; No abnormal bowel sounds, No abdominal bruits, No spleenomegaly, No other Extremities: No normal range of motion, No non-tender, No normal inspection, No pedal edema, No calf tenderness, No normal capillary refill, No pelvis stable , No calf tenderness, No inflammation, No pedal edema, No slow capillary refill , No swelling, No other, No abrasion, No clubbing, No cyanosis, No ecchymosis, No laceration, No no lower extremity edema bilateral, No significant edema, No tenderness, No wound Neurologic/Psychiatric: No pin drafting machine tender II-XII nml as tested; no motor/sensory deficits , alert, normal mood/affect, oriented x 3; No abnormal cerebellar tests, No abnormal pin drafting machine tender II-XII, No abnormal gait, No aphasia, No EOM palsy, No facial droop , No motor weakness, No sensory deficit, No depressed affect, No disoriented x 3 ; other (intubated and sedated and unable to cooperate with a neuro exam); No grossly intact, No power is 5/5 both on sides Skin: No normal color, No warm/dry, No cyanosis, No cool, No diaphoresis, No damp, No ecchymosis, No jaundice, No mottled, No pallor, No rash, No tattoos/ piercings, No ulcerations, No rash on exposed areas, No ulcerations on exposed areas, No other Results/Procedures: Labs Laboratory Tests 04/03/18 17:55: Glucometer 461*H 04/03/18 21:11: Glucometer 339H 04/04/18 03:05: White Blood Count 17.6H, Red Blood Count 3.03L, Hemoglobin 9.1L, Hematocrit 28L , Mean Corpuscular Volume 91, Mean Corpuscular Hemoglobin 30, Mean Corpuscular Hemoglobin Concent 33, Red Cell Distribution Width 14.4, Platelet Count 289, Mean Platelet Volume 9.4, Neutrophils (%) (Auto) 90H, Lymphocytes (%) (Auto) 9L , Monocytes (%) (Auto) 2, Eosinophils (%) (Auto) 0, Basophils (%) (Auto) 0, Neutrophils # (Auto) 15.8H, Lymphocytes # (Auto) 1.5, Monocytes # (Auto) 0.3, Eosinophils # (Auto) 0.0, Basophils # (Auto) 0.0, Sodium Level 134L, Potassium Level 4.1, Chloride Level 101, Carbon Dioxide Level 22, Anion Gap 11, Blood Urea Nitrogen 40H, Creatinine 1.29, Estimat Glomerular Filtration Rate 55, BUN/ Creatinine Ratio 31, Glucose Level 345H, Calcium Level 8.7, Phosphorus Level 2.9 , Magnesium Level 2.2 04/04/18 06:06: Glucometer 395H 04/04/18 08:03: Glucometer 316H 04/04/18 11:11: Glucometer 397H Microbiology 03/24/18 Blood Culture - Final, Complete No growth 04/03/18 C. difficile GDH Antigen & Toxins - Final, Complete 03/26/18 Gram Stain - Final, Resulted 03/26/18 Bronchial Culture - Final, Resulted No growth 03/26/18 Fungal Culture 1 - Preliminary, Resulted A/P: Assessment/Dx: Admission Diagnosis Pneumonia Sinus tachycardia Coronary artery disease Hypertension Hyperlipidemia Plan: Assessment/Plan Status post acute respiratory failure, currently off the ventilator and improving slowly, still have pulmonary infiltrate and receiving Zosyn. Managed by Dr. Burrows. Pneumonia, slow improvement, still on antibiotics. Coronary artery disease, had a cardiac catheterization 2012 resulted with 2 stents deployment 2.515 mm to the right coronary artery resolute and 2.2522 mm resolute to the LAD, continue to monitor at this time Echocardiogram done on March 25, 2018 showing normal left ventricular size with ejection fraction 65 percent, pulmonary hypertension with PA pressure 45 mmHg Hypertension, oral antihypertensive medication were restarted. Continue to monitor Hyperlipidemia, monitor lipids Diabetes mellitus, followed and managed by primary care physician Obstructive sleep apnea, using C Pap at night, currently in respiratory failure Obesity History of carotid stenosis, last ultrasound was done in September 2017 showing mild disease on the right and moderate on the left. Continue to monitor Thank you for your consultation. Please call me if you have any questions. Oscar Sandy MD, FACP, FACC, FSCAI, FHRS, CCDS Interventional Cardiology Cardiac Electrophysiology Vascular Medicine and Endovascular Interventions Siobhan SANDY MD Apr 04, 2018 12:10 pm
[2018-04-04] MEDS: DEXMEDETOMIDINE INJECTION 200 MCG in NS (IVPB) 50 ML IV SCH (12:11)
--- NOTE | 2018-04-04 13:23 | Progress Note-Hospitalist ---
Subjective HPI/CC On Admission Date Seen by Provider: Apr 04, 2018 Time Seen by Provider: 12:00 CC: SOB, chest tightness HPI: This is 73 yo white male w/ a PMH of CAD s/p stents (x2 in 2012), type 2 DM , HTN, HLD, and VERO on CPAP who was a direct admit from Dr. Burrows's office for PNA on 03/24/18. The patient was complaining of one week of worsening SOB and chest tightness, but denied CP or other URI symptoms. A stat CT showed bilateral lower lobe PNA and the pt was hypoxemic, so he was admitted for IV abx and oxygen support. Despite the hx of VERO, the pt does not use oxygen at home and does not have COPD. He quit smoking in 1972. While in the ICU, the pt rapidly deteriorated into severe sepsis w/ FAIZA and ARDS within 24 hours of admission. His white count peaked at 30,000. He was intubated and IV vanco/zosyn /eraxis were started. Bronchoscopy was performed, cultures pending, preliminary showed no growth. Viral PNA serology panel was negative, as was Legionella urinary antigen and S. pneumo antigen. Cardiology was consulted for hx of CAD. Troponins were negative and echocardiogram showed normal ejection fraction but with pulmonary HTN. The patient's oxygenation slowly improved and he was extubated on the afternoon of 03/29/18. Over the last two days the patient's mental status never fully returned to baseline and [place] [address] [place] [address]. He complains of distal upper extremity weakness and SOB. His pulse ox was 93% on 5L vapotherm yesterday but he is requiring 9L today. He is requiring BiPAP at night. Subjective/Events-last exam Patient actually has gotten stronger's and improved. He's back on Vapotherm today. He is still breathing more easily Review of Systems Pulmonary: Dyspnea Neurological: Weakness Objective Exam Vital Signs Vital Signs Date Time Temp Pulse Resp B/P (MAP) Pulse Ox O2 Delivery O2 Flow Rate FiO2 04/04/18 13:00 97.7 04/04/18 12:00 74 58 130/59 (82) 100 Vapotherm 35.00 25.00 04/04/18 12:00 35 Capillary Refill : Less Than 3 Seconds General Appearance: Anxious, Chronically ill, Mild Distress HEENT: PERRL/EOMI, Normal ENT Inspection; No Scleral Icterus (L), No Scleral Icterus (R) Respiratory: No Accessory Muscle Use, No Respiratory Distress, Crackles, Decreased Breath Sounds, Rales; No Wheezing Cardiovascular: Regular Rate, Rhythm, No JVD, No Murmur Gastrointestinal: Normal Bowel Sounds, Non Tender, Soft Back: Normal Inspection Extremity: No Calf Tenderness, Pedal Edema Neurologic/Psychiatric: Alert (alert but unable to provide detail when inquired about his status or any concerns), Disoriented, Other (severe weakness of all extremities) Skin: Normal Color, Warm/Dry Lymphatic: No Adenopathy Results/Procedures Lab Laboratory Tests 04/04/18 03:05 Patient resulted labs reviewed. Imaging: Reviewed Imaging Films, Reviewed Imaging Report Assessment/Plan Assessment and Plan Assess & Plan/Chief Complaint acute respiratory failure secondary to bilateral pneumonia or interstitial lung disease. Possible ARDS. Patient is improving at this time, chest x-ray looks better however tracheostomy is being explored-on meropenem and Zosyn, and Eraxis hyperglycemia secondary to steroids Delirium secondary to medications and illness. anemia secondary to chronic illness and blood draws-most likely Patient's overall prognosis is guarded at this time. Critical Care Critically Ill Patient Clinical Quality Measures DVT/VTE Risk/Contraindication: Risk Factor Score Per Nursin RFS Level Per Nursing on Admit: 2=Moderate BLAIRE MA MD Apr 04, 2018 13:23
[2018-04-04] MEDS: ENOXAPARIN 40 MG/0.4 ML (LOVENOX) SYR SC SCH (15:56)
[2018-04-04] MEDS: ATORVASTATIN 20 MG (LIPITOR) TABLET PO SCH (17:22)
--- NOTE | 2018-04-04 17:25 | NUR ---
called dr delaney to rely bedside blood sugar at 449. she ordered to increase 70/30 to 25 units bid and changed sliding scale to B. orders placed.
[2018-04-04] MEDS: risperiDONE 1 MG (RisperDAL) TAB PO SCH (20:34)
[2018-04-04] MEDS ORDERED: inSUlin ASPART (NovoLOG) 1 UNIT/0.01 ML (CHARGE PER UNIT) SC SCH (21:00)
[2018-04-05] VITALS (17 sets, daily range): BP systolic 80–150; BP diastolic 45–99
[2018-04-05] MEDS: DEXMEDETOMIDINE INJECTION 200 MCG in NS (IVPB) 50 ML IV SCH (00:42)
[2018-04-05] MEDS: RT-ALBUTEROL/IPRATROPIUM 3 ML (DUONEB) VIAL INH SCH ×6 (02:04→22:19)
[2018-04-05] MEDS: aCETylcysteine 20% (MUCOMYST) 30ML SOLN VIAL PO SCH ×6 (02:04→22:19)
[2018-04-05 03:42] LABS: BASOPHILS % (AUTO) 0 % (0-10); EOSINOPHILS % (AUTO) 0 % (0-10); HEMATOCRIT 27 % (40-54); HEMOGLOBIN 9.1 G/DL (13.3-17.7); LYMPHOCYTES # (AUTO) 1.6 X 10^3 (1.0-4.0); LYMPHOCYTES % (AUTO) 8 % (12-44); MEAN CORPUSCULAR HEMOGLOBIN 30 PG (25-34); MEAN CORPUSCULAR HGB CONC 33 G/DL (32-36); MEAN CORPUSCULAR VOLUME 90 FL (80-99); MONOCYTES # (AUTO) 0.4 X 10^3 (0.0-1.0); MONOCYTES % (AUTO) 2 % (0-12); NEUTROPHILS # (AUTO) 17.2 X 10^3 (1.8-7.8); NEUTROPHILS % (AUTO) 90 % (42-75); PLATELET COUNT 379 10^3/uL (130-400); RED CELL DISTRIBUTION WIDTH 14.4 % (10.0-14.5); WHITE BLOOD COUNT 19.2 10^3/uL (4.3-11.0)
[2018-04-05 04:11] LABS: BUN/CREATININE RATIO 35; CALCIUM 8.9 MG/DL (8.5-10.1); CARBON DIOXIDE 24 MMOL/L (21-32); CHLORIDE 105 MMOL/L (98-107); CREATININE SERUM 0.96 MG/DL (0.60-1.30); GFR ESTIMATED > 60; GLUCOSE 165 MG/DL (70-105); PHOSPHORUS 2.3 MG/DL (2.3-4.7); POTASSIUM 3.4 MMOL/L (3.6-5.0); SODIUM 138 MMOL/L (135-145)
[2018-04-05] MEDS: inSUlin ASPART (NovoLOG) 1 UNIT/0.01 ML (CHARGE PER UNIT) SC SCH ×4 (04:15→15:37)
[2018-04-05] MEDS: methylPREDNISolone 40 MG/ML (Solu-MEDROL) VIAL IV SCH ×3 (05:46→20:48)
[2018-04-05] MEDS: MEROPENEM 500 MG in WATER (STERILE) FOR INJECTION 10 ML IV SCH ×3 (05:46→20:47)
--- NOTE | 2018-04-05 06:50 | Pulmonary Progress Note ---
Subjective Time Seen by a Provider: 06:52 Subjective/Events-last exam Pt is still having ICU psychosis. His BS have been >300. Sepsis Event Evaluation Height, Weight, BMI Height: 5'6.00" Weight: 162lbs. 9.0oz. 73.629749jw; 27.4 BMI Method: Exam Exam Vital Signs Date Time Temp Pulse Resp B/P (MAP) Pulse Ox O2 Delivery O2 Flow Rate FiO2 04/05/18 06:17 97 Nasal Cannula 2.00 04/05/18 06:08 100 Nasal Cannula 2.00 04/05/18 06:00 73 26 105/47 (66) 98 Vapotherm 30.00 25.00 04/05/18 05:00 80 27 120/45 (70) 96 Vapotherm 30.00 25.00 04/05/18 04:00 78 26 117/53 (74) 96 Vapotherm 30.00 25.00 04/05/18 03:35 95 Vapotherm 25.00 30 04/05/18 03:30 98.4 Vapotherm 30.00 25.00 04/05/18 03:00 79 21 118/45 (69) 97 Vapotherm 30.00 25.00 04/05/18 02:04 95 Vapotherm 25.00 30 04/05/18 02:00 85 26 136/55 (82) 90 Vapotherm 30.00 25.00 04/05/18 01:00 80 04/05/18 01:00 80 28 113/49 (70) 95 Vapotherm 30.00 25.00 04/05/18 00:18 78 23 97 Vapotherm 30.00 25.00 04/05/18 00:10 Vapotherm 30.00 25.00 04/05/18 00:00 83 10 138/64 (88) 100 NIV Bilevel 30.00 04/04/18 23:35 98.3 80 17 132/57 (82) 100 NIV Bilevel 30.00 04/04/18 23:25 98 NIV Bilevel 30 04/04/18 23:00 87 34 150/65 (93) 94 NIV Bilevel 30.00 04/04/18 22:10 74 32 99 30.00 04/04/18 22:10 NIV Bilevel 30.00 04/04/18 22:00 76 28 115/54 (74) 97 Vapotherm 30.00 25.00 04/04/18 21:00 98 33 128/62 (84) 96 Vapotherm 30.00 25.00 04/04/18 20:00 109 32 131/52 (78) 97 Vapotherm 30.00 25.00 04/04/18 19:40 98 Vapotherm 25.00 30 04/04/18 19:35 98.0 113 27 135/63 (87) 95 Vapotherm 30.00 25.00 04/04/18 19:00 101 04/04/18 18:41 97 Vapotherm 25.00 30 04/04/18 18:00 94 34 138/61 (86) 98 Vapotherm 35.00 25.00 04/04/18 17:00 96 24 140/61 (87) 98 Vapotherm 35.00 25.00 04/04/18 16:00 93 NIV Bilevel 35 04/04/18 16:00 99 31 127/51 (76) 93 Vapotherm 35.00 25.00 04/04/18 15:00 88 23 129/57 (81) 87 Vapotherm 35.00 25.00 04/04/18 14:53 100 Vapotherm 25.00 35 04/04/18 14:32 96.8 04/04/18 14:00 84 29 109/71 (84) 99 Vapotherm 35.00 25.00 04/04/18 13:11 84 04/04/18 13:00 97.7 04/04/18 13:00 81 27 122/112 (115) 99 Vapotherm 35.00 25.00 04/04/18 12:00 74 58 130/59 (82) 100 Vapotherm 35.00 25.00 04/04/18 12:00 93 NIV Bilevel 35 04/04/18 11:00 75 33 104/61 (75) 98 Vapotherm 35.00 25.00 04/04/18 10:59 97 Vapotherm 25.00 35 04/04/18 10:00 70 26 98 Vapotherm 35.00 25.00 04/04/18 09:00 70 24 Vapotherm 35.00 25.00 04/04/18 08:00 98.0 04/04/18 08:00 72 23 131/63 (85) 86 Vapotherm 35.00 25.00 2/24/19 08:00 93 NIV Bilevel 35 04/04/18 07:05 71 04/04/18 07:00 61 21 117/56 (76) 98 Vapotherm 35.00 25.00 04/04/18 06:59 99 Vapotherm 25.00 35 I & O 04/05/18 07:00 Intake Total 1390 ml Output Total 2450 ml Balance -1060 ml Height & Weight Height: 5'6.00" Weight: 162lbs. 9.0oz. 73.693650dz; 27.4 BMI Method: General Appearance: Anxious, Chronically ill, Mild Distress HEENT: PERRL/EOMI, Normal ENT Inspection; No Scleral Icterus (L), No Scleral Icterus (R) Respiratory: Crackles, Decreased Breath Sounds, Rales; No Wheezing Cardiovascular: Regular Rate, Rhythm, No JVD, No Murmur Capillary Refill: Less Than 3 Seconds Gastrointestinal: non tender, soft Extremity: No Calf Tenderness, Pedal Edema Neurologic/Psychiatric: Alert (alert but unable to provide detail when inquired about his status or any concerns), Disoriented, Other (severe weakness of all extremities) Skin: Normal Color, Warm/Dry Lymphatic: No Adenopathy Results Lab Laboratory Tests 04/04/18 03:05 04/05/18 03:30 Assessment/Plan Assessment/Plan Acute respiratory failure s/p bronchoscopy - titrate vapotherm to NC - Continue Solumedrol but decrease to Q12 -Lasix 40mg daily Acute bilateral pneumonia with hypoxemia with severe sepsis -Continue Merrem /Eraxis Malnutrition -Encourage diet -Ensures TID Hyperglycemia -increase 70/30 -Decrease solumedrol to Q12 Debility -PT/OT -up [facility] psychosis - Risperdal CYN - improved -monitor Hyperglycemia -Monitor Anemia - monitor Hyponatremia - monitor VERO JON WILLIAM DO Apr 05, 2018 06:50
[2018-04-05] MEDS ORDERED: inSUlin Protamine/ASPart 70/30 1 UNIT/0.01 ML DOSE SC SCH ×2 (08:00)
--- NOTE | 2018-04-05 08:03 | Diagnostic Imaging Report ---
CLINICAL INDICATION: Patient with dyspnea. EXAM: Portable chest x-ray upright view. COMPARISONS: Chest x-ray dated 04/04/2018. FINDINGS: There is slight progression of bilateral lung infiltrates seen with the bilateral midlung romero affected the most. Slight low lung volumes are seen. There is no pleural effusion or pneumothorax. Pulmonary vasculature and cardiac silhouette is obscured by lung infiltrates. There are degenerative spurs seen throughout the spine again noted. IMPRESSION: 1: There is slight progression of bilateral lung infiltrates with slight decreased lung aeration compared to the prior study. 2: The remainder of this exam shows no significant interval change compared to the prior study of comparison. Dictated by: Dictated on workstation # [id number]
--- NOTE | 2018-04-05 08:14 | Cardiology Progress Note ---
Subjective Date Seen by Provider: Apr 05, 2018 Time Seen by Provider: 08:12 Subjective/Events-last exam Patient is in bed, still having shortness of breath, cough, no chest pain Review of Systems General: No Chills, No Night Sweats; Fatigue, Malaise; No Appetite, No Other Pulmonary: Dyspnea, Cough; No Pleuritic Chest Pain, No Other Objective-Cardiology Exam Last Set of Vital Signs Vital Signs 04/05/18 04/05/18 04/05/18 04/05/18 03:30 03:35 06:00 06:17 Temp 98.4 Pulse 73 Resp 26 B/P (MAP) 105/47 (66) Pulse Ox 97 O2 Delivery Nasal Cannula O2 Flow Rate 2.00 FiO2 30 Capillary Refill : Less Than 3 Seconds I&O Intake and Output 04/05/18 00:00 Intake Total 1485 ml Output Total 2550 ml Balance -1065 ml Intake Oral 1345 ml IV Total 140 ml Output Urine Total 2550 ml General: Alert, Oriented X3, Cooperative, Mild Distress HEENT: PERRLA Neck: Supple, No Thyromegaly Lungs: Normal Air Movement, Other (bilateral rhonchi) Heart: Regular Rate, Normal S1, Normal S2, No Murmurs Abdomen: Normal Bowel Sounds, Soft, No Tenderness, No Hepatosplenomegaly, No Masses, Other (mild edema) Extremities: No Clubbing, No Cyanosis, Normal Pulses, No Tenderness/Swelling Skin: No Rashes, No Breakdown, No Significant Lesion Neuro: Normal Tone, Sensation Intact Psych/Mental Status: Mood NL Results Lab Laboratory Tests 04/05/18 03:30 A/P-Cardiology Admission Diagnosis Pneumonia Sinus tachycardia Coronary artery disease Hypertension Hyperlipidemia Assessment/Plan Status post acute respiratory failure, currently off the ventilator and improving slowly, antibiotics were changed to meropenem. Managed by Dr. Burrows Pneumonia, slow improvement, still on antibiotics. Coronary artery disease, had a cardiac catheterization 2012 resulted with 2 stents deployment 2.515 mm to the right coronary artery resolute and 2.2522 mm resolute to the LAD, continue to monitor at this time Echocardiogram done on March 25, 2018 showing normal left ventricular size with ejection fraction 65 percent, pulmonary hypertension with PA pressure 45 mmHg Hypertension, oral antihypertensive medication were restarted. Continue to monitor Hyperlipidemia, monitor lipids Diabetes mellitus, followed and managed by primary care physician Obstructive sleep apnea, using C Pap at night, currently in respiratory failure Obesity History of carotid stenosis, last ultrasound was done in September 2017 showing mild disease on the right and moderate on the left. Continue to monitor Clinical Quality Measures DVT/VTE Risk/Contraindication: Risk Factor Score Per Nursin RFS Level Per Nursing on Admit: 2=Moderate ANDREINA LARA MD Apr 05, 2018 08:14
--- NOTE | 2018-04-05 08:27 | Progress Note-Hospitalist ---
Subjective HPI/CC On Admission Date Seen by Provider: Apr 05, 2018 Time Seen by Provider: 08:22 CC: SOB, chest tightness HPI: This is 73 yo white male w/ a PMH of CAD s/p stents (x2 in 2012), type 2 DM , HTN, HLD, and VERO on CPAP who was a direct admit from Dr. Burrows's office for PNA on 03/24/18. The patient was complaining of one week of worsening SOB and chest tightness, but denied CP or other URI symptoms. A stat CT showed bilateral lower lobe PNA and the pt was hypoxemic, so he was admitted for IV abx and oxygen support. Despite the hx of VERO, the pt does not use oxygen at home and does not have COPD. He quit smoking in 1972. While in the ICU, the pt rapidly deteriorated into severe sepsis w/ FAIZA and ARDS within 24 hours of admission. His white count peaked at 30,000. He was intubated and IV vanco/zosyn /eraxis were started. Bronchoscopy was performed, cultures pending, preliminary showed no growth. Viral PNA serology panel was negative, as was Legionella urinary antigen and S. pneumo antigen. Cardiology was consulted for hx of CAD. Troponins were negative and echocardiogram showed normal ejection fraction but with pulmonary HTN. The patient's oxygenation slowly improved and he was extubated on the afternoon of 03/29/18. Over the last two days the patient's mental status never fully returned to baseline and [place] [address] to [place] [address]. He complains of distal upper extremity weakness and SOB. His pulse ox was 93% on 5L vapotherm yesterday but he is requiring 9L today. He is requiring BiPAP at night. Subjective/Events-last exam Pt reports feeling better. No complaints. Breathing improved. at bedside. NO questions. Attempt to transfer out of ICU today. Objective Exam Vital Signs Vital Signs Date Time Temp Pulse Resp B/P (MAP) Pulse Ox O2 Delivery O2 Flow Rate FiO2 04/05/18 13:04 101 04/05/18 13:00 33 141/73 (95) 92 Nasal Cannula 2.00 04/05/18 12:00 97.9 04/05/18 03:35 30 Capillary Refill : Less Than 3 Seconds General Appearance: No Apparent Distress, Chronically ill Respiratory: No Accessory Muscle Use, No Respiratory Distress, Decreased Breath Sounds; No Wheezing Cardiovascular: Regular Rate, Rhythm, No JVD, No Murmur Gastrointestinal: Normal Bowel Sounds, Non Tender, Soft Back: Normal Inspection Extremity: No Calf Tenderness, Pedal Edema Neurologic/Psychiatric: Alert, Normal Mood/Affect Skin: Warm/Dry, Other (small abrasion to left cheek) Lymphatic: No Adenopathy Results/Procedures Lab Laboratory Tests 04/05/18 03:30 Patient resulted labs reviewed. Imaging: Reviewed Imaging Films, Reviewed Imaging Report Assessment/Plan Assessment and Plan Assess & Plan/Chief Complaint Acute Respiratory Failure Critical Care Critically Ill Patient Diagnosis/Problems Diagnosis/Problems (1) Acute respiratory failure Status: Acute Assessment & Plan: Extubated last week Doing well on nasal cannula currently Pulm consulted, appreciate recs Qualifiers: Respiratory failure complication: hypoxia Qualified Codes: J96.01 - Acute respiratory failure with hypoxia (2) Severe sepsis Status: Resolved Assessment & Plan: Continue Merrem/Eraxis Blood cultures done and NGTD RVP negative Resolution Date/Time: 03/31/18 @ 12:46 (3) Pneumonia Status: Acute Assessment & Plan: Diffuse bilateral pneumonia on CT chest on presentation Continue Merrem/Eraxis Blood cultures NGTD RVP negative Urine strep pneumo and legionella negative Qualifiers: Pneumonia type: due to unspecified organism Laterality: bilateral Lung location: lower lobe of lung Qualified Codes: J18.1 - Lobar pneumonia, unspecified organism (4) FAIZA (acute kidney injury) Status: Resolved Resolution Date/Time: 03/27/18 @ 10:02 (5) Insulin dependent diabetes mellitus Status: Chronic Assessment & Plan: Blood sugars up yesterday and insulin increased Improved today Steroids decreased (6) Essential (primary) hypertension Status: Chronic Assessment & Plan: Well controlled on current meds (7) CAD (coronary artery disease) Status: Chronic Assessment & Plan: Cardiology consulted, appreciate recs Qualifiers: Coronary Disease-Associated Artery/Lesion type: [place] artery [place] vs. transplanted heart: [place] heart Associated angina: without angina Qualified Codes: I25.10 - Atherosclerotic heart disease of [place] coronary artery without angina pectoris Clinical Quality Measures DVT/VTE Risk/Contraindication: Risk Factor Score Per Nursin RFS Level Per Nursing on Admit: 2=Moderate DHRUV MEEHAN MD Apr 05, 2018 08:27
[2018-04-05] MEDS: LACTOBACILLUS ACIDOPHILUS (PROBIOTIC) CAPSULE PO SCH ×3 (08:44→17:39)
[2018-04-05] MEDS: KCL 20 MEQ TAB (K-DUR) PO SCH (08:44)
[2018-04-05] MEDS: inSUlin Protamine/ASPart 70/30 1 UNIT/0.01 ML DOSE SC SCH ×2 (08:45→17:40)
[2018-04-05] MEDS: LORATADINE (CLARITIN) 10 MG TAB PO SCH (08:46)
[2018-04-05] MEDS: FUROSEMIDE 40 MG/4 ML INJ (LASIX) IVP SCH (08:46)
[2018-04-05] MEDS: ASPIRIN E.C. 81 MG (ECOTRIN) TAB PO SCH (08:47)
[2018-04-05] MEDS: risperiDONE 0.25 MG (RisperDAL) TAB PO SCH (08:47)
[2018-04-05] MEDS: BENZONATATE 100 MG (TESSALON) CAPSULE PO SCH ×3 (08:47→20:47)
[2018-04-05] MEDS: PANTOPRAZOLE 40 MG (PROTONIX) TAB PO SCH (08:47)
[2018-04-05] MEDS: meTOprolol TARTRATE 25 MG (LOPRESSOR) TABLET PO SCH ×2 (08:47→20:47)
[2018-04-05] MEDS: lisINopril 20 MG (PRINIVIL) TABLET PO SCH (08:49)
[2018-04-05] MEDS: ANIDULAFUNGIN INJECTION 100 MG in NS (IVPB) 100 ML IV SCH (08:55)
--- NOTE | 2018-04-05 10:46 | Physical Therapy Daily Note ---
PT Daily Note-Current Subjective AGrees to PT. reports he has had intermittent confusion but seems a bit more confused this morning. Pt able to answer all questions and follow cues. Mental Status Patient Orientation: Person, Confused, Place, Time, Situation Attachments: Oxygen, Concepcion Catheter, IV Transfers Therapy Code Descriptions/Definitions Functional [place] Measure: 0=Not Assessed/NA 4=Minimal Assistance 1=Total Assistance 5=Supervision or Setup 2=Maximal Assistance 6=Modified [place] 3=Moderate Assistance 7=Complete [place] Therapy Quality Codes: 6 Independent with activity with or without an assistive device 5 Patient requires set up or clean up by helper. Patient completes activity by themselves 4 Supervision or touching assist (CGA). [place] provide cues , steadying assist 3 The helper provides less than half the effort to complete the activity 2 The helper provides more than half the effort to complete the activity 1 Dependent. The helper does all the effort to complete an activity 7 Patient refused to complete or attempt activity 9 The patient did not perform the activity before the current illness or injury 88 Not attempted due to Medical conditions or safety concerns Sit to stand x 3-4 reps with CGA and skilled cues for sequencing and safety. Weight Bearing Right Lower Extremity: Right Full Weight Bearing Left Lower Extremity: Left Full Weight Bearing Exercises Seated Therapy Exercises: Ankle pumps, Long arc quads, Hip flexion Seated Reps: 15 Standing: Heel/toe raises, Marching Standing Reps: 10 Treatments Ther ex to promote LE strength and mobility as well as to increase functional activity tolerance. Monitored oxygen sats throughout and encouraged deep breathing; sats ranged from 81- 90 percent. Assessment Current Status: Good Progress Sats tend to dip lower with standing actiivty and return upon sitting. Pt slightly impulsive today but follows cues and is very pleasnat. Working on functional strength and activity tolerance to promote transfers and gait progression. PT Short Term Goals Short Term Goals Time Frame: Apr 06, 2018 Transfers (B,C,W/C) (FIM): 4 Gait (FIM): 1 Distance (FIM): 1=up to 49 ft Gait Distance Comment: 20' Gait Level of Assist: 4 Gait Assistive Device: FWW PT Stock Grader Goals Stock Grader Goals PT Custodial Goals Time Frame: Apr 27, 2018 Transfers (B,C,W/C) (FIM): 5 Gait (FIM): 4 Gait distance (FIM): 3=150 ft Distance: 150' Gait Level of Assist: 4 Gait Assistive Device: FWW PT Plan Problem List Problem List: Activity Tolerance, Functional Strength, Safety, Balance, Gait, Transfer, Bed Mobility Treatment/Plan Treatment Plan: Continue Plan of Care Treatment Plan: Bed Mobility, Education, Functional Activity Patsy, Functional Strength, Gait, Safety, Therapeutic Exercise, Transfers Treatment Duration: Apr 27, 2018 Frequency: 6 times per week Estimated Hrs Per Day: .5 hour per day Patient and/or Family Agrees t: Yes Safety Risks/Education Patient Education: Safety Issues Teaching Recipient: Patient Teaching Methods: Discussion Response to Teaching: Reinforcement Needed Discharge Recommendations Therapy D/C Recommendations: Acute Rehab Time/GCodes Time In: 955 Time Out: 1026 Total Billed Treatment Time: 31 Total Billed Treatment visit ex 31 MINDY LANDERS PT Apr 05, 2018 10:46
--- NOTE | 2018-04-05 11:30 | NUR ---
Pastoral care visit with pts , offered support and prayer.
--- NOTE | 2018-04-05 12:57 | Occupational Ther Daily Note ---
OT Current Status-Daily Note Subjective Pt alert, sitting in recliner. present in room. Pt agrees to therapy. Pt talking quietly and somewhat confused, asking for pocket knife. Mental Status/Objective Patient Orientation: Person Therapy Code Descriptions/Definitions Functional [place] Measure: 0=Not Assessed/NA 4=Minimal Assistance 1=Total Assistance 5=Supervision or Setup 2=Maximal Assistance 6=Modified [place] 3=Moderate Assistance 7=Complete [place] Attachments: Concepcion Catheter, IV, Oxygen, Telemetry ADL-Treatment Pt and agreed to sponge bath. BELLO handed wash cloths to complete upper body bathing. Pt able to reach upper body and lightly wash areas, O2 sats stayed in the 90's. CGA to stand and cleanse buttocks and eben area, inefficiently, assist to cleanse thoroughly. O2 sats dropped to 83, sat completed deep breathing and returned to 90's. Assist to complete lower body bathing. Pt had difficulty following verbal directions and would reach or look for items that weren't there. With minimal redirection and reorientation, pt was able to stay focused on task. After therapy, pt sitting in recliner, nrsg present in room. Call light/phone in reach. All needs met in room. Bathing (FIM): 4 Bathing Location: L Arm, R Arm, L Upper Leg, R Upper Leg, Chest, Abdomen, Buttocks, Perineal Area OT Short Term Goals Short Term Goals Time Frame: Apr 06, 2018 Eating(FIM): 5 Grooming(FIM): 5 Upper Body Dressing(FIM): 4 Transfers (B,C,W/C) (FIM): 4 Additional Short Term Goals: 1-Demonstrate ADL Tasks, 2-Verbalize Understanding , 3-ImproveStrength/Patsy 1=Demonstrate adherence to instructed precautions during ADL tasks. 2=Patient will verbalize/demonstrate understanding of assistive devices/ modifications for ADL. 3=Patient will improve strength/tolerance for activity to enable patient to perform ADL's. OT [place] Supervisor Goals Alf Goals Time Frame: Apr 20, 2018 Eating (FIM): 6 Grooming(FIM): 6 Upper Body Dressing(FIM): 5 Lower Body Dressing(FIM): 5 Toileting(FIM): 5 Toilet/Commode Transfer(FIM): 5 Additional Goals: 1-Demonstrate ADL Tasks, 2-Verbalize Understanding, 3- ImproveStrength/Patsy 1=Demonstrate adherence to instructed precautions during ADL tasks. 2=Patient will verbalize/demonstrate understanding of assistive devices/ modifications for ADL. 3=Patient will improve strength/tolerance for activity to enable patient to perform ADL's. OT Education/Plan Problem List/Assessment Assessment: Decreased Activ Tolerance, Decreased UE Strength, Impaired Cognition, Impaired Self-Care Skills, Restricted Funct UE ROM Pt demonstrates decreased mobility, strength, activity tolerance, and ADL functioning. Pt to benefit from skilled OT intervention for ADL training, transfers, strengthening, and safety education to increase level of independence and allow safe discharge plan. Discharge Recommendations Plan/Recommendations: Continue POC Treatment Plan/Plan of Care Patient would benefit from OT for education, treatment and training to promote independence in ADL's, mobility, safety and/or upper extremity function for ADL' s. Plan of Care: ADL Retraining, Functional Mobility, UE Funct Exercise/Act Treatment Duration: Apr 20, 2018 Frequency: 5 times per week Estimated Hrs Per Day: .25 hour per day Rehab Potential: Fair Time/GCodes Start Time: 11:40 Stop Time: 11:50 Total Time Billed (hr/min): 30 Billed Treatment Time 1 visit-ADL 2 (30 min) MINDY VILLALOBOS Apr 05, 2018 12:57
--- NOTE | 2018-04-05 14:23 | NUR ---
Inpatient rehab evaluation Updated clinical information has been faxed to insurance company for review. Patient can admit to the inpatient rehab unit once authorized by insurance. Will continue to follow. Thank you for the referral.
[2018-04-05] MEDS: ENOXAPARIN 40 MG/0.4 ML (LOVENOX) SYR SC SCH (15:03)
[2018-04-05] MEDS: ATORVASTATIN 20 MG (LIPITOR) TABLET PO SCH (17:39)
[2018-04-05] MEDS: morphine INJ 4 MG/ML 1 ML (VIAL/SYRINGE) IVP PRN (20:47)
[2018-04-05] MEDS: risperiDONE 1 MG (RisperDAL) TAB PO SCH (20:47)
[2018-04-06] VITALS (7 sets, daily range): BP systolic 105–137; BP diastolic 49–66
[2018-04-06] MEDS: guaiFENesin/CODEINE (ROBITUSSIN AC) 10ML UDC PO PRN (01:35)
[2018-04-06] MEDS: morphine INJ 4 MG/ML 1 ML (VIAL/SYRINGE) IVP PRN (01:35)
[2018-04-06] MEDS: inSUlin ASPART (NovoLOG) 1 UNIT/0.01 ML (CHARGE PER UNIT) SC SCH ×5 (01:35→21:42)
[2018-04-06] MEDS: aCETylcysteine 20% (MUCOMYST) 30ML SOLN VIAL PO SCH ×6 (02:50→22:49)
[2018-04-06] MEDS: RT-ALBUTEROL/IPRATROPIUM 3 ML (DUONEB) VIAL INH SCH ×6 (02:50→22:49)
[2018-04-06 03:58] LABS: BASOPHILS % (AUTO) 0 % (0-10); EOSINOPHILS % (AUTO) 0 % (0-10); HEMATOCRIT 28 % (40-54); HEMOGLOBIN 9.1 G/DL (13.3-17.7); LYMPHOCYTES # (AUTO) 1.8 X 10^3 (1.0-4.0); LYMPHOCYTES % (AUTO) 9 % (12-44); MEAN CORPUSCULAR HEMOGLOBIN 30 PG (25-34); MEAN CORPUSCULAR HGB CONC 33 G/DL (32-36); MEAN CORPUSCULAR VOLUME 91 FL (80-99); MONOCYTES # (AUTO) 0.6 X 10^3 (0.0-1.0); MONOCYTES % (AUTO) 3 % (0-12); NEUTROPHILS # (AUTO) 16.9 X 10^3 (1.8-7.8); NEUTROPHILS % (AUTO) 88 % (42-75); PLATELET COUNT 371 10^3/uL (130-400); RED CELL DISTRIBUTION WIDTH 14.6 % (10.0-14.5); WHITE BLOOD COUNT 19.3 10^3/uL (4.3-11.0)
[2018-04-06 04:09] LABS: BUN/CREATININE RATIO 37; CALCIUM 8.7 MG/DL (8.5-10.1); CARBON DIOXIDE 26 MMOL/L (21-32); CHLORIDE 107 MMOL/L (98-107); CREATININE SERUM 0.99 MG/DL (0.60-1.30); GFR ESTIMATED > 60; GLUCOSE 153 MG/DL (70-105); MAGNESIUM 2.1 MG/DL (1.8-2.4); PHOSPHORUS 2.3 MG/DL (2.3-4.7); POTASSIUM 4.3 MMOL/L (3.6-5.0); SODIUM 141 MMOL/L (135-145)
--- NOTE | 2018-04-06 04:55 | Pulmonary Progress Note ---
Subjective Time Seen by a Provider: 04:55 Subjective/Events-last exam Pt is doing better however still complaining of SOB. Sepsis Event Evaluation Height, Weight, BMI Height: 5'6.00" Weight: 162lbs. 9.0oz. 73.546052cx; 27.4 BMI Method: Exam Exam Vital Signs Date Time Temp Pulse Resp B/P (MAP) Pulse Ox O2 Delivery O2 Flow Rate FiO2 04/06/18 04:00 99 Room Air 2.00 04/06/18 04:00 61 20 105/49 (67) 100 Nasal Cannula 1.00 04/06/18 03:06 67 22 100 Nasal Cannula 1.00 04/06/18 02:50 100 Nasal Cannula 2.00 04/06/18 01:00 71 04/06/18 00:00 77 32 120/66 (84) 97 Nasal Cannula 2.00 04/06/18 00:00 99 Room Air 2.00 04/05/18 22:19 99 Nasal Cannula 2.00 04/05/18 20:00 99 Room Air 2.00 04/05/18 20:00 77 22 145/72 (96) 100 Nasal Cannula 2.00 04/05/18 19:00 92 04/05/18 18:00 81 27 115/99 (104) 97 Nasal Cannula 2.00 04/05/18 17:00 96 26 139/61 (87) 98 Nasal Cannula 2.00 04/05/18 16:00 100 Room Air 2.00 04/05/18 16:00 98.6 04/05/18 16:00 84 22 115/51 (72) 99 Nasal Cannula 2.00 04/05/18 15:00 89 25 128/66 (86) 100 Nasal Cannula 2.00 04/05/18 14:49 100 Nasal Cannula 2.00 04/05/18 14:00 102 33 146/70 (95) Nasal Cannula 2.00 04/05/18 13:04 101 04/05/18 13:00 89 33 141/73 (95) 92 Nasal Cannula 2.00 04/05/18 12:00 92 32 123/55 (77) 97 Nasal Cannula 2.00 04/05/18 12:00 97.9 04/05/18 12:00 100 Room Air 2.00 04/05/18 11:08 97 Nasal Cannula 2.00 04/05/18 10:00 105 28 80/60 (67) Nasal Cannula 2.00 04/05/18 09:00 98.2 123 38 100 Nasal Cannula 2.00 04/05/18 08:00 110 24 117/81 (93) 95 Nasal Cannula 2.00 04/05/18 08:00 100 Nasal Cannula 2.00 04/05/18 07:02 105 04/05/18 06:17 97 Nasal Cannula 2.00 04/05/18 06:08 100 Nasal Cannula 2.00 04/05/18 06:00 73 26 105/47 (66) 98 Vapotherm 30.00 25.00 04/05/18 05:00 80 27 120/45 (70) 96 Vapotherm 30.00 25.00 I & O 04/06/18 07:00 Intake Total 1200 ml Output Total 1800 ml Balance -600 ml Height & Weight Height: 5'6.00" Weight: 162lbs. 9.0oz. 73.534013ly; 27.4 BMI Method: General Appearance: No Apparent Distress, Chronically ill Respiratory: No Accessory Muscle Use, No Respiratory Distress, Decreased Breath Sounds; No Wheezing Cardiovascular: Regular Rate, Rhythm, No JVD, No Murmur Capillary Refill: Less Than 3 Seconds Gastrointestinal: non tender, soft Extremity: No Calf Tenderness, Pedal Edema Neurologic/Psychiatric: Alert, Normal Mood/Affect Skin: Warm/Dry, Other (small abrasion to left cheek) Lymphatic: No Adenopathy Results Lab Laboratory Tests 04/05/18 03:30 04/06/18 03:30 Assessment/Plan Assessment/Plan Acute respiratory failure s/p bronchoscopy -Pt is now on NC -Solumedrol decrease to Q12 -Lasix 40mg daily Acute bilateral pneumonia with hypoxemia with severe sepsis -Continue Merrem /Eraxis Malnutrition -Encourage diet -Ensures TID Hyperglycemia -Decrease solumedrol to Q12 Debility -PT/OT -up to chair [facility] ICU psychosis - Risperdal CYN - improved -monitor Hyperglycemia -Monitor Anemia - monitor Hyponatremia - monitor VERO JON WILLIAM DO Apr 06, 2018 04:54
[2018-04-06] MEDS: MEROPENEM 500 MG in WATER (STERILE) FOR INJECTION 10 ML IV SCH (06:39)
--- NOTE | 2018-04-06 07:23 | Discharge Summary-Hospitalist ---
Diagnosis/Chief Complaint Date of Admission Mar 25, 2018 at 13:15 Date of Discharge Discharge Date: Apr 06, 2018 Admission Diagnosis CAP Discharge Diagnosis (1) Acute respiratory failure Status: Acute Assessment & Plan: Extubated last week Doing well on nasal cannula currently Pulm consulted, appreciate recs (2) Severe sepsis Status: Resolved Assessment & Plan: Continue Merrem/Eraxis Blood cultures done and NGTD RVP negative (3) Pneumonia Status: Acute Assessment & Plan: Diffuse bilateral pneumonia on CT chest on presentation Continue Merrem/Eraxis Blood cultures NGTD RVP negative Urine strep pneumo and legionella negative (4) FAIZA (acute kidney injury) Status: Resolved (5) Insulin dependent diabetes mellitus Status: Chronic Assessment & Plan: Blood sugars up yesterday and insulin increased Improved today Steroids decreased (6) Essential (primary) hypertension Status: Chronic Assessment & Plan: Well controlled on current meds (7) CAD (coronary artery disease) Status: Chronic Assessment & Plan: Cardiology consulted, appreciate recs Discharge Summary Discharge Physical Exam Allergies: Coded Allergies: No Known Drug Allergies (Unverified , 04/05/18) Vitals & I&Os Vital Signs Date Time Temp Pulse Resp B/P (MAP) Pulse Ox O2 Delivery O2 Flow Rate FiO2 04/06/18 13:36 96 Nasal Cannula 1.00 04/06/18 13:12 79 04/06/18 12:23 97.1 20 131/56 (81) 04/05/18 03:35 30 General Appearance: No Apparent Distress, Chronically ill Respiratory: No Accessory Muscle Use, No Respiratory Distress, Decreased Breath Sounds; No Wheezing Cardiovascular: Regular Rate, Rhythm, No JVD, No Murmur Gastrointestinal: Normal Bowel Sounds, Non Tender, Soft Extremity: No Calf Tenderness, Pedal Edema Skin: Warm/Dry, Other (small abrasion to left cheek) Neurologic/Psychiatric: Alert, Normal Mood/Affect Hospital Course Labs (last 24 hrs) Laboratory Tests 04/05/18 17:33: Glucometer 214H 04/05/18 20:39: Glucometer 148H 04/06/18 03:30: White Blood Count 19.3H, Red Blood Count 3.02L, Hemoglobin 9.1L, Hematocrit 28L , Mean Corpuscular Volume 91, Mean Corpuscular Hemoglobin 30, Mean Corpuscular Hemoglobin Concent 33, Red Cell Distribution Width 14.6H, Platelet Count 371, Mean Platelet Volume 9.0, Neutrophils (%) (Auto) 88H, Lymphocytes (%) (Auto) 9L , Monocytes (%) (Auto) 3, Eosinophils (%) (Auto) 0, Basophils (%) (Auto) 0, Neutrophils # (Auto) 16.9H, Lymphocytes # (Auto) 1.8, Monocytes # (Auto) 0.6, Eosinophils # (Auto) 0.0, Basophils # (Auto) 0.0, Sodium Level 141, Potassium Level 4.3, Chloride Level 107, Carbon Dioxide Level 26, Anion Gap 8, Blood Urea Nitrogen 37H, Creatinine 0.99, Estimat Glomerular Filtration Rate > 60, BUN/ Creatinine Ratio 37, Glucose Level 153H, Calcium Level 8.7, Phosphorus Level 2.3 , Magnesium Level 2.1 04/06/18 11:35: Glucometer 277H Microbiology 03/24/18 Blood Culture - Final, Complete No growth 04/03/18 C. difficile GDH Antigen & Toxins - Final, Complete 03/26/18 Gram Stain - Final, Resulted 03/26/18 Bronchial Culture - Final, Resulted No growth 03/26/18 Fungal Culture 1 - Preliminary, Resulted Patient resulted labs reviewed. Pending Labs Laboratory Tests 04/06/18 11:35: Glucometer 277 Imaging: Reviewed Imaging Films, Reviewed Imaging Report Discharge Home Medications: Active Scripts Active Reported Fish Oil 1,000 mg Capsule ([place] 3 Polyunsat Fatty Acids) 1,000 Mg Cap 1,000 Mg PO DAILY Amlodipine Besylate 10 Mg Tablet 10 Mg PO DAILY Metformin HCl 500 Mg Tablet 500 Mg PO 1730 Claritin (Loratadine) 10 Mg Tablet 10 Mg PO DAILY Hydrochlorothiazide 12.5 Mg Capsule 12.5 Mg PO DAILY Novolog Mix 70-30 Flexpen Syrn (Insuln Asp Prt/Insulin Aspart) 300 Units/3 Ml Solution 12 Units SQ 0800,1730 Metoprolol Tartrate 25 Mg Tablet 25 Mg PO 0800,1730 Aspirin EC (Aspirin) 81 Mg Tablet.dr 81 Mg PO DAILY Atorvastatin Calcium 20 Mg Tablet 20 Mg PO 1730 Multivitamins (Multivitamin) 1 Each Tablet 1 Tab PO DAILY Benazepril HCl 20 Mg Tablet 20 Mg PO DAILY Metformin HCl 500 Mg Tablet 1,000 Mg PO DAILY TAKES 2 (500MG) TABLETS Instructions to patient/family Please see electronic discharge instructions given to patient. Clinical Quality Measures DVT/VTE Risk/Contraindication: Risk Factor Score Per Nursin RFS Level Per Nursing on Admit: 2=Moderate Problem Qualifiers (1) Acute respiratory failure: Respiratory failure complication: hypoxia Qualified Codes: J96.01 - Acute respiratory failure with hypoxia (2) Pneumonia: Pneumonia type: due to unspecified organism Laterality: bilateral Lung location: lower lobe of lung Qualified Codes: J18.1 - Lobar pneumonia, unspecified organism (3) CAD (coronary artery disease): Coronary Disease-Associated Artery/Lesion type: [place] artery [place] vs. transplanted heart: [place] heart Associated angina: without angina Qualified Codes: I25.10 - Atherosclerotic heart disease of [place] coronary artery without angina pectoris DHRUV MEEHAN MD Apr 06, 2018 07:23
--- NOTE | 2018-04-06 07:28 | Discharge Inst-Simple/Standard ---
Discharge Inst-Standard Discharge Medications New, Converted or Re-Newed RX: Transmitted to Pharmacy Patient Instructions/Follow Up Plan of Care/Instructions/FU: Please continue to take your medications as written. Activity as Tolerated: Yes Discharge Diet: ADA Diet Return to The Hospital For: Shortness of breath, chest pain, if you feel you are getting worse. DHRUV MEEHAN MD Apr 06, 2018 07:28
--- NOTE | 2018-04-06 08:00 | Diagnostic Imaging Report ---
Indication: Pneumonia. Comparison: 04/05. Findings: 5-lobed infiltrates showed no change, heart size enlarged but unchanged. No apparent pleural fluid. Impression: Bilateral pulmonary opacities and heart size all unchanged. Dictated by: Dictated on workstation # [id number]
--- NOTE | 2018-04-06 08:08 | Cardiology Progress Note ---
Subjective Date Seen by Provider: Apr 06, 2018 Time Seen by Provider: 08:07 Subjective/Events-last exam Patient is in bed, feeling better today, still complaining of fatigue and dyspnea Review of Systems General: No Chills, No Night Sweats; Fatigue, Malaise; No Appetite, No Other HEENT: No Head Aches, No Visual Changes, No Eye Pain, No Ear Pain, No Dysphasia , No Sinus Congestion, No Post Nasal Drip, No Sore Throat, No Other Pulmonary: Dyspnea, Cough; No Pleuritic Chest Pain, No Other Cardiovascular: No: Chest Pain, Palpitations, Orthopnea, Paroxysmal Noc. Dyspnea, Edema, Lt Headedness, Other Objective-Cardiology Exam Last Set of Vital Signs Vital Signs 04/05/18 04/06/18 04/06/18 04/06/18 03:35 04:00 04:18 06:58 Temp 98.4 Pulse 77 Resp 19 B/P (MAP) 105/49 (67) Pulse Ox 95 O2 Delivery Nasal Cannula O2 Flow Rate 1.00 FiO2 30 Capillary Refill : Less Than 3 Seconds I&O Intake and Output 04/06/18 00:00 Intake Total 1500 ml Output Total 2000 ml Balance -500 ml Intake Oral 1500 ml Output Urine Total 2000 ml General: Alert, Oriented X3, Cooperative, Mild Distress HEENT: PERRLA Neck: Supple, No Thyromegaly Lungs: Normal Air Movement, Other (bilateral rhonchi) Heart: Regular Rate, Normal S1, Normal S2, No Murmurs Abdomen: Normal Bowel Sounds, Soft, No Tenderness, No Hepatosplenomegaly, No Masses, Other (mild edema) Extremities: No Clubbing, No Cyanosis, Normal Pulses, No Tenderness/Swelling Skin: No Rashes, No Breakdown, No Significant Lesion Neuro: Normal Tone, Sensation Intact Psych/Mental Status: Mood NL Results Lab Laboratory Tests 04/06/18 03:30 A/P-Cardiology Admission Diagnosis Pneumonia Sinus tachycardia Coronary artery disease Hypertension Hyperlipidemia Assessment/Plan Status post acute respiratory failure, currently off the ventilator and improving slowly, antibiotics were changed to meropenem. Managed by Dr. Burrows Pneumonia, slow improvement, still on antibiotics. Coronary artery disease, had a cardiac catheterization 2012 resulted with 2 stents deployment 2.515 mm to the right coronary artery resolute and 2.2522 mm resolute to the LAD, continue to monitor at this time Echocardiogram done on March 25, 2018 showing normal left ventricular size with ejection fraction 65 percent, pulmonary hypertension with PA pressure 45 mmHg Hypertension, oral antihypertensive medication were restarted. Continue to monitor Hyperlipidemia, monitor lipids Diabetes mellitus, followed and managed by primary care physician Obstructive sleep apnea, using C Pap at night, currently in respiratory failure Obesity History of carotid stenosis, last ultrasound was done in September 2017 showing mild disease on the right and moderate on the left. Continue to monitor Clinical Quality Measures DVT/VTE Risk/Contraindication: Risk Factor Score Per Nursin RFS Level Per Nursing on Admit: 2=Moderate ANDREINA LARA MD Apr 06, 2018 08:08
[2018-04-06] MEDS: BENZONATATE 100 MG (TESSALON) CAPSULE PO SCH ×3 (08:37→21:30)
[2018-04-06] MEDS: LORATADINE (CLARITIN) 10 MG TAB PO SCH (08:37)
[2018-04-06] MEDS: ASPIRIN E.C. 81 MG (ECOTRIN) TAB PO SCH (08:37)
[2018-04-06] MEDS: risperiDONE 0.25 MG (RisperDAL) TAB PO SCH ×2 (08:37→21:29)
[2018-04-06] MEDS: inSUlin Protamine/ASPart 70/30 1 UNIT/0.01 ML DOSE SC SCH ×2 (08:38→17:32)
[2018-04-06] MEDS: FUROSEMIDE 40 MG/4 ML INJ (LASIX) IVP SCH (08:38)
[2018-04-06] MEDS: KCL 20 MEQ TAB (K-DUR) PO SCH (08:38)
[2018-04-06] MEDS: lisINopril 20 MG (PRINIVIL) TABLET PO SCH (08:38)
[2018-04-06] MEDS: methylPREDNISolone 40 MG/ML (Solu-MEDROL) VIAL IV SCH ×2 (08:38→21:30)
[2018-04-06] MEDS: LACTOBACILLUS ACIDOPHILUS (PROBIOTIC) CAPSULE PO SCH ×3 (08:38→17:32)
[2018-04-06] MEDS: meTOprolol TARTRATE 25 MG (LOPRESSOR) TABLET PO SCH ×2 (08:38→21:29)
[2018-04-06] MEDS: PANTOPRAZOLE 40 MG (PROTONIX) TAB PO SCH (08:38)
[2018-04-06] MEDS: ANIDULAFUNGIN INJECTION 100 MG in NS (IVPB) 100 ML IV SCH (09:57)
--- NOTE | 2018-04-06 11:15 | Physical Therapy Daily Note ---
PT Daily Note-Current Subjective Patient continues to be very confused and impulsive. RN present secondary to toileting patient and reports O2 has been on 1L, however, SAO2 decreased to 79% with minimal activity. RN increased O2 to 4L. Patient slowly recovered to 93%. Pain Numeric Pain Scale: 0-No Pain Location: No Pain Reported Mental Status Patient Orientation: Confused Attachments: Oxygen (4L) Transfers Therapy Code Descriptions/Definitions Functional [place] Measure: 0=Not Assessed/NA 4=Minimal Assistance 1=Total Assistance 5=Supervision or Setup 2=Maximal Assistance 6=Modified [place] 3=Moderate Assistance 7=Complete [place] Therapy Quality Codes: 6 Independent with activity with or without an assistive device 5 Patient requires set up or clean up by helper. Patient completes activity by themselves 4 Supervision or touching assist (CGA). [place] provide cues , steadying assist 3 The helper provides less than half the effort to complete the activity 2 The helper provides more than half the effort to complete the activity 1 Dependent. The helper does all the effort to complete an activity 7 Patient refused to complete or attempt activity 9 The patient did not perform the activity before the current illness or injury 88 Not attempted due to Medical conditions or safety concerns Transfers (B, C, W/C) (FIM): 4 Scootin Sit to/from Stand: 4 CGA for safety due to patient is impulsive Weight Bearing Right Lower Extremity: Right Full Weight Bearing Left Lower Extremity: Left Full Weight Bearing Gait Training Gait (FIM): 2 Distance (FIM): 8=993-96 ft Distance: 75' Gait Level of Assist: 4 Gait Persons Needed: 1 Gait Assistive Device: FWW CGA for safety and O2 4L in place with SAO2 decreasing to 84% requiring 2 minute recovery to 94% Exercises Seated Therapy Exercises: Ankle pumps, Long arc quads, Hip flexion Seated Reps: 15 Assessment Patient currently tolerates minimal activity due to diminished pulmonary function. PT to increase activity as patient tolerates. PT Short Term Goals Short Term Goals Time Frame: Apr 06, 2018 Transfers (B,C,W/C) (FIM): 4 Gait (FIM): 1 Distance (FIM): 1=up to 49 ft Gait Distance Comment: 20' Gait Level of Assist: 4 Gait Assistive Device: FWW PT Artificial Flowers [place] Goals Halfway Goals PT Halfway Goals Time Frame: Apr 27, 2018 Transfers (B,C,W/C) (FIM): 5 Gait (FIM): 4 Gait distance (FIM): 3=150 ft Distance: 150' Gait Level of Assist: 4 Gait Assistive Device: FWW PT Plan Treatment/Plan Treatment Plan: Continue Plan of Care Treatment Plan: Bed Mobility, Education, Functional Activity Patsy, Functional Strength, Gait, Safety, Therapeutic Exercise, Transfers Treatment Duration: Apr 27, 2018 Frequency: 6 times per week Estimated Hrs Per Day: .5 hour per day Patient and/or Family Agrees t: Yes Time/GCodes Time In: 1013 Time Out: 1030 Total Billed Treatment Time: 17 Total Billed Treatment 1 visit FA 17 min BRI MARTIN PT Apr 06, 2018 11:15
--- NOTE | 2018-04-06 11:35 | Occupational Ther Daily Note ---
OT Current Status-Daily Note Subjective Pt alert, sitting in recliner. Nrsg and respiratory in room. Pt agrees to therapy. C/o discomfort with sitting. Mental Status/Objective Patient Orientation: Person, Place, Time, Situation Therapy Code Descriptions/Definitions Functional [place] Measure: 0=Not Assessed/NA 4=Minimal Assistance 1=Total Assistance 5=Supervision or Setup 2=Maximal Assistance 6=Modified [place] 3=Moderate Assistance 7=Complete [place] Other Treatment CGA in sit <--> stand using FWW. Pt able to stand with close SBA using FWW. Pt was able to wt shift and march in place to decrease discomfort of buttocks. Pt's O2 sats stayed at 92 and above for 8 min then dropped to 84. Pt sat down and completed deep breathing to increase levels, took approximately 1 min to increase above 90*. UE theraband exercise completed 2 sets 10 reps, sat levels staying above 95. Pt's B UE WFL for AROM, good pitching coach and pinch strength noted. Pt began to fall asleep after exercises finished. After therapy, pt sitting in recliner falling asleep. present in room. All needs met in room. OT Short Term Goals Short Term Goals Time Frame: Apr 06, 2018 Eating(FIM): 5 Grooming(FIM): 5 Upper Body Dressing(FIM): 4 Transfers (B,C,W/C) (FIM): 4 Additional Short Term Goals: 1-Demonstrate ADL Tasks, 2-Verbalize Understanding , 3-ImproveStrength/Patsy 1=Demonstrate adherence to instructed precautions during ADL tasks. 2=Patient will verbalize/demonstrate understanding of assistive devices/ modifications for ADL. 3=Patient will improve strength/tolerance for activity to enable patient to perform ADL's. OT Cinder Crane Operator Goals Mcfp Goals Time Frame: Apr 20, 2018 Eating (FIM): 6 Grooming(FIM): 6 Upper Body Dressing(FIM): 5 Lower Body Dressing(FIM): 5 Toileting(FIM): 5 Toilet/Commode Transfer(FIM): 5 Additional Goals: 1-Demonstrate ADL Tasks, 2-Verbalize Understanding, 3- ImproveStrength/Patsy 1=Demonstrate adherence to instructed precautions during ADL tasks. 2=Patient will verbalize/demonstrate understanding of assistive devices/ modifications for ADL. 3=Patient will improve strength/tolerance for activity to enable patient to perform ADL's. OT Education/Plan Problem List/Assessment Pt demonstrates decreased mobility, strength, activity tolerance, and ADL functioning. Pt to benefit from skilled OT intervention for ADL training, transfers, strengthening, and safety education to increase level of independence and allow safe discharge plan. Discharge Recommendations Plan/Recommendations: Continue POC Treatment Plan/Plan of Care Patient would benefit from OT for education, treatment and training to promote independence in ADL's, mobility, safety and/or upper extremity function for ADL' s. Plan of Care: ADL Retraining, Functional Mobility, UE Funct Exercise/Act Treatment Duration: Apr 20, 2018 Frequency: 5 times per week Estimated Hrs Per Day: .25 hour per day Rehab Potential: Fair Time/GCodes Start Time: 10:55 Stop Time: 11:25 Total Time Billed (hr/min): 30 Billed Treatment Time 1 visit-FA 1 (20 min) EX 1 (10 min) MINDY VILLALOBOS Apr 06, 2018 11:35
--- NOTE | 2018-04-06 13:03 | NUR ---
ARU note: EMPLOYEE WELLNESS/FITNESS COORDINATOR sent updated clinical information to TIEN Clark at [facility]. Following MD review, provider has denied auth again with same conclusion as previous determination of recommendation to remain in acute setting. EMPLOYEE WELLNESS/FITNESS COORDINATOR informed CM of ACUTE inpatient rehab capabilities; however, this provided no leverage for overturning decision. EMPLOYEE WELLNESS/FITNESS COORDINATOR informed Dr. Queen of ability to complete peer to peer. Addendum: 04/07/18 at 1009 by NUSRAT ZARAGOZA SS Following insurance denial, Dr. Queen completed peer to peer review with MD of insurance provider. Request was denied, again. Dr. Queen and Tali SB coordinator will attempt to receive authorization for patient to transition to SB unit. EMPLOYEE WELLNESS/FITNESS COORDINATOR met with patient and spouse to discuss barriers that have occurred with insurance provider and the newly developed plan of SB with intent to resubmit to insurance at a later date for ARU placement. Patient and spouse are agreeable to this. ARU will continue to follow.
[2018-04-06] MEDS: ENOXAPARIN 40 MG/0.4 ML (LOVENOX) SYR SC SCH (15:25)
--- NOTE | 2018-04-06 15:45 | NUR ---
Patient transferred to [facility] per accompanied by EDUCATIONAL TECHNICIANEDGARDO HILL. Patient and family notified and understand transfer. Personal belongings with patient. Report given to THIS RN FROM [facility] EDGARDO HILL.
--- NOTE | 2018-04-06 15:45 | NUR ---
PT TRANSFERRED TO ROOM 418 VIA WC ACCOMPANIED BY THIS RN AND PT . PT PERSONAL BELONGINGS SENT TO NEW ROOM WITH PT. REPORT GIVEN TO CHRISTOPHE REYNOSO FOR CONTINUING CARE.
--- NOTE | 2018-04-06 16:07 | Progress Note-Hospitalist ---
Subjective HPI/CC On Admission Date Seen by Provider: Apr 06, 2018 Time Seen by Provider: 07:15 CC: SOB, chest tightness HPI: This is 73 yo white male w/ a PMH of CAD s/p stents (x2 in 2012), type 2 DM , HTN, HLD, and VERO on CPAP who was a direct admit from Dr. Burrows's office for PNA on 03/24/18. The patient was complaining of one week of worsening SOB and chest tightness, but denied CP or other URI symptoms. A stat CT showed bilateral lower lobe PNA and the pt was hypoxemic, so he was admitted for IV abx and oxygen support. Despite the hx of VERO, the pt does not use oxygen at home and does not have COPD. He quit smoking in 1972. While in the ICU, the pt rapidly deteriorated into severe sepsis w/ FAIZA and ARDS within 24 hours of admission. His white count peaked at 30,000. He was intubated and IV vanco/zosyn /eraxis were started. Bronchoscopy was performed, cultures pending, preliminary showed no growth. Viral PNA serology panel was negative, as was Legionella urinary antigen and S. pneumo antigen. Cardiology was consulted for hx of CAD. Troponins were negative and echocardiogram showed normal ejection fraction but with pulmonary HTN. The patient's oxygenation slowly improved and he was extubated on the afternoon of 03/29/18. Over the last two days the patient's mental status never fully returned to baseline and his [place] reb[place] [address] [place] [address]. He complains of distal upper extremity weakness and SOB. His pulse ox was 93% on 5L vapotherm yesterday but he is requiring 9L today. He is requiring BiPAP at night. Subjective/Events-last exam Pt reports feeling better and SOB improving. Attempt to get to IRU today. Objective Exam Vital Signs Vital Signs Date Time Temp Pulse Resp B/P (MAP) Pulse Ox O2 Delivery O2 Flow Rate FiO2 04/06/18 13:36 96 Nasal Cannula 1.00 04/06/18 13:12 79 04/06/18 12:23 97.1 20 131/56 (81) 04/05/18 03:35 30 Capillary Refill : Less Than 3 Seconds General Appearance: No Apparent Distress, Chronically ill Respiratory: No Accessory Muscle Use, No Respiratory Distress, Decreased Breath Sounds; No Wheezing Cardiovascular: Regular Rate, Rhythm, No JVD, No Murmur Gastrointestinal: Normal Bowel Sounds, Non Tender, Soft Back: Normal Inspection Extremity: No Calf Tenderness, Pedal Edema Neurologic/Psychiatric: Alert, Normal Mood/Affect Skin: Warm/Dry, Other (small abrasion to left cheek) Lymphatic: No Adenopathy Results/Procedures Lab Laboratory Tests 04/06/18 03:30 Patient resulted labs reviewed. Imaging: Reviewed Imaging Films, Reviewed Imaging Report Assessment/Plan Assessment and Plan Assess & Plan/Chief Complaint Acute Respiratory Failure Critical Care Critically Ill Patient Diagnosis/Problems Diagnosis/Problems (1) Acute respiratory failure Status: Acute Assessment & Plan: Extubated last week Doing well on nasal cannula currently Pulm consulted, appreciate recs Qualifiers: Respiratory failure complication: hypoxia Qualified Codes: J96.01 - Acute respiratory failure with hypoxia (2) Severe sepsis Status: Resolved Assessment & Plan: Completed 10 days of Eraxis today DC [place] Blood cultures done and NGTD RVP negative Resolution Date/Time: 03/31/18 @ 12:46 (3) Pneumonia Status: Acute Assessment & Plan: Diffuse bilateral pneumonia on CT chest on presentation Blood cultures NGTD RVP negative Urine strep pneumo and legionella negative Qualifiers: Pneumonia type: due to unspecified organism Laterality: bilateral Lung location: lower lobe of lung Qualified Codes: J18.1 - Lobar pneumonia, unspecified organism (4) FAIZA (acute kidney injury) Status: Resolved Assessment & Plan: Back at baseline Resolution Date/Time: 03/27/18 @ 10:02 (5) Insulin dependent diabetes mellitus Status: Chronic Assessment & Plan: Blood sugars under better control today Steroids decreased (6) Essential (primary) hypertension Status: Chronic Assessment & Plan: Well controlled on current meds (7) CAD (coronary artery disease) Status: Chronic Assessment & Plan: Cardiology consulted, appreciate recs Qualifiers: Coronary Disease-Associated Artery/Lesion type: [place] artery [place] vs. transplanted heart: [place] heart Associated angina: without angina Qualified Codes: I25.10 - Atherosclerotic heart disease of [place] coronary artery without angina pectoris (8) Critical illness myopathy Status: Acute Assessment & Plan: Continue to work with PT/OT I think patient would be best served in IRU and consult placed Authorization sent to insurance and IRU admission declined due to IV solu-medrol , lasix, and abx still in use today I called and spoke with Dr Coleman for peer to peer to attempt overturn decision but again IRU admission declined Will attempt again in a few days once off IV medications Consider swing bed Clinical Quality Measures DVT/VTE Risk/Contraindication: Risk Factor Score Per Nursin RFS Level Per Nursing on Admit: 2=Moderate DHRUV MEEHAN MD Apr 06, 2018 16:07
[2018-04-06] MEDS: ATORVASTATIN 20 MG (LIPITOR) TABLET PO SCH (17:32)
[2018-04-06] MEDS: risperiDONE 1 MG (RisperDAL) TAB PO SCH (21:41)
[2018-04-07] MEDS: aCETylcysteine 20% (MUCOMYST) 30ML SOLN VIAL PO SCH (01:57)
[2018-04-07] MEDS: RT-ALBUTEROL/IPRATROPIUM 3 ML (DUONEB) VIAL INH SCH ×6 (01:59→21:54)
[2018-04-07 04:00] VITALS: BP 143/55
[2018-04-07] MEDS: LACTOBACILLUS ACIDOPHILUS (PROBIOTIC) CAPSULE PO SCH ×3 (06:20→17:52)
[2018-04-07] MEDS: inSUlin ASPART (NovoLOG) 1 UNIT/0.01 ML (CHARGE PER UNIT) SC SCH ×4 (06:21→21:35)
[2018-04-07] MEDS: KCL 20 MEQ TAB (K-DUR) PO SCH (06:21)
--- NOTE | 2018-04-07 06:25 | Pulmonary Progress Note ---
Subjective Time Seen by a Provider: 06:25 Subjective/Events-last exam Pt appears to be doing better. Sepsis Event Evaluation Height, Weight, BMI Height: 5'6.00" Weight: 161lbs. 4.0oz. 73.095469ir; 27.4 BMI Method: Exam Exam Vital Signs Date Time Temp Pulse Resp B/P (MAP) Pulse Ox O2 Delivery O2 Flow Rate FiO2 04/07/18 04:00 96.9 66 20 143/55 (84) 95 Nasal Cannula 2.00 04/07/18 02:02 85 Nasal Cannula 2.00 04/07/18 01:00 63 04/06/18 23:59 97.2 65 22 130/59 (82) 95 Nasal Cannula 2.00 04/06/18 22:49 95 Nasal Cannula 2.00 04/06/18 20:00 100 Nasal Cannula 1.00 04/06/18 19:55 98.4 88 20 128/57 (80) 95 Nasal Cannula 2.00 04/06/18 19:00 91 04/06/18 18:38 86 Nasal Cannula 1.00 04/06/18 16:08 97.4 81 22 137/60 (85) 93 Nasal Cannula 1.00 04/06/18 15:30 100 Nasal Cannula 1.00 04/06/18 13:36 96 Nasal Cannula 1.00 04/06/18 13:12 79 04/06/18 12:23 97.1 81 20 131/56 (81) 99 Nasal Cannula 1.00 04/06/18 10:44 98 Nasal Cannula 1.00 04/06/18 08:00 97.8 90 14 117/56 (76) 99 Nasal Cannula 1.00 04/06/18 08:00 100 Nasal Cannula 1.00 04/06/18 07:03 73 04/06/18 06:58 77 19 95 Nasal Cannula 1.00 04/06/18 06:40 79 26 98 Room Air I & O 04/07/18 07:00 Intake Total 1437 ml Output Total 1500 ml Balance -63 ml Height & Weight Height: 5'6.00" Weight: 161lbs. 4.0oz. 73.353391wg; 27.4 BMI Method: General Appearance: No Apparent Distress, Chronically ill Respiratory: No Accessory Muscle Use, No Respiratory Distress, Decreased Breath Sounds; No Wheezing Cardiovascular: Regular Rate, Rhythm, No JVD, No Murmur Capillary Refill: Less Than 3 Seconds Gastrointestinal: non tender, soft Extremity: No Calf Tenderness, Pedal Edema Neurologic/Psychiatric: Alert, Normal Mood/Affect Skin: Warm/Dry, Other (small abrasion to left cheek) Lymphatic: No Adenopathy Results Lab Laboratory Tests 04/06/18 03:30 Assessment/Plan Assessment/Plan Acute respiratory failure s/p bronchoscopy -Pt is now on NC -Solumedrol Q12 -Lasix 40mg daily Acute bilateral pneumonia with hypoxemia with severe sepsis -D/C Abx Malnutrition -Encourage diet -Ensures TID Hyperglycemia -Decrease solumedrol to Q12 Debility -PT/OT -up to chair dialy ICU psychosis - Risperdal CYN - improved -monitor Hyperglycemia -Monitor Anemia - monitor Hyponatremia - monitor VERO JON WILLIAM DO Apr 07, 2018 06:25
[2018-04-07 06:44] LABS: BASOPHILS % (AUTO) 0 % (0-10); EOSINOPHILS % (AUTO) 0 % (0-10); HEMATOCRIT 28 % (40-54); LYMPHOCYTES % (AUTO) 12 % (12-44); MEAN CORPUSCULAR HEMOGLOBIN 30 PG (25-34); MEAN CORPUSCULAR HGB CONC 32 G/DL (32-36); MEAN CORPUSCULAR VOLUME 92 FL (80-99); MEAN PLATELET VOLUME 9.6 FL (7.4-10.4); MONOCYTES # (AUTO) 0.6 X 10^3 (0.0-1.0); MONOCYTES % (AUTO) 4 % (0-12); NEUTROPHILS # (AUTO) 13.4 X 10^3 (1.8-7.8); NEUTROPHILS % (AUTO) 84 % (42-75); PLATELET COUNT 368 10^3/uL (130-400); RED CELL DISTRIBUTION WIDTH 14.5 % (10.0-14.5)
[2018-04-07 07:00] LABS: BUN/CREATININE RATIO 36; CALCIUM 8.5 MG/DL (8.5-10.1); CARBON DIOXIDE 26 MMOL/L (21-32); CHLORIDE 103 MMOL/L (98-107); GFR ESTIMATED > 60; GLUCOSE 244 MG/DL (70-105); MAGNESIUM 2.1 MG/DL (1.8-2.4); PHOSPHORUS 2.7 MG/DL (2.3-4.7); POTASSIUM 4.7 MMOL/L (3.6-5.0); SODIUM 138 MMOL/L (135-145)
--- NOTE | 2018-04-07 07:56 | Diagnostic Imaging Report ---
INDICATION: Cough. COMPARISON: 04/06/2018. FINDINGS: No change in bilateral heterogeneous consolidations. No pleural effusion or pneumothorax. Stable cardiomegaly. IMPRESSION: Stable exam with multifocal pulmonary consolidations. No adverse development. Dictated by: Dictated on workstation # [id number]
[2018-04-07 08:00] VITALS: BP 138/73
--- NOTE | 2018-04-07 08:48 | Cardiology Progress Note ---
Subjective Date Seen by Provider: Apr 07, 2018 Time Seen by Provider: 08:46 Subjective/Events-last exam Patient is bed, complaining of some fatigue. Denies any chest pain or dyspnea at this time. Objective-Cardiology Exam Last Set of Vital Signs Vital Signs 04/05/18 04/07/18 04/07/18 04/07/18 03:35 04:00 06:47 07:18 Temp 96.9 Pulse 81 Resp 20 B/P (MAP) 143/55 (84) Pulse Ox 93 O2 Delivery Nasal Cannula O2 Flow Rate 2.00 FiO2 30 Capillary Refill : Less Than 3 Seconds I&O Intake and Output 04/07/18 00:00 Intake Total 1437 ml Output Total 1850 ml Balance -413 ml Intake Oral 1307 ml IV Total 130 ml Output Urine Total 1850 ml # Voids 1 # Bowel Movements 1 General: Alert, Oriented X3, Cooperative, Mild Distress HEENT: PERRLA Neck: Supple, No Thyromegaly Lungs: Normal Air Movement, Other (bilateral rhonchi) Heart: Regular Rate, Normal S1, Normal S2, No Murmurs Abdomen: Normal Bowel Sounds, Soft, No Tenderness, No Hepatosplenomegaly, No Masses, Other (mild edema) Extremities: No Clubbing, No Cyanosis, Normal Pulses, No Tenderness/Swelling Skin: No Rashes, No Breakdown, No Significant Lesion Neuro: Normal Tone, Sensation Intact Psych/Mental Status: Mood NL Results Lab Laboratory Tests 04/07/18 06:25 A/P-Cardiology Admission Diagnosis Pneumonia Sinus tachycardia Coronary artery disease Hypertension Hyperlipidemia Assessment/Plan Status post acute respiratory failure, off the ventilator and improving. Managed by Dr. Burrows Pneumonia, improved, continue to monitor. Coronary artery disease, had a cardiac catheterization 2012 resulted with 2 stents deployment 2.515 mm to the right coronary artery resolute and 2.2522 mm resolute to the LAD, continue to monitor at this time Echocardiogram done on March 25, 2018 showing normal left ventricular size with ejection fraction 65 percent, pulmonary hypertension with PA pressure 45 mmHg Hypertension, controlled. Continue to monitor Hyperlipidemia, monitor lipids Diabetes mellitus, followed and managed by primary care physician Obstructive sleep apnea, using C Pap at night, currently in respiratory failure Obesity History of carotid stenosis, last ultrasound was done in September 2017 showing mild disease on the right and moderate on the left. Continue to monitor Clinical Quality Measures DVT/VTE Risk/Contraindication: Risk Factor Score Per Nursin RFS Level Per Nursing on Admit: 2=Moderate DOROTEO MARTINEZ Apr 07, 2018 08:48
--- NOTE | 2018-04-07 09:12 | Physical Therapy Daily Note ---
PT Daily Note-Current Subjective Pt was asleep in bed and in room. Pt awoke to his name being said. Pt agrees to PT and reports that he was already up this morning and had a BM. Pain Numeric Pain Scale: 0-No Pain Location: No Pain Reported Mental Status Patient Orientation: Person Attachments: SCD's, Oxygen (3L) Transfers Therapy Code Descriptions/Definitions Functional [place] Measure: 0=Not Assessed/NA 4=Minimal Assistance 1=Total Assistance 5=Supervision or Setup 2=Maximal Assistance 6=Modified [place] 3=Moderate Assistance 7=Complete [place] Therapy Quality Codes: 6 Independent with activity with or without an assistive device 5 Patient requires set up or clean up by helper. Patient completes activity by themselves 4 Supervision or touching assist (CGA). [place] provide cues , steadying assist 3 The helper provides less than half the effort to complete the activity 2 The helper provides more than half the effort to complete the activity 1 Dependent. The helper does all the effort to complete an activity 7 Patient refused to complete or attempt activity 9 The patient did not perform the activity before the current illness or injury 88 Not attempted due to Medical conditions or safety concerns Transfers (B, C, W/C) (FIM): 4 Scootin Supine to/from Sit: 5 Sit to/from Stand: 4 Weight Bearing Right Lower Extremity: Right Full Weight Bearing Left Lower Extremity: Left Full Weight Bearing Gait Training Gait (FIM): 2 Distance (FIM): 4=139-79 ft Distance: 50' Gait Level of Assist: 4 Gait Persons Needed: 1 Gait Assistive Device: FWW Unsteady, needs cues for direction and safety. Exercises Seated Therapy Exercises: Ankle pumps, Long arc quads, Hip flexion Seated Reps: 15 Assessment Current Status: Fair Progress Pt was able to perform bed mobility with SBA. Pt sit<>stand transfer from EOB to FWW is CGA for safety. Pt is improving with balance and has little retropulsion. Pt able to amb 50' with FWW on 4L O2. Pt requires manual cues with FWW to keep his body within it. Pt requested to return to bed. Pt was able to perform EOB LE seated ex with SBA for seated balance. Pt is in bed with all needs met. Pt requested to wear his normal clothes and PT will tell OT since he will be getting a shower later this morning. PT Short Term Goals Short Term Goals Time Frame: Apr 06, 2018 Transfers (B,C,W/C) (FIM): 4 Gait (FIM): 1 Distance (FIM): 1=up to 49 ft Gait Distance Comment: 20' Gait Level of Assist: 4 Gait Assistive Device: FWW PT Kindergarten Tutor Goals Kindergarten Tutor Goals PT Senior Care Goals Time Frame: Apr 27, 2018 Transfers (B,C,W/C) (FIM): 5 Gait (FIM): 4 Gait distance (FIM): 3=150 ft Distance: 150' Gait Level of Assist: 4 Gait Assistive Device: FWW PT Plan Problem List Problem List: Activity Tolerance, Functional Strength, Safety, Balance, Gait, Transfer, Bed Mobility, ROM Treatment/Plan Treatment Plan: Continue Plan of Care Treatment Plan: Bed Mobility, Education, Functional Activity Patsy, Functional Strength, Gait, Safety, Therapeutic Exercise, Transfers Treatment Duration: Apr 27, 2018 Frequency: 6 times per week Estimated Hrs Per Day: .5 hour per day Patient and/or Family Agrees t: Yes Safety Risks/Education Patient Education: Gait Training, Transfer Techniques, Correct Positioning, Safety Issues Teaching Recipient: Patient Teaching Methods: Demonstration, Discussion Response to Teaching: Reinforcement Needed Time/GCodes Time In: 843 Time Out: 859 Total Billed Treatment Time: 16 Total Billed Treatment 1 visit FA 16 min LEOLA PICKETT PT Apr 07, 2018 09:12
[2018-04-07] MEDS: inSUlin Protamine/ASPart 70/30 1 UNIT/0.01 ML DOSE SC SCH ×2 (10:06→17:52)
[2018-04-07] MEDS: methylPREDNISolone 40 MG/ML (Solu-MEDROL) VIAL IV SCH ×2 (10:06→21:34)
[2018-04-07] MEDS: ASPIRIN E.C. 81 MG (ECOTRIN) TAB PO SCH (10:07)
[2018-04-07] MEDS: BENZONATATE 100 MG (TESSALON) CAPSULE PO SCH ×3 (10:07→21:35)
[2018-04-07] MEDS: FUROSEMIDE 40 MG (LASIX) TAB PO SCH (10:07)
[2018-04-07] MEDS: risperiDONE 0.25 MG (RisperDAL) TAB PO SCH (10:07)
[2018-04-07] MEDS: LORATADINE (CLARITIN) 10 MG TAB PO SCH (10:07)
[2018-04-07] MEDS: lisINopril 20 MG (PRINIVIL) TABLET PO SCH (10:07)
[2018-04-07] MEDS: meTOprolol TARTRATE 25 MG (LOPRESSOR) TABLET PO SCH ×2 (10:07→21:35)
[2018-04-07] MEDS: PANTOPRAZOLE 40 MG (PROTONIX) TAB PO SCH (10:07)
--- NOTE | 2018-04-07 10:58 | Cardiology Progress Note ---
Subjective Date Seen by Provider: Apr 07, 2018 Time Seen by Provider: 10:57 Subjective/Events-last exam patient is laying down in bed, feeling better, reporting improvement. Review of Systems General: No Chills, No Night Sweats, No Fatigue, No Malaise, No Appetite, No Other HEENT: No Head Aches, No Visual Changes, No Eye Pain, No Ear Pain, No Dysphasia , No Sinus Congestion, No Post Nasal Drip, No Sore Throat, No Other Pulmonary: Dyspnea; No Cough, No Pleuritic Chest Pain, No Other Cardiovascular: No: Chest Pain, Palpitations, Orthopnea, Paroxysmal Noc. Dyspnea, Edema, Lt Headedness, Other Objective-Cardiology Exam Last Set of Vital Signs Vital Signs 04/05/18 04/07/18 04/07/18 03:35 08:00 09:52 Temp 98.4 Pulse 90 Resp 22 B/P (MAP) 138/73 (94) Pulse Ox 95 O2 Delivery Nasal Cannula O2 Flow Rate 3.00 FiO2 30 Capillary Refill : Less Than 3 Seconds I&O Intake and Output 04/07/18 00:00 Intake Total 1437 ml Output Total 1850 ml Balance -413 ml Intake Oral 1307 ml IV Total 130 ml Output Urine Total 1850 ml # Voids 1 # Bowel Movements 1 General: Alert, Oriented X3, Cooperative, Mild Distress HEENT: PERRLA Neck: Supple, No JVD, No Thyromegaly Lungs: Normal Air Movement, Other (bilateral rhonchi) Heart: Regular Rate, Normal S1, Normal S2, No Murmurs Abdomen: Normal Bowel Sounds, Soft, No Tenderness, No Hepatosplenomegaly, No Masses, Other (mild edema) Extremities: No Clubbing, No Cyanosis, Normal Pulses, No Tenderness/Swelling Skin: No Rashes, No Breakdown, No Significant Lesion Neuro: Normal Speech, Strength at 5/5 X4 Ext, Normal Tone, Sensation Intact Psych/Mental Status: Mental Status NL, Mood NL Results Lab Laboratory Tests 04/07/18 06:25 A/P-Cardiology Admission Diagnosis Pneumonia Sinus tachycardia Coronary artery disease Hypertension Hyperlipidemia Assessment/Plan Status post acute respiratory failure, better at this time, back to baseline. Continue to monitor Pneumonia, improved, continue to monitor. Coronary artery disease, had a cardiac catheterization 2012 resulted with 2 stents deployment 2.515 mm to the right coronary artery resolute and 2.2522 mm resolute to the LAD, continue to monitor at this time Echocardiogram done on March 25, 2018 showing normal left ventricular size with ejection fraction 65 percent, pulmonary hypertension with PA pressure 45 mmHg Hypertension, controlled. Continue to monitor Hyperlipidemia, monitor lipids Diabetes mellitus, followed and managed by primary care physician Obstructive sleep apnea, using C Pap at night, currently in respiratory failure Obesity History of carotid stenosis, last ultrasound was done in September 2017 showing mild disease on the right and moderate on the left. Continue to monitor Clinical Quality Measures DVT/VTE Risk/Contraindication: Risk Factor Score Per Nursin RFS Level Per Nursing on Admit: 2=Moderate ANDREINA LARA MD Apr 07, 2018 10:58
--- NOTE | 2018-04-07 11:01 | Occupational Ther Daily Note ---
OT Current Status-Daily Note Subjective Pt alert, lying in bed. Agrees to therapy. No c/o pain. Pt on room air. Mental Status/Objective Patient Orientation: Person, Place Therapy Code Descriptions/Definitions Functional [place] Measure: 0=Not Assessed/NA 4=Minimal Assistance 1=Total Assistance 5=Supervision or Setup 2=Maximal Assistance 6=Modified [place] 3=Moderate Assistance 7=Complete [place] Attachments: IV, Oxygen ADL-Treatment Pt agrees to shower. Pt takes increased time due to decreased activity tolerance and frequent recovery breaks. Pt ambulated with FWW into shower, min A, verbal/physical cues needed. After set up, pt able to cleanse areas in sitting with assist to apply soap, adjust water and rinse. Stood to cleanse eben area/buttocks with CGA for safety. Throughout session, pt is reminded to take deep breath instead of short shallow breaths. Pt then requested to use toilet for BM. Transferred with min A and verbal cues for safety. Pt fatigued quickly and had more difficulty with motor planning. Assist to don hospital gown, underwear/pants and socks due to fatigue. Assist to cleanse and manipulate clothing after toileting due to increased fatigue. Pt ambulated back to bed and was able to lay down with close SBA. After therapy, pt lying in bed and fell asleep immediately. Nrsg notified. Call light/phone in reach. All needs met in room. Bathing (FIM): 4 Upper Body (FIM): 4 Lower Body Dressing (FIM): 3 Toileting (FIM): 4 Transfers (B, C, W/C) (FIM): 4 Toilet/Commode Transfer (FIM): 4 Shower Transfer(FIM): 4 OT Short Term Goals Short Term Goals Time Frame: Apr 06, 2018 Eating(FIM): 5 Grooming(FIM): 5 Upper Body Dressing(FIM): 4 Transfers (B,C,W/C) (FIM): 4 Additional Short Term Goals: 1-Demonstrate ADL Tasks, 2-Verbalize Understanding , 3-ImproveStrength/Patsy 1=Demonstrate adherence to instructed precautions during ADL tasks. 2=Patient will verbalize/demonstrate understanding of assistive devices/ modifications for ADL. 3=Patient will improve strength/tolerance for activity to enable patient to perform ADL's. OT Body Artist Goals Body Artist Goals Time Frame: Apr 20, 2018 Eating (FIM): 6 Grooming(FIM): 6 Upper Body Dressing(FIM): 5 Lower Body Dressing(FIM): 5 Toileting(FIM): 5 Toilet/Commode Transfer(FIM): 5 Additional Goals: 1-Demonstrate ADL Tasks, 2-Verbalize Understanding, 3- ImproveStrength/Patsy 1=Demonstrate adherence to instructed precautions during ADL tasks. 2=Patient will verbalize/demonstrate understanding of assistive devices/ modifications for ADL. 3=Patient will improve strength/tolerance for activity to enable patient to perform ADL's. OT Education/Plan Problem List/Assessment Pt demonstrates decreased mobility, strength, activity tolerance, and ADL functioning. Pt to benefit from skilled OT intervention for ADL training, transfers, strengthening, and safety education to increase level of independence and allow safe discharge plan. Discharge Recommendations Plan/Recommendations: Continue POC Treatment Plan/Plan of Care Patient would benefit from OT for education, treatment and training to promote independence in ADL's, mobility, safety and/or upper extremity function for ADL' s. Plan of Care: ADL Retraining, Functional Mobility, UE Funct Exercise/Act Treatment Duration: Apr 20, 2018 Frequency: 5 times per week Estimated Hrs Per Day: .25 hour per day Rehab Potential: Fair Time/GCodes Start Time: 10:10 Stop Time: 11:00 Total Time Billed (hr/min): 50 Billed Treatment Time 1 visit-ADL 3 (50 min) MINDY VILLALOBOS Apr 07, 2018 11:01
--- NOTE | 2018-04-07 11:17 | Progress Note-Hospitalist ---
Subjective HPI/CC On Admission Date Seen by Provider: Apr 07, 2018 Time Seen by Provider: 11:13 CC: SOB, chest tightness HPI: This is 73 yo white male w/ a PMH of CAD s/p stents (x2 in 2012), type 2 DM , HTN, HLD, and VERO on CPAP who was a direct admit from Dr. Burrows's office for PNA on 03/24/18. The patient was complaining of one week of worsening SOB and chest tightness, but denied CP or other URI symptoms. A stat CT showed bilateral lower lobe PNA and the pt was hypoxemic, so he was admitted for IV abx and oxygen support. Despite the hx of VERO, the pt does not use oxygen at home and does not have COPD. He quit smoking in 1972. While in the ICU, the pt rapidly deteriorated into severe sepsis w/ FAIZA and ARDS within 24 hours of admission. His white count peaked at 30,000. He was intubated and IV vanco/zosyn /eraxis were started. Bronchoscopy was performed, cultures pending, preliminary showed no growth. Viral PNA serology panel was negative, as was Legionella urinary antigen and S. pneumo antigen. Cardiology was consulted for hx of CAD. Troponins were negative and echocardiogram showed normal ejection fraction but with pulmonary HTN. The patient's oxygenation slowly improved and he was extubated on the afternoon of 03/29/18. Over the last two days the patient's mental status never fully returned to baseline and [place] [id number] [place] [address]. He complains of distal upper extremity weakness and SOB. His pulse ox was 93% on 5L vapotherm yesterday but he is requiring 9L today. He is requiring BiPAP at night. Subjective/Events-last exam Pt denies any complaints. not at bedside and patient seems more confused today. Discussed options for therapy and he states "I don't need a job." Objective Exam Vital Signs Vital Signs Date Time Temp Pulse Resp B/P (MAP) Pulse Ox O2 Delivery O2 Flow Rate FiO2 04/07/18 09:52 95 Nasal Cannula 3.00 04/07/18 08:00 98.4 90 22 138/73 (94) 04/05/18 03:35 30 Capillary Refill : Less Than 3 Seconds General Appearance: No Apparent Distress, Chronically ill Respiratory: No Accessory Muscle Use, No Respiratory Distress, Decreased Breath Sounds; No Wheezing Cardiovascular: Regular Rate, Rhythm, No JVD, No Murmur Gastrointestinal: Normal Bowel Sounds, Non Tender, Soft Back: Normal Inspection Extremity: No Calf Tenderness, Pedal Edema Neurologic/Psychiatric: Alert, Normal Mood/Affect Skin: Warm/Dry, Other (small abrasion to left cheek) Lymphatic: No Adenopathy Results/Procedures Lab Laboratory Tests 04/07/18 06:25 Patient resulted labs reviewed. Imaging: Reviewed Imaging Films, Reviewed Imaging Report Assessment/Plan Assessment and Plan Assess & Plan/Chief Complaint Acute Respiratory Failure Critical Care Critically Ill Patient Diagnosis/Problems Diagnosis/Problems (1) Acute respiratory failure Status: Acute Assessment & Plan: Extubated last week Doing well on nasal cannula currently Pulm consulted, appreciate recs Continue on IV Solu-Medrol Continue Lasix Qualifiers: Respiratory failure complication: hypoxia Qualified Codes: J96.01 - Acute respiratory failure with hypoxia (2) Severe sepsis Status: Resolved Assessment & Plan: Completed IV abx yesterday Low threshold for resumption if fever or WBC increases Blood cultures done and NGTD RVP negative Resolution Date/Time: 03/31/18 @ 12:46 (3) Pneumonia Status: Acute Assessment & Plan: Diffuse bilateral pneumonia on CT chest on presentation Blood cultures NGTD RVP negative Urine strep pneumo and legionella negative Completed abx Qualifiers: Pneumonia type: due to unspecified organism Laterality: bilateral Lung location: lower lobe of lung Qualified Codes: J18.1 - Lobar pneumonia, unspecified organism (4) FAIZA (acute kidney injury) Status: Resolved Assessment & Plan: Back at baseline Resolution Date/Time: 03/27/18 @ 10:02 (5) Insulin dependent diabetes mellitus Status: Chronic Assessment & Plan: Blood sugars still high but improving Steroids decreased (6) Essential (primary) hypertension Status: Chronic Assessment & Plan: Well controlled on current meds (7) CAD (coronary artery disease) Status: Chronic Assessment & Plan: Cardiology consulted, appreciate recs Concern about change telemetry, troponin checked and negative EKG done this AM and no signs of STEMI per Dr Pizarro Qualifiers: Coronary Disease-Associated Artery/Lesion type: [place] artery [place] vs. transplanted heart: [place] heart Associated angina: without angina Qualified Codes: I25.10 - Atherosclerotic heart disease of [place] coronary artery without angina pectoris (8) Critical illness myopathy Status: Acute Assessment & Plan: Continue to work with PT/OT I think patient would be best served in IRU and consult placed Authorization sent to insurance and IRU admission declined Will attempt again in a few days once off IV medications Consider swing bed Clinical Quality Measures DVT/VTE Risk/Contraindication: Risk Factor Score Per Nursin RFS Level Per Nursing on Admit: 2=Moderate DHRUV MEEHAN MD Apr 07, 2018 11:17
[2018-04-07 12:00] VITALS: BP 126/69
--- NOTE | 2018-04-07 13:42 | NUR ---
Swing Bed Note: Patient has [facility] [employer] insurance. This is a managed Medicare insurance plan. Authorization request submitted to the insurance. Awaiting their nurse to call me et request clinical to fax to them. Pending auth number is [id number].
[2018-04-07 16:00] VITALS: BP 121/71
[2018-04-07] MEDS: ENOXAPARIN 40 MG/0.4 ML (LOVENOX) SYR SC SCH (16:37)
[2018-04-07] MEDS: ATORVASTATIN 20 MG (LIPITOR) TABLET PO SCH (17:52)
[2018-04-07 19:34] VITALS: BP 129/70
[2018-04-07] MEDS: risperiDONE 1 MG (RisperDAL) TAB PO SCH (21:34)
[2018-04-08 00:25] VITALS: BP 134/72
[2018-04-08] MEDS: RT-ALBUTEROL/IPRATROPIUM 3 ML (DUONEB) VIAL INH SCH ×5 (02:06→22:24)
[2018-04-08 03:50] VITALS: BP 143/61
[2018-04-08] MEDS: KCL 20 MEQ TAB (K-DUR) PO SCH (06:30)
[2018-04-08] MEDS: LACTOBACILLUS ACIDOPHILUS (PROBIOTIC) CAPSULE PO SCH ×3 (06:30→17:49)
[2018-04-08] MEDS: inSUlin ASPART (NovoLOG) 1 UNIT/0.01 ML (CHARGE PER UNIT) SC SCH ×4 (06:31→20:13)
--- NOTE | 2018-04-08 07:52 | Diagnostic Imaging Report ---
INDICATION: Pneumonia. Comparison is made with prior examination from 04/07/18. FINDINGS: There are bilateral perihilar infiltrates. The heart size is normal. There is some venous congestion. There is no pneumothorax. The mediastinum is unremarkable. IMPRESSION: Persistent bilateral perihilar infiltrates, left greater than right, suspect for pneumonia. There also appears to be some underlying central pulmonary venous congestion. Dictated by: Dictated on workstation # [id number]
[2018-04-08 07:55] LABS: BASOPHILS % (AUTO) 0 % (0-10); EOSINOPHILS % (AUTO) 0 % (0-10); HEMATOCRIT 30 % (40-54); HEMOGLOBIN 9.7 G/DL (13.3-17.7); LYMPHOCYTES # (AUTO) 2.2 X 10^3 (1.0-4.0); LYMPHOCYTES % (AUTO) 11 % (12-44); MEAN CORPUSCULAR HEMOGLOBIN 30 PG (25-34); MEAN CORPUSCULAR HGB CONC 32 G/DL (32-36); MEAN CORPUSCULAR VOLUME 92 FL (80-99); MEAN PLATELET VOLUME 9.2 FL (7.4-10.4); MONOCYTES # (AUTO) 0.6 X 10^3 (0.0-1.0); MONOCYTES % (AUTO) 3 % (0-12); NEUTROPHILS # (AUTO) 16.5 X 10^3 (1.8-7.8); NEUTROPHILS % (AUTO) 85 % (42-75); PLATELET COUNT 384 10^3/uL (130-400); RED CELL DISTRIBUTION WIDTH 14.9 % (10.0-14.5); WHITE BLOOD COUNT 19.3 10^3/uL (4.3-11.0)
[2018-04-08 08:00] VITALS: BP 150/70
[2018-04-08 08:16] LABS: BUN/CREATININE RATIO 37; CARBON DIOXIDE 27 MMOL/L (21-32); CHLORIDE 103 MMOL/L (98-107); GFR ESTIMATED > 60; GLUCOSE 156 MG/DL (70-105); MAGNESIUM 2.2 MG/DL (1.8-2.4); PHOSPHORUS 3.4 MG/DL (2.3-4.7); POTASSIUM 4.9 MMOL/L (3.6-5.0); SODIUM 138 MMOL/L (135-145)
[2018-04-08 08:17] LABS: BAND NEUTROPHILS 0 %; BASOPHILS % (MANUAL) 0 %; EOSINOPHILS % (MANUAL) 0 %; LYMPHOCYTES % (MANUAL) 14 %; MONOCYTES % (MANUAL) 6 %; NEUTROPHILS % (MANUAL) 80 %
[2018-04-08 08:18] LABS: RBC MORPH NORMAL
--- NOTE | 2018-04-08 08:42 | Cardiology Progress Note ---
Subjective Date Seen by Provider: Apr 08, 2018 Time Seen by Provider: 08:41 Subjective/Events-last exam Patient is laying down in bed, still confused, no new complaint Review of Systems General: No Chills, No Night Sweats, No Fatigue, No Malaise, No Appetite, No Other HEENT: No Head Aches, No Visual Changes, No Eye Pain, No Ear Pain, No Dysphasia , No Sinus Congestion, No Post Nasal Drip, No Sore Throat, No Other Pulmonary: No Dyspnea, No Cough, No Pleuritic Chest Pain, No Other Cardiovascular: No: Chest Pain, Palpitations, Orthopnea, Paroxysmal Noc. Dyspnea, Edema, Lt Headedness, Other Objective-Cardiology Exam Last Set of Vital Signs Vital Signs 04/05/18 04/08/18 04/08/18 03:35 07:40 08:00 Temp 98.6 Pulse 64 Resp 20 B/P (MAP) 150/70 (96) Pulse Ox 96 O2 Delivery NIV Bilevel O2 Flow Rate 3.00 FiO2 30 Capillary Refill : Less Than 3 Seconds I&O Intake and Output 04/08/18 00:00 Intake Total 1200 ml Balance 1200 ml Intake Oral 1200 ml # Voids 6 # Bowel Movements 2 General: Alert, Oriented X3, Cooperative, Mild Distress HEENT: PERRLA Neck: Supple, No JVD, No Thyromegaly Lungs: Normal Air Movement, Other (bilateral rhonchi) Heart: Regular Rate, Normal S1, Normal S2, No Murmurs Abdomen: Normal Bowel Sounds, Soft, No Tenderness, No Hepatosplenomegaly, No Masses, Other (mild edema) Extremities: No Clubbing, No Cyanosis, Normal Pulses, No Tenderness/Swelling Skin: No Rashes, No Breakdown, No Significant Lesion Neuro: Normal Speech, Strength at 5/5 X4 Ext, Normal Tone, Sensation Intact Psych/Mental Status: Mental Status NL, Mood NL Results Lab Laboratory Tests 04/08/18 07:50 A/P-Cardiology Admission Diagnosis Pneumonia Sinus tachycardia Coronary artery disease Hypertension Hyperlipidemia Assessment/Plan Status post acute respiratory failure, better at this time, back to baseline. Continue to monitor Pneumonia, improved, continue to monitor. Change in mental status, confusion, still disoriented to time and place. Probably secondary to hypoxemia. Managed by primary care physician Coronary artery disease, had a cardiac catheterization 2012 resulted with 2 stents deployment 2.515 mm to the right coronary artery resolute and 2.2522 mm resolute to the LAD, continue to monitor at this time Echocardiogram done on March 25, 2018 showing normal left ventricular size with ejection fraction 65 percent, pulmonary hypertension with PA pressure 45 mmHg Hypertension, controlled. Continue to monitor Hyperlipidemia, monitor lipids Diabetes mellitus, followed and managed by primary care physician Obstructive sleep apnea, using C Pap at night, currently in respiratory failure Obesity History of carotid stenosis, last ultrasound was done in September 2017 showing mild disease on the right and moderate on the left. Continue to monitor Clinical Quality Measures DVT/VTE Risk/Contraindication: Risk Factor Score Per Nursin RFS Level Per Nursing on Admit: 2=Moderate ANDREINA LARA MD Apr 08, 2018 08:42
[2018-04-08] MEDS: ASPIRIN E.C. 81 MG (ECOTRIN) TAB PO SCH (09:06)
[2018-04-08] MEDS: lisINopril 20 MG (PRINIVIL) TABLET PO SCH (09:06)
[2018-04-08] MEDS: LORATADINE (CLARITIN) 10 MG TAB PO SCH (09:07)
[2018-04-08] MEDS: meTOprolol TARTRATE 25 MG (LOPRESSOR) TABLET PO SCH ×2 (09:07→21:36)
[2018-04-08] MEDS: BENZONATATE 100 MG (TESSALON) CAPSULE PO SCH ×3 (09:07→21:36)
[2018-04-08] MEDS: methylPREDNISolone 40 MG/ML (Solu-MEDROL) VIAL IV SCH (09:07)
[2018-04-08] MEDS: PANTOPRAZOLE 40 MG (PROTONIX) TAB PO SCH (09:07)
[2018-04-08] MEDS: FUROSEMIDE 40 MG (LASIX) TAB PO SCH (09:07)
[2018-04-08] MEDS: inSUlin Protamine/ASPart 70/30 1 UNIT/0.01 ML DOSE SC SCH ×2 (09:08→17:53)
--- NOTE | 2018-04-08 10:06 | NUR ---
Had a missed call from the patients insurance from last night. They did not leave a voice mail and when I called the number back it said it was for outgoing calls only et to call back the customer solutions representative that called you from the voice message left. So I called the main number and started the process again to try and contact a live clinical reviewer. I did leave a voice message for a clinical reviewer "Kelley" at phone number [phone] with the pending auth number et my contact information for a hopeful call back. I was also given a fax number of [phone] by the general precert person. I did fax clinical as well and I'm hopeful this went to the right area for review. Continue to await auth vs denial for swing bed. F/U with patient et et they are both in agreement to access this benefit if authorization is given.
--- NOTE | 2018-04-08 10:38 | Pulmonary Progress Note ---
Subjective Time Seen by a Provider: 10:38 Subjective/Events-last exam PT is doing better. Plan is for in patient rehab. Sepsis Event Evaluation Height, Weight, BMI Height: 5'6.00" Weight: 162lbs. 8.0oz. 73.037117ap; 27.4 BMI Method: Exam Exam Vital Signs Date Time Temp Pulse Resp B/P (MAP) Pulse Ox O2 Delivery O2 Flow Rate FiO2 04/08/18 08:35 Nasal Cannula 1.00 04/08/18 08:00 98.6 64 20 150/70 (96) 96 NIV Bilevel 04/08/18 07:40 96 NIV CPAP 3.00 04/08/18 07:00 54 04/08/18 03:50 97.0 66 20 143/61 (88) 95 Nasal Cannula 2.00 04/08/18 02:07 95 NIV CPAP 3.00 04/08/18 01:00 60 04/08/18 00:25 98.5 74 22 134/72 (92) 95 Nasal Cannula 2.00 04/07/18 21:56 NIV CPAP 3.00 04/07/18 20:00 Nasal Cannula 1.00 04/07/18 19:34 98.9 95 18 129/70 (89) 97 Nasal Cannula 2.00 04/07/18 19:25 88 Nasal Cannula 2.00 04/07/18 19:00 88 04/07/18 16:00 98.0 78 20 121/71 (88) 98 Nasal Cannula 2.00 04/07/18 14:55 98 Nasal Cannula 2.00 04/07/18 13:10 75 04/07/18 12:00 97.6 84 22 126/69 (88) 92 Nasal Cannula 1.00 I & O 04/08/18 07:00 Intake Total 1200 ml Balance 1200 ml Height & Weight Height: 5'6.00" Weight: 162lbs. 8.0oz. 73.906046ah; 27.4 BMI Method: General Appearance: No Apparent Distress, Chronically ill Respiratory: No Accessory Muscle Use, No Respiratory Distress, Decreased Breath Sounds; No Wheezing Cardiovascular: Regular Rate, Rhythm, No JVD, No Murmur Capillary Refill: Less Than 3 Seconds Gastrointestinal: non tender, soft Extremity: No Calf Tenderness, Pedal Edema Neurologic/Psychiatric: Alert, Normal Mood/Affect Skin: Warm/Dry, Other (small abrasion to left cheek) Lymphatic: No Adenopathy Results Lab Laboratory Tests 04/07/18 06:25 04/08/18 07:50 Assessment/Plan Assessment/Plan Acute respiratory failure s/p bronchoscopy -Pt is now on NC -Solumedrol Q12 -- change to prednisone taper. -Lasix Acute bilateral pneumonia with hypoxemia with severe sepsis -D/C Abx Malnutrition -Encourage diet -Ensures TID Hyperglycemia -Decrease solumedrol to Q12 Debility -PT/OT -up to chair [facility] ICU psychosis - Risperdal CYN - improved -monitor Hyperglycemia -Monitor Anemia - monitor Hyponatremia - monitor VERO JON WILLIAM DO Apr 08, 2018 10:38
--- NOTE | 2018-04-08 10:48 | Physical Therapy Daily Note ---
PT Daily Note-Current Subjective Patient in recliner pre tx, agrees to PT, no complaints of pain. Family member in the room. Appearance Patient in recliner post tx with nurse call, phone, tray, family member in the room. Mental Status Patient Orientation: Person, Confused Attachments: Oxygen Transfers Therapy Code Descriptions/Definitions Functional [place] Measure: 0=Not Assessed/NA 4=Minimal Assistance 1=Total Assistance 5=Supervision or Setup 2=Maximal Assistance 6=Modified [place] 3=Moderate Assistance 7=Complete [place] Therapy Quality Codes: 6 Independent with activity with or without an assistive device 5 Patient requires set up or clean up by helper. Patient completes activity by themselves 4 Supervision or touching assist (CGA). [place] provide cues , steadying assist 3 The helper provides less than half the effort to complete the activity 2 The helper provides more than half the effort to complete the activity 1 Dependent. The helper does all the effort to complete an activity 7 Patient refused to complete or attempt activity 9 The patient did not perform the activity before the current illness or injury 88 Not attempted due to Medical conditions or safety concerns Transfers (B, C, W/C) (FIM): 4 Sit to/from Stand: 4 Bed to/from Chair: 4 cues for direction, will often let go of walker to transfer Weight Bearing Right Lower Extremity: Right Full Weight Bearing Left Lower Extremity: Left Full Weight Bearing Gait Training Gait (FIM): 4 Distance: 220' Gait Level of Assist: 4 Gait Persons Needed: 1 Gait Assistive Device: FWW Patient ambulated slowly but steady, no LOB, tends to drift to the left side. Exercises Seated Therapy Exercises: Ankle pumps, Long arc quads Seated Reps: 15 Treatments transfers, ambulation, functional strengthening, patient was also toiled to urinate Assessment Current Status: Fair Progress improved ambulation PT Short Term Goals Short Term Goals Time Frame: Apr 06, 2018 Transfers (B,C,W/C) (FIM): 4 Gait (FIM): 1 Distance (FIM): 1=up to 49 ft Gait Distance Comment: 20' Gait Level of Assist: 4 Gait Assistive Device: FWW PT Correction Goals Correction Goals PT Correction Goals Time Frame: Apr 27, 2018 Transfers (B,C,W/C) (FIM): 5 Gait (FIM): 4 Gait distance (FIM): 3=150 ft Distance: 150' Gait Level of Assist: 4 Gait Assistive Device: FWW PT Plan Problem List Problem List: Activity Tolerance, Functional Strength, Safety, Balance, Gait, Transfer, Bed Mobility, ROM Treatment/Plan Treatment Plan: Continue Plan of Care Treatment Plan: Bed Mobility, Education, Functional Activity Patsy, Functional Strength, Gait, Safety, Therapeutic Exercise, Transfers Treatment Duration: Apr 27, 2018 Frequency: 6 times per week Estimated Hrs Per Day: .5 hour per day Patient and/or Family Agrees t: Yes Safety Risks/Education Patient Education: Gait Training, Transfer Techniques, Correct Positioning, Safety Issues Teaching Recipient: Patient Teaching Methods: Demonstration, Discussion Response to Teaching: Reinforcement Needed Time/GCodes Time In: 1030 Time Out: 1045 Total Billed Treatment Time: 15 Total Billed Treatment 1 visit GT 15' LEOLA PICKETT PT Apr 08, 2018 10:48
[2018-04-08 12:00] VITALS: BP 122/76
--- NOTE | 2018-04-08 13:28 | Progress Note-Hospitalist ---
Subjective HPI/CC On Admission Date Seen by Provider: Apr 08, 2018 Time Seen by Provider: 13:24 CC: SOB, chest tightness HPI: This is 73 yo white male w/ a PMH of CAD s/p stents (x2 in 2012), type 2 DM , HTN, HLD, and VERO on CPAP who was a direct admit from Dr. Burrows's office for PNA on 03/24/18. The patient was complaining of one week of worsening SOB and chest tightness, but denied CP or other URI symptoms. A stat CT showed bilateral lower lobe PNA and the pt was hypoxemic, so he was admitted for IV abx and oxygen support. Despite the hx of VERO, the pt does not use oxygen at home and does not have COPD. He quit smoking in 1972. While in the ICU, the pt rapidly deteriorated into severe sepsis w/ FAIZA and ARDS within 24 hours of admission. His white count peaked at 30,000. He was intubated and IV vanco/zosyn /eraxis were started. Bronchoscopy was performed, cultures pending, preliminary showed no growth. Viral PNA serology panel was negative, as was Legionella urinary antigen and S. pneumo antigen. Cardiology was consulted for hx of CAD. Troponins were negative and echocardiogram showed normal ejection fraction but with pulmonary HTN. The patient's oxygenation slowly improved and he was extubated on the afternoon of 03/29/18. Over the last two days the patient's mental status never fully returned to baseline and his [place] once [place] reb[place] [address] [place] [address]. He complains of distal upper extremity weakness and SOB. His pulse ox was 93% on 5L vapotherm yesterday but he is requiring 9L today. He is requiring BiPAP at night. Subjective/Events-last exam Pt is laying in bed stretching. No complaints. expresses concerns about his memory. Requesting medication to help with memory. Objective Exam Vital Signs Vital Signs Date Time Temp Pulse Resp B/P (MAP) Pulse Ox O2 Delivery O2 Flow Rate FiO2 04/08/18 16:25 98.3 65 20 132/64 (86) 99 Nasal Cannula 2.00 04/05/18 03:35 30 Capillary Refill : Less Than 3 Seconds General Appearance: No Apparent Distress, Chronically ill Respiratory: No Accessory Muscle Use, No Respiratory Distress, Decreased Breath Sounds; No Wheezing Cardiovascular: Regular Rate, Rhythm, No JVD, No Murmur Gastrointestinal: Normal Bowel Sounds, Non Tender, Soft Back: Normal Inspection Extremity: No Calf Tenderness, Pedal Edema Neurologic/Psychiatric: Alert, Normal Mood/Affect Skin: Warm/Dry, Other (small abrasion to left cheek) Lymphatic: No Adenopathy Results/Procedures Lab Laboratory Tests 04/08/18 07:50 Patient resulted labs reviewed. Imaging: Reviewed Imaging Films, Reviewed Imaging Report Assessment/Plan Assessment and Plan Assess & Plan/Chief Complaint Acute Respiratory Failure Critical Care Critically Ill Patient Diagnosis/Problems Diagnosis/Problems (1) Acute respiratory failure Status: Acute Assessment & Plan: Extubated last week Doing well on nasal cannula currently Pulm consulted, appreciate recs Continue steroids Continue Lasix Qualifiers: Respiratory failure complication: hypoxia Qualified Codes: J96.01 - Acute respiratory failure with hypoxia (2) Severe sepsis Status: Resolved Assessment & Plan: Completed IV abx 04/06 Low threshold for resumption if fever or WBC increases Blood cultures done and NGTD RVP negative Resolution Date/Time: 03/31/18 @ 12:46 (3) Pneumonia Status: Acute Assessment & Plan: Diffuse bilateral pneumonia on CT chest on presentation Blood cultures NGTD RVP negative Urine strep pneumo and legionella negative Completed abx Qualifiers: Pneumonia type: due to unspecified organism Laterality: bilateral Lung location: lower lobe of lung Qualified Codes: J18.1 - Lobar pneumonia, unspecified organism (4) FAIZA (acute kidney injury) Status: Resolved Assessment & Plan: Back at baseline Resolution Date/Time: 03/27/18 @ 10:02 (5) Insulin dependent diabetes mellitus Status: Chronic Assessment & Plan: Blood sugars still high but improving Steroids decreased (6) Essential (primary) hypertension Status: Chronic Assessment & Plan: Well controlled on current meds (7) CAD (coronary artery disease) Status: Chronic Assessment & Plan: Cardiology consulted, appreciate recs Concern about change telemetry, troponin checked and negative EKG done this AM and no signs of STEMI per Dr Pizarro Qualifiers: Coronary Disease-Associated Artery/Lesion type: [place] artery [place] vs. transplanted heart: [place] heart Associated angina: without angina Qualified Codes: I25.10 - Atherosclerotic heart disease of [place] coronary artery without angina pectoris (8) Dementia Status: Chronic Assessment & Plan: Will start on aricept per family request Discussed the role of these medications to help slow progression but they do not help him regain Speech consulted for cognitive eval Qualifiers: Dementia type: Alzheimer's disease (9) Critical illness myopathy Status: Acute Assessment & Plan: Continue to work with PT/OT I think patient would be best served in IRU and consult placed Authorization sent to insurance and IRU admission declined Will attempt again in a few days once off IV medications Consider swing bed Clinical Quality Measures DVT/VTE Risk/Contraindication: Risk Factor Score Per Nursin RFS Level Per Nursing on Admit: 2=Moderate DHRUV MEEHAN MD Apr 08, 2018 13:28
--- NOTE | 2018-04-08 14:10 | Occupational Ther Daily Note ---
OT Current Status-Daily Note Subjective Pt alert, lying in bed. Pt agrees to therapy. No c/o pain. Mental Status/Objective Patient Orientation: Person, Place, Time, Situation Therapy Code Descriptions/Definitions Functional Burden Measure: 0=Not Assessed/NA 4=Minimal Assistance 1=Total Assistance 5=Supervision or Setup 2=Maximal Assistance 6=Modified [place] 3=Moderate Assistance 7=Complete [place] Attachments: IV, Oxygen Other Treatment Completed UE exercises with skilled instructions, light resistance theraband to increase strength for daily functional tasks. 1 sets 15 reps of each exercise, no SOA noted. Therapy foam exercises completed 30 reps each. After therapy, pt lying in bed with call light/phone in reach. All needs met in room. Education OT Patient Education: Exercise program Teaching Recipient: Patient, Family Teaching Methods: Demonstration, Discussion Response to Teaching: Verbalize Understanding, Return Demonstration OT Short Term Goals Short Term Goals Time Frame: Apr 06, 2018 Eating(FIM): 5 Grooming(FIM): 5 Upper Body Dressing(FIM): 4 Transfers (B,C,W/C) (FIM): 4 Additional Short Term Goals: 1-Demonstrate ADL Tasks, 2-Verbalize Understanding , 3-ImproveStrength/Patsy 1=Demonstrate adherence to instructed precautions during ADL tasks. 2=Patient will verbalize/demonstrate understanding of assistive devices/ modifications for ADL. 3=Patient will improve strength/tolerance for activity to enable patient to perform ADL's. OT Triage Licensed Practical Nurse Goals Triage Licensed Practical Nurse Goals Time Frame: Apr 20, 2018 Eating (FIM): 6 Grooming(FIM): 6 Upper Body Dressing(FIM): 5 Lower Body Dressing(FIM): 5 Toileting(FIM): 5 Toilet/Commode Transfer(FIM): 5 Additional Goals: 1-Demonstrate ADL Tasks, 2-Verbalize Understanding, 3- ImproveStrength/Patsy 1=Demonstrate adherence to instructed precautions during ADL tasks. 2=Patient will verbalize/demonstrate understanding of assistive devices/ modifications for ADL. 3=Patient will improve strength/tolerance for activity to enable patient to perform ADL's. OT Education/Plan Problem List/Assessment Assessment: Decreased Activ Tolerance, Decreased UE Strength Pt demonstrates decreased mobility, strength, activity tolerance, and ADL functioning. Pt to benefit from skilled OT intervention for ADL training, transfers, strengthening, and safety education to increase level of independence and allow safe discharge plan. Discharge Recommendations Plan/Recommendations: Continue POC Treatment Plan/Plan of Care Patient would benefit from OT for education, treatment and training to promote independence in ADL's, mobility, safety and/or upper extremity function for ADL' s. Plan of Care: ADL Retraining, Functional Mobility, UE Funct Exercise/Act Treatment Duration: Apr 20, 2018 Frequency: 5 times per week Estimated Hrs Per Day: .25 hour per day Rehab Potential: Fair Time/GCodes Start Time: 13:45 Stop Time: 14:00 Total Time Billed (hr/min): 15 Billed Treatment Time 1 visit-EX 1 (15 min) MINDY VILLALOBOS Apr 08, 2018 14:10
--- NOTE | 2018-04-08 15:00 | NUR ---
REPORT RECEIVED FROM EDGARDO STEPHENSON. THIS RN WILL ASSUME PT CARE AT THIS TIME.
--- NOTE | 2018-04-08 15:15 | ST Cognitive Linguistic Eval ---
Speech Evaluation-General Medical Diagnosis Pneumonia Onset Date: Mar 24, 2018 Therapy Diagnosis Therapy Diagnosis: Cognitive-Communication Precautions Precautions/Isolations: Fall Prevention, Standard Precautions, Pressure Ulcer Medical History Pertinent Medical History: CAD, DM, HTN Reviewed History: Yes Social History Current Living Status: Spouse Speech PLF-Current Status Prior Level of Function Prior to this hospitalization the patient was living at home with his . He was independent with his daily needs at that time. Subjective Patient was sitting on the side of the bed and visiting with his when I entered the room. The patient was pleasant and noted to use humor during the evaluation process. Language Eval: Auditory Comprehends Simple Yes/No Ques: Mild Follows 1-Step Commands: Functional Follows Complex Directions: Moderate Follows General Conversations: Mild Language Eval: Verbal Language Completes Spontaneous Greeting: Functional Produces Auto, Serial Info: Functional Word Finding: Mild Requests Basic Needs: Mild States Basic Personal Info: Mild Expresses Complex Ideas: Moderate Objective Cognitive Domain Attention: WNL Memory: Moderate Problem Solving: Mild Executive Functions: Moderate Objective Formal/Standardized Tests [facility] Cognitive/Communication Results Memory: Immediate 3/3, Delayed with verbal cues 1/3, Orientation: 4/5, Problem Solving: Simple 4/5, Complex 2/5, Auditory Comprehension: 4/5 Oral Motor/Speech Production Patient's speech is noted to be decreased in intelligibility due to voice breaks. The patient was intubated for several days and his voice has not fully recovered. Impression The patient is a pleasant 73 year old man who was admitted to the ICU on March 24 after presenting to the ED with double pneumonia. The patient has a complex medical history due to multiple diagnosis. The patient was intubated for several days and has been off the vent for the past few days. The patient was referred by his physician for a cognitive evaluation due to noted deficits. The evaluation was completed at bed side with the patient deficits noted to be mild to moderate in most areas. The patient is recommended for skilled speech therapy to focus on improving his cognition for safety and independence. Speech Short Term Goals Short Term Goals Short Term Goals 1) The patient will complete memory tasks related to his daily needs at 90% or greater with minimal cues. 2) The patient will demonstrate the ability to follow multi step directions at 90% or greater with minimal cues. 3) The patient will complete problem solving tasks related to his safety at 90% or greater with minimal cues. Speech Custodial Goals Trolley Car Operator Goals The patient will increase his cognitive level related to safety and independence for his return home. Speech-Plan Patient/Family Goals Patient/Family Goals: Patient plans to return home with his upon discharge from the hospital. Treatment Plan Speech Therapy Treatment Plan: Continue Plan of Care Patient will begin skilled therapy for cognition 5x per week. Treatment Duration: May 14, 2018 Frequency: 5 times per week Estimated Hrs Per Day: .5 hour per day Rehab Potential: Fair Barriers to Learning: Patient has had a series of medical issues that appear to have affected his cognition. Pt/Family Agrees to Plan: Yes Safety Risks/Education Teaching Recipient: Patient, Significant Other Teaching Methods: Discussion Response to Teaching: Verbalize Understanding Education Topics Provided: Safety within his room. Time Speech Therapy Time In: 14:45 Speech Therapy Time Out: 15:00 Total Billed Time: 15 Billed Treatment Time 1MOHINDER BETH[address] ST Apr 08, 2018 15:15
[2018-04-08] MEDS: ENOXAPARIN 40 MG/0.4 ML (LOVENOX) SYR SC SCH (15:38)
[2018-04-08 16:25] VITALS: BP 132/64
[2018-04-08] MEDS ORDERED: predniSONE 10 MG TAB PO SCH (17:00)
[2018-04-08] MEDS: ATORVASTATIN 20 MG (LIPITOR) TABLET PO SCH (17:49)
[2018-04-08 20:00] VITALS: BP 132/71
[2018-04-08] MEDS ORDERED: DONEPEZIL 5 MG (ARICEPT) TAB PO SCH (21:00)
[2018-04-08] MEDS: risperiDONE 1 MG (RisperDAL) TAB PO SCH (21:36)
[2018-04-09] VITALS: BP 135/61
[2018-04-09] MEDS: RT-ALBUTEROL/IPRATROPIUM 3 ML (DUONEB) VIAL INH SCH ×2 (02:30→07:52)
[2018-04-09 04:05] VITALS: BP 115/64
[2018-04-09] MEDS: inSUlin ASPART (NovoLOG) 1 UNIT/0.01 ML (CHARGE PER UNIT) SC SCH (05:59)
[2018-04-09 06:20] LABS: BASOPHILS % (AUTO) 0 % (0-10); EOSINOPHILS % (AUTO) 0 % (0-10); HEMATOCRIT 32 % (40-54); HEMOGLOBIN 10.4 G/DL (13.3-17.7); LYMPHOCYTES # (AUTO) 2.5 X 10^3 (1.0-4.0); LYMPHOCYTES % (AUTO) 11 % (12-44); MEAN CORPUSCULAR HEMOGLOBIN 30 PG (25-34); MEAN CORPUSCULAR HGB CONC 32 G/DL (32-36); MEAN CORPUSCULAR VOLUME 92 FL (80-99); MEAN PLATELET VOLUME 9.4 FL (7.4-10.4); MONOCYTES # (AUTO) 0.7 X 10^3 (0.0-1.0); MONOCYTES % (AUTO) 3 % (0-12); NEUTROPHILS # (AUTO) 20.5 X 10^3 (1.8-7.8); NEUTROPHILS % (AUTO) 87 % (42-75); PLATELET COUNT 419 10^3/uL (130-400); RED CELL DISTRIBUTION WIDTH 14.8 % (10.0-14.5); WHITE BLOOD COUNT 23.7 10^3/uL (4.3-11.0)
--- NOTE | 2018-04-09 06:30 | NUR ---
pt request to take morning potassium and proboitic with breakfast.
[2018-04-09 06:36] LABS: BUN/CREATININE RATIO 32; CALCIUM 9.1 MG/DL (8.5-10.1); CARBON DIOXIDE 27 MMOL/L (21-32); CHLORIDE 99 MMOL/L (98-107); CREATININE SERUM 1.06 MG/DL (0.60-1.30); GFR ESTIMATED > 60; GLUCOSE 146 MG/DL (70-105); MAGNESIUM 2.2 MG/DL (1.8-2.4); PHOSPHORUS 3.9 MG/DL (2.3-4.7); POTASSIUM 4.6 MMOL/L (3.6-5.0); SODIUM 135 MMOL/L (135-145)
[2018-04-09] MEDS ORDERED: KCL 20 MEQ TAB (K-DUR) PO SCH (07:00)
--- NOTE | 2018-04-09 07:19 | Pulmonary Progress Note ---
Subjective Time Seen by a Provider: 07:18 Subjective/Events-last exam No complications noted. Sepsis Event Evaluation Height, Weight, BMI Height: 5'6.00" Weight: 162lbs. 8.0oz. 73.842821zj; 27.4 BMI Method: Exam Exam Vital Signs Date Time Temp Pulse Resp B/P (MAP) Pulse Ox O2 Delivery O2 Flow Rate FiO2 04/09/18 02:30 91 NIV CPAP 3.00 04/09/18 00:00 98.0 66 22 135/61 (85) 95 NIV CPAP 3.00 04/08/18 22:24 95 NIV CPAP 3.00 04/08/18 20:00 95 Nasal Cannula 3.00 04/08/18 20:00 98.2 73 22 132/71 (91) 94 NIV Bilevel 04/08/18 16:25 98.3 65 20 132/64 (86) 99 Nasal Cannula 2.00 04/08/18 15:08 96 Nasal Cannula 3.00 04/08/18 12:00 98.6 82 20 122/76 (91) 97 Nasal Cannula 2.00 04/08/18 10:52 95 Nasal Cannula 3.00 04/08/18 08:35 Nasal Cannula 1.00 04/08/18 08:00 98.6 64 20 150/70 (96) 96 NIV Bilevel 04/08/18 07:40 96 NIV CPAP 3.00 I & O 04/09/18 07:00 Intake Total 2240 ml Balance 2240 ml Height & Weight Height: 5'6.00" Weight: 162lbs. 8.0oz. 73.337515sd; 27.4 BMI Method: General Appearance: No Apparent Distress, Chronically ill Respiratory: No Accessory Muscle Use, No Respiratory Distress, Decreased Breath Sounds; No Wheezing Cardiovascular: Regular Rate, Rhythm, No JVD, No Murmur Capillary Refill: Less Than 3 Seconds Gastrointestinal: non tender, soft Extremity: No Calf Tenderness, Pedal Edema Neurologic/Psychiatric: Alert, Normal Mood/Affect Skin: Warm/Dry, Other (small abrasion to left cheek) Lymphatic: No Adenopathy Results Lab Laboratory Tests 04/08/18 07:50 04/09/18 06:17 Assessment/Plan Assessment/Plan Acute respiratory failure s/p bronchoscopy -Pt is now on NC -prednisone taper. -Lasix Acute bilateral pneumonia with hypoxemia with severe sepsis -D/C Abx Malnutrition -Encourage diet -Ensures TID Debility -PT/OT -up to [facility] ICU psychosis - Risperdal CYN - improved -monitor Hyperglycemia -Monitor Anemia - monitor Hyponatremia - monitor VERO JON WILLIAM DO Apr 09, 2018 07:19
[2018-04-09 08:00] VITALS: BP 130/60
--- NOTE | 2018-04-09 09:36 | Physical Therapy Daily Note ---
PT Daily Note-Current Subjective Pt is in recliner with in room and friend, pt agrees to PT. reports that his O2 has been staying above 90%. Pain Numeric Pain Scale: 0-No Pain Location: No Pain Reported Mental Status Patient Orientation: Person Attachments: Oxygen (4L) Transfers Therapy Code Descriptions/Definitions Functional [place] Measure: 0=Not Assessed/NA 4=Minimal Assistance 1=Total Assistance 5=Supervision or Setup 2=Maximal Assistance 6=Modified [place] 3=Moderate Assistance 7=Complete [place] Therapy Quality Codes: 6 Independent with activity with or without an assistive device 5 Patient requires set up or clean up by helper. Patient completes activity by themselves 4 Supervision or touching assist (CGA). [place] provide cues , steadying assist 3 The helper provides less than half the effort to complete the activity 2 The helper provides more than half the effort to complete the activity 1 Dependent. The helper does all the effort to complete an activity 7 Patient refused to complete or attempt activity 9 The patient did not perform the activity before the current illness or injury 88 Not attempted due to Medical conditions or safety concerns Transfers (B, C, W/C) (FIM): 4 Scootin Sit to/from Stand: 4 Weight Bearing Right Lower Extremity: Right Full Weight Bearing Left Lower Extremity: Left Full Weight Bearing Gait Training Gait (FIM): 4 Distance (FIM): 3=150 ft Distance: 400' Gait Level of Assist: 4 Gait Persons Needed: 1 Gait Assistive Device: FWW Stair Training Stair Training: Handrails/: uses walker Stairs (FIM): 2 #of Steps: 4 Stairs: Pattern: Step to Level of Assist: 4 Assessment Current Status: Good Progress Pt was able to perform sit<>stand transfer from recliner to FWW with CGA for safety. Pt continues to perform transfers with safety concerns for hand placement. Pt amb with FWW 400' with CGA for safety and no c/o of SOA. SPT used VC for stair education. Pt was able to follow cues 50% of time. Pt used FWW for ascending/descending 4 steps with min A. Pt returned to room and transferred to recliner. Pt is in recliner with all needs met and is in room. PT will continue to work with pt on stairs and further pts tolerance of amb. PT Short Term Goals Short Term Goals Time Frame: Apr 06, 2018 Transfers (B,C,W/C) (FIM): 4 Gait (FIM): 1 Distance (FIM): 1=up to 49 ft Gait Distance Comment: 20' Gait Level of Assist: 4 Gait Assistive Device: FWW PT Internal Audit Consultant Goals Internal Audit Consultant Goals PT Internal Audit Consultant Goals Time Frame: Apr 27, 2018 Transfers (B,C,W/C) (FIM): 5 Gait (FIM): 4 Gait distance (FIM): 3=150 ft Distance: 150' Gait Level of Assist: 4 Gait Assistive Device: FWW PT Plan Problem List Problem List: Activity Tolerance, Functional Strength, Safety, Balance, Gait, Transfer, Bed Mobility, ROM Treatment/Plan Treatment Plan: Continue Plan of Care Treatment Plan: Bed Mobility, Education, Functional Activity Patsy, Functional Strength, Gait, Safety, Therapeutic Exercise, Transfers Treatment Duration: Apr 27, 2018 Frequency: 6 times per week Estimated Hrs Per Day: .5 hour per day Patient and/or Family Agrees t: Yes Time/GCodes Time In: 827 Time Out: 843 Total Billed Treatment Time: 16 Total Billed Treatment 1 visit FA 16 min BRI MARTIN PT Apr 09, 2018 09:36
[2018-04-09] MEDS: LACTOBACILLUS ACIDOPHILUS (PROBIOTIC) CAPSULE PO SCH (09:48)
[2018-04-09] MEDS: PANTOPRAZOLE 40 MG (PROTONIX) TAB PO SCH (09:48)
[2018-04-09] MEDS: LORATADINE (CLARITIN) 10 MG TAB PO SCH (09:48)
[2018-04-09] MEDS: FUROSEMIDE 40 MG (LASIX) TAB PO SCH (09:48)
[2018-04-09] MEDS: ASPIRIN E.C. 81 MG (ECOTRIN) TAB PO SCH (09:48)
[2018-04-09] MEDS: meTOprolol TARTRATE 25 MG (LOPRESSOR) TABLET PO SCH (09:48)
[2018-04-09] MEDS: BENZONATATE 100 MG (TESSALON) CAPSULE PO SCH (09:49)
[2018-04-09] MEDS: risperiDONE 0.25 MG (RisperDAL) TAB PO SCH (09:49)
--- NOTE | 2018-04-09 10:10 | Discharge Summary-Hospitalist ---
Diagnosis/Chief Complaint Date of Admission Mar 25, 2018 at 13:15 Date of Discharge Discharge Date: Apr 06, 2018 Admission Diagnosis CAP Discharge Diagnosis (1) Acute respiratory failure Status: Acute Assessment & Plan: Extubated last week Doing well on nasal cannula currently Pulm consulted, appreciate recs Continue steroids Continue Lasix (2) Severe sepsis Status: Resolved Assessment & Plan: Completed IV abx 04/06 Low threshold for resumption if fever or WBC increases Blood cultures done and NGTD RVP negative (3) Pneumonia Status: Acute Assessment & Plan: Diffuse bilateral pneumonia on CT chest on presentation Blood cultures NGTD RVP negative Urine strep pneumo and legionella negative Completed abx (4) FAIZA (acute kidney injury) Status: Resolved Assessment & Plan: Back at baseline (5) Insulin dependent diabetes mellitus Status: Chronic Assessment & Plan: Blood sugars still high but improving Steroids decreased (6) Essential (primary) hypertension Status: Chronic Assessment & Plan: Well controlled on current meds (7) CAD (coronary artery disease) Status: Chronic Assessment & Plan: Cardiology consulted, appreciate recs Concern about change telemetry, troponin checked and negative EKG done this AM and no signs of STEMI per Dr Pizarro (8) Dementia Status: Chronic Assessment & Plan: Will start on aricept per family request Discussed the role of these medications to help slow progression but they do not help him regain Speech consulted for cognitive eval (9) Critical illness myopathy Status: Acute Assessment & Plan: Continue to work with PT/OT I think patient would be best served in IRU and consult placed Authorization sent to insurance and IRU admission declined Will attempt again in a few days once off IV medications Consider swing bed Discharge Summary Procedures/Consulations Dr Burrows- Cuate Pizarro- Cardiology Discharge Physical Exam Allergies: Coded Allergies: No Known Drug Allergies (Unverified , 04/05/18) Vitals & I&Os Vital Signs Date Time Temp Pulse Resp B/P (MAP) Pulse Ox O2 Delivery O2 Flow Rate FiO2 04/09/18 08:55 Nasal Cannula 3.00 04/09/18 08:00 98.2 76 18 130/60 (83) 98 04/05/18 03:35 30 General Appearance: No Apparent Distress, Chronically ill Respiratory: No Accessory Muscle Use, No Respiratory Distress, Decreased Breath Sounds; No Wheezing Cardiovascular: Regular Rate, Rhythm, No JVD, No Murmur Gastrointestinal: Normal Bowel Sounds, Non Tender, Soft Extremity: No Calf Tenderness, Pedal Edema Skin: Warm/Dry, Other (small abrasion to left cheek) Neurologic/Psychiatric: Alert, Normal Mood/Affect Hospital Course Pt was admitted for pneumonia which progressed quickly to ARDS necessitating ventilator support. He was on the ventilator for 4 days and was able to be weaned off to Vapotherm. He was unable to tolerate BiPAP due to agitation and anxiety. He had a very slow recovery and necessitated PT/OT/ST. He completed 10 days of guided antibiotics based on his bronchoscopy results. He was discharged to swing bed status to continue further therapy. Labs (last 24 hrs) Microbiology 03/24/18 Blood Culture - Final, Complete No growth 04/03/18 C. difficile GDH Antigen & Toxins - Final, Complete 03/26/18 Gram Stain - Final, Resulted 03/26/18 Bronchial Culture - Final, Resulted No growth 03/26/18 Fungal Culture 1 - Preliminary, Resulted Patient resulted labs reviewed. Pending Labs Imaging: Reviewed Imaging Films, Reviewed Imaging Report Discussion & Recommendations Discharge Planning: >30 minutes discharge planning Discharge Home Medications: Active Scripts Active Reported Fish Oil 1,000 mg Capsule ([place] 3 Polyunsat Fatty Acids) 1,000 Mg Cap 1,000 Mg PO DAILY Metformin HCl 500 Mg Tablet 500 Mg PO 1730 Claritin (Loratadine) 10 Mg Tablet 10 Mg PO DAILY Novolog Mix 70-30 Flexpen Syrn (Insuln Asp Prt/Insulin Aspart) 300 Units/3 Ml Solution 12 Units SQ 0800,1730 Metoprolol Tartrate 25 Mg Tablet 25 Mg PO 0800,1730 Aspirin EC (Aspirin) 81 Mg Tablet.dr 81 Mg PO DAILY Atorvastatin Calcium 20 Mg Tablet 20 Mg PO 1730 Multivitamins (Multivitamin) 1 Each Tablet 1 Tab PO DAILY Benazepril HCl 20 Mg Tablet 20 Mg PO DAILY Metformin HCl 500 Mg Tablet 1,000 Mg PO DAILY TAKES 2 (500MG) TABLETS Instructions to patient/family Please see electronic discharge instructions given to patient. Clinical Quality Measures DVT/VTE Risk/Contraindication: Risk Factor Score Per Nursin RFS Level Per Nursing on Admit: 2=Moderate Problem Qualifiers (1) Acute respiratory failure: Respiratory failure complication: hypoxia Qualified Codes: J96.01 - Acute respiratory failure with hypoxia (2) Pneumonia: Pneumonia type: due to unspecified organism Laterality: bilateral Lung location: lower lobe of lung Qualified Codes: J18.1 - Lobar pneumonia, unspecified organism (3) CAD (coronary artery disease): Coronary Disease-Associated Artery/Lesion type: [place] artery [place] vs. transplanted heart: [place] heart Associated angina: without angina Qualified Codes: I25.10 - Atherosclerotic heart disease of [place] coronary artery without angina pectoris (4) Dementia: Dementia type: Alzheimer's disease DHRUV MEEHAN MD Apr 09, 2018 10:10
--- NOTE | 2018-04-09 10:22 | NUR ---
Notified this a.m. that the patient had been denied for swing bed by their medical equipment repairer/doctor. They informed me that the reason for denial was d/t patient being on IV solumedrol et that was an acute need. They also told me that the doctor could perform a peer to peer with option for [facility]. I let her know that the doctor would be appealing et that the stated reason for denial was not a valid reason to deny a skilled stay. I requested that they fax the denial et Erinn Walton the clinical reviewer reported that they would not be able to do that but would mail us a denial letter. I then called the peer to peer line et scheduled a meeting for our doctor to speak with their doctor at 11 a.m. The car clerk pullman reported "It looks like this needs to be done very quickly." I voiced that we would appreciate that. I gave her all of Dr. Tolentino contact information et she reported that Dr. Aguayo would be their physician. Approximately [address] Queen received a message on her cell phone that the case was reviewed and the Peer to Peer was no longer needed et that the patient was approved for swing bed. I called et left a message on Erinn's voice mail for confirmation of approval. At 1020 Erinn called et gave authorization for swing bed for 3 days. Auth number [id number]. If continued skilled is need on Thursday04/12/18 I will need to fax updated clinical information to Attn: SRL Team.
[2018-04-09] MEDS: inSUlin Protamine/ASPart 70/30 1 UNIT/0.01 ML DOSE SC SCH (11:18)
--- NOTE | 2018-04-09 13:26 | Cardiology Progress Note ---
Subjective Date Seen by Provider: Apr 09, 2018 Time Seen by Provider: 08:15 Subjective/Events-last exam Patient is sitting in a chair, feeling better, no new complaint Review of Systems General: No Chills, No Night Sweats; Fatigue, Malaise; No Appetite, No Other HEENT: No Head Aches, No Visual Changes, No Eye Pain, No Ear Pain, No Dysphasia , No Sinus Congestion, No Post Nasal Drip, No Sore Throat, No Other Pulmonary: Dyspnea, Cough; No Pleuritic Chest Pain, No Other Cardiovascular: No: Chest Pain, Palpitations, Orthopnea, Paroxysmal Noc. Dyspnea, Edema, Lt Headedness, Other Objective-Cardiology Exam Last Set of Vital Signs Vital Signs 04/05/18 04/09/18 04/09/18 03:35 08:00 08:55 Temp 98.2 Pulse 76 Resp 18 B/P (MAP) 130/60 (83) Pulse Ox 98 O2 Delivery Nasal Cannula O2 Flow Rate 3.00 FiO2 30 Capillary Refill : Less Than 3 Seconds I&O Intake and Output 04/09/18 00:00 Intake Total 2390 ml Balance 2390 ml Intake Oral 2390 ml # Voids 7 # Bowel Movements 1 General: Alert, Oriented X3, Cooperative, Mild Distress HEENT: PERRLA Neck: Supple, No JVD, No Thyromegaly Lungs: Normal Air Movement, Other (bilateral rhonchi) Heart: Regular Rate, Normal S1, Normal S2, No Murmurs Abdomen: Normal Bowel Sounds, Soft, No Tenderness, No Hepatosplenomegaly, No Masses, Other (mild edema) Extremities: No Clubbing, No Cyanosis, Normal Pulses, No Tenderness/Swelling Skin: No Rashes, No Breakdown, No Significant Lesion Neuro: Normal Speech, Strength at 5/5 X4 Ext, Normal Tone, Sensation Intact Psych/Mental Status: Mental Status NL, Mood NL Results Lab Laboratory Tests 04/09/18 06:17 A/P-Cardiology Admission Diagnosis Pneumonia Sinus tachycardia Coronary artery disease Hypertension Hyperlipidemia Assessment/Plan Status post acute respiratory failure, better at this time, back to baseline. Continue to monitor Pneumonia, improved, managed by primary care team Change in mental status, confusion, still disoriented to time and place. Probably secondary to hypoxemia. Managed by primary care physician Coronary artery disease, had a cardiac catheterization 2012 resulted with 2 stents deployment 2.515 mm to the right coronary artery resolute and 2.2522 mm resolute to the LAD, continue to monitor at this time Echocardiogram done on March 25, 2018 showing normal left ventricular size with ejection fraction 65 percent, pulmonary hypertension with PA pressure 45 mmHg Hypertension, controlled. Continue to monitor Hyperlipidemia, monitor lipids Diabetes mellitus, followed and managed by primary care physician Obstructive sleep apnea, using C Pap at night, currently in respiratory failure Obesity History of carotid stenosis, last ultrasound was done in September 2017 showing mild disease on the right and moderate on the left. Continue to monitor Clinical Quality Measures DVT/VTE Risk/Contraindication: Risk Factor Score Per Nursin RFS Level Per Nursing on Admit: 2=Moderate ANDREINA LARA MD Apr 09, 2018 13:26
== END 2018-04-09 11:17 | disposition swing bed (61) | DRG 207 ==
LOC: ICU 13:31 → OBSVTOIN 03-25 13:15 → ICU 03-25 13:15 → 4TH 04-06 15:35
PROVIDERS: ADMIT Family Medicine; ATTEND Family Medicine
PROC: 5A1955Z Respiratory Ventilation, Greater than 96 Consecutive Hours (ICD-10-PCS; principal; 2018-03-25)
PROC: 0B9D8ZX Drainage of Right Middle Lung Lobe, Via Natural or Artificial Opening Endoscopic, Diagnostic (ICD-10-PCS; 2018-03-26)
PROC: 0BDD8ZX Extraction of Right Middle Lung Lobe, Via Natural or Artificial Opening Endoscopic, Diagnostic (ICD-10-PCS; 2018-03-26)
DX: J18.1 Lobar pneumonia, unspecified organism (principal); A41.9 Sepsis, unspecified organism; R65.20 Severe sepsis without septic shock; J80 Acute respiratory distress syndrome; E87.2 Acidosis; E87.1 Hypo-osmolality and hyponatremia; N17.9 Acute kidney failure, unspecified; G72.81 Critical illness myopathy; E46 Unspecified protein-calorie malnutrition; I25.10 Atherosclerotic heart disease of native coronary artery without angina pectoris; E11.9 Type 2 diabetes mellitus without complications; G30.9 Alzheimer's disease, unspecified; F02.80 Dementia in other diseases classified elsewhere, unspecified severity, without behavioral disturbance, psychotic disturbance, mood disturbance, and anxiety; G47.33 Obstructive sleep apnea (adult) (pediatric); R09.02 Hypoxemia; I95.9 Hypotension, unspecified; R00.0 Tachycardia, unspecified; E78.00 Pure hypercholesterolemia, unspecified; I10 Essential (primary) hypertension; E11.65 Type 2 diabetes mellitus with hyperglycemia; D63.8 Anemia in other chronic diseases classified elsewhere; J30.2 Other seasonal allergic rhinitis; E87.5 Hyperkalemia; E83.51 Hypocalcemia; E87.70 Fluid overload, unspecified; E66.9 Obesity, unspecified; I65.23 Occlusion and stenosis of bilateral carotid arteries; I27.20 Pulmonary hypertension, unspecified; Z79.4 Long term (current) use of insulin; Z87.891 Personal history of nicotine dependence
CPT/HCPCS: 36415; 36600; 71045; 76937; 80048; 80053; 80202; 81000; 82010; 82040; 82805; 82962; 83036; 83605; 83735; 83880; 84100; 84478; 84484; 85007; 85025; 85027; 87015; 87040; 87070; 87081; 87101; 87116; 87205; 87206; 87324; 87449; 87631; 87804; 87899; 89051; 93306; 94002; 94003; 94640; 94660; 94664; 94668; 94760; 94799

== ENCOUNTER → 2018-03-24 | Outpatient (CLI) | payer MEDICARE ==
[~2018-03-24] MED LIST changes: +AMLO10TA7 PO; +ASPI-983 PO; +ATOR20TA66 PO; +BENA20TA7 PO; +HYDR12.5 PO; +INSU100I13 SQ; +IOHEXOL 350 MG/ML 150 ML (OMNIPAQUE 350) VIAL IV ONE; +LORA10TA76 PO; +METF-397 PO; +METO-333 PO; +MULT1TAB69 PO; +NS 100 ML (IVPB) BAG IV ONE; +OMG1KC PO; +RECEIVED CONTRAST (Hold Metformin) IV SCH
[2018-03-24 11:28] LABS: BASOPHILS # (AUTO) 0.1 10^3/uL (0.0-0.1); BASOPHILS % (AUTO) 1 % (0-10); EOSINOPHILS # (AUTO) 0.3 10^3/uL (0.0-0.3); EOSINOPHILS % (AUTO) 2 % (0-10); HEMATOCRIT 37 % (40-54); HEMOGLOBIN 12.6 G/DL (13.3-17.7); LYMPHOCYTES # (AUTO) 2.2 X 10^3 (1.0-4.0); LYMPHOCYTES % (AUTO) 14 % (12-44); MEAN CORPUSCULAR HEMOGLOBIN 31 PG (25-34); MEAN CORPUSCULAR HGB CONC 34 G/DL (32-36); MEAN CORPUSCULAR VOLUME 91 FL (80-99); MEAN PLATELET VOLUME 7.9 FL (7.4-10.4); MONOCYTES # (AUTO) 0.6 X 10^3 (0.0-1.0); MONOCYTES % (AUTO) 4 % (0-12); NEUTROPHILS # (AUTO) 11.9 X 10^3 (1.8-7.8); NEUTROPHILS % (AUTO) 79 % (42-75); PLATELET COUNT 536 10^3/uL (130-400); WHITE BLOOD COUNT 15.1 10^3/uL (4.3-11.0)
[2018-03-24 11:47] LABS: BILIRUBIN,TOTAL 0.6 MG/DL (0.1-1.0); CALCIUM 9.9 MG/DL (8.5-10.1); CREATININE SERUM 1.41 MG/DL (0.60-1.30); TOTAL PROTEIN 7.8 GM/DL (6.4-8.2)
[2018-03-24 12:02] LABS: ABG BASE EXCESS -3.1 MMOL/L (-2.5-2.5); ABG OXYGEN SATURATION 95 % (94-100); ABG PCO2 37 MMHG (35-45); ABG PH 7.38 (7.37-7.43); ABG PO2 85 MMHG (79-93); ABG TCO2 22.3 MMOL/L (21.0-31.0)
[2018-03-24 12:04] LABS: ALLENS TEST YES-POS; INSPIRED O2 2L; PATIENT TEMP 98.8; VENTILATOR NO
[2018-03-24 12:07] LABS: BAND NEUTROPHILS 0 %; BASOPHILS % (MANUAL) 0 %; EOSINOPHILS % (MANUAL) 5 %; LYMPHOCYTES % (MANUAL) 10 %; MONOCYTES % (MANUAL) 3 %; NEUTROPHILS % (MANUAL) 82 %; RBC MORPH NORMAL
--- NOTE | 2018-03-24 13:14 | Diagnostic Imaging Report ---
PROCEDURE: CT angiography of the chest with contrast. TECHNIQUE: Multiple contiguous axial images were obtained through the chest after uneventful bolus administration of intravenous contrast. 2D reconstructed CTA MIP acquisitions were also performed. INDICATION: Difficulty breathing and hypoxia. No prior studies are available for comparison. Evaluation of the pulmonary arterial system is without evidence of thromboembolism. No filling defects are seen within the central, lobar or segmental branches. The thoracic aorta is normal caliber. No dissection identified. There are coronary arterial calcifications present. No pericardial or pleural fluid is seen. No definite axillary lymphadenopathy is identified. No pathologically enlarged mediastinal nodes are seen. Central airways are patent. Pulmonary parenchyma demonstrates patchy groundglass infiltrates involving bilateral upper and lower lobes. There is interlobular septal thickening consistent with interstitial lung disease. No air cyst formation is identified. No discrete parenchymal mass is identified. The upper abdomen is unremarkable. IMPRESSION: 1. No evidence of pulmonary embolism or thoracic aortic dissection. 2. Diffuse bilateral groundglass pulmonary infiltrates. There are also diffuse bilateral interstitial changes present. Dictated by: Dictated on workstation # [id number]
== END ==
LOC: RAD 11:04
PROVIDERS: ATTEND Nurse Practitioner Family
DX: G47.33 Obstructive sleep apnea (adult) (pediatric) (principal); F17.220 Nicotine dependence, chewing tobacco, uncomplicated; R91.8 Other nonspecific abnormal finding of lung field
CPT/HCPCS: 36415; 36600; 71275; 80053; 82805; 85007; 85027

== ENCOUNTER 2018-04-08 11:33 | Inpatient (IN) | payer MEDICARE ==
[~2018-04-08] VITALS: Ht 167.6 cm; Wt 68.6 kg
[~2018-04-08 11:33] MED LIST changes: +AMLO10TA7 PO; +ASPI-983 PO; +ATOR20TA66 PO; +BENA20TA7 PO; +HYDR12.5 PO; +INSU100I13 SQ; +LORA10TA76 PO; +METF-397 PO; +METO-333 PO; +MULT1TAB69 PO; +OMG1KC PO
[2018-04-09] MEDS ORDERED: morphine INJ 4 MG/ML 1 ML (VIAL/SYRINGE) IVP PRN (12:00)
[2018-04-09] MEDS ORDERED: HALOPERIDOL 5 MG/ML (HALDOL) AMP IV PRN (12:00)
[2018-04-09] MEDS ORDERED: ACETAMINOPHEN 325 MG TABLET PO PRN (12:00)
[2018-04-09] MEDS ORDERED: POTASSIUM CL 10MEQ/50ML IVPB 50 ML IV SCH (12:00)
[2018-04-09] MEDS ORDERED: CATHETER FLUSH 10 ML SYR IV PRN (12:00)
[2018-04-09] MEDS ORDERED: guaiFENesin SYRUP 100 MG/5 ML 10 ML (ROBITUSSIN SF) PO PRN (12:00)
--- NOTE | 2018-04-09 12:00 | NUR ---
BRANDIE WASHINGTON admitted to swing bed status to room 418-1, with an admitting diagnosis of SWB, Acute Respiratory failure, Pneumonia on 04/09/18 from acute inpatient status. Therapy to evaluate patient for activity needs. BRANDIE WASHINGTON and/or family introduced to surroundings, call light, bed controls, phone, TV, temperature control, lights, meal times, smoking policy, visitor policy, side rail policy, bathrooms, and showers. Patient rights given to patient in the handbook. BRANDIE WASHINGTON and/or family member verbalized understanding that [facility] is not responsible for the loss or damage to any personal effects or valuables that are kept in the patients possession during their hospitalization. The following care plans were discussed with BRANDIE WASHINGTON: Discharge Plannning, Impaired Mobility, Potential for fall/injury, Self care deficit. BRANDIE WASHINGTON and/or family verbalizes understanding of the Interdisciplinary Patient Education. Patient and/or family were informed about the Rapid Response Team and its purpose. Call light with in reach and patient demonstrates understanding of how to use. BRANDIE WASHINGTON reports no further needs at this time.
[2018-04-09 12:45] VITALS: BP 127/62
[2018-04-09] MEDS: LACTOBACILLUS ACIDOPHILUS (PROBIOTIC) CAPSULE PO SCH ×2 (13:00→17:30)
[2018-04-09] MEDS: BENZONATATE 100 MG (TESSALON) CAPSULE PO SCH ×2 (13:00→21:33)
[2018-04-09] MEDS: RT-ALBUTEROL/IPRATROPIUM 3 ML (DUONEB) VIAL INH SCH ×3 (13:21→23:40)
--- NOTE | 2018-04-09 13:32 | Physical Therapy Evaluation ---
PT Evaluation-General Medical Diagnosis Admission Date Apr 09, 2018 at 11:57 Medical Diagnosis: respiratory distress Onset Date: Mar 24, 2018 Therapy Diagnosis Therapy Diagnosis: decreased mobility Height/Weight Height (Feet): 5 Height (Inches): 6.00 Weight (Pounds): 162 Weight (Ounces): 8.0 Precautions Precautions/Isolations: Fall Prevention, Standard Precautions Weight Bear Status Right Lower Extremity: Right Weight Bearing/Tolerated Left Lower Extremity: Left Weight Bearing/Tolerated Referral Physician: Dr. Queen Reason for Referral: Evaluation/Treatment Medical History Pertinent Medical History: CAD, DM, HTN Current History SWB status Reviewed History: Yes Social History Home: Multilevel Current Living Status: Spouse Entry Into Home: Stairs Without Railing PT Steps Into Home: 4 PT Steps Inside Home: 3 Prior/Core FIM Prior Level of Function Therapy Code Descriptions/Definitions Functional [place] Measure: 0=Not Assessed/NA 4=Minimal Assistance 1=Total Assistance 5=Supervision or Setup 2=Maximal Assistance 6=Modified [place] 3=Moderate Assistance 7=Complete [place] Therapy Quality Codes: 6 Independent with activity with or without an assistive device 5 Patient requires set up or clean up by helper. Patient completes activity by themselves 4 Supervision or touching assist (CGA). Booker provide cues , steadying assist 3 The helper provides less than half the effort to complete the activity 2 The helper provides more than half the effort to complete the activity 1 Dependent. The helper does all the effort to complete an activity 7 Patient refused to complete or attempt activity 9 The patient did not perform the activity before the current illness or injury 88 Not attempted due to Medical conditions or safety concerns Functional Abilities and Goals: Independent: Patient completed the activities by him/herself, with or without an assistive device, with no assistance from a helper. Needed Some Help: Patient needed partial assistance from another person to complete activities. Dependent: A helper completed the activities for the patient. Unknown: Not Applicable: Bed Mobility: 7 Transfers (B,C,W/C) (FIM): 7 Gait: 7 Stairs: 7 Indoor Mobility (Ambulation): Independent Stairs: Independent Prior Devices Use: None PT Evaluation-Current Subjective Pt is in recliner with in room and pt agrees to PT. Pain Numeric Pain Scale: 0-No Pain Location: No Pain Reported Pt/Family Goals Pt to return home with spouse. Objective Patient Orientation: Person, Place Attachments: Oxygen (5L) ROM/Strength ROM Lower Extremities WNL Strenght Lower Extremities gross motor bilateral (4/5) Integumentary/Posture Bowel Incontinence: No Bladder Incontinence: No Neuromuscular (Tone, Coordination, Reflexes) Pt coordination is normal. Sensory Vision: Wears Glasses Hearing: Functional Sensation Right Lower Extremit: Intact Sensation Left Lower Extremity: Intact Transfers Therapy Code Descriptions/Definitions Functional [place] Measure: 0=Not Assessed/NA 4=Minimal Assistance 1=Total Assistance 5=Supervision or Setup 2=Maximal Assistance 6=Modified [place] 3=Moderate Assistance 7=Complete [place] Therapy Quality Codes: 6 Independent with activity with or without an assistive device 5 Patient requires set up or clean up by helper. Patient completes activity by themselves 4 Supervision or touching assist (CGA). [place] provide cues , steadying assist 3 The helper provides less than half the effort to complete the activity 2 The helper provides more than half the effort to complete the activity 1 Dependent. The helper does all the effort to complete an activity 7 Patient refused to complete or attempt activity 9 The patient did not perform the activity before the current illness or injury 88 Not attempted due to Medical conditions or safety concerns Transfers (B, C, W/C) (FIM): 5 Scootin Rollin Roll Left to Right (QC): 6 Supine to/from Sit: 7 Sit to/from Stand: 5 Sit to Lying (QC): 6 Lying to Sitting/Side of Bed(Q: 6 Sit to Stand (QC): 6 Gait Does the Patient Walk?: Yes Mode of Locomotion: Walk Anticipated Mode of Locomotion: Walk Gait (FIM): 6 Distance (FIM): 3=150 ft Walk 10 feet (QC): 6 Walk 50 ft with 2 Turns(QC): 6 Walk 150 ft (QC): 6 Distance: 400' Gait Level of Assist: 6 Gait Persons Needed: 1 Gait Assistive Device: FWW Balance Sitting Static: Good Sitting Dynamic: Good Standing Static: Good Standing Dynamic: Good Assessment/Needs Pt was able to perform bed mobility mod I-indep. Pt demonstrated transfers mod I with VC for safety of hand placement. Pt was able to perform bathroom skills with SBA only for standing balance safety. Pt amb 400 with FWW and SBA for safety with 5L O2. Pt requires VC for staying within FWW. Pt returned to room and transferred to recliner, attempted to not use FWW and had a brief LoB with pt and SPT recovering. SPT educated pt on keep FWW with him even for close transfers. Pt demonstrated LE seated ex (AP, LAQ, hip flexion) x10 reps. Pt has all needs met and in room. Rehab Potential: Fair Post Rehab Potential-Barriers: co-morditities, current long hospital stay PT Short Term Goals Short Term Goals Time Frame: Apr 16, 2018 Transfers (B,C,W/C) (FIM): 6 Gait (FIM): 6 Distance (FIM): 3=150 ft Gait Distance Comment: 450' Gait Level of Assist: 6 Gait Assistive Device: FWW PT Assisted Goals Assisted Goals PT Assisted Goals Time Frame: Apr 30, 2018 Transfers (B,C,W/C) (FIM): 7 Sit to Lying (QC): 6 Lying-Sitting on Side/Bed(QC): 6 Sit to Stand (QC): 6 Rollin Roll Left to Right (QC): 6 Car Transfer (QC): 6 Does the Patient Walk: Yes Gait (FIM): 6 Gait distance (FIM): 3=150 ft Distance: 500' Walk 10 feet (QC): 6 Walk 10ft-Uneven Surface(QC): 6 Walk 50ft with 2 Turns (QC): 6 Walk 150 ft (QC): 6 Gait Level of Assist: 6 Gait Assistive Device: FWW Stairs (FIM): 2 # of Steps: 4 Stairs Level Of Assist: 6 PT Plan Problem List Problem List: Activity Tolerance, Functional Strength, Safety, Balance, Gait, Transfer, Bed Mobility, ROM Treatment/Plan Treatment Plan: Continue Plan of Care Treatment Plan: Bed Mobility, Education, Functional Activity Patsy, Functional Strength, Gait, Safety, Therapeutic Exercise, Transfers Treatment Duration: Apr 30, 2018 Frequency: 6 times per week Estimated Hrs Per Day: .25 hour per day (15-30 min) Patient and/or Family Agrees t: Yes Safety Risks/Education Patient Education: Gait Training, Transfer Techniques, Correct Positioning, Safety Issues Teaching Recipient: Patient, Family Teaching Methods: Demonstration, Discussion Time/GCodes Time In: 1220 Time Out: 1246 Total Billed Treatment Time: 26 Total Billed Treatment 1 visit EVL 10 min EX 16 min BRI MARTIN PT Apr 09, 2018 13:32
--- NOTE | 2018-04-09 14:07 | ST Cognitive Linguistic Eval ---
Speech Evaluation-General Medical Diagnosis Intubated Onset Date: Apr 09, 2018 Therapy Diagnosis Therapy Diagnosis: Cognitive-communication Precautions Precautions/Isolations: Fall Prevention, Standard Precautions Medical History Pertinent Medical History: CAD, DM, HTN Reviewed History: Yes Social History Current Living Status: Spouse Speech PLF-Current Status Prior Level of Function Patient lived at home with his and was independent for his daily needs. Subjective Patient was sitting in his chair, just finishing his lunch when I arrived. Language Eval: Auditory Comprehends Simple Yes/No Ques: Functional Follows 1-Step Commands: Functional Follows Complex Directions: Functional Follows General Conversations: Functional Language Eval: Verbal Language Completes Spontaneous Greeting: Functional Produces Auto, Serial Info: Functional Imitates Simple Words/Phrases: Functional Word Finding: Functional Requests Basic Needs: Mild States Basic Personal Info: Mild Expresses Complex Ideas: Mild Cognitive Patient Orientation Patient's level of orientation continues to improve as his medical status has improved. Objective Cognitive Domain Attention: WNL Memory: Mild Problem Solving: Mild Executive Functions: Mild Objective Formal/Standardized Tests Check Cognitive Assessment (MOCA) Results Namin/3, Memory: Immediate: 3/3, Delayed with cues 2/3, Attention 4/6, Language: 2/3, Abstraction: 2/2, Orientation: /6 Oral Motor/Speech Production Patient's voice has significantly improved with volume as well as intelligibility. Patient was educated on 04/08/18 to stay hydrated which appears to be helping his vocal quality. Impression The patient is a 73 year old male who has been in the hospital for several dues due to double pneumonia. He was intubated for 5 days. His voice was decreased after having the vent removed. He was evaluated at bedside for his cognitive- communication status. He has progressed in most areas of testing, however he continues to have some deficits in cognition remaining. The patient will receive skilled ST services for speech therapy to focus on increasing safety and independence. Speech Patient Assess Expression of Ideas/Wants: Exhibits (3) Understanding Verbal Content: Understands (4) Brief Interview-Mental Status: Yes Repetition of Three Words: Three (3) Temporal Orientation: Year: Correct (3) Temporal Orientation: Month: Accurate within 5 days(2) Temporal Orientation: Day: Correct (1) Recall : Wear to say "Sock": Yes, no cue required (2) Recall : Color: Yes, after cueing (1) Recall : Bed: Yes,after cueing (1) Memory/Recall Ability: Current season, That he or she is in a hsp/hsp unit Speech Short Term Goals Short Term Goals Short Term Goals 1) The patient will complete memory tasks with 90% or greater given minimal cues. 2) The patient will demonstrate the ability to follow directions while participating in the other therapies with 90% or greater with minimal cues. Speech Custodial Goals Custodial Goals The patient will improve his cognitive-communication for safety and independence in order to return home. Speech-Plan Patient/Family Goals Patient/Family Goals: The patient plans to return home with his upon hospital discharge. Treatment Plan Speech Therapy Treatment Plan: Continue Plan of Care The patient will participate in skilled ST therapy with focus on cognitive- communication, Treatment Duration: Apr 16, 2018 Frequency: 5 times per week Estimated Hrs Per Day: .25 hour per day Rehab Potential: Good Barriers to Learning: Decreased cognitive-communication Pt/Family Agrees to Plan: Yes Safety Risks/Education Teaching Recipient: Patient Teaching Methods: Discussion Response to Teaching: Verbalize Understanding Education Topics Provided: Safety within his room. Time Speech Therapy Time In: 14:30 Speech Therapy Time Out: 14:45 Total Billed Time: 15 Billed Treatment Time 1, SPSNDCOMP NATASHA Cherry Apr 09, 2018 14:07
--- NOTE | 2018-04-09 14:23 | NUR ---
Admission Drug Regimen Review: Date: 04/09/18 Time: 1424 Review Completed, No Issues found
--- NOTE | 2018-04-09 14:24 | NUR ---
Insurance authorization number [id number] given for 3 days of swing bed. Will need to send updated clinical on Thursday04/12/18 Attn SRL Team fax # [phone].
--- NOTE | 2018-04-09 14:48 | Occupational Therapy Eval ---
OT Evaluation-General/PLF Medical Diagnosis Admission Date Apr 09, 2018 at 11:57 Medical Diagnosis: respiratory distress Onset Date: Apr 09, 2018 Therapy Diagnosis Therapy Diagnosis: decreased self care skills Height/Weight Height (Feet): 5 Height (Inches): 6.00 Weight (Pounds): 162 Weight (Ounces): 8.0 Precautions Precautions/Isolations: Fall Prevention, Standard Precautions Referral Physician: Dr. Queen Medical History Pertinent Medical History: CAD, DM, HTN Additional Medical History VERO, high cholesterol, gallbladder disease, skin cancer, tendon repair, right arm, left rotator cuff repair. Social History Home: Multilevel Current Living Status: Spouse Entry Into Home: Stairs Without Railing Steps Into Home: 4 Steps Inside Home: 3 ADL-Prior Level of Function Therapy Code Descriptions/Definitions Functional Sikes Measure: 0=Not Assessed/NA 4=Minimal Assistance 1=Total Assistance 5=Supervision or Setup 2=Maximal Assistance 6=Modified Sikes 3=Moderate Assistance 7=Complete Sikes Therapy Quality Codes: 6 Independent with activity with or without an assistive device 5 Patient requires set up or clean up by helper. Patient completes activity by themselves 4 Supervision or touching assist (CGA). [place] provide cues , steadying assist 3 The helper provides less than half the effort to complete the activity 2 The helper provides more than half the effort to complete the activity 1 Dependent. The helper does all the effort to complete an activity 7 Patient refused to complete or attempt activity 9 The patient did not perform the activity before the current illness or injury 88 Not attempted due to Medical conditions or safety concerns Functional Abilities and Goals: Independent: Patient completed the activities by him/herself, with or without an assistive device, with no assistance from a helper. Needed Some Help: Patient needed partial assistance from another person to complete activities. Dependent: A helper completed the activities for the patient. Unknown: Not Applicable: ADL PLOF Comments Pt reports being independent prior to hospitalization. Did not use any assistive devices. Pt states he was active and bowled 2x/wk. Self Care: Independent Functional Cognition: Independent DME/Equipment: Tall Toilet, Tub/Shower Drive Self: Yes OT Current Status Subjective Pt sitting in chair, agrees to therapy. Pt has no c/o pain. Mental Status/Objective Patient Orientation: Person Attachments: Oxygen Current Glasses/Contacts: Yes Hearing Aids: No Dentures/Partials: No Hand Dominance: Right Upper Extremity ROM Grossly WFL Upper Extremity Coordination Intact ADL-Treatment ADL-Current Pt demonstrated ability to doff/don socks with SBA while seated in chair. Sit to stand with SBA. Gait to restroom with FWW. Pt stood at sink to complete grooming tasks. Pt brushed teeth and washed face with SBA and minimal cues for task completion. Pt stood at toilet to urinate. SBA required for balance. Pt returned to chair, requires assist to manage O2 tubing. Pt requires cues for walker use and safety. O2 sats were 88% after activity, but quickly increased to 95% with rest and cues for breathing. Pt declined shower today, states he will take one tomorrow. Spouse states she helped pt don shirt this morning with minimal assistance. Pt sitting in chair with needs met and spouse present after session. Eating (FIM): 5 (Set up per spouse report) Eating (QC): 5 Grooming (FIM): 5 Oral Hygiene (QC): 4 Upper Body Dressing (FIM): 4 (Per spouse report) Upper Body Dressing (QC): 3 On/Off Footwear (QC): 4 Toileting (FIM): 5 Toileting Hygiene (QC): 4 Toilet/Commode Transfer (FIM): 5 Education OT Patient Education: Rehab process Teaching Recipient: Patient, Family Teaching Methods: Discussion Response to Teaching: Verbalize Understanding OT Short Term Goals Short Term Goals Transfers (B,C,W/C) (FIM): 6 1=Demonstrate adherence to instructed precautions during ADL tasks. 2=Patient will verbalize/demonstrate understanding of assistive devices/ modifications for ADL. 3=Patient will improve strength/tolerance for activity to enable patient to perform ADL's. OT Senior Living Goals Dressing Room Attendant Goals Time Frame: Apr 30, 2018 Eating (FIM): 6 Eating (QC): 6 Groomin Oral Hygiene (QC): 6 Bathing(FIM): 5 Shower/Bathe Self (QC): 5 Upper Body Dressing(FIM): 6 Upper Body Dressing (QC): 6 Lower Body Dressing(FIM): 6 Lower Body Dressing (QC): 6 On/Off Footwear (QC): 6 Toileting(FIM): 6 Toileting Hygiene (QC): 6 Toilet/Commode Transfer(FIM): 6 Toilet/Commode Transfer (QC): 6 Shower Transfer(FIM): 5 Additional Goals: 1-Demonstrate ADL Tasks, 2-Verbalize Understanding, 3- ImproveStrength/Patsy 1=Demonstrate adherence to instructed precautions during ADL tasks. 2=Patient will verbalize/demonstrate understanding of assistive devices/ modifications for ADL. 3=Patient will improve strength/tolerance for activity to enable patient to perform ADL's. OT Education/Plan Problem List/Assessment Assessment: Decreased Activ Tolerance, Decreased Safety Aware, Decreased UE Strength, Dependent Transfers, Impaired I ADL's, Impaired Self-Care Skills Pt to benefit from skilled OT intervention for ADL training, transfers, strengthening, and home safety education to increase level of independence and allow safe discharge plan. Discharge Recommendations Plan/Recommendations: Continue POC Treatment Plan/Plan of Care Treatment,Training & Education: Yes Patient would benefit from OT for education, treatment and training to promote independence in ADL's, mobility, safety and/or upper extremity function for ADL' s. Plan of Care: ADL Retraining, Functional Mobility, UE Funct Exercise/Act Treatment Duration: Apr 30, 2018 Frequency: 5 times per week Estimated Hrs Per Day: .25 hour per day Rehab Potential: Fair Time/GCodes Start Time: 13:52 Stop Time: 14:24 Total Time Billed (hr/min): 32 Billed Treatment Time 1 visit, EVM(10minutes), ADL(22minutes) ANDRIY JHA OT Apr 09, 2018 14:48
[2018-04-09] MEDS: ENOXAPARIN 40 MG/0.4 ML (LOVENOX) SYR SC SCH (15:36)
[2018-04-09] MEDS: ATORVASTATIN 20 MG (LIPITOR) TABLET PO SCH (17:30)
[2018-04-09] MEDS: inSUlin Protamine/ASPart 70/30 1 UNIT/0.01 ML DOSE SC SCH (17:31)
[2018-04-09] MEDS: predniSONE 10 MG TAB PO SCH (17:33)
[2018-04-09] MEDS: inSUlin ASPART (NovoLOG) 1 UNIT/0.01 ML (CHARGE PER UNIT) SC SCH ×2 (17:33→21:21)
[2018-04-09 18:54] VITALS: BP 123/58
[2018-04-09 20:45] VITALS: BP 123/58
[2018-04-09] MEDS: meTOprolol TARTRATE 25 MG (LOPRESSOR) TABLET PO SCH (21:33)
[2018-04-09] MEDS: DONEPEZIL 5 MG (ARICEPT) TAB PO SCH (21:33)
[2018-04-09] MEDS: guaiFENesin/CODEINE (ROBITUSSIN AC) 10ML UDC PO SCH (21:34)
[2018-04-09] MEDS: risperiDONE 1 MG (RisperDAL) TAB PO SCH (21:34)
[2018-04-10] MEDS: RT-ALBUTEROL/IPRATROPIUM 3 ML (DUONEB) VIAL INH SCH ×5 (01:19→19:17)
[2018-04-10 06:00] VITALS: BP 108/53
[2018-04-10] MEDS: inSUlin ASPART (NovoLOG) 1 UNIT/0.01 ML (CHARGE PER UNIT) SC SCH ×4 (06:29→21:02)
[2018-04-10] MEDS: LACTOBACILLUS ACIDOPHILUS (PROBIOTIC) CAPSULE PO SCH ×3 (06:45→17:13)
[2018-04-10] MEDS: KCL 20 MEQ TAB (K-DUR) PO SCH (06:45)
--- NOTE | 2018-04-10 08:34 | Physical Therapy Daily Note ---
PT Daily Note-Current Subjective Patient in bed pre tx, agrees to PT reluctantly, patient is very tired. He has pain of 5/10 on his bottom. Appearance Patient in bed post tx with nurse call, phone, tray, family in the room, patient laying on his left side. Mental Status Patient Orientation: Person, Confused Attachments: Oxygen Transfers Therapy Code Descriptions/Definitions Functional [place] Measure: 0=Not Assessed/NA 4=Minimal Assistance 1=Total Assistance 5=Supervision or Setup 2=Maximal Assistance 6=Modified [place] 3=Moderate Assistance 7=Complete [place] Therapy Quality Codes: 6 Independent with activity with or without an assistive device 5 Patient requires set up or clean up by helper. Patient completes activity by themselves 4 Supervision or touching assist (CGA). [place] provide cues , steadying assist 3 The helper provides less than half the effort to complete the activity 2 The helper provides more than half the effort to complete the activity 1 Dependent. The helper does all the effort to complete an activity 7 Patient refused to complete or attempt activity 9 The patient did not perform the activity before the current illness or injury 88 Not attempted due to Medical conditions or safety concerns Transfers (B, C, W/C) (FIM): 5 Scootin Rollin Supine to/from Sit: 5 Sit to/from Stand: 5 Bed to/from Chair: 5 Patient needs cues for safety and positioning, he transfers with incorrect placement of hands and will often leave his walker to ambulate to a chair. Weight Bearing Right Lower Extremity: Right Weight Bearing/Tolerated Left Lower Extremity: Left Weight Bearing/Tolerated Gait Training Gait (FIM): 2 Distance: 80' Gait Level of Assist: 4 Gait Persons Needed: 1 Gait Assistive Device: FWW Patient abruptly turned to go back to his room during ambulation, no SOB observed, no reason given. Treatments transfers, ambulation Assessment Current Status: Fair Progress PT Short Term Goals Short Term Goals Time Frame: Apr 16, 2018 Transfers (B,C,W/C) (FIM): 6 Gait (FIM): 6 Distance (FIM): 3=150 ft Gait Distance Comment: 450' Gait Level of Assist: 6 Gait Assistive Device: FWW PT Chcf Goals Book Packer Goals PT Book Packer Goals Time Frame: Apr 30, 2018 Transfers (B,C,W/C) (FIM): 7 Sit to Lying (QC): 6 Lying-Sitting on Side/Bed(QC): 6 Sit to Stand (QC): 6 Rollin Roll Left to Right (QC): 6 Car Transfer (QC): 6 Does the Patient Walk: Yes Gait (FIM): 6 Gait distance (FIM): 3=150 ft Distance: 500' Walk 10 feet (QC): 6 Walk 10ft-Uneven Surface(QC): 6 Walk 50ft with 2 Turns (QC): 6 Walk 150 ft (QC): 6 Gait Level of Assist: 6 Gait Assistive Device: FWW Stairs (FIM): 2 # of Steps: 4 Stairs Level Of Assist: 6 PT Plan Problem List Problem List: Activity Tolerance, Functional Strength, Safety, Balance, Gait, Transfer, Bed Mobility Treatment/Plan Treatment Plan: Continue Plan of Care Treatment Plan: Bed Mobility, Education, Functional Activity Patsy, Functional Strength, Gait, Safety, Therapeutic Exercise, Transfers Treatment Duration: Apr 30, 2018 Frequency: 6 times per week Estimated Hrs Per Day: .25 hour per day (15-30 min) Patient and/or Family Agrees t: Yes Safety Risks/Education Patient Education: Gait Training, Transfer Techniques, Correct Positioning, Safety Issues Teaching Recipient: Patient Teaching Methods: Demonstration, Discussion Response to Teaching: Reinforcement Needed Time/GCodes Time In: 0820 Time Out: 0830 Total Billed Treatment Time: 10 Total Billed Treatment 1 visit GT LEOLA SMITH PT Apr 10, 2018 08:34
[2018-04-10] MEDS: inSUlin Protamine/ASPart 70/30 1 UNIT/0.01 ML DOSE SC SCH ×2 (08:46→17:13)
[2018-04-10] MEDS: PANTOPRAZOLE 40 MG (PROTONIX) TAB PO SCH (08:47)
[2018-04-10] MEDS: FUROSEMIDE 40 MG (LASIX) TAB PO SCH (08:47)
[2018-04-10] MEDS: LORATADINE (CLARITIN) 10 MG TAB PO SCH (08:47)
[2018-04-10] MEDS: ASPIRIN E.C. 81 MG (ECOTRIN) TAB PO SCH (08:47)
[2018-04-10] MEDS: meTOprolol TARTRATE 25 MG (LOPRESSOR) TABLET PO SCH ×2 (08:47→20:59)
[2018-04-10] MEDS: lisINopril 20 MG (PRINIVIL) TABLET PO SCH (08:48)
[2018-04-10] MEDS: BENZONATATE 100 MG (TESSALON) CAPSULE PO SCH ×3 (08:48→20:59)
[2018-04-10] MEDS: risperiDONE 0.25 MG (RisperDAL) TAB PO SCH (08:48)
[2018-04-10] MEDS: ENOXAPARIN 40 MG/0.4 ML (LOVENOX) SYR SC SCH (14:35)
[2018-04-10] MEDS: ATORVASTATIN 20 MG (LIPITOR) TABLET PO SCH (17:13)
[2018-04-10] MEDS: predniSONE 10 MG TAB PO SCH (17:13)
[2018-04-10 17:46] VITALS: BP 109/52
[2018-04-10] MEDS: DONEPEZIL 5 MG (ARICEPT) TAB PO SCH (20:59)
[2018-04-10] MEDS: guaiFENesin/CODEINE (ROBITUSSIN AC) 10ML UDC PO SCH (21:00)
[2018-04-10] MEDS: risperiDONE 1 MG (RisperDAL) TAB PO SCH (21:09)
[2018-04-11 05:50] VITALS: BP 120/66
[2018-04-11] MEDS: KCL 20 MEQ TAB (K-DUR) PO SCH (06:26)
[2018-04-11] MEDS: LACTOBACILLUS ACIDOPHILUS (PROBIOTIC) CAPSULE PO SCH ×3 (06:26→16:58)
[2018-04-11] MEDS: inSUlin ASPART (NovoLOG) 1 UNIT/0.01 ML (CHARGE PER UNIT) SC SCH ×4 (06:27→21:16)
[2018-04-11] MEDS: RT-ALBUTEROL/IPRATROPIUM 3 ML (DUONEB) VIAL INH SCH ×4 (07:37→23:57)
[2018-04-11] MEDS: PANTOPRAZOLE 40 MG (PROTONIX) TAB PO SCH (08:48)
[2018-04-11] MEDS: BENZONATATE 100 MG (TESSALON) CAPSULE PO SCH ×3 (08:48→21:19)
[2018-04-11] MEDS: FUROSEMIDE 40 MG (LASIX) TAB PO SCH (08:48)
[2018-04-11 08:49] VITALS: BP 101/58
[2018-04-11] MEDS: ASPIRIN E.C. 81 MG (ECOTRIN) TAB PO SCH (08:49)
[2018-04-11] MEDS: LORATADINE (CLARITIN) 10 MG TAB PO SCH (08:49)
[2018-04-11] MEDS: risperiDONE 0.25 MG (RisperDAL) TAB PO SCH (08:49)
[2018-04-11] MEDS: lisINopril 20 MG (PRINIVIL) TABLET PO SCH (10:01)
[2018-04-11] MEDS: meTOprolol TARTRATE 25 MG (LOPRESSOR) TABLET PO SCH ×2 (10:01→21:18)
[2018-04-11] MEDS: inSUlin Protamine/ASPart 70/30 1 UNIT/0.01 ML DOSE SC SCH ×2 (10:02→18:16)
[2018-04-11 10:03] VITALS: BP 94/52
--- NOTE | 2018-04-11 10:50 | NUR ---
BP- 94/52, pulse- 69. Lopressor and Lisinopril held this AM D/T decreased BP. Dr. Queen to floor and notified.
--- NOTE | 2018-04-11 13:41 | NUR ---
Walked in halls with SBA using a gait belt and FWW for safety. Tolerated well.
--- NOTE | 2018-04-11 14:58 | NUR ---
Dr. Cisneros to floor. Informed that Lopressor and Lisinopril were held this AM D/T decreased BP. No new orders rec'd.
--- NOTE | 2018-04-11 14:59 | NUR ---
patient's O2 was decreased from 2 L to 1 L NC at 1111 but due to desatting to 89% and stayed low O2 was increased back up to 2 L NC at this time
[2018-04-11] MEDS: ENOXAPARIN 40 MG/0.4 ML (LOVENOX) SYR SC SCH (15:14)
[2018-04-11 16:45] VITALS: BP 99/57
[2018-04-11] MEDS: ATORVASTATIN 20 MG (LIPITOR) TABLET PO SCH (16:58)
[2018-04-11] MEDS: predniSONE 10 MG TAB PO SCH (17:01)
[2018-04-11] MEDS: guaiFENesin/CODEINE (ROBITUSSIN AC) 10ML UDC PO SCH (19:58)
[2018-04-11] MEDS: risperiDONE 1 MG (RisperDAL) TAB PO SCH (19:59)
[2018-04-11] MEDS: DONEPEZIL 5 MG (ARICEPT) TAB PO SCH (21:18)
[2018-04-12] MEDS: RT-ALBUTEROL/IPRATROPIUM 3 ML (DUONEB) VIAL INH SCH ×6 (02:49→23:59)
[2018-04-12 06:00] VITALS: BP 121/64
[2018-04-12] MEDS: inSUlin ASPART (NovoLOG) 1 UNIT/0.01 ML (CHARGE PER UNIT) SC SCH ×4 (06:11→20:35)
[2018-04-12 06:14] LABS: BASOPHILS % (AUTO) 0 % (0-10); EOSINOPHILS % (AUTO) 0 % (0-10); HEMATOCRIT 28 % (40-54); HEMOGLOBIN 9.1 G/DL (13.3-17.7); LYMPHOCYTES # (AUTO) 1.7 X 10^3 (1.0-4.0); LYMPHOCYTES % (AUTO) 12 % (12-44); MEAN CORPUSCULAR HEMOGLOBIN 29 PG (25-34); MEAN CORPUSCULAR HGB CONC 33 G/DL (32-36); MEAN CORPUSCULAR VOLUME 91 FL (80-99); MEAN PLATELET VOLUME 9.7 FL (7.4-10.4); MONOCYTES # (AUTO) 0.4 X 10^3 (0.0-1.0); MONOCYTES % (AUTO) 3 % (0-12); NEUTROPHILS # (AUTO) 12.4 X 10^3 (1.8-7.8); NEUTROPHILS % (AUTO) 86 % (42-75); PLATELET COUNT 343 10^3/uL (130-400); RED CELL DISTRIBUTION WIDTH 14.8 % (10.0-14.5); WHITE BLOOD COUNT 14.5 10^3/uL (4.3-11.0)
[2018-04-12 06:23] LABS: BUN/CREATININE RATIO 33; CALCIUM 8.5 MG/DL (8.5-10.1); CARBON DIOXIDE 26 MMOL/L (21-32); CHLORIDE 99 MMOL/L (98-107); CREATININE SERUM 0.93 MG/DL (0.60-1.30); GFR ESTIMATED > 60; GLUCOSE 137 MG/DL (70-105); POTASSIUM 4.7 MMOL/L (3.6-5.0); SODIUM 130 MMOL/L (135-145)
[2018-04-12] MEDS: KCL 20 MEQ TAB (K-DUR) PO SCH (06:57)
[2018-04-12] MEDS: LACTOBACILLUS ACIDOPHILUS (PROBIOTIC) CAPSULE PO SCH ×3 (06:58→17:14)
--- NOTE | 2018-04-12 08:32 | Cardiology Progress Note ---
Subjective Date Seen by Provider: Apr 12, 2018 Time Seen by Provider: 08:31 Subjective/Events-last exam Patient is sitting up in bed, no new complaints. Denies any chest pain or dyspnea. Objective-Cardiology Exam Last Set of Vital Signs Vital Signs 04/12/18 04/12/18 06:00 06:52 Temp 98.0 Pulse 62 Resp 18 B/P (MAP) 121/64 (83) Pulse Ox 96 O2 Delivery NIV CPAP O2 Flow Rate 2.00 Capillary Refill : I&O Intake and Output 04/12/18 00:00 Intake Total 2230 ml Balance 2230 ml Intake Oral 2230 ml # Voids 6 # Bowel Movements 1 General: Alert, Cooperative, No Acute Distress HEENT: Atraumatic, PERRLA Neck: Supple, No JVD Lungs: Other (diminished breath sounds bibasilarly) Heart: Regular Rate, Normal S1, Normal S2 Abdomen: Normal Bowel Sounds, No Tenderness Extremities: No Clubbing, No Edema, Normal Pulses Skin: No Rashes, No Significant Lesion Neuro: Normal Gait, Normal Speech Psych/Mental Status: Mental Status NL, Mood NL Results Lab Laboratory Tests 04/12/18 05:45 A/P-Cardiology Admission Diagnosis CAD HTN HLP DM Assessment/Plan Status post acute respiratory failure, better at this time, back to baseline. Continue to monitor Pneumonia, improved, managed by primary care team Change in mental status, confusion, still disoriented. Probably secondary to hypoxemia. Managed by primary care physician Coronary artery disease, had a cardiac catheterization 2013 resulted with 2 stents deployment 2.515 mm to the right coronary artery resolute and 2.2522 mm resolute to the LAD, continue to monitor at this time Echocardiogram done on March 25, 2018 showing normal left ventricular size with ejection fraction 65 percent, pulmonary hypertension with PA pressure 45 mmHg Hypertension, controlled. Continue to monitor Hyperlipidemia, monitor lipids Diabetes mellitus, followed and managed by primary care physician Obstructive sleep apnea, using C Pap at night, currently in respiratory failure Obesity History of carotid stenosis, last ultrasound was done in September 2017 showing mild disease on the right and moderate on the left. Continue to monitor Clinical Quality Measures DVT/VTE Risk/Contraindication: Risk Factor Score Per Nursin RFS Level Per Nursing on Admit: 4+=Very High DOROTEO MARTINEZ Apr 12, 2018 08:32
[2018-04-12 09:05] VITALS: BP 117/57
[2018-04-12] MEDS: BENZONATATE 100 MG (TESSALON) CAPSULE PO SCH ×3 (09:05→20:31)
[2018-04-12] MEDS: risperiDONE 0.25 MG (RisperDAL) TAB PO SCH (09:05)
[2018-04-12] MEDS: ASPIRIN E.C. 81 MG (ECOTRIN) TAB PO SCH (09:05)
[2018-04-12] MEDS: PANTOPRAZOLE 40 MG (PROTONIX) TAB PO SCH (09:05)
[2018-04-12] MEDS: inSUlin Protamine/ASPart 70/30 1 UNIT/0.01 ML DOSE SC SCH ×3 (09:05→17:26)
[2018-04-12] MEDS: LORATADINE (CLARITIN) 10 MG TAB PO SCH (09:05)
[2018-04-12] MEDS: FUROSEMIDE 40 MG (LASIX) TAB PO SCH (09:06)
[2018-04-12] MEDS: meTOprolol TARTRATE 25 MG (LOPRESSOR) TABLET PO SCH ×2 (09:09→20:31)
[2018-04-12] MEDS: lisINopril 20 MG (PRINIVIL) TABLET PO SCH (09:09)
--- NOTE | 2018-04-12 09:16 | Cardiology Progress Note ---
Subjective Date Seen by Provider: Apr 12, 2018 Time Seen by Provider: 09:15 Subjective/Events-last exam Patient is sitting in bed, feeling better, breathing better, still complaining of some dyspnea and fatigue Review of Systems General: No Chills, No Night Sweats; Fatigue, Malaise; No Appetite, No Other HEENT: No Head Aches, No Visual Changes, No Eye Pain, No Ear Pain, No Dysphasia , No Sinus Congestion, No Post Nasal Drip, No Sore Throat, No Other Pulmonary: Dyspnea; No Cough, No Pleuritic Chest Pain, No Other Cardiovascular: No: Chest Pain, Palpitations, Orthopnea, Paroxysmal Noc. Dyspnea, Edema, Lt Headedness, Other Objective-Cardiology Exam Last Set of Vital Signs Vital Signs 04/12/18 04/12/18 06:00 06:52 Temp 98.0 Pulse 62 Resp 18 B/P (MAP) 121/64 (83) Pulse Ox 96 O2 Delivery NIV CPAP O2 Flow Rate 2.00 Capillary Refill : I&O Intake and Output 04/12/18 00:00 Intake Total 2230 ml Balance 2230 ml Intake Oral 2230 ml # Voids 6 # Bowel Movements 1 General: Alert, Oriented X3, Cooperative, No Acute Distress HEENT: Atraumatic, PERRLA Neck: Supple, No JVD Lungs: Normal Air Movement Heart: Regular Rate, Normal S1, Normal S2 Abdomen: Normal Bowel Sounds, No Tenderness Extremities: No Clubbing, No Edema, Normal Pulses Skin: No Rashes, No Significant Lesion Neuro: Normal Gait, Normal Speech Psych/Mental Status: Mental Status NL, Mood NL Results Lab Laboratory Tests 04/12/18 05:45 A/P-Cardiology Admission Diagnosis CAD HTN HLP DM Assessment/Plan Status post acute respiratory failure, better at this time, back to baseline, managed by primary care team Pneumonia, improved, managed by primary care team Change in mental status, confusion, still mildly disoriented. Probably secondary to hypoxemia. Managed by primary care physician Coronary artery disease, had a cardiac catheterization 2012 resulted with 2 stents deployment 2.515 mm to the right coronary artery resolute and 2.2522 mm resolute to the LAD, continue to monitor at this time Echocardiogram done on March 25, 2018 showing normal left ventricular size with ejection fraction 65 percent, pulmonary hypertension with PA pressure 45 mmHg Hypertension, controlled. Continue to monitor Hyperlipidemia, monitor lipids Diabetes mellitus, followed and managed by primary care physician Obstructive sleep apnea, using C Pap at night, currently in respiratory failure Obesity History of carotid stenosis, last ultrasound was done in September 2017 showing mild disease on the right and moderate on the left. Continue to monitor Clinical Quality Measures DVT/VTE Risk/Contraindication: Risk Factor Score Per Nursin RFS Level Per Nursing on Admit: 4+=Very High ANDREINA LARA MD Apr 12, 2018 09:16
--- NOTE | 2018-04-12 09:25 | Progress Note ---
Subjective Date Seen by a Provider: Apr 12, 2018 Time Seen by a Provider: 09:30 Subjective/Events-last exam Patient doing much better Participating in all therapies on swing bed status Wearing O2 Completed antibiotics Bowels are moving at bedside Overall much improved status Review of Systems General: Fatigue Neurological: Confusion Objective Exam Last Set of Vital Signs Vital Signs Date Time Temp Pulse Resp B/P (MAP) Pulse Ox O2 Delivery O2 Flow Rate FiO2 04/12/18 07:50 100 Nasal Cannula 2.00 04/12/18 06:00 98.0 62 18 121/64 (83) Capillary Refill : I&O Intake and Output 04/12/18 00:00 Intake Total 2230 ml Balance 2230 ml Intake Oral 2230 ml # Voids 6 # Bowel Movements 1 General: Alert, Oriented X3, Cooperative, No Acute Distress, Other (poor recall ) HEENT: Atraumatic, PERRLA Neck: Supple, No JVD Lungs: Normal Air Movement, Other (diminished BS) Heart: Regular Rate, Normal S1, Normal S2 Abdomen: Normal Bowel Sounds, No Tenderness Extremities: No Clubbing, No Edema, Normal Pulses Skin: No Rashes, No Significant Lesion Neuro: Normal Gait, Normal Speech Psych/Mental Status: Mental Status NL, Mood NL Results Lab Laboratory Tests 04/11/18 11:00: Glucometer 189H 04/11/18 15:37: Glucometer 166H 04/11/18 21:09: Glucometer 110 04/12/18 05:21: Glucometer 155H 04/12/18 05:45: White Blood Count 14.5H, Red Blood Count 3.09L, Hemoglobin 9.1L, Hematocrit 28L , Mean Corpuscular Volume 91, Mean Corpuscular Hemoglobin 29, Mean Corpuscular Hemoglobin Concent 33, Red Cell Distribution Width 14.8H, Platelet Count 343, Mean Platelet Volume 9.7, Neutrophils (%) (Auto) 86H, Lymphocytes (%) (Auto) 12 , Monocytes (%) (Auto) 3, Eosinophils (%) (Auto) 0, Basophils (%) (Auto) 0, Neutrophils # (Auto) 12.4H, Lymphocytes # (Auto) 1.7, Monocytes # (Auto) 0.4, Eosinophils # (Auto) 0.0, Basophils # (Auto) 0.0, Sodium Level 130L, Potassium Level 4.7, Chloride Level 99, Carbon Dioxide Level 26, Anion Gap 5, Blood Urea Nitrogen 31H, Creatinine 0.93, Estimat Glomerular Filtration Rate > 60, BUN/ Creatinine Ratio 33, Glucose Level 137H, Calcium Level 8.5 Assessment/Plan Assessment/Plan Assess & Plan/Chief Complaint Assessment: 1) Acute respiratory failure s/p extubation and Vapotherm in ICU due to ARDS (2) Severe sepsis-resolved (3) Pneumonia-completed abx (4) FAIZA (acute kidney injury)- back at baseline (5) Insulin dependent diabetes mellitus (6) Essential (primary) hypertension (7) CAD (coronary artery disease) (8) Dementia (9) Critical illness myopathy Plan: PT/OT O2 Nebs Sugar checks Monitor closely Diagnosis/Problems Diagnosis/Problems (1) Critical illness myopathy Status: Acute (2) ARDS (adult respiratory distress syndrome) Status: Resolved Resolution Date/Time: 04/12/18 @ 10:10 (3) Severe sepsis Status: Resolved Resolution Date/Time: 03/31/18 @ 12:46 (4) VERO (obstructive sleep apnea) Status: Chronic (5) Essential (primary) hypertension Status: Chronic (6) Insulin dependent diabetes mellitus Status: Chronic (7) FAIZA (acute kidney injury) Status: Resolved Resolution Date/Time: 03/27/18 @ 10:02 (8) Acute respiratory failure Status: Resolved Qualifiers: Qualified Codes: J96.01 - Acute respiratory failure with hypoxia; J96.02 - Acute respiratory failure with hypercapnia Resolution Date/Time: 04/12/18 @ 10:10 (9) Pneumonia Status: Resolved Resolution Date/Time: 04/12/18 @ 10:10 (10) CAD (coronary artery disease) Status: Chronic Qualifiers: Qualified Codes: I25.10 - Atherosclerotic heart disease of [place] coronary artery without angina pectoris (11) Dementia Status: Chronic Qualifiers: Qualified Codes: G30.9 - Alzheimer's disease, unspecified; F02.80 - Dementia in other diseases classified elsewhere without behavioral disturbance (12) BiPAP (biphasic positive airway pressure) dependence Status: Resolved Resolution Date/Time: 04/12/18 @ 10:10 Clinical Quality Measures DVT/VTE Risk/Contraindication: Risk Factor Score Per Nursin RFS Level Per Nursing on Admit: 4+=Very High ADAM BERNAL DO Apr 12, 2018 09:25
--- NOTE | 2018-04-12 10:01 | Speech Therapy Daily Note ---
Speech Daily Progress Note Subjective Date Seen by Provider: Apr 12, 2018 Time Seen by Provider: 00:15 Patient was very pleasant and cooperative with clinical requests. Objective Patient completed memory tasks related to his daily needs with 75% accuracy given minimal cues. Assessment Assessment Current Status: Good Progress Treatment Plan Continue Plan of Care Speech Short Term Goals Short Term Goals Short Term Goals 1) The patient will complete memory tasks with 90% or greater given minimal cues. 2) The patient will demonstrate the ability to follow directions while participating in the other therapies with 90% or greater with minimal cues. Speech Wire Winder Goals Wire Winder Goals The patient will improve his cognitive-communication for safety and independence in order to return home. Speech-Plan Patient/Family Goals Patient/Family Goals: Patient plans to return home with his upon hospital discharge. Treatment Plan Speech Therapy Treatment Plan: Continue Plan of Care Patient is making good progress as a result of skilled ST services. Treatment Duration: Apr 16, 2018 Frequency: 5 times per week Estimated Hrs Per Day: .25 hour per day Rehab Potential: Fair Barriers to Learning: Decreased memory and retention of new information. Pt/Family Agrees to Plan: Yes Safety Risks/Education Teaching Recipient: Patient, Significant Other Teaching Methods: Discussion Response to Teaching: Verbalize Understanding Education Topics Provided: Safety within his room. Time Speech Therapy Time In: 09:00 Speech Therapy Time Out: 09:15 Total Billed Time: 15 Billed Treatment Time [address] Apr 12, 2018 10:01
--- NOTE | 2018-04-12 11:19 | Occupational Ther Daily Note ---
OT Current Status-Daily Note Subjective Pt alert, sitting in recliner. Nrsg getting pt ready for shower. Pt agrees to therapy. No c/o pain. Pt slightly confused Mental Status/Objective Patient Orientation: Person Therapy Code Descriptions/Definitions Functional [place] Measure: 0=Not Assessed/NA 4=Minimal Assistance 1=Total Assistance 5=Supervision or Setup 2=Maximal Assistance 6=Modified [place] 3=Moderate Assistance 7=Complete [place] Attachments: Oxygen, Other-See Comments (port) ADL-Treatment Pt ambulated with handhold to bathroom to complete toileting, shower and dressing. Pt declined oral care and completes shaving. After therapy, pt lying on bed with nrsg and present in room. All needs met in room. Therapy Code Descriptions/Definitions Functional [place] Measure: 0=Not Assessed/NA 4=Minimal Assistance 1=Total Assistance 5=Supervision or Setup 2=Maximal Assistance 6=Modified [place] 3=Moderate Assistance 7=Complete [place] Therapy Quality Codes: 6 Independent with activity with or without an assistive device 5 Patient requires set up or clean up by helper. Patient completes activity by themselves 4 Supervision or touching assist (CGA). [place] provide cues , steadying assist 3 The helper provides less than half the effort to complete the activity 2 The helper provides more than half the effort to complete the activity 1 Dependent. The helper does all the effort to complete an activity 7 Patient refused to complete or attempt activity 9 The patient did not perform the activity before the current illness or injury 88 Not attempted due to Medical conditions or safety concerns Bathing (FIM): 5 (SBA to complete bathing using shower bench and grabbar. Verbal cue for pt to sit for safety. Pt tends to wash and rinse same area multiple time prior to moving onto next area. Pt attempted to tear off tape around port, required multiple verbal cues not to during session.) Bathing Location: L Arm, R Arm, L Upper Leg, R Upper Leg, L Lower Leg ( including foot), R Lower Leg (including foot), Abdomen, Buttocks, Perineal Area Shower/Bathe Self (QC): 4 Lower Body Dressing (FIM): 5 (After set up, SBA for safety to complete. Pt required recovery breaks due to SOA and dizziness. Cued pt to take deep breaths.) Lower Body Dressing (QC): 4 On/Off Footwear (QC): 4 Transfers (B, C, W/C) (FIM): 4 Toilet/Commode Transfer (FIM): 4 Toilet Transfer (QC): 4 Shower Transfer(FIM): 4 OT Short Term Goals Short Term Goals Transfers (B,C,W/C) (FIM): 6 1=Demonstrate adherence to instructed precautions during ADL tasks. 2=Patient will verbalize/demonstrate understanding of assistive devices/ modifications for ADL. 3=Patient will improve strength/tolerance for activity to enable patient to perform ADL's. OT Mcc Goals Senior Account Executive Goals Time Frame: Apr 30, 2018 Eating (FIM): 6 Eating (QC): 6 Groomin Oral Hygiene (QC): 6 Bathing(FIM): 5 Shower/Bathe Self (QC): 5 Upper Body Dressing(FIM): 6 Upper Body Dressing (QC): 6 Lower Body Dressing(FIM): 6 Lower Body Dressing (QC): 6 On/Off Footwear (QC): 6 Toileting(FIM): 6 Toileting Hygiene (QC): 6 Toilet/Commode Transfer(FIM): 6 Toilet/Commode Transfer (QC): 6 Shower Transfer(FIM): 5 Additional Goals: 1-Demonstrate ADL Tasks, 2-Verbalize Understanding, 3- ImproveStrength/Patsy 1=Demonstrate adherence to instructed precautions during ADL tasks. 2=Patient will verbalize/demonstrate understanding of assistive devices/ modifications for ADL. 3=Patient will improve strength/tolerance for activity to enable patient to perform ADL's. OT Education/Plan Problem List/Assessment Assessment: Impaired Funct Balance, Impaired Self-Care Skills Pt to benefit from skilled OT intervention for ADL training, transfers, strengthening, and home safety education to increase level of independence and allow safe discharge plan. Discharge Recommendations Plan/Recommendations: Continue POC Treatment Plan/Plan of Care Patient would benefit from OT for education, treatment and training to promote independence in ADL's, mobility, safety and/or upper extremity function for ADL' s. Plan of Care: ADL Retraining, Functional Mobility, UE Funct Exercise/Act Treatment Duration: Apr 30, 2018 Frequency: 5 times per week Estimated Hrs Per Day: .25 hour per day Rehab Potential: Fair Time/GCodes Start Time: 10:40 Stop Time: 11:06 Total Time Billed (hr/min): 26 Billed Treatment Time 1 visit-ADL 2 (26 min) MINDY VILLALOBOS Apr 12, 2018 11:19
--- NOTE | 2018-04-12 11:42 | Physical Therapy Daily Note ---
PT Daily Note-Current Subjective Pt in bed and agrees to PT. in room, pt would like to try amb without walker. Pain Numeric Pain Scale: 0-No Pain Location: No Pain Reported Mental Status Patient Orientation: Person Attachments: Oxygen (2L) Transfers Therapy Code Descriptions/Definitions Functional [place] Measure: 0=Not Assessed/NA 4=Minimal Assistance 1=Total Assistance 5=Supervision or Setup 2=Maximal Assistance 6=Modified [place] 3=Moderate Assistance 7=Complete [place] Therapy Quality Codes: 6 Independent with activity with or without an assistive device 5 Patient requires set up or clean up by helper. Patient completes activity by themselves 4 Supervision or touching assist (CGA). [place] provide cues , steadying assist 3 The helper provides less than half the effort to complete the activity 2 The helper provides more than half the effort to complete the activity 1 Dependent. The helper does all the effort to complete an activity 7 Patient refused to complete or attempt activity 9 The patient did not perform the activity before the current illness or injury 88 Not attempted due to Medical conditions or safety concerns Transfers (B, C, W/C) (FIM): 7 Scootin Supine to/from Sit: 7 Sit to/from Stand: 7 Sit to Lying (QC): 7 Sit to Stand (QC): 7 Weight Bearing Right Lower Extremity: Right Weight Bearing/Tolerated Left Lower Extremity: Left Weight Bearing/Tolerated Gait Training Does the Patient Walk?: Yes Gait (FIM): 4 Distance (FIM): 3=150 ft Distance: 350' Walk 10 feet (QC): 4 Walk 50 ft with 2 Turns(QC): 4 Walk 150 ft (QC): 4 Gait Level of Assist: 4 Gait Persons Needed: 1 Gait Assistive Device: None Pt is unsteady without walker at times and doesn't seem to have much peripheral vision, as he tends to run into wall or chair if not VC to look for them. Stair Training Stair Training: Handrails/: 1 handrail Stairs (FIM): 2 #of Steps: 4 1 Step (curb) (QC): 4 4 Steps (QC): 4 Stairs: Pattern: Step to Level of Assist: 4 Pt used step to pattern during ascending and reciprocal during descending even when VC to use step to pattern. Exercises Seated Therapy Exercises: Ankle pumps, Long arc quads, Hip flexion Seated Reps: 20 Assessment Current Status: Good Progress Pt was able to perform bed mobility and transfers indep. Pt amb 350' with no AD and min A on 2L O2, had to be increased to 3L after performing stairs. Due to pts unsteadiness and SOA it is recommended to use FWW with pt. SPT instructed pt and to continue to use FWW. Pt ascended/descended 4 steps with min A. Pt unable to follow VC for using step to pattern when descending. Pt returned to room and performed seated LE ex in recliner. Pt has all needs met in recliner and is in room. PT Short Term Goals Short Term Goals Time Frame: Apr 16, 2018 Transfers (B,C,W/C) (FIM): 6 Gait (FIM): 6 Distance (FIM): 3=150 ft Gait Distance Comment: 450' Gait Level of Assist: 6 Gait Assistive Device: FWW PT Chemistry Teacher Goals Chemistry Teacher Goals PT Halfway Goals Time Frame: Apr 30, 2018 Transfers (B,C,W/C) (FIM): 7 Sit to Lying (QC): 6 Lying-Sitting on Side/Bed(QC): 6 Sit to Stand (QC): 6 Rollin Roll Left to Right (QC): 6 Car Transfer (QC): 6 Does the Patient Walk: Yes Gait (FIM): 6 Gait distance (FIM): 3=150 ft Distance: 500' Walk 10 feet (QC): 6 Walk 10ft-Uneven Surface(QC): 6 Walk 50ft with 2 Turns (QC): 6 Walk 150 ft (QC): 6 Gait Level of Assist: 6 Gait Assistive Device: FWW Stairs (FIM): 2 # of Steps: 4 Stairs Level Of Assist: 6 PT Plan Problem List Problem List: Activity Tolerance, Functional Strength, Safety, Balance, Gait, Transfer, Bed Mobility, ROM Treatment/Plan Treatment Plan: Continue Plan of Care Treatment Plan: Bed Mobility, Education, Functional Activity Patsy, Functional Strength, Gait, Safety, Therapeutic Exercise, Transfers Treatment Duration: Apr 30, 2018 Frequency: 6 times per week Estimated Hrs Per Day: .25 hour per day (15-30 min) Patient and/or Family Agrees t: Yes Discharge Recommendations Equpiment Recommendations-D/C: Front Wheeled Walker Time/GCodes Time In: 1010 Time Out: 1025 Total Billed Treatment Time: 15 Total Billed Treatment 1 visit FA 15 min BRI MARTIN PT Apr 12, 2018 11:42
--- NOTE | 2018-04-12 12:32 | NUR ---
This RN has faxed updated clinical for insurance to review.
--- NOTE | 2018-04-12 15:15 | NUR ---
RAIMREZ. Received voice message from Tess with [facility] and have attempted to gain the information she wishes. Dr. Marie saw patient today. No indication of discharge POC/time frame. [facility], Tess is questioning the plan. Will try to get an answer and call [employer] with the information.
--- NOTE | 2018-04-12 15:34 | NUR ---
[facility] note: Spoke with Dr. Marie who is anticipating discharge to be Thursday the . I have left a message with [facility] Pulido/Amanda indicating the same. Will speak to patient's Osiris regarding [facility] choice and get that referral process going. Addendum: 04/12/18 at 1558 by DARLENE GAMBLE RN Osiris has decided to go with [facility] to help with the patient at discharge.
--- NOTE | 2018-04-12 15:43 | NUR ---
Pt resting with eyes closed at this time, pt at bedside and request to wait to administer Lovenox until when pt is awake, states she will notify staff when he is awake.
[2018-04-12] MEDS: ATORVASTATIN 20 MG (LIPITOR) TABLET PO SCH (17:14)
[2018-04-12] MEDS: ENOXAPARIN 40 MG/0.4 ML (LOVENOX) SYR SC SCH (17:14)
[2018-04-12] MEDS: predniSONE 10 MG TAB PO SCH (17:15)
[2018-04-12] MEDS ORDERED: RT-ALBUTEROL/IPRATROPIUM 3 ML (DUONEB) VIAL INH PRN (19:45)
[2018-04-12 20:00] VITALS: BP 116/62
[2018-04-12] MEDS: DONEPEZIL 5 MG (ARICEPT) TAB PO SCH (20:31)
[2018-04-12] MEDS: guaiFENesin/CODEINE (ROBITUSSIN AC) 10ML UDC PO SCH (20:31)
[2018-04-12] MEDS: risperiDONE 1 MG (RisperDAL) TAB PO SCH (20:35)
[2018-04-13] MEDS: RT-ALBUTEROL/IPRATROPIUM 3 ML (DUONEB) VIAL INH SCH ×5 (03:56→21:20)
[2018-04-13 06:05] LABS: BASOPHILS % (AUTO) 0 % (0-10); EOSINOPHILS % (AUTO) 0 % (0-10); HEMATOCRIT 27 % (40-54); HEMOGLOBIN 8.9 G/DL (13.3-17.7); LYMPHOCYTES # (AUTO) 1.5 X 10^3 (1.0-4.0); LYMPHOCYTES % (AUTO) 11 % (12-44); MEAN CORPUSCULAR HEMOGLOBIN 30 PG (25-34); MEAN CORPUSCULAR HGB CONC 33 G/DL (32-36); MEAN CORPUSCULAR VOLUME 91 FL (80-99); MEAN PLATELET VOLUME 9.5 FL (7.4-10.4); MONOCYTES # (AUTO) 0.3 X 10^3 (0.0-1.0); MONOCYTES % (AUTO) 2 % (0-12); NEUTROPHILS # (AUTO) 11.4 X 10^3 (1.8-7.8); NEUTROPHILS % (AUTO) 86 % (42-75); PLATELET COUNT 337 10^3/uL (130-400); RED CELL DISTRIBUTION WIDTH 15.1 % (10.0-14.5); WHITE BLOOD COUNT 13.2 10^3/uL (4.3-11.0)
[2018-04-13 06:26] LABS: ALANINE AMINOTRANSFERASE 52 U/L (0-55); ALBUMIN 2.5 GM/DL (3.2-4.5); ALKALINE PHOSPHATASE 65 U/L (40-136); BILIRUBIN,TOTAL 0.8 MG/DL (0.1-1.0); BUN/CREATININE RATIO 35; CALCIUM 8.4 MG/DL (8.5-10.1); CARBON DIOXIDE 26 MMOL/L (21-32); CHLORIDE 97 MMOL/L (98-107); CREATININE SERUM 0.92 MG/DL (0.60-1.30); GFR ESTIMATED > 60; GLUCOSE 206 MG/DL (70-105); POTASSIUM 5.1 MMOL/L (3.6-5.0); SODIUM 129 MMOL/L (135-145); TOTAL PROTEIN 4.9 GM/DL (6.4-8.2)
[2018-04-13] MEDS: inSUlin ASPART (NovoLOG) 1 UNIT/0.01 ML (CHARGE PER UNIT) SC SCH ×4 (06:46→21:02)
--- NOTE | 2018-04-13 06:47 | NUR ---
PT RESTING WITH EYES CLOSED, AT BEDSIDE, REQUESTING THAT MORNING MEDS BE HELD UNTIL 0900.
--- NOTE | 2018-04-13 07:41 | Cardiology Progress Note ---
Subjective Date Seen by Provider: Apr 13, 2018 Time Seen by Provider: 07:39 Subjective/Events-last exam patient is laying down in bed, having no new complaint, feeling better Review of Systems General: No Chills, No Night Sweats, No Fatigue, No Malaise, No Appetite, No Other HEENT: No Head Aches, No Visual Changes, No Eye Pain, No Ear Pain, No Dysphasia , No Sinus Congestion, No Post Nasal Drip, No Sore Throat, No Other Pulmonary: Dyspnea; No Cough, No Pleuritic Chest Pain, No Other Cardiovascular: No: Chest Pain, Palpitations, Orthopnea, Paroxysmal Noc. Dyspnea, Edema, Lt Headedness, Other Objective-Cardiology Exam Last Set of Vital Signs Vital Signs Capillary Refill : I&O Intake and Output 04/13/18 00:00 Intake Total 1330 ml Balance 1330 ml Intake Oral 1330 ml # Voids 7 # Bowel Movements 1 General: Alert, Oriented X3, Cooperative, No Acute Distress, Other (poor recall ) HEENT: Atraumatic, PERRLA Neck: Supple, No JVD Lungs: Normal Air Movement, Other (diminished BS) Heart: Regular Rate, Normal S1, Normal S2 Abdomen: Normal Bowel Sounds, No Tenderness Extremities: No Clubbing, No Edema, Normal Pulses Skin: No Rashes, No Significant Lesion Neuro: Normal Gait, Normal Speech Psych/Mental Status: Mental Status NL, Mood NL Results Lab Laboratory Tests 04/13/18 05:35 A/P-Cardiology Admission Diagnosis CAD HTN HLP DM Assessment/Plan Status post acute respiratory failure, better at this time, back to baseline, managed by primary care team Pneumonia, improved, managed by primary care team Change in mental status, confusion, still mildly disoriented. Probably secondary to hypoxemia. Managed by primary care physician Coronary artery disease, had a cardiac catheterization 2012 resulted with 2 stents deployment 2.515 mm to the right coronary artery resolute and 2.2522 mm resolute to the LAD, continue to monitor at this time Echocardiogram done on March 25, 2018 showing normal left ventricular size with ejection fraction 65 percent, pulmonary hypertension with PA pressure 45 mmHg Hypertension, controlled. Continue to monitor Hyperlipidemia, monitor lipids Diabetes mellitus, followed and managed by primary care physician Obstructive sleep apnea, using C Pap at night, currently in respiratory failure Obesity History of carotid stenosis, last ultrasound was done in September 2017 showing mild disease on the right and moderate on the left. Continue to monitor Clinical Quality Measures DVT/VTE Risk/Contraindication: Risk Factor Score Per Nursin RFS Level Per Nursing on Admit: 4+=Very High ANDREINA LARA MD Apr 13, 2018 07:41
[2018-04-13 08:00] VITALS: BP 162/69
[2018-04-13] MEDS: ASPIRIN E.C. 81 MG (ECOTRIN) TAB PO SCH (08:13)
[2018-04-13] MEDS: meTOprolol TARTRATE 25 MG (LOPRESSOR) TABLET PO SCH ×2 (08:13→21:02)
[2018-04-13] MEDS: LORATADINE (CLARITIN) 10 MG TAB PO SCH (08:13)
[2018-04-13] MEDS: BENZONATATE 100 MG (TESSALON) CAPSULE PO SCH ×3 (08:13→21:02)
[2018-04-13] MEDS: lisINopril 20 MG (PRINIVIL) TABLET PO SCH (08:13)
[2018-04-13] MEDS: FUROSEMIDE 40 MG (LASIX) TAB PO SCH (08:13)
[2018-04-13] MEDS: PANTOPRAZOLE 40 MG (PROTONIX) TAB PO SCH (08:13)
[2018-04-13] MEDS: LACTOBACILLUS ACIDOPHILUS (PROBIOTIC) CAPSULE PO SCH ×3 (08:14→18:23)
[2018-04-13] MEDS: inSUlin Protamine/ASPart 70/30 1 UNIT/0.01 ML DOSE SC SCH ×2 (08:19→18:25)
[2018-04-13] MEDS: KCL 20 MEQ TAB (K-DUR) PO SCH (09:17)
[2018-04-13] MEDS: risperiDONE 0.25 MG (RisperDAL) TAB PO SCH (09:28)
--- NOTE | 2018-04-13 09:32 | Progress Note ---
Subjective Date Seen by a Provider: Apr 13, 2018 Time Seen by a Provider: 09:00 Subjective/Events-last exam Pt is doing very well. Maintain on oxygen so will perform a home O2 evaluation. (3 liters documented continuously) Discharge planned for tomorrow. Home health orders were initiated for PT, OT, Nursing, and speech. Confusion appears to be improved by baseline dementia noted. Walker ordered. [facility] is his [facility]. Will compile Dr. Pizarro and Dr. Burrows's recommendation for medication today and will plan on sending that in to [facility]. Will have close follow-up with me at [facility]. Bowels are moving. Denies any pain. Review of Systems General: Fatigue Pulmonary: Dyspnea Neurological: Confusion Objective Exam Last Set of Vital Signs Vital Signs Date Time Temp Pulse Resp B/P (MAP) Pulse Ox O2 Delivery O2 Flow Rate FiO2 04/13/18 08:00 97.9 66 20 162/69 (100) 95 Nasal Cannula 2.50 Capillary Refill : I&O Intake and Output 04/13/18 00:00 Intake Total 1330 ml Balance 1330 ml Intake Oral 1330 ml # Voids 7 # Bowel Movements 1 General: Alert, Oriented X3, Cooperative, No Acute Distress, Other (poor recall ) HEENT: Atraumatic, PERRLA Neck: Supple, No JVD Lungs: Clear to Auscultation, Normal Air Movement, Other (diminished BS) Heart: Regular Rate, Normal S1, Normal S2 Abdomen: Normal Bowel Sounds, No Tenderness Extremities: No Clubbing, No Edema, Normal Pulses Skin: No Rashes, No Significant Lesion Neuro: Normal Gait, Normal Speech Psych/Mental Status: Mental Status NL, Mood NL, Other (short term recall poor no changes) Results Lab Laboratory Tests 04/12/18 11:07: Glucometer 104 04/12/18 16:32: Glucometer 102 04/12/18 20:19: Glucometer 106 04/13/18 05:35: White Blood Count 13.2H, Red Blood Count 3.00L, Hemoglobin 8.9L, Hematocrit 27L , Mean Corpuscular Volume 91, Mean Corpuscular Hemoglobin 30, Mean Corpuscular Hemoglobin Concent 33, Red Cell Distribution Width 15.1H, Platelet Count 337, Mean Platelet Volume 9.5, Neutrophils (%) (Auto) 86H, Lymphocytes (%) (Auto) 11L , Monocytes (%) (Auto) 2, Eosinophils (%) (Auto) 0, Basophils (%) (Auto) 0, Neutrophils # (Auto) 11.4H, Lymphocytes # (Auto) 1.5, Monocytes # (Auto) 0.3, Eosinophils # (Auto) 0.0, Basophils # (Auto) 0.0, Sodium Level 129L, Potassium Level 5.1H, Chloride Level 97L, Carbon Dioxide Level 26, Anion Gap 6, Blood Urea Nitrogen 32H, Creatinine 0.92, Estimat Glomerular Filtration Rate > 60, BUN /Creatinine Ratio 35, Glucose Level 206H, Calcium Level 8.4L, Corrected Calcium 9.6, Total Bilirubin 0.8, Aspartate Amino Transf (AST/SGOT) 22, Alanine Aminotransferase (ALT/SGPT) 52, Alkaline Phosphatase 65, Total Protein 4.9L, Albumin 2.5L Assessment/Plan Assessment/Plan Assess & Plan/Chief Complaint Assessment: 1) Acute respiratory failure s/p extubation and Vapotherm in ICU due to ARDS (2) Severe sepsis-resolved (3) Pneumonia-completed abx (4) FAIZA (acute kidney injury)- back at baseline (5) Insulin dependent diabetes mellitus (6) Essential (primary) hypertension (7) CAD (coronary artery disease) (8) Dementia (9) Critical illness myopathy Plan: PT/OT O2 Nebs Sugar checks Monitor closely Prepare for DC tomorrow on HH with walker F/U with me Thursday Diagnosis/Problems Diagnosis/Problems (1) Critical illness myopathy Status: Acute (2) ARDS (adult respiratory distress syndrome) Status: Resolved Resolution Date/Time: 04/12/18 @ 10:10 (3) Severe sepsis Status: Resolved Resolution Date/Time: 03/31/18 @ 12:46 (4) VERO (obstructive sleep apnea) Status: Chronic (5) Essential (primary) hypertension Status: Chronic (6) Insulin dependent diabetes mellitus Status: Chronic (7) FAIZA (acute kidney injury) Status: Resolved Resolution Date/Time: 03/27/18 @ 10:02 (8) Acute respiratory failure Status: Resolved Qualifiers: Qualified Codes: J96.01 - Acute respiratory failure with hypoxia; J96.02 - Acute respiratory failure with hypercapnia Resolution Date/Time: 04/12/18 @ 10:10 (9) Pneumonia Status: Resolved Resolution Date/Time: 04/12/18 @ 10:10 (10) CAD (coronary artery disease) Status: Chronic Qualifiers: Qualified Codes: I25.10 - Atherosclerotic heart disease of [place] coronary artery without angina pectoris (11) Dementia Status: Chronic Qualifiers: Qualified Codes: G30.9 - Alzheimer's disease, unspecified; F02.80 - Dementia in other diseases classified elsewhere without behavioral disturbance (12) BiPAP (biphasic positive airway pressure) dependence Status: Resolved Resolution Date/Time: 04/12/18 @ 10:10 Clinical Quality Measures DVT/VTE Risk/Contraindication: Risk Factor Score Per Nursin RFS Level Per Nursing on Admit: 4+=Very High ADAM BERNAL DO Apr 13, 2018 09:32
--- NOTE | 2018-04-13 09:33 | Speech Therapy Daily Note ---
Speech Daily Progress Note Subjective Date Seen by Provider: Apr 13, 2018 Time Seen by Provider: 00:20 Patient had just finished eating his breakfast and was resting in his recliner. Patient was very pleasant. His was sitting in the room for the session. Assessment Assessment Current Status: Fair Progress Treatment Plan Continue Plan of Care Speech Short Term Goals Short Term Goals Short Term Goals 1) The patient will complete memory tasks with 90% or greater given minimal cues. 2) The patient will demonstrate the ability to follow directions while participating in the other therapies with 90% or greater with minimal cues. Speech Group Home Goals Esthetician Goals The patient will improve his cognitive-communication for safety and independence in order to return home. Speech-Plan Patient/Family Goals Patient/Family Goals: Patient plans to return home with his upon hospital discharge, which could possibly on 04/15/18. Treatment Plan Speech Therapy Treatment Plan: Continue Plan of Care Patient is progressing as a result of skilled ST services. Treatment Duration: Apr 16, 2018 Frequency: 5 times per week Estimated Hrs Per Day: .25 hour per day Rehab Potential: Fair Barriers to Learning: Memory deficit. Pt/Family Agrees to Plan: Yes Safety Risks/Education Teaching Recipient: Patient, Significant Other Teaching Methods: Discussion Response to Teaching: Verbalize Understanding Education Topics Provided: Safety within his room and when he returns home. Time Speech Therapy Time In: 08:30 Speech Therapy Time Out: 08:50 Total Billed Time: 20 Billed Treatment Time 1, NATASHA Holcomb Apr 13, 2018 09:33
--- NOTE | 2018-04-13 09:34 | D/C HH Face to Face Order ---
D/C Face to Face Orders Instructions for Patient [facility], Patient Instructions/FollowUp: Dr [facility] on 04/16/18 Physician to follow Patient: Dr Briana Marie Discharge Diet for Home: Regular Diet Patient Problems: Critical illness myopathy s/p ARDS s/p pneumonia Dementia Patient Data-Allergies,Ht & Wt Patient Allergies: Coded Allergies: No Known Drug Allergies (Unverified , 04/05/18) Height (Feet): 5 Height (Inches): 6.00 Weight (Pounds): 151 Weight (Ounces): 4.0 Home Health Need/Face to Face Date of Face to Face: Apr 13, 2018 Clinical Findings: Generalized weakness and fatigue, Shortness of breath, Unsteady gait I have seen Pt [id number]: Yes Discharged To: Home Diagnosis/Conditions: Critical illness myopathy s/p ARDS s/p pneumonia Dementia Patient is Homebound due to: CognItive deficits, Muscle weakness, Shortness of breath/distress Homebound Status Due to the above stated illness, injury or surgical procedure (medical condition or diagnosis) and associated clinical findings, the patient is homebound because of his/her inability to leave home except with aid of a supportive device and/or person AND leaving the home requires a considerable and taxing effort or is medically contraindicated. Pt req the following assistanc: Walker Home Health Nursing Orders Home Health Services Order: Nursing Services, Title Camera Operator-Evaluate & Treat, Physical Therapy-Evaluate & Treat, Speech Language-Evaluate & Treat Home Health Infusion Therapy Line Type: Midline Site Location: Arm-Upper Certify Stmt I certify that this patient is under my care and that I, a nurse practitioner or a physician; a assistant golf course superintendent working with me, had a face to face encounter that - meets the physician face to face encounter requirements with this patient as dated. BRIANA MARIE DO Apr 13, 2018 09:34
--- NOTE | 2018-04-13 09:35 | NUR ---
Notice of Medicare Non Coverage presented/reviewed/signed and charted. , Osiris signed form per request. They voiced no intention to appeal and deny any needs or further questions at this time. Discharge planning in place. Pt. will be followed [facility] for nursing, PT, OT, and speech. Patient requesting discharge on 04/14/18.
--- NOTE | 2018-04-13 09:40 | NUR ---
Swing Bed Note: Visited with Murray et Osiris, his about any discharge needs or concerns. Physical therapy Jackie reports that he will need a walker at home for safety with ambulation. It appears that Murray will also need continuous oxygen at discharge. He has continued to improve as he has been here with us on swing bed et is no longer experiencing desaturations with activity. He has been on 2LPM via NC with therapy increasing to 3LPM when he was performing exercises on the stairs. Offered this information to the Murray et his et they both confirmed that he has slowly been improving with his breathing. Educated on the importance of continuing his exercises that were taught to him by therapy at home, using his walker with ambulation until doctor gives him the okay to stop using it, et wearing his oxygen continuously until his doctor tells him its okay to stop using it. Both Murray et Osiris voiced understanding. Murray continues to have short term memory problems et reinforcement will be needed. He was very active prior to this hospitalization et consistently reports that he is ready to go bowling. Osiris voiced that she is a little anxious about taking Murray home as she wants him to be successful. Gave encouragement et information about having a snf evaluate him in his home if this transition to home with [facility] did not work. Home Health Care: [facility] for Nursing, Physical Therapy, Occupational Therapy, et Speech Therapy. Durable Medical Equipment: Choices presented et they have selected [facility] for their medical equipment needs of a FWW et continuous oxygen if needed. They have utilized [facility] for oxygen in the recent past.
[2018-04-13 09:55] VITALS: BP 136/62
--- NOTE | 2018-04-13 10:52 | NUR ---
SPO2 DROPPED TO 77% ON ROOM AIR @ REST. REPLACED O2 @ 3 LPM. SPO2 INCREASED TO 91%/ Addendum: 04/13/18 at 1054 by JUDITH TAYLOR RT Amended: Links added.
--- NOTE | 2018-04-13 10:53 | Occupational Ther Daily Note ---
OT Current Status-Daily Note Subjective Pt alert, lying in bed. Pt's present in room. Pt agrees to therapy. Mental Status/Objective Patient Orientation: Person Therapy Code Descriptions/Definitions Functional [place] Measure: 0=Not Assessed/NA 4=Minimal Assistance 1=Total Assistance 5=Supervision or Setup 2=Maximal Assistance 6=Modified [place] 3=Moderate Assistance 7=Complete [place] Attachments: IV, Oxygen ADL-Treatment Therapy Code Descriptions/Definitions Functional [place] Measure: 0=Not Assessed/NA 4=Minimal Assistance 1=Total Assistance 5=Supervision or Setup 2=Maximal Assistance 6=Modified [place] 3=Moderate Assistance 7=Complete [place] Therapy Quality Codes: 6 Independent with activity with or without an assistive device 5 Patient requires set up or clean up by helper. Patient completes activity by themselves 4 Supervision or touching assist (CGA). [place] provide cues , steadying assist 3 The helper provides less than half the effort to complete the activity 2 The helper provides more than half the effort to complete the activity 1 Dependent. The helper does all the effort to complete an activity 7 Patient refused to complete or attempt activity 9 The patient did not perform the activity before the current illness or injury 88 Not attempted due to Medical conditions or safety concerns Toileting (FIM): 5 (Using grabbars for stability) Toileting Hygiene (QC): 5 Transfers (B, C, W/C) (FIM): 4 Toilet/Commode Transfer (FIM): 4 Toilet Transfer (QC): 4 Other Treatment Pt completed UE light resistance theraband. Theraband and therapy foam left in room for pt use. Pt unable to remember exercises given during previous therapies. Verbal and physical cues needed to complete correct technique with exercises. Pt tolerated 2 set 10 reps without SOA. Pt would forget the amount of reps to do and needed redirection. Skilled therapy needed for instructions on correct technique. Pt then requested assist to use restroom. Pt declined using FWW. FWW needed for safety. Pt has decreased balance with dynamic standing and ambulation. Pt able to complete toileting with close SBA for safety. After therapy, respiratory in room monitoring O2 levels. Pt sitting in recliner and present in room. All needs met in room. OT Short Term Goals Short Term Goals Transfers (B,C,W/C) (FIM): 6 1=Demonstrate adherence to instructed precautions during ADL tasks. 2=Patient will verbalize/demonstrate understanding of assistive devices/ modifications for ADL. 3=Patient will improve strength/tolerance for activity to enable patient to perform ADL's. OT Client Support Coordinator Goals Client Support Coordinator Goals Time Frame: Apr 30, 2018 Eating (FIM): 6 Eating (QC): 6 Groomin Oral Hygiene (QC): 6 Bathing(FIM): 5 Shower/Bathe Self (QC): 5 Upper Body Dressing(FIM): 6 Upper Body Dressing (QC): 6 Lower Body Dressing(FIM): 6 Lower Body Dressing (QC): 6 On/Off Footwear (QC): 6 Toileting(FIM): 6 Toileting Hygiene (QC): 6 Toilet/Commode Transfer(FIM): 6 Toilet/Commode Transfer (QC): 6 Shower Transfer(FIM): 5 Additional Goals: 1-Demonstrate ADL Tasks, 2-Verbalize Understanding, 3- ImproveStrength/Patsy 1=Demonstrate adherence to instructed precautions during ADL tasks. 2=Patient will verbalize/demonstrate understanding of assistive devices/ modifications for ADL. 3=Patient will improve strength/tolerance for activity to enable patient to perform ADL's. OT Education/Plan Problem List/Assessment Assessment: Decreased Safety Aware, Impaired Cognition, Impaired Self-Care Skills Pt to benefit from skilled OT intervention for ADL training, transfers, strengthening, and home safety education to increase level of independence and allow safe discharge plan. Discharge Recommendations Plan/Recommendations: Continue POC Treatment Plan/Plan of Care Patient would benefit from OT for education, treatment and training to promote independence in ADL's, mobility, safety and/or upper extremity function for ADL' s. Plan of Care: ADL Retraining, Functional Mobility, UE Funct Exercise/Act Treatment Duration: Apr 30, 2018 Frequency: 5 times per week Estimated Hrs Per Day: .25 hour per day Rehab Potential: Fair Time/GCodes Start Time: 10:20 Stop Time: 10:45 Total Time Billed (hr/min): 25 Billed Treatment Time 1 visit-EX 1 (17 min) ADL 1 (8 min) MINDY VILLALOBOS Apr 13, 2018 10:53
--- NOTE | 2018-04-13 14:38 | Physical Therapy Daily Note ---
PT Daily Note-Current Subjective Pt in recliner with WC applying a bandage to pts L cheek. Pt agrees to PT. Pain Numeric Pain Scale: 0-No Pain Location: No Pain Reported Mental Status Patient Orientation: Person Attachments: Oxygen (2L) Transfers Therapy Code Descriptions/Definitions Functional [place] Measure: 0=Not Assessed/NA 4=Minimal Assistance 1=Total Assistance 5=Supervision or Setup 2=Maximal Assistance 6=Modified [place] 3=Moderate Assistance 7=Complete [place] Therapy Quality Codes: 6 Independent with activity with or without an assistive device 5 Patient requires set up or clean up by helper. Patient completes activity by themselves 4 Supervision or touching assist (CGA). [place] provide cues , steadying assist 3 The helper provides less than half the effort to complete the activity 2 The helper provides more than half the effort to complete the activity 1 Dependent. The helper does all the effort to complete an activity 7 Patient refused to complete or attempt activity 9 The patient did not perform the activity before the current illness or injury 88 Not attempted due to Medical conditions or safety concerns Transfers (B, C, W/C) (FIM): 5 Scootin Sit to/from Stand: 5 Sit to Stand (QC): 5 Weight Bearing Right Lower Extremity: Right Weight Bearing/Tolerated Left Lower Extremity: Left Weight Bearing/Tolerated Gait Training Does the Patient Walk?: Yes Gait (FIM): 5 Distance (FIM): 3=150 ft Distance: 400' Walk 10 feet (QC): 5 Walk 50 ft with 2 Turns(QC): 5 Walk 150 ft (QC): 5 Gait Level of Assist: 5 Gait Persons Needed: 1 Gait Assistive Device: FWW Stair Training Stair Training: Handrails/: uses walker Stairs (FIM): 2 #of Steps: 3 1 Step (curb) (QC): 4 Stairs: Pattern: Step to Level of Assist: 4 Exercises Seated Therapy Exercises: Ankle pumps, Long arc quads, Hip flexion Seated Reps: 10 Assessment Current Status: Fair Progress Pt performs transfers from recliner to FWW SBA. Pt amb 400' with FWW and SBA for safety. Pt required a recovery period after 300' then pt was able to amb 200 ' after standing recovery period. Pt able to perform 3 steps ascending and descending with walker and CGA for safety. Pt requires many VC and manual cues for use of walker for safety on stairs. Pt returned to room and was able to perform seated LE ex with instruction. Pt and are in room and have all needs met. They report the plan is to be dismissed tomorrow. PT Short Term Goals Short Term Goals Time Frame: Apr 16, 2018 Transfers (B,C,W/C) (FIM): 6 Gait (FIM): 6 Distance (FIM): 3=150 ft Gait Distance Comment: 450' Gait Level of Assist: 6 Gait Assistive Device: FWW PT Cable Television Access Coordinator Goals Skilled Nursing Goals PT Skilled Nursing Goals Time Frame: Apr 30, 2018 Transfers (B,C,W/C) (FIM): 7 Sit to Lying (QC): 6 Lying-Sitting on Side/Bed(QC): 6 Sit to Stand (QC): 6 Rollin Roll Left to Right (QC): 6 Car Transfer (QC): 6 Does the Patient Walk: Yes Gait (FIM): 6 Gait distance (FIM): 3=150 ft Distance: 500' Walk 10 feet (QC): 6 Walk 10ft-Uneven Surface(QC): 6 Walk 50ft with 2 Turns (QC): 6 Walk 150 ft (QC): 6 Gait Level of Assist: 6 Gait Assistive Device: FWW Stairs (FIM): 2 # of Steps: 4 Stairs Level Of Assist: 6 PT Plan Problem List Problem List: Activity Tolerance, Functional Strength, Safety, Balance, Gait, Transfer, Bed Mobility, ROM Treatment/Plan Treatment Plan: Continue Plan of Care Treatment Plan: Bed Mobility, Education, Functional Activity Patsy, Functional Strength, Gait, Safety, Therapeutic Exercise, Transfers Treatment Duration: Apr 30, 2018 Frequency: 6 times per week Estimated Hrs Per Day: .25 hour per day (15-30 min) Patient and/or Family Agrees t: Yes Time/GCodes Time In: 1303 Time Out: 1327 Total Billed Treatment Time: 24 Total Billed Treatment 1 visit FA x2 24 min BRI MARTIN PT Apr 13, 2018 14:38
[2018-04-13] MEDS: ENOXAPARIN 40 MG/0.4 ML (LOVENOX) SYR SC SCH (14:52)
--- NOTE | 2018-04-13 15:53 | NUR ---
CM FINALIZED DISCHARGE PLANNING: [facility] reports that they are not innetwork with the patient's insurance. Called et spoke with clinical reviewer at [facility] (Briana) she gave me an in-network list et [facility] is listed. F/U with Patricia at [facility] et she confirms that they are in network et will be able to see the patient on Thursday. Updated patient's Osiris et she reports that [facility] is acceptable for their [facility] provider. [facility] she reports that they will deliver a walker et portable oxygen to [place]'s room for discharge tomorrow. Provider orders faxed. No further interventions noted at this time. Updated patient et with above [facility] et they voice appreciation et agreement.
--- NOTE | 2018-04-13 15:59 | NUR ---
[facility] will need to be faxed to [employer] once electronically scanned into the patient's chart. FAX #[phone] nicolás [place] her phone number is [phone] if further f/u is needed.
[2018-04-13] MEDS: ATORVASTATIN 20 MG (LIPITOR) TABLET PO SCH (18:24)
[2018-04-13] MEDS: predniSONE 10 MG TAB PO SCH (18:24)
[2018-04-13 20:00] VITALS: BP 110/55
[2018-04-13] MEDS: DONEPEZIL 5 MG (ARICEPT) TAB PO SCH (21:02)
[2018-04-13] MEDS: guaiFENesin/CODEINE (ROBITUSSIN AC) 10ML UDC PO SCH (21:02)
[2018-04-13] MEDS: risperiDONE 1 MG (RisperDAL) TAB PO SCH (21:02)
[2018-04-14] MEDS: RT-ALBUTEROL/IPRATROPIUM 3 ML (DUONEB) VIAL INH SCH ×4 (01:36→13:16)
[2018-04-14] MEDS: LACTOBACILLUS ACIDOPHILUS (PROBIOTIC) CAPSULE PO SCH ×2 (06:42→11:45)
[2018-04-14] MEDS: KCL 20 MEQ TAB (K-DUR) PO SCH (06:42)
[2018-04-14] MEDS: inSUlin ASPART (NovoLOG) 1 UNIT/0.01 ML (CHARGE PER UNIT) SC SCH ×2 (06:43→11:45)
[2018-04-14 08:00] VITALS: BP 114/67
[2018-04-14] MEDS: LORATADINE (CLARITIN) 10 MG TAB PO SCH (08:24)
[2018-04-14] MEDS: FUROSEMIDE 40 MG (LASIX) TAB PO SCH (08:24)
[2018-04-14] MEDS: meTOprolol TARTRATE 25 MG (LOPRESSOR) TABLET PO SCH (08:24)
[2018-04-14] MEDS: lisINopril 20 MG (PRINIVIL) TABLET PO SCH (08:24)
[2018-04-14] MEDS: PANTOPRAZOLE 40 MG (PROTONIX) TAB PO SCH (08:24)
[2018-04-14] MEDS: BENZONATATE 100 MG (TESSALON) CAPSULE PO SCH ×2 (08:25→12:18)
[2018-04-14] MEDS: ASPIRIN E.C. 81 MG (ECOTRIN) TAB PO SCH (08:25)
[2018-04-14] MEDS: inSUlin Protamine/ASPart 70/30 1 UNIT/0.01 ML DOSE SC SCH (08:26)
[2018-04-14] MEDS ORDERED: POTA20TA8 PO (08:38)
[2018-04-14] MEDS ORDERED: FURO40TA4 PO (08:38)
[2018-04-14] MEDS ORDERED: PRED10TA22 PO (09:28)
[2018-04-14] MEDS ORDERED: DONE5TAB8 PO (09:28)
[2018-04-14] MEDS ORDERED: IPRA3AMP31 INH (09:28)
[2018-04-14] MEDS ORDERED: PANT40TA3 PO (09:28)
[2018-04-14] MEDS ORDERED: RISP0.253 PO (09:28)
[2018-04-14] MEDS ORDERED: RISP1TAB3 PO (09:28)
--- NOTE | 2018-04-14 09:29 | Discharge Summary-Hospitalist ---
Diagnosis/Chief Complaint Date of Admission Apr 09, 2018 at 11:57 Date of Discharge Discharge Date: Apr 14, 2018 Discharge Diagnosis (1) Critical illness myopathy Status: Acute (2) ARDS (adult respiratory distress syndrome) Status: Resolved (3) Severe sepsis Status: Resolved (4) VERO (obstructive sleep apnea) Status: Chronic (5) Essential (primary) hypertension Status: Chronic (6) Insulin dependent diabetes mellitus Status: Chronic (7) FAIZA (acute kidney injury) Status: Resolved (8) Acute respiratory failure Status: Resolved (9) Pneumonia Status: Resolved (10) CAD (coronary artery disease) Status: Chronic (11) Dementia Status: Chronic (12) BiPAP (biphasic positive airway pressure) dependence Status: Resolved Discharge Summary Discharge Physical Exam Allergies: Coded Allergies: No Known Drug Allergies (Unverified , 04/05/18) Vitals & I&Os Vital Signs Date Time Temp Pulse Resp B/P (MAP) Pulse Ox O2 Delivery O2 Flow Rate FiO2 04/14/18 13:16 93 Nasal Cannula 3.00 04/14/18 08:00 98.2 72 18 114/67 (83) General Appearance: No Apparent Distress, WD/WN, Chronically ill Respiratory: Chest Non Tender, Lungs Clear, Normal Breath Sounds, No Accessory Muscle Use, No Respiratory Distress Cardiovascular: Regular Rate, Rhythm, No Edema, No Gallop, No JVD, No Murmur, Normal Peripheral Pulses Neurologic/Psychiatric: Alert, Oriented x3, No Motor/Sensory Deficits, Normal Mood/Affect, Disoriented Hospital Course Was the Problem List Reviewed?: Yes Hospital Course: Pt had a standard swing bed hospital course he was admitted to recover from ARDS and pneumonia and congestive heart failure, and respiratory failure and he participated in all therapies. Pt completed antibiotics. Pt maintained on oxygen and nebulizer treatments and Pt met criteria for home O2 which was ordered. Bowel function remained normal. Urination was normal. And dementia was managed with medication of Aricept and delirium was managed with Risperdal with good results. Overall he felt strong enough to go home with his with home health, PT, and a walker was ordered along with home O2. I will see him in close follow-up on Thursday at clinic. Labs (last 24 hrs) Laboratory Tests 04/13/18 20:50: Glucometer 74 04/14/18 05:45: Glucometer 204H 04/14/18 11:25: Glucometer 126H Patient resulted labs reviewed. Pending Labs Discussion & Recommendations Discharge Planning: <30 minutes discharge planning Discharge Home Medications: Active Scripts Active Prednisone 10 Mg Tab.ds.pk 10 Mg PO DAILY Take 6 tabs(60mg)daily,decrease by 1 tab(10MG)daily. Pantoprazole Sodium 40 Mg Tablet.dr 40 Mg PO DAILY Risperidone 1 Mg Tablet 1 Mg PO DAILY@2000 Risperidone 0.25 Mg Tablet 0.5 Mg PO DAILY Iprat-Albut 0.5-3(2.5) mg/3 ml (Ipratropium/Albuterol Sulfate) 3 Ml Ampul.neb 3 Ml INH RTQ4HR Aricept (Donepezil HCl) 5 Mg Tablet 5 Mg PO HS Klor-Con M20 (Potassium Chloride) 20 Meq Tab.er.prt 10 Meq PO DAILY@0700 30 Days Furosemide 40 Mg Tablet 40 Mg PO DAILY 30 Days Reported Fish Oil 1,000 mg Capsule ([place] 3 Polyunsat Fatty Acids) 1,000 Mg Cap 1,000 Mg PO DAILY Metformin HCl 500 Mg Tablet 500 Mg PO 1730 Claritin (Loratadine) 10 Mg Tablet 10 Mg PO DAILY Novolog Mix 70-30 Flexpen Syrn (Insuln Asp Prt/Insulin Aspart) 300 Units/3 Ml Solution 12 Units SQ 0800,1730 Metoprolol Tartrate 25 Mg Tablet 25 Mg PO 0800,1730 Aspirin EC (Aspirin) 81 Mg Tablet.dr 81 Mg PO DAILY Atorvastatin Calcium 20 Mg Tablet 20 Mg PO 1730 Multivitamins (Multivitamin) 1 Each Tablet 1 Tab PO DAILY Benazepril HCl 20 Mg Tablet 20 Mg PO DAILY Metformin HCl 500 Mg Tablet 1,000 Mg PO DAILY TAKES 2 (500MG) TABLETS Instructions to patient/family Please see electronic discharge instructions given to patient. Clinical Quality Measures DVT/VTE Risk/Contraindication: Risk Factor Score Per Nursin RFS Level Per Nursing on Admit: 4+=Very High Problem Qualifiers (1) Acute respiratory failure: Respiratory failure complication: hypoxia and hypercapnia Qualified Codes: J96.01 - Acute respiratory failure with hypoxia; J96.02 - Acute respiratory failure with hypercapnia (2) CAD (coronary artery disease): Coronary Disease-Associated Artery/Lesion type: [place] artery [place] vs. transplanted heart: [place] heart Associated angina: without angina Qualified Codes: I25.10 - Atherosclerotic heart disease of [place] coronary artery without angina pectoris (3) Dementia: Dementia type: Alzheimer's disease Alzheimer's disease onset: unspecified onset Dementia behavioral disturbance: without behavioral disturbance Qualified Codes: G30.9 - Alzheimer's disease, unspecified; F02.80 - Dementia in other diseases classified elsewhere without behavioral disturbance ADAM BERNAL DO Apr 14, 2018 09:29
[2018-04-14] MEDS: risperiDONE 0.25 MG (RisperDAL) TAB PO SCH (10:40)
--- NOTE | 2018-04-14 11:43 | Occ Therapy Progress Note ---
Therapy Progress Note Attempted therapy at 1135. Pt sitting EOB with spouse present. Pt declined therapy at this time, states he will be leaving today. Spouse reports they have home health therapy set up after discharge. They have no questions or concerns at this time. All needs met. 1, visit. ANDRIY JHA OT Apr 14, 2018 11:43
--- NOTE | 2018-04-14 13:46 | Cardiology Progress Note ---
Subjective Date Seen by Provider: Apr 14, 2018 Time Seen by Provider: 08:00 Subjective/Events-last exam Patient is laying down in bed. No new complaint. Review of Systems General: No Chills, No Night Sweats; Fatigue; No Malaise, No Appetite, No Other HEENT: No Head Aches, No Visual Changes, No Eye Pain, No Ear Pain, No Dysphasia , No Sinus Congestion, No Post Nasal Drip, No Sore Throat, No Other Pulmonary: Dyspnea; No Cough, No Pleuritic Chest Pain, No Other Cardiovascular: No: Chest Pain, Palpitations, Orthopnea, Paroxysmal Noc. Dyspnea, Edema, Lt Headedness, Other Objective-Cardiology Exam Last Set of Vital Signs Vital Signs 04/14/18 04/14/18 08:00 13:16 Temp 98.2 Pulse 72 Resp 18 B/P (MAP) 114/67 (83) Pulse Ox 93 O2 Delivery Nasal Cannula O2 Flow Rate 3.00 Capillary Refill : I&O Intake and Output 04/14/18 00:00 Intake Total 1805 ml Balance 1805 ml Intake Oral 1805 ml # Voids 6 # Bowel Movements 1 General: Alert, Oriented X3, Cooperative, No Acute Distress, Other (poor recall ) HEENT: Atraumatic, PERRLA Neck: Supple, No JVD Lungs: Clear to Auscultation, Normal Air Movement, Other (diminished BS) Heart: Regular Rate, Normal S1, Normal S2 Abdomen: Normal Bowel Sounds, No Tenderness Extremities: No Clubbing, No Edema, Normal Pulses Skin: No Rashes, No Significant Lesion Neuro: Normal Gait, Normal Speech Psych/Mental Status: Mental Status NL, Mood NL, Other (short term recall poor no changes) Results Lab Laboratory Tests Test 04/13/18 16:20 04/13/18 20:50 04/14/18 05:45 04/14/18 11:25 Range/Units Glucometer 152 H 74 204 H 126 H 70-110 MG/DL A/P-Cardiology Admission Diagnosis CAD HTN HLP DM Assessment/Plan Status post acute respiratory failure, better at this time, back to baseline, managed by primary care team Pneumonia, improved, managed by primary care team Change in mental status, confusion, still mildly disoriented. Probably secondary to hypoxemia. Managed by primary care physician Coronary artery disease, had a cardiac catheterization 2012 resulted with 2 stents deployment 2.515 mm to the right coronary artery resolute and 2.2522 mm resolute to the LAD, continue to monitor at this time Echocardiogram done on March 25, 2018 showing normal left ventricular size with ejection fraction 65 percent, pulmonary hypertension with PA pressure 45 mmHg Hypertension, controlled. Continue to monitor Hyperlipidemia, monitor lipids Diabetes mellitus, followed and managed by primary care physician Obstructive sleep apnea, using C Pap at night, currently in respiratory failure Obesity History of carotid stenosis, last ultrasound was done in September 2017 showing mild disease on the right and moderate on the left. Continue to monitor next Okay for discharge by cardiology, decreased potassium dose to 10 mEq daily. Monitor electrolytes, repeat metabolic profile in one to 2 weeks Clinical Quality Measures DVT/VTE Risk/Contraindication: Risk Factor Score Per Nursin RFS Level Per Nursing on Admit: 4+=Very High ANDREINA LARA MD Apr 14, 2018 13:46
--- NOTE | 2018-04-14 14:58 | Physical Therapy Daily Note ---
PT Daily Note-Current Subjective Pt. declined Rx. States "Ill be active enough when I get home." Family is present, bags are packed, pt. is dressed. Pt. and family states they are anxious to go home. Transfers Therapy Code Descriptions/Definitions Functional [place] Measure: 0=Not Assessed/NA 4=Minimal Assistance 1=Total Assistance 5=Supervision or Setup 2=Maximal Assistance 6=Modified [place] 3=Moderate Assistance 7=Complete [place] Therapy Quality Codes: 6 Independent with activity with or without an assistive device 5 Patient requires set up or clean up by helper. Patient completes activity by themselves 4 Supervision or touching assist (CGA). [place] provide cues , steadying assist 3 The helper provides less than half the effort to complete the activity 2 The helper provides more than half the effort to complete the activity 1 Dependent. The helper does all the effort to complete an activity 7 Patient refused to complete or attempt activity 9 The patient did not perform the activity before the current illness or injury 88 Not attempted due to Medical conditions or safety concerns Weight Bearing Right Lower Extremity: Right Weight Bearing/Tolerated Left Lower Extremity: Left Weight Bearing/Tolerated Assessment Current Status: Refused Treatment DC orders are written , pt. declines Rx as he is discharging soon PT Short Term Goals Short Term Goals Time Frame: Apr 16, 2018 Transfers (B,C,W/C) (FIM): 6 Gait (FIM): 6 Distance (FIM): 3=150 ft Gait Distance Comment: 450' Gait Level of Assist: 6 Gait Assistive Device: FWW PT Fpc Goals Launderer Hand Goals PT Fpc Goals Time Frame: Apr 30, 2018 Transfers (B,C,W/C) (FIM): 7 Gait (FIM): 6 Gait distance (FIM): 3=150 ft Distance: 500' Gait Level of Assist: 6 Gait Assistive Device: FWW Stairs (FIM): 2 # of Steps: 4 Stairs Level Of Assist: 6 PT Plan Treatment/Plan Treatment Plan: Discontinue PT, goals met Treatment Plan: Bed Mobility, Education, Functional Activity Patsy, Functional Strength, Gait, Safety, Therapeutic Exercise, Transfers Treatment Duration: Apr 30, 2018 Frequency: 6 times per week Estimated Hrs Per Day: .25 hour per day (15-30 min) Patient and/or Family Agrees t: Yes Time/GCodes Time In: 1445 Time Out: 1445 Total Billed Treatment Time: 0 Total Billed Treatment 1, no chg, no Rx G Codes Necessary: No AMELIA MOODY SILICATOR Apr 14, 2018 14:58
[2018-04-14 15:45] VITALS: BP 114/67
== END 2018-04-14 15:45 | disposition home health service (06) | DRG 204 ==
LOC: 4TH 04-09 11:57
PROVIDERS: ADMIT Family Medicine; ATTEND Family Medicine
DX: J80 Acute respiratory distress syndrome (principal); J18.9 Pneumonia, unspecified organism; G72.81 Critical illness myopathy; R41.0 Disorientation, unspecified; I10 Essential (primary) hypertension; E11.9 Type 2 diabetes mellitus without complications; G47.33 Obstructive sleep apnea (adult) (pediatric); I25.10 Atherosclerotic heart disease of native coronary artery without angina pectoris; I27.20 Pulmonary hypertension, unspecified; E78.5 Hyperlipidemia, unspecified; G30.9 Alzheimer's disease, unspecified; F02.80 Dementia in other diseases classified elsewhere, unspecified severity, without behavioral disturbance, psychotic disturbance, mood disturbance, and anxiety; I65.23 Occlusion and stenosis of bilateral carotid arteries; Z95.5 Presence of coronary angioplasty implant and graft; Z79.4 Long term (current) use of insulin; Z99.89 Dependence on other enabling machines and devices
CPT/HCPCS: 36415; 80048; 80053; 82962; 85025; 94640; 94760; 94761

== ENCOUNTER 2018-04-23 14:00 | Inpatient (IN) | payer MEDICARE | END 2018-05-08 14:20 | disposition E | LOC: ICU 14:00 | DX: A41.9 Sepsis, unspecified organism (principal); R65.20 Severe sepsis without septic shock; J18.9 Pneumonia, unspecified organism; E27.2 Addisonian crisis; E27.40 Unspecified adrenocortical insufficiency; N17.9 Acute kidney failure, unspecified; G72.81 Critical illness myopathy; J96.10 Chronic respiratory failure, unspecified whether with hypoxia or hypercapnia; E87.2 Acidosis; E87.1 Hypo-osmolality and hyponatremia; J44.0 Chronic obstructive pulmonary disease with (acute) lower respiratory infection; I25.10 Atherosclerotic heart disease of native coronary artery without angina pectoris; I11.0 Hypertensive heart disease with heart failure; I50.9 Heart failure, unspecified; E11.65 Type 2 diabetes mellitus with hyperglycemia; G47.33 Obstructive sleep apnea (adult) (pediatric); J30.2 Other seasonal allergic rhinitis; D64.9 Anemia, unspecified; E78.00 Pure hypercholesterolemia, unspecified; G30.9 Alzheimer's disease, unspecified; F02.80 Dementia in other diseases classified elsewhere, unspecified severity, without behavioral disturbance, psychotic disturbance, mood disturbance, and anxiety; E83.42 Hypomagnesemia; R53.81 Other malaise; Z95.5 Presence of coronary angioplasty implant and graft; Z87.891 Personal history of nicotine dependence; Z79.4 Long term (current) use of insulin; Z85.828 Personal history of other malignant neoplasm of skin ==